=== PATIENT | female | born 1970 | race Caucasian/White ===

== ENCOUNTER → 2018-06-16 13:53 | Outpatient (CLI) | payer OTHER, SELFPAY ==
[2018-06-16 16:11] LABS: Free T3 2.5 pg/mL (2.18-3.98); T4 Free Direct 0.95 ng/dL (0.76-1.46); Thyroid Stim Hormone (TSH) 0.79 uIU/mL (0.358-3.74)
== END ==
PROVIDERS: Family Provider Family Medicine; PCP Family Medicine; Visit Provider Family Medicine
DX: E07.9 Disorder of thyroid, unspecified (principal)
CPT/HCPCS: 36415; 84439; 84443; 84481

== ENCOUNTER → 2018-08-02 09:14 | Outpatient (CLI) | payer OTHER, SELFPAY ==
[2018-08-02 10:35] LABS: Absolute Lymphocyte Count 1.55 X10^3/ul (0.83-4.51); Absolute Neutrophil Count 4.9 X10^3/uL (2.0-7.7); Basophil# 0.03 X10^3/uL; Basophil% 0.4 % (0-1); Eosinophil# 0.14 X10^3/uL; Hematocrit 39.4 % (37-47); Lymphocyte # 1.55 X10^3/ul (4.0); Lymphocyte % 21.9 % (19-41); Mean Corpuscular Hgb 27.8 pg (27.0-32.0); Mean Corpuscular Volume 84.4 fL (81-99); Mean Platelet Vol. 9.2 fl (6.2-12.0); Monocyte# 0.47 X10^3/uL; Monocyte% 6.6 % (0-10); Neutrophil # 4.87 X10^3/uL (2.7-7.7); Neutrophil % 68.8 % (47-70); Platelet Count 210 K/mm3 (150-450); RBC Distribution Width CV 13.6 % (11.6-14.6); RBC Distribution Width SD 41.2 fl (35.1-43.9); Red Blood Count 4.67 M/mm3 (4.2-5.4); White Blood Count 7.1 K/mm3 (4.4-11.0)
[2018-08-02 10:37] LABS: POSITIVE COUNT NO; POSITIVE DIFFERENTIAL NO; POSITIVE MORPHOLOGY NO
[2018-08-02 11:12] LABS: Estradiol 11.6 pg/mL
== END ==
PROVIDERS: Family Provider Family Medicine; PCP Family Medicine; Referring Provider Obstetrics & Gynecology; Visit Provider Obstetrics & Gynecology
DX: R10.2 Pelvic and perineal pain (principal)
CPT/HCPCS: 36415; 82670; 83001; 85025; 87086; 87088

== ENCOUNTER → 2018-08-06 07:56 | Outpatient (CLI) | payer OTHER, SELFPAY ==
--- NOTE | 2018-08-06 07:58 | US_ITS ---
STUDY: ULTRASOUND TRANSVAGINAL CLINICAL: Female, 48 years old. Pelvic pain. TECHNIQUE: Transabdominal and Transvaginal COMPARISON: None. FINDINGS: Normal uterine size measuring 7.7 x 4.7 x 3.8 cm in maximal craniocaudal dimension. There are multiple fibroids measuring from 0.8 to 1.7 cm Normal endometrial thickness measuring 7 mm. Endometrial echoes are hyperechoic. There are no endometrial masses, and there is no fluid in the endometrial cavity. Normal uterine cervix. Normal right ovary, measuring 2.3 x 2.7 x 1.6 cm. There are multiple follicles without a dominant cyst. Normal left ovary, measuring 2.7 x 1.8 x 1.3 cm. There are multiple follicles without a dominant cyst. There is mild free fluid in the pelvis. Polycystic ovary disease: No. Normal bladder contour. US/Transvaginal Non- IMPRESSION: Multiple fibroids as much as 1.7 cm. Electronically Signed: Erick Briones MD at 15:51 EDT , Service support ,
--- NOTE | 2018-08-06 07:58 | US_ITS ---
STUDY: ULTRASOUND TRANSVAGINAL CLINICAL: Female, 48 years old. Pelvic pain. TECHNIQUE: Transabdominal and Transvaginal COMPARISON: None. FINDINGS: Normal uterine size measuring 7.7 x 4.7 x 3.8 cm in maximal craniocaudal dimension. There are multiple fibroids measuring from 0.8 to 1.7 cm Normal endometrial thickness measuring 7 mm. Endometrial echoes are hyperechoic. There are no endometrial masses, and there is no fluid in the endometrial cavity. Normal uterine cervix. Normal right ovary, measuring 2.3 x 2.7 x 1.6 cm. There are multiple follicles without a dominant cyst. Normal left ovary, measuring 2.7 x 1.8 x 1.3 cm. There are multiple follicles without a dominant cyst. There is mild free fluid in the pelvis. Polycystic ovary disease: No. Normal bladder contour. US/Pelvic (Non ) IMPRESSION: Multiple fibroids as much as 1.7 cm. Electronically Signed: Erick Briones MD at 15:51 EDT , Service support ,
== END ==
PROVIDERS: Family Provider Family Medicine; PCP Family Medicine; Referring Provider Obstetrics & Gynecology; Visit Provider Obstetrics & Gynecology
DX: R10.2 Pelvic and perineal pain (principal)
CPT/HCPCS: 76830; 76856; 93976

== ENCOUNTER 2019-01-12 11:30 | Outpatient (RCR) | payer SELFPAY ==
--- NOTE | 2019-05-16 08:21 | HP.PT.NRP ---
HP - Discharge Summary (1) - Patient Information NURY PATIÑO was seen in my office for initial evaluation on . The following Plan of Care was established for this patient: This patient was last seen in our office . 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 At this point I will be discontinuing this patient from physical therapy. I would be happy to see this patient again in the future if found appropriate by the physician. Thank you! Dorothy Ventura, EFRAÍNT
== END 2019-01-12 19:00 | disposition home or self-care (01) ==
LOC: PT 11:30
PROVIDERS: Family Provider Family Medicine; PCP Family Medicine
DX: R69 Illness, unspecified (principal)

== ENCOUNTER → 2019-02-16 10:17 | Outpatient (CLI) | payer OTHER, SELFPAY ==
[2018-08-30 15:55] VITALS: BMI 21.6
[2019-02-16 12:45] LABS: Absolute Neutrophil Count 3.4 X10^3/uL (2.0-7.7); Basophil# 0.02 X10^3/uL; Basophil% 0.4 % (0-1); Eosinophil# 0.07 X10^3/uL; Eosinophils% 1.3 % (0-5); Hematocrit 38.7 % (37-47); Hemoglobin 13.1 g/dl (12.0-15.0); Lymphocyte % 29.4 % (19-41); Mean Corp Hgb Conc 33.9 g/gl (32-36); Mean Corpuscular Hgb 28.2 pg (27.0-32.0); Mean Corpuscular Volume 83.2 fL (81-99); Mean Platelet Vol. 9.2 fl (6.2-12.0); Monocyte# 0.33 X10^3/uL; Monocyte% 6.1 % (0-10); Neutrophil # 3.42 X10^3/uL (2.7-7.7); Neutrophil % 62.6 % (47-70); Platelet Count 236 K/mm3 (150-450); RBC Distribution Width CV 13.8 % (11.6-14.6); RBC Distribution Width SD 41.6 fl (35.1-43.9); Red Blood Count 4.65 M/mm3 (4.2-5.4); White Blood Count 5.5 K/mm3 (4.4-11.0)
[2019-02-16 12:46] LABS: POSITIVE COUNT NO; POSITIVE DIFFERENTIAL NO; POSITIVE MORPHOLOGY NO
[2019-02-16 13:03] LABS: Vitamin B12 575 pg/mL (211-911); Vitamin D,25 Hydroxy 21.9 ng/mL (29.95-100.01)
[2019-02-16 13:25] LABS: Erythrocyte Sedimentation Rate 4 mm/hr (0-30)
[2019-02-16 13:36] LABS: ALB/GLOB Ratio 1.3 RATIO (0.9-2.4); AST(SGOT) 19 U/L (15-37); Alanine Aminotransfer ALT/SGPT 17 U/L (13-56); Albumin, Serum 4.2 g/dL (3.2-5.0); Alkaline Phosphatase 44 U/L (45-117); Anion Gap 7 (5-15); BUN 7 mg/dL (7-18); BUN/Creat Ratio 10.3 RATIO (10-20); CRP < 2.90 mg/L (0.0-3.0); Calcium,Total 9.1 mg/dL (8.5-10.1); Chloride 106 mmol/L (98-107); Creatinine, Serum 0.68 mg/dL (0.55-1.02); EST Glomerular Filtration Rate 97 mL/min (>60); Est Glom Filt Rate - Afr Amer 118 mL/min (>60); Globulin 3.2 g/dL (2.2-4.2); Glucose 93 mg/dL (74-106); Potassium 4.1 mmol/L (3.5-5.1); Protein, Total 7.4 g/dL (6.4-8.2); Sodium Level 141 mmol/L (136-145)
== END ==
PROVIDERS: Family Provider Family Medicine; PCP Family Medicine; Referring Provider Family Medicine; Visit Provider Family Medicine
DX: M25.50 Pain in unspecified joint (principal)
CPT/HCPCS: 36415; 80053; 82306; 82607; 84443; 85025; 85652; 86140

== ENCOUNTER 2019-10-31 09:30 | Outpatient (RCR) | payer OTHER, SELFPAY ==
--- NOTE | 2019-08-24 11:58 | HP.PTEVAL_ITS ---
Patient's Visit Information NURY PATIÑO is a 49 year old F referred to Physical Therapy by ANN SOARES with a diagnosis of R shoulder capsular release. Date of Evaluation: 08/24/19 Physical Therapist: Cesar Guerrero, PT, ATC - Visit Plan Frequency: 2-3x /Week Duration: 6 Weeks Plan: R shoulder stretching, overhead pulleys, wand ex's, PROM/mobs, and HEP. 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 Pt reports she had surgery 08/23/19 for a capsular release. Pt reports she is feeling better since having the surgery performed. Pt reports she has been p erforming HEP consisting of wand ex's and pendulums. 3/10 pain at rest, 5/10 pain at worst. Pt reports no more tingling or numbness at this time in R UE. Sleep difficulty without pain meds. Pt is R hand dominant. Pt reports difficulty with all overhead lifting at this time. - Pain R shoulder Pain Intensity (Out of 10): 3 Pain Intensity Range: 5 - Objective Neuro: B UE sensation is WNL to light touch. B bicepital reflex= 2/3. Observation: Wounds are still covered with dressings. No obvious signs of infection. ROM: L shoulder flex= 155, abd= 160, ER= 70, IR WNL; R shoulder flex= 75, abd= 55, ER= moderately limited at this time. MMT: R shoulder 3/5 and painful. L shoulder 5/5 throughout - Goals Goal 1:: Decrease R shoulder pain x 50% to aid with sleep Goal Time Frame: 4-6 Weeks Goal 2:: Increase R shoulder ROM flex and abd x 20 degrees to aid with overhead lifing Goal Time Frame: 4-6 Weeks Goal 3:: I with HEP Goal Time Frame: 4-6 Weeks - Rehabilitation Potential Physical Therapy Diagnosis: R shoulder pain, weakness, and limited ROM secondary to R shoulder capsular release Rehabilitation Potential: Good - Anticipated Interventions Patient/Client Instruction: Educate patient on: Condition, Plan of Care For the Purpose of:: To improve self management Therapeutic Exercise to Include: Strength training, Flexibilty training, Passive ROM, Active ROM For the Purpose of:: To decrease pain, To increase ROM, To improve muscle performance and motor function Cryotherapy (ice pack, ice massage): Yes For the Purpose of:: To decrease pain Thank you for the opportunity to evaluate your patient. For Medicare and Medicare HMO plans, please review the plan of care and approve it. It will need to be FAXED BACK to us at [phone] for Medicare purposes. For Medicare only, by signing this I certify the plan of care. Please let me know if there are questions or concerns regarding this plan of care. Physician Signature: Date:
--- NOTE | 2019-10-31 09:54 | HP.PTDCSUM ---
HP - PT D/C Summary It has been my pleasure to treat NURY PATIÑO under orders from ANN SOARES, for the diagnosis of R shoulder capsular release for a total of 25 visit(s). Discharge Date: Please see the following information for a summary of their discharge status. - Subjective Subjective: I really feel good. - Pain R shoulder Pain Intensity (Out of 10): 2 Mid-back Pain Intensity (Out of 10): 0 - Overall Improvement % Improvement: 85 - Objective Objective/Function: R shoulder pain 2/10 at endrange. R shoulder ROM: flex= 160, abd= 165, ER= 60, IR minimally limited. R shoulder MMT: 5/5 throughout. Pt is I with HEP. Rx goals achieved - Goals Goal 1:: Decrease R shoulder pain x 50% to aid with sleep Goal 2:: Increase R shoulder ROM flex and abd x 20 degrees to aid with overhead lifing Goal 3:: I with HEP - Plan Plan: Discharge - D/C Information If there are questions or concerns regarding this patient's physical therapy, please feel free to call me at [phone]. Thank you for the referral of this patient. Sincerely, Cesar Guerrero, PT, ATC
== END 2019-10-31 19:00 | disposition home or self-care (01) ==
LOC: PT 09:30
PROVIDERS: Family Provider Family Medicine; PCP Family Medicine
DX: M75.01 Adhesive capsulitis of right shoulder (principal)
CPT/HCPCS: 97110; 97161; 97530

== ENCOUNTER → 2020-01-18 07:31 | Outpatient (CLI) | payer OTHER, SELFPAY ==
--- NOTE | 2020-01-18 07:36 | RAD_ITS ---
STUDY: X-RAY CHEST REASON FOR EXAM: Female, 49 years old. FLU LIKE SYMPTOMS TECHNIQUE: PA and lateral views of the chest. COMPARISON: None. FINDINGS: Hyperinflation. Mild increased markings in the posterior medial segment of the right lower lobe. Follow-up is recommended. There is no demonstrated pleural abnormality. Normal size heart. Normal mediastinum and roxane. Normal visualized pulmonary arteries. Normal visualized aortic arch and descending thoracic aorta. Normal visualized thoracic spine. Normal visualized ribs, clavicles, and shoulders. There is no demonstrated abnormality of the visualized soft tissue structures of the upper abdomen. RAD/Chest PA and Lateral IMPRESSION: Hyperinflation. Findings suggestive of early infiltrate in the posterior medial segment of the right lower lobe. Electronically Signed: Fazla Waldrop, at 14:12 EDT , Service support ,
== END ==
PROVIDERS: PCP Family Medicine; Referring Provider Family Medicine; Visit Provider Family Medicine
DX: R68.89 Other general symptoms and signs (principal)
CPT/HCPCS: 71046

== ENCOUNTER → 2021-02-05 15:07 | Outpatient (CLI) | payer OTHER, SELFPAY ==
[2018-08-30 15:55] VITALS: BMI 21.6
[2021-02-05 15:42] LABS: D-Dimer Quantitative (DVT/PE) <= 0.27 FEU/ug/m (0.27-0.49)
== END ==
PROVIDERS: PCP Internal Medicine; Referring Provider Nurse Practitioner Primary Care; Visit Provider Nurse Practitioner Primary Care
DX: R00.0 Tachycardia, unspecified (principal); R06.02 Shortness of breath
CPT/HCPCS: 85379

== ENCOUNTER → 2021-04-23 20:00 | Outpatient (CLI) | payer OTHER, SELFPAY | PROVIDERS: PCP Internal Medicine | DX: R06.83 Snoring (principal); G47.8 Other sleep disorders; G47.19 Other hypersomnia | CPT/HCPCS: 95810 ==

== ENCOUNTER → 2021-06-14 06:07 | Outpatient (CLI) | payer OTHER, SELFPAY ==
[2018-08-30 15:55] VITALS: BMI 21.6
[2021-06-14 08:25] LABS: Anion Gap 6 (5-15); BUN 11 mg/dL (7-18); BUN/Creat Ratio 13.5 RATIO (10-20); Calcium,Total 9.4 mg/dL (8.5-10.1); Chloride 109 mmol/L (98-107); Cholesterol 202 mg/dL (200); Creatinine, Serum 0.82 mg/dL (0.55-1.02); EST Glomerular Filtration Rate 78 mL/min (>60); Est Glom Filt Rate - Afr Amer 95 mL/min (>60); Glucose 87 mg/dL (74-106); High Density Lipoprotein 83 mg/dL; Sodium Level 141 mmol/L (136-145); Thyroid Stim Hormone (TSH) 1.01 uIU/mL (0.358-3.74); Triglycerides 64 mg/dL; Very Low Density Lipoprotein 13 mg/dL (5-40)
[2021-06-14 08:36] LABS: Vitamin D,25 Hydroxy 30.7 ng/mL
== END ==
PROVIDERS: PCP Family Medicine; Referring Provider Family Medicine; Visit Provider Family Medicine
DX: E07.9 Disorder of thyroid, unspecified (principal); E55.9 Vitamin D deficiency, unspecified; Z13.1 Encounter for screening for diabetes mellitus; Z13.220 Encounter for screening for lipoid disorders
CPT/HCPCS: 36415; 80048; 80061; 82306; 84443

== ENCOUNTER 2021-08-15 13:24 | Emergency (ER) | payer OTHER, SELFPAY ==
[2021-08-15 13:25] VITALS: BP 131/92; PULSE 68; RESP 16; TEMP 36.8; O2SAT 100; BMI 20.9
--- NOTE | 2021-08-15 13:55 | CT_ITS ---
STUDY: CT BRAIN WITHOUT CONTRAST REASON FOR EXAM: Female, 51 years old. Headache RADIATION DOSAGE (If Supplied By Facility): CTDIvol = ( 44.99 ) mGy, DLP = ( 745.49 ) mGycm TECHNIQUE: Transaxial CT imaging of the brain was performed without administration of intravenous contrast material. Individualized dose optimization techniques were used for this CT. COMPARISON: No relevant priors. FINDINGS: Normal soft tissue structures. Normal calvarium. Normal size ventricles and extra-axial spaces for the patient''s age. Normal white matter tracts of the cerebral hemispheres. Normal basal ganglia and thalami. Normal brainstem. Normal cerebellum. There is no intracranial hemorrhage. There are no findings of an acute ischemic infarction. There is a 1.6 cm x 1.5 cm mucosal polyp or retention cyst along the posterior aspect of the right maxillary sinus. CT/Brain/Head without Contrast IMPRESSION: 1.6 cm x 1.5 cm mucosal polyp or retention cyst along the posterior aspect of the right maxillary sinus. Electronically Signed: Fazal Waldrop MD at 14:44 EDT , Service support ,
--- NOTE | 2021-08-15 13:57 | EX.ED.VIS.HA ---
HPI History of Present Illness Chief Complaint: Headache Informant: patient Onset/Context/Timing Onset: Days Context: Gradual Timing: Continuous Current Severity: Moderate Maximum Severity: Moderate Associated Symptoms/Injury Associated Symptoms: Positive for Nausea and Photophobia; Negative for Fever, Vomiting, Sore Throat, Sinus Pressure, Numbness, Tingling, Preceding Aura, Visual Changes, Blurred Vision and Visual Loss Injury - PEDERSON: Negative for Direct Trauma, Fall and Assault Narrative Narrative: 51-year-old female history of migraine headaches. States she had onset of migraine headache on Thursday. Progressively worsened. She took her rescue medications including Maxalt which improved her symptoms then the headache returns. She said normally her headaches do not last this long nor this severe. She denies any fever or neck pain. She has had no head trauma. She is on no blood thinners. There is no family history of intracranial bleeds or aneurysms. She states she is never been imaged. Prior similar symptoms: Yes Recent Illness/Hospitalization: No PFSH PFSH Home Medications fluticasone 100 mcg-salmeterol 50 mcg/dose blistr powdr for inhalation 1 puff INHALATION Q12H 08/02/18 [History Last Taken Unknown] azelastine INTRANASAL 08/15/21 [History Last Taken Unknown] clonazepam 1 mg PO DAILY 08/15/21 [History Last Taken Unknown] dexamethasone 4 mg PO DAILY 08/15/21 [History Last Taken Unknown] escitalopram oxalate mg 08/15/21 [History Last Taken Unknown] fluticasone propion-salmeterol [Advair Diskus] INHALATION 08/15/21 [History Last Taken Unknown] metoprolol succinate 12.5 mg PO DAILY 08/15/21 [History Last Taken Unknown] rizatriptan 10 mg PO DAILY 08/15/21 [History Last Taken Unknown] topiramate 100 mg PO DAILY 08/15/21 [History Last Taken Unknown] ubrogepant [Ubrelvy] mg 08/15/21 [History Last Taken Unknown] Allergy/AdvReac Type Severity Reaction Status Date / Time codeine AdvReac Unknown not known Uncoded 08/15/21 14:02 Family History Mother Sudden cardiac Father Myocardial infarction Social History number of children: 2 current occupational status: employed 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 Photo and sonophobia. Review of Systems ROS Unobtainable: Denies due to encephalopathy Constitutional Constitutional ED: Denies chills or fever(s) Eyes Eyes: Denies change in vision ENT ENT ED: Denies ear pain or sore throat Cardiovascular Cardiovascular: Denies chest pain Respiratory/Chest Respiratory/Chest: Denies dyspnea Gastrointestinal Gastrointestinal: Reports nausea; Denies abdominal pain or vomiting Genitourinary Genitourinary ED: Denies dysuria Musculoskeletal Musculoskeletal: Denies myalgias Integumentary Denies rash Neurologic Neurologic: Reports headache(s) Psychiatric Psychiatric: Denies depression Endocrine Endocrinology: Denies polyuria Hematologic/Lymphatic Hematologic/Lymphatic: Denies easy bruising Allergic/Immunologic Allergic/Immunologic ED: Denies urticaria EXAM Physical Exam Narrative Exam Narrative: 51-year-old female no acute distress. Vital signs stable afebrile. Initial blood pressure 131/92. She does not look septic toxic she is in no distress. HEENT exam normal. No signs of trauma. Pupils round reactive light. Normal speech. No facial droop. Neck nontender neck. No lymphadenopathy. Full range of motion. No meningismus. Lungs clear to auscultation. Heart regular rhythm. Abdomen soft nontender. Moving all 4 extremities. Neurovascularly intact. 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 Normal dorsi plantar flexion. Neurologic exam normal. NIH is 0. Fingertip to nose and [id number] within normal limits. Const Vital Signs: 08/15/21 13:25 08/15/21 15:26 Temperature 98.3 F Temperature Source Temporal Pulse Rate 68 71 Respiratory Rate 16 Blood Pressure 131/92 H 111/70 Blood Pressure Mean 105 83 Pulse Ox 100 Oxygen Delivery Method Room Air Positive well nourished and well developed; Negative for obese, cachectic, contractures or unkempt General Appearance ED: well developed and NAD; Negative for unkempt, cachectic, contractures, cyanotic or diaphoretic Nutritional Appearance: Negative for cachectic or obese HEENT Reports normocephalic and moist mucous membranes atraumatic; Negative for trauma or tenderness Eyes PERRL and EOMs intact bilaterally Neck no lymphadenopathy, supple, no meningeal signs and no JVD General: Negative for tenderness Resp normal respiratory effort and clear to auscultation bilaterally Auscultation: Negative for rales, rhonchi or wheezes Cardio regular rate, regular rhythm, S1 normal heart sound, S2 normal heart sound and no murmurs GI non-tender and non-distended Auscultation: normoactive bowel sounds Palpation: soft; Negative for firm, tender, guarding or rigid Back/Spine no CVA tenderness Extremity normal to inspection and full ROM; Negative for normal capillary refill General Extremety ED: Negative for edema or tenderness General Extremity: Negative for edema Neuro oriented x3, CN's II-XII intact bilaterally and no sensory deficits noted Sensorium / Orientation: awake, alert, oriented to person, oriented to place and oriented to time; Negative for orientation impaired, lethargic or stuporous Coordination / Balance: [id number] test normal and [id number] test normal Motor Exam: strength 5/5 throughout Psych mental status grossly normal Appearance: Negative for unkempt Mood & Affect: Negative for depressed or tearful Skin Lesions: no lesions Rashes: no rashes MDM MDM MDM Narrative Medical decision making narrative: 31-year-old female history of migraines. Never been imaged. She said this is typical for migraine but much worse. She can get it to resolve. Her neurologic exam and regular exam is normal. I will obtain a CT of her brain and treated with IV fluids, Toradol, Benadryl and Compazine. She will be reassessed. Repeat exam patient doing well at 3:27 PM. Headache is completely resolved. Neurologic exam is normal. CAT scan was negative. She is comfortable being discharged home. Radiography Diagnostic Testing: Clinical Impression(s) from Imaging Studies Brain CT 08/15/21 13:55 IMPRESSION: 1.6 cm x 1.5 cm mucosal polyp or retention cyst along the posterior aspect of the right maxillary sinus. Electronically Signed: Fazal Waldrop MD at 14:44 EDT , Service support , I did review the CAT scan it was read by the radiologist. Discharge Plan Triage Chief Complaint: Headache ED Provider: Rahul Denney Dx/Rx/DC Orders Clinical Impression: Migraine Instructions: ED, Migraine (Classical) Prescriptions: No Action Advair Diskus 100-50 mcg/dose blister with device 1 puff INHALATION Q12H RF: 0 rizatriptan 10 mg tablet 10 mg PO DAILY RF: 0 clonazepam 1 mg tablet 1 mg PO DAILY RF: 0 dexamethasone 4 mg tablet 4 mg PO DAILY RF: 0 metoprolol succinate 25 mg tablet extended release 24 hr 12.5 mg PO DAILY RF: 0 fluticasone propion-salmeterol [Advair Diskus] 100-50 mcg/dose blister with device INHALATION RF: 0 topiramate 100 mg tablet 100 mg PO DAILY RF: 0 escitalopram oxalate 20 mg tablet RF: 0 azelastine 205.5 mcg (0.15 %) spray,non-aerosol INTRANASAL RF: 0 Ubrelvy 100 mg tablet RF: 0 Primary Care Provider: Shawn Mckeon Referrals: Shawn Mckeon MD [Primary Care Provider] - 3-5 Days if not improving Activity Restrictions/Additional Instructions: Follow-up with your neurologist and/or your primary care physician if symptoms do not continue to improve. Return if feeling worse or unable to keep medications down. Discussed with your neurologist the potential to also get a prescription for Imitrex. Disposition Disposition: Home, Self Care
[2021-08-15] MEDS: 0.9% Normal Saline 1,000 ML 999 ML IV (14:13)
[2021-08-15] MEDS: Ketorolac 30 MG/ML Syringe IV (14:15)
[2021-08-15] MEDS: DiphenhydrAMINE 50 MG/ML Syringe 25 MG IV (14:16)
[2021-08-15] MEDS: proCHLORPERazine 10 MG/2 ML Vial IV (14:17)
[2021-08-15 15:26] VITALS: BP 111/70; PULSE 71
[2021-08-15 15:44] VITALS: BP 113/68; PULSE 62
== END 2021-08-15 15:49 | disposition home or self-care (01) ==
PROVIDERS: Emergency Provider Emergency Medicine; PCP Family Medicine
DX: G43.909 Migraine, unspecified, not intractable, without status migrainosus (principal); Z79.899 Other long term (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; Z79.51 Long term (current) use of inhaled steroids
CPT/HCPCS: 70450; 96374; 96375; 99283; J7030; A4216

== ENCOUNTER 2021-11-05 16:45 | Outpatient (CLI) | payer OTHER, SELFPAY ==
[2021-11-05] MEDS: 0.9% Saline Lock 10 ML Syringe IV (16:55)
[2021-11-05 17:01] VITALS: BP 135/86; PULSE 86; RESP 16; TEMP 36.7; O2SAT 100; BMI 21.3
[2021-11-05 17:41] VITALS: BP 113/67; PULSE 74; RESP 16; TEMP 37.1; O2SAT 99
[2021-11-05 18:39] VITALS: BP 132/83; PULSE 68; RESP 16; TEMP 37.1; O2SAT 100
== END 2021-11-05 23:59 | disposition home or self-care (01) ==
LOC: MS3OUT 16:46 → MS3 16:47
PROVIDERS: PCP Family Medicine; Referring Provider Nurse Practitioner Adult Health; Visit Provider Nurse Practitioner Adult Health
DX: Z23 Encounter for immunization (principal); U07.1 COVID-19; J45.909 Unspecified asthma, uncomplicated
CPT/HCPCS: J7050; M0243; A4216; Q0240

== ENCOUNTER 2021-12-27 10:21 | Emergency (ER) | payer OTHER, SELFPAY ==
[2021-12-27 10:22] VITALS: BP 102/70; PULSE 65; RESP 16; TEMP 36.5; O2SAT 100; BMI 22.7
--- NOTE | 2021-12-27 10:37 | RAD_ITS ---
STUDY: X-RAY - RIGHT SHOULDER REASON FOR EXAM: Female, 51 years old. TRAUMA-FALL AND PAIN TECHNIQUE: 2 view(s) of the shoulder. COMPARISON: None. FINDINGS: There is an acute, comminuted, impacted surgical neck fracture of the humerus. There is anatomic alignment of the humeral head with the glenoid. The joint space cannot be evaluated on this limited study. There is arthritic narrowing of the acromioclavicular joint, but no demonstrated clavicle or scapular fracture. No upper rib fracture or pneumothorax RAD/Shoulder min 2 Views IMPRESSION: Acute, comminuted, impacted surgical neck fracture of the humerus with soft tissue swelling. Orthopedic surgery consultation recommended There is anatomic alignment of the humeral head relative to the glenoid. No dislocation or subluxation noted Arthritic narrowing of the acromioclavicular joint No other demonstrated fracture Electronically Signed: Cong Holland MD at 11:51 EST ,
--- NOTE | 2021-12-27 10:38 | RAD_ITS ---
STUDY: X-RAY - RIGHT HUMERUS REASON FOR EXAM: Female, 51 years old. Acute pain after fall TECHNIQUE: 3 view(s) of the humerus. COMPARISON: None. FINDINGS: There is an acute, comminuted, slightly impacted surgical neck fracture of the humerus with diffuse soft tissue swelling. No demonstrated fracture of the mid or distal humerus. There is anatomic alignment of the glenohumeral joint RAD/Humerus min 2 Views IMPRESSION: Acute, comminuted, multi fragmented, impacted surgical neck fracture of the humerus with soft tissue swelling Electronically Signed: Cong Holland MD at 11:52 EST ,
[2021-12-27 11:57] VITALS: BP 116/53; PULSE 73; RESP 16; O2SAT 100
[2021-12-27] MEDS: Morphine 4 MG/ML Syringe IV (12:40)
--- NOTE | 2021-12-27 13:09 | EX.ED.UPPERE ---
HPI History of Present Illness HPI Narrative: Patient presents with injury to her right arm that began after a fall today. Patient slipped on the ice and fell onto her right side. Patient states her pain is sharp. Patient states the pain is over the right arm. Patient states her pain is worse with movement. Patient denies any paresthesias or weakness. Patient denies any head injury or loss of consciousness. Patient denies any other injuries. Chief Complaint: Upper Extremity Injury Informant: patient Occured/Mechanism Mechanism/Context: Yes fall Onset/Context/Timing Onset: Today Context: Sudden Onset Timing: Continuous Quality of Pain: Sharp Location: Right upper arm Worsened by: Movement Relieved by: Nothing Associated Symptoms Associated Symptoms: Negative for Parasthesia, Weakness and Loss of Funtion PFSH [facility] Medical History Asthma COVID-19 Pneumonia Home Medications azelastine 2 spray INTRANASAL DAILY 08/15/21 [History Last Taken Unknown] clonazepam 1 mg PO DAILY 08/15/21 [History Last Taken Unknown] escitalopram oxalate 20 mg PO DAILY 08/15/21 [History Last Taken Unknown] metoprolol succinate 12.5 mg PO DAILY 08/15/21 [History Last Taken Unknown] rizatriptan 10 mg PO DAILY PRN 08/15/21 [History Last Taken Unknown] topiramate 100 mg PO BID 08/15/21 [History Last Taken Unknown] ubrogepant [Ubrelvy] 100 mg PO DAILY PRN 08/15/21 [History Last Taken Unknown] albuterol sulfate 1 - 2 puff INHALATION Q4H PRN 11/05/21 [History Last Taken Unknown] desloratadine 5 mg PO DAILY 11/05/21 [History Last Taken Unknown] fluticasone propion-salmeterol [Advair Diskus] 1 ea INHALATION DAILY 11/05/21 [History Last Taken Unknown] amitriptyline 10 mg PO QHS 12/27/21 [History Last Taken Unknown] hydrocodone-acetaminophen 1 tab PO Q6H PRN PRN 3 Days #10 tablet 12/27/21 [Rx Last Taken Unknown] Allergy/AdvReac Type Severity Reaction Status Date / Time codeine Allergy Rash Verified 12/27/21 10:29 Family History Mother Sudden cardiac Father Myocardial infarction Surgical History History of removal of cyst History of shoulder surgery Social History number of children: 2 current occupational status: employed current occupation: [employer] Smoking Status: Never smoker alcohol intake: never substance use type: does not use seatbelt use: always do you feel safe at home: Yes additional social history: recently ROS ROS ED Constitutional Constitutional ED: Denies chills or fever(s) Eyes Eyes: Denies blurry vision or change in vision ENT ENT ED: Denies rhinorrhea or sore throat Cardiovascular Cardiovascular: Denies chest pain or palpitations Respiratory/Chest Respiratory/Chest: Denies cough or dyspnea Gastrointestinal Gastrointestinal: Denies nausea or vomiting Genitourinary Genitourinary ED: Denies dysuria or hematuria Musculoskeletal Musculoskeletal: Denies back pain or neck pain Integumentary Denies abscess or rash Neurologic Neurologic: Denies headache(s) or weakness Allergic/Immunologic Allergic/Immunologic ED: Denies mouth swelling or urticaria EXAM Physical Exam Const Vital Signs: 12/27/21 10:22 12/27/21 11:57 Temperature 97.7 F L Temperature Source Oral Pulse Rate 65 73 Respiratory Rate 16 16 Blood Pressure 102/70 116/53 L Blood Pressure Mean 80 74 Pulse Ox 100 100 Oxygen Delivery Method Room Air Room Air Positive well nourished and well developed General Appearance ED: well developed and NAD HEENT normocephalic and atraumatic Neck full ROM and supple Extremity Extremity Narrative: There is tenderness over the right humerus. There is no edema or ecchymosis. There is no deformity noted. Range of motion was limited in all motions of the right shoulder and right elbow secondary to pain. Radial pulses are equal bilaterally. Capillary refill is less than 2 seconds in all digits. Strength is 5/5 in the radial, median, and ulnar areas. Sensation was intact to light touch in the radial, median, and ulnar areas. Neuro oriented x3, CN's II-XII intact bilaterally, moves all extremities, no focal motor deficits and no sensory deficits noted Sensorium / Orientation: alert Psych mental status grossly normal MDM MDM MDM Narrative Medical decision making narrative: X-rays of the right humerus were obtained. There are 3 views. On my interpretation, there is a comminuted fracture of the proximal humerus. There is minimal displacement. There is no dislocation or subluxation noted. This was also interpreted by the radiologist who agrees. X-rays of the right shoulder were obtained. There are 2 views. On my interpretation, there is a comminuted fracture of the right proximal humerus. There is minimal displacement. There is no dislocation. There is some mild soft tissue swelling. Radiologist also interpreted the x-rays and agrees. Patient was given a dose of morphine here. Patient was placed in a sling and swath. Patient was given a prescription for [place]. Patient states she has an orthopedic surgeon at [facility] that she will follow up with. Patient was instructed return if worse in any way. Patient understood and was agreeable with the plan. All questions were answered. Lab Data Attestation: I reviewed the patient's lab results. Radiography Diagnostic Testing: Clinical Impression(s) from Imaging Studies Shoulder X-Ray 12/27/21 10:37 IMPRESSION: Acute, comminuted, impacted surgical neck fracture of the humerus with soft tissue swelling. Orthopedic surgery consultation recommended There is anatomic alignment of the humeral head relative to the glenoid. No dislocation or subluxation noted Arthritic narrowing of the acromioclavicular joint No other demonstrated fracture Electronically Signed: Cong Holland MD at 11:51 EST Reading Location ID and State: [facility] / OR , Service support , Humerus X-Ray 12/27/21 10:38 IMPRESSION: Acute, comminuted, multi fragmented, impacted surgical neck fracture of the humerus with soft tissue swelling Electronically Signed: Cong Holland MD at 11:52 EST , Discharge Plan Triage Chief Complaint: Upper Extremity Injury ED Provider: Kaushik Livingston Dx/Rx/DC Orders Clinical Impression: Closed fracture of proximal end of right humerus Instructions: ED Fracture, Upper Extremity Prescriptions: New hydrocodone-acetaminophen [hydrocodone-acetaminophen] 1 TABLET tablet 1 tab PO Q6H PRN PRN (Reason: Pain) 3 Days Qty: 10 RF: 0 No Action rizatriptan 10 mg tablet 10 mg PO DAILY PRN (Reason: Migraine Headache) RF: 0 clonazepam 1 mg tablet 1 mg PO DAILY RF: 0 metoprolol succinate 25 mg tablet extended release 24 hr 12.5 mg PO DAILY RF: 0 topiramate 100 mg tablet 100 mg PO BID RF: 0 escitalopram oxalate 20 mg tablet 20 mg PO DAILY RF: 0 azelastine 205.5 mcg (0.15 %) spray,non-aerosol 2 spray INTRANASAL DAILY RF: 0 Ubrelvy 100 mg tablet 100 mg PO DAILY PRN (Reason: migraine) RF: 0 desloratadine 5 mg tablet 5 mg PO DAILY RF: 0 fluticasone propion-salmeterol [Advair Diskus] 100-50 mcg/dose blister with device 1 ea INHALATION DAILY RF: 0 albuterol sulfate 90 mcg/actuation HFA aerosol inhaler 1 - 2 puff INHALATION Q4H PRN (Reason: shortness of breath) RF: 0 amitriptyline 10 mg tablet 10 mg PO QHS RF: 0 Stand Alone Forms: Work Status Form Primary Care Provider: Shawn Castillo Referrals: Shawn Castillo MD [Primary Care Provider] - 3-5 Days Disposition Disposition: Home, Self Care Discharge Date/Time: 12/27/21 14:13
[2021-12-27 13:34] VITALS: BP 113/67; PULSE 73; RESP 16; O2SAT 98
== END 2021-12-27 14:13 | disposition home or self-care (01) ==
PROVIDERS: Emergency Provider Emergency Medicine; PCP Family Medicine; Visit Provider Emergency Medicine
DX: S42.201A Unspecified fracture of upper end of right humerus, initial encounter for closed fracture (principal); J45.909 Unspecified asthma, uncomplicated; Z86.16 Personal history of COVID-19; W00.9XXA Unspecified fall due to ice and snow, initial encounter; Z79.899 Other long term (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
CPT/HCPCS: 73030; 73060; 96374; 99285

== ENCOUNTER 2022-04-07 16:00 | Outpatient (RCR) | payer OTHER, SELFPAY ==
--- NOTE | 2022-01-29 09:05 | HP.PTEVAL_ITS ---
Patient's Visit Information NURY PATIÑO is a 51 year old F referred to Physical Therapy by ANN SOARES with a diagnosis of R humeral Fx. Date of Evaluation: 01/29/22 Physical Therapist: Cesar Guerrero, PT, ATC - Visit Plan Frequency: 2-3x /Week Duration: 4-6 Weeks Plan: Begin with PROM x 2 weeks, then progress to AROM. Begin strengthening when pt can tolerate to include rot cuff strengthening, scap stab ex's, and UBE - Subjective DOI: 12/27/21. Pt reports she slipped on ice on that morning and landed on her R shoulder. Pt reports she went to the hospital and was referred to s surgeon who took x-rays and revealed she had a 2 part fracture of her R humerus. Pt reports she is feeling a little better now as far as pain is concerned, but she notes she feels really stiff. Pt notes she has been in a sling since the date of injur y. Pt notes she had recent x-rays which revealed the fracture is healing, so she should be able to avoid surgery at this time. Pt is R hand dominant. Pt reports occasional tingling in her 2nd and 3rd digits, but not very often. Pt reports sleep difficulty at this time secondary to pain. 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 R shoulder pain is 2/10 at rest currently, and increases to 4/10 at worst. - Pain R shoulder Pain Intensity (Out of 10): 2 Pain Intensity Range: 4 - Objective Neuro: B UE sensation is WNL to light touch. B bicepital reflex= 2/3. Palpation: Pt still has notable swelling in the R UE from mid humerus upwards. No obvious deformity at this time. ROM: L shoulder AROM: flex= 140, abd= 140, ER= 25, IR WNL: L shoulder PROM: flex= 80, abd= 70. MMT: R shoulder not tested today. L shoulder is grossly 4-/5 and increased L shoulder pain. - Balance/Special Test Scores Quick DASH Score: 77.2725 - Goals Goal 1:: Decrease R shoulder pain x 50% to aid with sleep Goal Time Frame: 4-6 Weeks Goal 2:: Increase R shoulder flex and abd ROM x 30 degrees to aid with overhead activity Goal Time Frame: 4-6 Weeks Goal 3:: Increase R shoulder strength x 2 grades to aid with IADL's Goal Time Frame: 4-6 Weeks Goal 4:: I with HEP Goal Time Frame: 4-6 Weeks - Rehabilitation Potential Physical Therapy Diagnosis: Pt has R shoulder pain, weakness, and limited ROM secondary to R humeral fracture Rehabilitation Potential: Good - Anticipated Interventions Patient/Client Instruction: Educate patient on: Condition, Plan of Care For the Purpose of:: To improve self management Therapeutic Exercise to Include: Strength training, Endurance training, Flexibilty training, Active ROM, Scapular Strength/Stabilization For the Purpose of:: To decrease pain, To increase ROM, To improve muscle performance and motor function Cryotherapy (ice pack, ice massage): Yes For the Purpose of:: To decrease pain Thank you for the opportunity to evaluate your patient. For Medicare and Medicare HMO plans, please review the plan of care and approve it. It will need to be FAXED BACK to us at [phone] for Medicare purposes. For Medicare only, by signing this I certify the plan of care. Please let me know if there are questions or concerns regarding this plan of care. Physician Signature: Date:_
--- NOTE | 2022-02-19 08:01 | HP.PTREVAL_ITS ---
ANN SOARES, It has been my pleasure to treat NURY PATIÑO over the last 7 visits for R humeral Fx 12/27/21. Please see the progress note below for an update on the physical therapy plan of care! Subjective: Pt reports R shoulder feels pretty good, but R wrist is still very sore. Objective/Function: R shoulder pain is 2/10. R shoulder ROM: flex= 80, abd= 55. R shoulder strength is grossly 2-/5 and painful with movement. Pt is showing significant signs of improvement with AROM and pain reduction. Pt still lacks functional ROM and strength at this time. Plan Plan: Continue to focus on A/PROM and gradually incorporate strengthening as tolerated Balance/Gait/Functional tests - Balance/Special Test Scores Quick DASH Score: 75.0000 Goals Goal 1:: Decrease R shoulder pain x 50% to aid with sleep Goal Time Frame: 4-6 Weeks Goal Progress: Progressing Goal 2:: Increase R shoulder flex and abd ROM x 30 degrees to aid with overhead activity Goal Time Frame: 4-6 Weeks Goal Progress: Progressing Goal 3:: Increase R shoulder strength x 2 grades to aid with IADL's Goal Time Frame: 4-6 Weeks Goal Progress: Progressing Goal 4:: I with HEP Goal Time Frame: 4-6 Weeks Goal Progress: Progressing Anticipated Interventions Patient/Client Instruction: Educate patient on: Condition, Plan of Care For the Purpose of:: To improve self management Therapeutic Exercise to Include: Strength training, Endurance training, Flexibilty training, Active ROM, Scapular Strength/Stabilization For the Purpose of:: To decrease pain, To increase ROM, To improve muscle performance and motor function Cryotherapy (ice pack, ice massage): Yes For the Purpose of:: To decrease pain Please do not hesitate to contact me at [phone] by phone or Fax: if you have questions or concerns regarding this new plan of care! Sincerely, Cesar Guerrero, PT, ATC
--- NOTE | 2022-04-07 16:30 | HP.PTDCSUM ---
It has been my pleasure to treat NURY PATIÑO referred by ANN SOARES, with the diagnosis of R humeral Fx 12/27/21 for a total of 19 visit(s). Discharge Date: Please see the following information for a summary of their discharge status. Subjective: I feel like I am ready to be done R shoulder Pain Intensity (Out of 10): 1 % Improvement: 75 Objective/Function: R shoulder pain ranges from 0-3/10. R shoulder ROM: flex= 145, abd= 110 degrees. R shoulder MMT: 4-/5 throughout. Pt is I with HEP. Rx goals achieved Goal 1:: Decrease R shoulder pain x 50% to aid with sleep Goal Progress: Goal Met Goal 2:: Increase R shoulder flex and abd ROM x 30 degrees to aid with overhead activity Goal Progress: Goal Met Goal 3:: Increase R shoulder strength x 2 grades to aid with IADL's Goal Progress: Goal Met Goal 4:: I with HEP Goal Progress: Goal Met Plan: Discharge to HEP If there are questions or concerns regarding this patient's physical therapy, please feel free to call me at [phone]. Thank you for the referral of this patient. Sincerely, Cesar Guerrero, PT, ATC Balance/Gait/Functional tests - Balance/Special Test Scores Quick DASH Score: 20.4578
== END 2022-04-07 19:00 | disposition home or self-care (01) ==
LOC: PT 16:00
PROVIDERS: PCP Family Medicine
DX: S42.221A 2-part displaced fracture of surgical neck of right humerus, initial encounter for closed fracture (principal); M75.01 Adhesive capsulitis of right shoulder; G89.18 Other acute postprocedural pain; M65.311 Trigger thumb, right thumb
CPT/HCPCS: 97110; 97140; 97161; 97164

== ENCOUNTER 2023-11-25 02:54 | Emergency (ER) | payer OTHER, SELFPAY ==
[2023-11-25 02:56] VITALS: BP 127/69; PULSE 119; RESP 25; TEMP 37.4; O2SAT 96; BMI 23.4
[2023-11-25 02:59] VITALS: BP 127/69; PULSE 120; PULSE 121; RESP 23; RESP 25; TEMP 37.4; O2SAT 96
--- NOTE | 2023-11-25 03:06 | EDS_ITS ---
HPI History of Present Illness Chief Complaint: Chest Pain Informant: patient Onset/Context/Timing Onset: Today Activity at onset: sudden Timing: Continuous Quality: Positive for Heaviness and Pressure Location: Substernal, Right Parasternal and Left Parasternal Worsened By: Nothing Relieved By: Nothing Associated Symptoms: Positive for Cough and Lightheadedness; Negative for Nausea, Vomiting, Diaphoresis, Dyspnea, Fever, Acid Reflux or Palpitations Narrative Narrative: Patient presents with chest pain that began this morning. Patient states the pain woke her up out of sleep. Patient describes her pain as heaviness and pressure. Patient states that the pain is worse on the right side of her chest. Patient states is also over the substernal area and left parasternal area. Patient states nothing makes it worse and nothing makes it better. Patient admits to some lightheadedness with walking. Patient states she felt like she might pass out. Patient also has a history of bronchiectasis and is susceptible to pneumonia. Patient is concerned that this could be from pneumonia. Patient does admit to a cough with some clear sputum. Patient denies any fevers or chills. [facility] Medical History (Updated 11/25/23 @ 06:[address] Kaushik Livingston, ) Asthma Bronchiectasis COVID-19 Hypertension Pneumonia Right elbow pain Right hand pain Right humeral fracture Right wrist pain Home Medications azelastine 205.5 mcg (0.15 %) nasal spray 2 spray intranasal DAILY 08/15/21 [History Last Taken Unknown] clonazepam 1 mg tablet 1 mg PO DAILY 08/15/21 [History Last Taken Unknown] escitalopram oxalate 20 mg tablet 20 mg PO DAILY 08/15/21 [History Last Taken Unknown] metoprolol succinate 25 mg tablet,extended release 24 hr 12.5 mg PO DAILY 08/15/21 [History Last Taken Unknown] rizatriptan 10 mg tablet 10 mg PO DAILY PRN Migraine Headache 08/15/21 [History Last Taken Unknown] topiramate 100 mg tablet 100 mg PO BID 08/15/21 [History Last Taken Unknown] ubrogepant 100 mg tablet (Ubrelvy) 100 mg PO DAILY PRN migraine 08/15/21 [History Last Taken Unknown] albuterol sulfate 90 mcg/actuation aerosol inhaler 1 - 2 puff inhalation Q4H PRN shortness of breath 11/05/21 [History Last Taken Unknown] desloratadine 5 mg tablet 5 mg PO DAILY 11/05/21 [History Last Taken Unknown] fluticasone 100 mcg-salmeterol 50 mcg/dose blistr powdr for inhalation (Advair Diskus) 1 ea inhalation DAILY 11/05/21 [History Last Taken Unknown] amitriptyline 10 mg tablet 10 mg PO QHS 12/27/21 [History Last Taken Unknown] Allergy/AdvReac Type Severity Reaction Status Date / Time codeine Allergy Rash Verified 12/27/21 10:29 Family History Mother Sudden cardiac Father Myocardial infarction Surgical History H/O thyroidectomy History of removal of cyst History of shoulder surgery Social History number of children: 2 current occupational status: employed current occupation: [employer] Smoking Status: Never smoker alcohol intake: never substance use type: does not use seatbelt use: always do you feel safe at home: Yes additional social history: recently ROS ROS ED Constitutional Constitutional ED: Denies chills or fever(s) Eyes Eyes: Denies blurry vision or change in vision ENT ENT ED: Reports sore throat; Denies rhinorrhea Cardiovascular Cardiovascular: Reports as per HPI and chest pain; Denies palpitations Respiratory/Chest Respiratory/Chest: Reports cough; Denies dyspnea Gastrointestinal Gastrointestinal: Denies nausea or vomiting Genitourinary Genitourinary ED: Denies dysuria or hematuria Musculoskeletal Musculoskeletal: Reports neck pain; Denies back pain Integumentary Denies abscess or rash Neurologic Neurologic: Reports headache(s); Denies weakness Allergic/Immunologic Allergic/Immunologic ED: Denies mouth swelling or urticaria EXAM Physical Exam Const Vital Signs: 11/25/23 02:56 11/25/23 02:59 11/25/23 02:59 Temperature 99.4 F H 99.4 F H 99.4 F H Temperature Source Oral Oral Oral Pulse Rate 119 H 121 H 120 H Respiratory Rate 25 H 23 H 25 H Respiratory Effort Blood Pressure 127/69 H 127/69 H 127/69 H Blood Pressure Mean 88 88 88 Pulse Ox 96 96 96 Oxygen Delivery Method Room Air Room Air Room Air 11/25/23 03:05 11/25/23 04:04 11/25/23 05:01 Temperature 98.9 F 99.5 F H Temperature Source Temporal Temporal Pulse Rate 90 108 H Respiratory Rate 25 H 19 H Respiratory Effort Normal Non-Labored Blood Pressure 108/71 112/62 Blood Pressure Mean 83 78 Pulse Ox 96 95 Oxygen Delivery Method Room Air Room Air 11/25/23 05:01 Temperature 99.5 F H Temperature Source Temporal Pulse Rate 109 H Respiratory Rate 17 Respiratory Effort Blood Pressure 112/62 Blood Pressure Mean 78 Pulse Ox 95 Oxygen Delivery Method Room Air Positive well nourished and well developed General Appearance ED: well developed and NAD HEENT Reports moist mucous membranes Neck supple and no JVD Chest Wall inspection of chest normal and palpation of chest normal Resp normal respiratory effort and clear to auscultation bilaterally Cardio regular rate and regular rhythm GI soft to palpation, non-tender and non-distended Extremity normal to inspection General Extremety ED: Negative for edema or tenderness General Extremity: Negative for edema Neuro oriented x3, CN's II-XII intact bilaterally and no sensory deficits noted Sensorium / Orientation: awake and alert Motor Exam: strength 5/5 throughout Psych mental status grossly normal Heart Score History: Slightly/Non-Suspicious ECG: Normal Age: >45 - <65 years Risk Factors: 1 or 2 Risk Factors Troponin: </= Normal Limit Score: 2 MDM MDM MDM Narrative Medical decision making narrative: Differential diagnosis includes cardiac dysrhythmia, cardiac ischemia, pulmonary embolism, pneumonia, viral infection, musculoskeletal pain, and anxiety. EKG will be obtained to assess for cardiac dysrhythmia and cardiac ischemia. Chest x-ray will be obtained to assess for pneumonia and pneumothorax. CBC will be obtained to assess for leukocytosis and anemia. Basic metabolic profile will be obtained to assess for electrolyte abnormality and renal function. High- sensitivity troponin will be obtained to assess for cardiac ischemia. 2-hour repeat high-sensitivity troponin will be obtained to assess for ongoing cardiac ischemia. D-dimer will be obtained to assess for pulmonary embolism. COVID-19, influenza, and RSV PCR will be obtained to assess for viral infection. Lab Data Attestation: I reviewed the patient's lab results. Lab results narrative: CBC was reviewed. There is a mild anemia with a hemoglobin of 11.3 and hematocrit 34.7. Basic metabolic profile was reviewed and was essentially within normal limits. D-dimer was reviewed and was normal at 0.34. High- sensitivity troponin was reviewed and was normal at 6. 2-hour repeat high- sensitivity troponin was reviewed and was normal at 6. COVID-19 PCR was reviewed and was negative. Influenza PCR was reviewed and was negative for influenza A and influenza B. RSV PCR was reviewed and was negative. Labs: Laboratory Results - last 24 hr 11/25/23 11/25/23 03:26 05:40 WBC 10.4 RBC 4.07 L Hgb 11.3 L Hct 34.7 L MCV 85.3 MCH 27.8 MCHC 32.6 RDW Std Deviation 43.4 RDW Coeff of Caio 14.0 Plt Count 162 MPV 8.5 Immature Gran % (Auto) 0.400 Neut % (Auto) 79.5 H Lymph % (Auto) 11.5 L [place] % (Auto) 7.7 Eos % (Auto) 0.7 Baso % (Auto) 0.2 Absolute Neuts (auto) 8.3 H Absolute Lymphs (auto) 1.20 Nucleated RBC % 0 D-Dimer Quant (PE/DVT) 0.34 Sodium 141 Potassium 3.7 Chloride 115 H Carbon Dioxide 19.0 L Anion Gap 7 BUN 14 Creatinine 0.75 Estim Creat Clear Calc 76.26 Est GFR (MDRD) Af Amer 103 Est GFR (MDRD) Non-Af 85 BUN/Creatinine Ratio 18.7 Glucose 117 H Calcium 8.8 Troponin I High Sens 6 6 Radiography Chest X-Ray - ED: 2 View, Read by ED Physician and Read by Radiologist Diagnostic Testing: Clinical Impression(s) from Imaging Studies Chest X-Ray 11/25/23 03:30 IMPRESSION: Stable chest, no visualized focal infiltrate. Electronically Signed: Meche Fox MD at 3:42 EST , PA and lateral chest x-ray was obtained. There are 2 views. On my independent interpretation, lung iqbal are clear. There is normal cardiac silhouette. Bony thorax is normal. There is no acute process noted. Radiologist also interpreted the x-ray and agrees. EKG Initial EKG: Attestation: I personally reviewed and interpreted this EKG as follows: Interpretation: Sinus Rhythm (99) and No Acute Injury Pattern Comments: EKG was obtained. On my independent interpretation, it showed a normal sinus rhythm with a rate of 99. ME interval, QRS interval, and QTc intervals were all normal. [place] was normal. There are no acute ST or T wave changes. Prior EKG tracings: not available for review Prior: No Prior Treatment and Re-Evaluation :: Patient was advised of her findings. Patient has a HEART score of 2. Patient was advised that this is low risk for acute cardiac event. Patient was instructed to follow-up with her primary care physician in 5 to 7 days. Patient understood and was agreeable with the plan. All questions were answered. Discharge Plan Triage Chief Complaint: Chest Pain ED Provider: Kaushik Livingston Dx/Rx/DC Orders Clinical Impression: Bronchiectasis, Chest pain Instructions: ED Chest Pain, Uncertain Cause Prescriptions: No Action rizatriptan 10 mg tablet 10 mg PO DAILY PRN (Reason: Migraine Headache) clonazepam 1 mg tablet 1 mg PO DAILY metoprolol succinate 25 mg tablet extended release 24 hr 12.5 mg PO DAILY topiramate 100 mg tablet 100 mg PO BID escitalopram oxalate 20 mg tablet 20 mg PO DAILY azelastine 205.5 mcg (0.15 %) spray,non-aerosol 2 spray INTRANASAL DAILY Ubrelvy 100 mg tablet 100 mg PO DAILY PRN (Reason: migraine) desloratadine 5 mg tablet 5 mg PO DAILY fluticasone propion-salmeterol [Advair Diskus] 100-50 mcg/dose blister with device 1 ea INHALATION DAILY albuterol sulfate 90 mcg/actuation HFA aerosol inhaler 1 - 2 puff INHALATION Q4H PRN (Reason: shortness of breath) amitriptyline 10 mg tablet 10 mg PO QHS Patient Comments: TAKE 1 TABLET BY MOUTH EVERYDAY AT BEDTIME Primary Care Provider: Evelina Sherman Referrals: Shawn Castillo MD [Non-Staff] - 5-7 Days Disposition Disposition: Home, Self Care
--- NOTE | 2023-11-25 03:30 | RAD_ITS ---
STUDY: X-RAY CHEST REASON FOR EXAM: Female, 53 years old. Chest pain TECHNIQUE: PA and lateral views of the chest. COMPARISON: January 18, 2020 chest x-ray FINDINGS: The lungs are clear and expanded. There is no demonstrated pleural abnormality. Normal size heart. Normal mediastinum and roxane. Normal visualized pulmonary arteries. Normal visualized aortic arch and descending thoracic aorta. Normal visualized thoracic spine. Normal visualized ribs, clavicles, and shoulders. There is no demonstrated abnormality of the visualized soft tissue structures of the upper abdomen. RAD/Chest PA and Lateral IMPRESSION: Stable chest, no visualized focal infiltrate. Electronically Signed: Meche Fox MD at 3:42 EST ,
[2023-11-25 03:36] LABS: Absolute Neutrophil Count 8.3 X10^3/uL (2.0-7.7); Basophil# 0.02 X10^3/uL; Basophil% 0.2 % (0-1); Eosinophil# 0.07 X10^3/uL; Eosinophils% 0.7 % (0-5); Hematocrit 34.7 % (37-47); Hemoglobin 11.3 g/dL (12.0-15.0); Lymphocyte % 11.5 % (19-41); Mean Corp Hgb Conc 32.6 g/dL (32-36); Mean Corpuscular Hgb 27.8 pg (27.0-32.0); Mean Corpuscular Volume 85.3 fL (81-99); Mean Platelet Vol. 8.5 fl (6.2-12.0); Monocyte% 7.7 % (0-10); NRBC Flagged by Analyzer 0 % (0-5); Neutrophil # 8.27 X10^3/uL (2.7-7.7); Neutrophil % 79.5 % (47-70); Platelet Count 162 K/mm3 (150-450); RBC Distribution Width SD 43.4 fl (35.1-43.9); Red Blood Count 4.07 M/mm3 (4.2-5.4); White Blood Count 10.4 K/mm3 (4.4-11.0)
--- OUTSIDE RECORDS SUMMARY | 2023-11-25 03:37 | XMS RPT_ITS | CCD ---
Author Name Unknown Address [id number] [place] [address] Organization [facility] Care Team Providers Care Plasterer Helper Name Role Phone Yong Castillo MD Primary Care Provider Michi Sherman MD Primary Care Provider Michi Sherman MD Primary Care Provider Michi hSerman MD Primary Care Provider MEGAN MICHI D Primary Care Unavailable FAUSTO DIETRICH Referring Unavailable TALAMPAS, MICHI D Primary Care Unavailable WADSWORTH, CHUCK Attending Unavailable TALAMPAS, MICHI D Primary Care Unavailable TALAMPAS, MICHI D Primary Care Unavailable RAMAN REYES JR Attending Unavailable RAMAN REYES JR Referring Unavailable SANDY CHANDRA Attending Unavailable TALAMPAS, MICHI D Primary Care Unavailable BEKA QUEVEDO Referring Unavailable TALAMPAS, MICHI D Primary Care Unavailable RAMAN REYES JR Referring Unavailable TALAMPAS, MICHI D Primary Care Unavailable RAMAN REYES JR Attending Unavailable TALAMPAS, MICHI D Primary Care Unavailable TALAMPAS, MICHI D Primary Care Unavailable TALAMPAS, MICHI D Referring Unavailable WADSWORTH, CHUCK Referring Unavailable TALAMPAS, MICHI D Primary Care Unavailable TALAMPAS, MICHI D Attending Unavailable RAMAN REYES JR Referring Unavailable RAMAN REYES JR Attending Unavailable TALAMPAS, MICHI D Primary Care Unavailable RONDA ROLLINS Attending Unavailable TALAMPAS, MICHI D Primary Care Unavailable TALAMPAS, MICHI D Primary Care Unavailable FAUSTO DIETRICH Attending Unavailable FAUSTO DIETRICH Referring Unavailable Allergies Allergy Classification Reported Allergen(s) Allergy Type Date of Onset Reaction(s) Facility (20 sources) Acetaminophen / oxyCODONE; Translations: [OXYCODONE-ACETAM INOPHEN] Drug Allergy 9 [facility] (20 sources) Codeine; Translations: [CODEINE] Drug Allergy 5 [facility] Work Phone: (20 sources) guaiFENesin / Pseudoephedrine; Translations: [PSEUDOEPHEDRINE- GUAIFENESIN] Drug Allergy 5 [facility] Work Phone: (20 sources) House dust mite; Translations: [DUST MITES] Allergy to substance 3 Other: See Comments [facility] (20 sources) miSOPROStol; Translations: [MISOPROSTOL] Drug Allergy 3 Other: See Comments [facility] Work Phone: Medications Current Medications Medication Drug Class(es) Dates Sig (Normalized) Sig (Original) acetaminophen 325 mg / HYDROcodone bitartrate 7.5 mg oral tablet (3 sources) Opioid Agonist Start: 05-02-2022 End: 05-09-2022 take 1 tablet by mouth twice daily as needed for pain HYDROcodone-Aceta minophen (NORCO) 7.5-325 mg per tablet Indications: Closed fracture of body of sternum with routine healing, subsequent encounter Take 1 tablet by mouth twice daily as needed for pain for up to 7 days. 14 tablet 0 05/02/2022 05/09/2022 Active Completed/Discontinued Medications Medication Drug Class(es) Dates Sig (Normalized) Sig (Original) [id number] 200 actuat albuterol 0.09 mg/actuat metered dose inhaler (20 sources) beta2-Adrenergic Agonist Start: 08-07-2017 End: 08-21-2023 take 2 puff(s) by inhalation every four hours as needed for wheezing albuterol HFA (VENTOLIN HFA) 90 mcg/actuation inhaler Indications: Mild intermittent asthma with acute exacerbation Inhale 2 Puffs as instructed every 4 hours as needed for wheezing/shortness of breath. 1 Each 1 08/21/2023 Active Problems Active Problems Problem Classification Problem Date Documented Date Episodic/Chronic Anxiety disorders (20 sources) Mixed anxiety and depressive disorder; Translations: [Other specified anxiety disorders] Onset: 09-11-2020 Chronic Asthma (20 sources) Uncomplicated moderate persistent asthma; Translations: [Moderate persistent asthma, uncomplicated] Onset: 07-16-2005 Chronic Cardiac dysrhythmias (2 sources) Tachycardia; Translations: [Tachycardia, unspecified] Episodic Complications of surgical procedures or medical care (2 sources) History of subtotal thyroidectomy; Translations: [Postprocedural hypothyroidism] Onset: 02-04-2023 08-21-2023 Chronic Disorders of lipid metabolism (20 sources) Pure hypercholesterolemia; Translations: [Pure hypercholesterolemia, unspecified] Onset: 02-27-2022 Chronic Headache; including migraine (20 sources) Migraine without aura, not refractory ; Translations: [Migraine without aura, not intractable, without status migrainosus] Onset: 01-09-2021 Chronic Mood disorders (1 source) Mood disorders; Translations: [Anxiety and depression] Onset: 09-11-2020 Nutritional deficiencies (2 sources) Vitamin D deficiency; Translations: [Vitamin D deficiency, unspecified] Onset: 02-04-2023 08-21-2023 Chronic Osteoporosis (2 sources) Senile osteoporosis; Translations: [Age-related osteoporosis without current pathological fracture] Onset: 02-04-2023 08-21-2023 Chronic Other aftercare (2 sources) Long-term current use of benzodiazepine; Translations: [Other fpc (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] Episodic Other congenital anomalies (16 sources) Branchial cleft cyst; 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, fistula and cyst of branchial cleft] Onset: 09-11-2020 09-11-2020 Chronic Other hereditary and degenerative nervous system conditions (20 sources) Restless legs; Translations: [Restless legs syndrome] Onset: 02-01-2021 Chronic Other hereditary and degenerative nervous system conditions (1 source) Restless legs syndrome; Translations: [RLS (restless legs syndrome)] Onset: 02-04-2023 Chronic Other lower respiratory disease (2 sources) Cough; Translations: [Cough] Episodic Other screening for suspected conditions (not mental disorders or infectious disease) (7 sources) Patient encounter status; Translations: [Encounter for screening for osteoporosis] Onset: 10-15-2023 Episodic Other upper respiratory disease (20 sources) Allergic rhinitis; Translations: [Allergic rhinitis, unspecified] Onset: 07-16-2005 07-16-2005 Chronic Other upper respiratory infections (1 source) Acute upper respiratory infection; Translations: [Acute upper respiratory infection, unspecified] 08-29-2023 Episodic Residual codes; unclassified (20 sources) Obstructive sleep apnea syndrome; Translations: [Obstructive sleep apnea (adult) (pediatric)] Onset: 04-29-2021 Chronic Residual codes; unclassified (20 sources) Upper airway resistance syndrome; Translations: [Other sleep disorders] Onset: 02-01-2021 02-01-2021 Chronic Residual codes; unclassified (1 source) Postmenopausal state; Translations: [Asymptomatic menopausal state] Episodic Unclassified (1 source) APPOINTMENT CANCELLED Past or Other Problems Problem Classification Problem Date Documented Da te Episodic/Chronic Benign neoplasm of uterus (16 sources) Uterine leiomyoma; Translations: [Leiomyoma of uterus, unspecified] Onset: 09-14-2013 09-14-2013 Episodic Headache; including migraine (2 sources) Chronic daily headache; Translations: [Chronic daily headache] Onset: 08-06-2021 08-06-2021 Episodic Nutritional deficiencies (20 sources) Iron deficiency; Translations: [Iron deficiency] Onset: 02-07-2021 02-07-2021 Episodic Other aftercare (1 source) Other terminal makeup operator (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; Translations: [Long-term current use of benzodiazepine] Onset: 02-16-2023 Episodic Other fractures (15 sources) Closed fracture of sternum; Translations: [Fracture of body of sternum, initial encounter for closed fracture] Onset: 04-25-2022 04-26-2022 Episodic Other fractures (13 sources) Closed fracture of single left rib; Translations: [Fracture of one rib, left side, initial encounter for closed fracture] Onset: 04-26-2022 04-26-2022 Episodic Other lower respiratory disease (20 sources) Dyspnea; Translations: [Dyspnea, unspecified] Onset: 02-07-2021 02-07-2021 Episodic Results Test Name Value Interpretation Reference Range Facil ity Vital Signs Date Time Vital Sign Value Performing Clinician Phoenixi jessica 10-15-2023 13:45-0500 Body height 166.4 cm Fausto Dietrich MD Work Phone: [facility] 10-15-2023 13:45-0500 Body weight 63.96 kg Fausto Dietrich MD Work Phone: [facility] 10-15-2023 13:45-0500 Diastolic blood pressure 64 mm[Hg] Fausto Dietrich MD Work Phone: [facility] 10-15-2023 13:45-0500 Systolic blood pressure 110 mm[Hg] Fausto Dietrich MD Work Phone: [facility] 08-29-2023 13:21-0400 Body temperature 98.2 [degF] Sergey Zhang MD Work Phone: [facility] 08-29-2023 13:21-0400 Body weight 63.96 kg Sergey Zhang MD Work Phone: [facility] 08-29-2023 13:21-0400 Diastolic blood pressure 78 mm[Hg] Sergey Zhang MD Work Phone: [facility] 08-29-2023 13:21-0400 Heart rate 75 /min Sergey Zhang MD Work Phone: [facility] 08-29-2023 13:21-0400 Respiratory rate 21 /min Sergey Zhang MD Work Phone: [facility] 08-29-2023 13:21-0400 SaO2% (BldA) [Mass fraction] 99 % Sergey Zhang MD Work Phone: [facility] 08-29-2023 13:21-0400 Systolic blood pressure 108 mm[Hg] Sergey Zhang MD Work Phone: [facility] 08-21-2023 08:55-0400 Body weight 63.96 kg Chuck Wadsworth HOME SERVICE DEMONSTRATOR[employer] Work Phone: [facility] 08-21-2023 08:55-0400 Diastolic blood pressure 71 mm[Hg] Chuck Wadsworth HOME SERVICE DEMONSTRATOR[employer] Work Phone: [facility] 08-21-2023 08:55-0400 Heart rate 69 /min Chuck Wadsworth HOME SERVICE DEMONSTRATOR[employer] Work Phone: [facility] 08-21-2023 08:55-0400 Respiratory rate 16 /min Chuck Wadsworth HOME SERVICE DEMONSTRATOR[employer] Work Phone: [facility] 08-21-2023 08:55-0400 Systolic blood pressure 106 mm[Hg] Chuck Beans HOME SERVICE DEMONSTRATOR[employer] Work Phone: [facility] 07-13-2023 08:43-0400 Body weight 63.41 kg Raman Reyes Jr., MD Work Phone: [facility] 07-13-2023 08:43-0400 Diastolic blood pressure 64 mm[Hg] Raman Reyes Jr., MD Work Phone: [facility] 07-13-2023 08:43-0400 Heart rate 95 /min Raman Reyes Jr., MD Work Phone: [facility] 07-13-2023 08:43-0400 Respiratory rate 16 /min Raman Reyes Jr., MD Work Phone: [facility] 07-13-2023 08:43-0400 SaO2% (BldA) [Mass fraction] 99 % Raman Reyes Jr., MD Work Phone: [facility] 07-13-2023 08:43-0400 Systolic blood pressure 116 mm[Hg] Raman Reyes Jr., MD Work Phone: [facility] 02-16-2023 10:18-0400 Body temperature 98.4 [degF] Raman Reyes Jr., MD Work Phone: [facility] 02-16-2023 10:18-0400 Body weight 60.87 kg Raman Reyes Jr., MD Work Phone: [facility] 02-16-2023 10:18-0400 Diastolic blood pressure 78 mm[Hg] Raman Reyes Jr., MD Work Phone: [facility] 02-16-2023 10:18-0400 Heart rate 68 /min Raman Reyes Jr., MD Work Phone: [facility] 02-16-2023 10:18-0400 SaO2% (BldA) [Mass fraction] 100 % Raman Reyes Jr., MD Work Phone: [facility] 02-16-2023 10:18-0400 Systolic blood pressure 116 mm[Hg] Raman Reyes Jr., MD Work Phone: [facility] 12-15-2022 08:49-0500 Body temperature 98.71 [degF] Raman Reyes Jr., MD Work Phone: [facility] 12-15-2022 08:49-0500 Body weight 59.78 kg Raman Reyes Jr., MD Work Phone: [facility] 12-15-2022 08:49-0500 Diastolic blood pressure 76 mm[Hg] Raman Reyes Jr., MD Work Phone: [facility] 12-15-2022 08:49-0500 Heart rate 83 /min Raman Reyes Jr., MD Work Phone: [facility] 12-15-2022 08:49-0500 Respiratory rate 18 /min Raman Reyes Jr., MD Work Phone: [facility] 12-15-2022 08:49-0500 SaO2% (BldA) [Mass fraction] 98 % Raman Reyes Jr., MD Work Phone: [facility] 12-15-2022 08:49-0500 Systolic blood pressure 109 mm[Hg] Raman Reyes Jr., MD Work Phone: [facility] 10-13-2022 08:16-0500 Body height 167.6 cm Fausto Dietrich MD Work Phone: [facility] 10-13-2022 08:16-0500 Body weight 58.51 kg Fausto Dietrich MD Work Phone: [facility] 10-13-2022 08:16-0500 Diastolic blood pressure 60 mm[Hg] Fausto Dietrich MD Work Phone: [facility] 10-13-2022 08:16-0500 Systolic blood pressure 102 mm[Hg] Fausto Dietrich MD Work Phone: [facility] 09-17-2022 11:39-0500 Body weight 58.54 kg Raman Reyes Jr., MD Work Phone: [facility] 09-17-2022 11:39-0500 Diastolic blood pressure 78 mm[Hg] Raman Reyes Jr., MD Work Phone: [facility] 09-17-2022 11:39-0500 Heart rate 72 /min Raman Reyes Jr., MD Work Phone: [facility] 09-17-2022 11:39-0500 Respiratory rate 18 /min Raman Reyes Jr., MD Work Phone: [facility] 09-17-2022 11:39-0500 Systolic blood pressure 119 mm[Hg] Raman Reyes Jr., MD Work Phone: [facility] 05-30-2022 08:56-0400 Body temperature 99.39 [degF] Chuck Wadsworth HOME SERVICE DEMONSTRATOR[employer] Work Phone: [facility] 05-30-2022 08:56-0400 Body weight 57.97 kg Chuck Wadsworth HOME SERVICE DEMONSTRATOR[employer] Work Phone: [facility] 05-30-2022 08:56-0400 Diastolic blood pressure 72 mm[Hg] Chuck Wadsworth HOME SERVICE DEMONSTRATOR[employer] Work Phone: [facility] 05-30-2022 08:56-0400 Heart rate 97 /min Chuck Wadsworth HOME SERVICE DEMONSTRATOR[employer] Work Phone: [facility] 05-30-2022 08:56-0400 Respiratory rate 16 /min Chuck Wadsworth HOME SERVICE DEMONSTRATOR[employer] Work Phone: [facility] 05-30-2022 08:56-0400 SaO2% (BldA) [Mass fraction] 99 % Chuck Wadsworth HOME SERVICE DEMONSTRATOR[employer] Work Phone: [facility] 05-30-2022 08:56-0400 Systolic blood pressure 112 mm[Hg] Chuck Wasdworth HOME SERVICE DEMONSTRATOR[employer] Work Phone: [facility] 04-03-2022 09:00-0400 Body weight 57.61 kg Chuck Wadsworth HOME SERVICE DEMONSTRATOR[employer] Work Phone: [facility] 04-03-2022 09:00-0400 Diastolic blood pressure 74 mm[Hg] Chuck Beans HOME SERVICE DEMONSTRATOR[employer] Work Phone: [facility] 04-03-2022 09:00-0400 Heart rate 68 /min Chuck Beans HOME SERVICE DEMONSTRATOR[employer] Work Phone: [facility] 04-03-2022 09:00-0400 Respiratory rate 16 /min Chuckneha Beans HOME SERVICE DEMONSTRATOR[employer] Work Phone: [facility] 04-03-2022 09:00-0400 Systolic blood pressure 116 mm[Hg] Chuck Beans HOME SERVICE DEMONSTRATOR[employer] Work Phone: [facility] Encounters Encounter Date Encounter Type Care Provider Facility Start: 10-29-2023 End: 10-29-2023 ambulatory RONDA ROLLINS Facility:[facility] Start: 10-15-2023 End: 10-15-2023 ambulatory MICHI SHERMAN Facility:[facility] Start: 10-15-2023 Documentation procedure Mammog flor Coordinator [facility] Start: 10-15-2023 Letter encounter Mammography Coordinator [facility] Department Start: 10-15-2023 End: 10-15-2023 Patient encounter procedure Fausto Dietrich MD Work Phone: OB/Gynecology Procedures Date Procedure Procedure Detail Performing Clinician Start: 02-04-2023 Lipid 1996 panel - S man or Plasma Chuck Wadsworth HOME SERVICE DEMONSTRATOR[employer] Work Phone: Start: 10-13-2022 Mammography Beka horan PA-C Work Phone: Start: 06-23-2022 Dxa bone density adri dy 1/> sites axial skel Chuck Wadsworth HOME SERVICE DEMONSTRATOR[employer] Work Phone: Start: 05-08-2022 Radiologic exam ches t 2 views Chuck Wadsworth HOME SERVICE DEMONSTRATOR[employer] Work Phone: Start: 09-18-2021 Mammography Shawn Castillo MD Work Phone: Start: 10-04-2018 Colonoscopy Shawn Castillo MD Work Phone: Plan of Treatment Date Care Activity Detail Author Start: 10-04-2028 Colonoscopy COLONOSCOPY [facility] Start: 10-04-2028 COLORECTAL CANCER SCREENING COLORECTAL CANCER SCREENING [facility] Start: 10-04-2028 Screening for malign ant neoplasm of colon [facility] Start: 02-05-2028 Lipid 1996 panel - S man or Plasma Lipid Screening [facility] Start: 02-05-2028 Lipid panel Lipid Screening [facility] Start: 02-05-2028 LIPID SCREEN LIPID SCREEN [facility] Start: 10-13-2027 HPV TESTING HPV TESTING [facility] Start: 10-13-2027 PAP TESTING PAP TESTING [facility] Start: 10-13-2027 Screening for malign ant neoplasm of cervix [facility] Start: 02-26-2027 LIPID SCREEN LIPID SCREEN [facility] Start: 04-12-2026 LIPID SCREEN LIPID SCREEN [facility] Start: 02-04-2026 DIABETES SCREEN DIABETES SCREEN [facility] Start: 02-04-2026 Diabetes Screening Diabetes Screenin g [facility] Start: 10-17-2025 DIABETES SCREEN DIABETES SCREEN [facility] Start: 04-26-2025 DIABETES SCREEN DIABETES SCREEN [facility] Start: 02-26-2025 DIABETES SCREEN DIABETES SCREEN [facility] Start: 10-15-2024 Screening for malign ant neoplasm of breast Mammogram Screening [facility] Start: 08-21-2024 Covid-19 Vaccine (#1) Covid-19 Vacci ne (#1) [facility] Immunizations Immunization Date Immunization Notes Care Provider Fa talib 08-18-2017 influenza virus vaccine, unspecified formulation Chuck Wadsworth HOME SERVICE DEMONSTRATOR[employer] Work Phone: [facility] 07-13-2006 tetanus toxoid, reduced diphtheria toxoid, and acellular pertussis vaccine, adsorbed Yong Castillo MD Work Phone: [facility] Work Phone: Payers Date Payer Category Payer Private Health Insurance [facility] [employer] [id number] 2019-Present [phone] [address] [place] [address] O [id number] 2019 Private Health Insurance [facility] [employer] [id number] 2019-Present [phone] [address] [place] [address] O [id number] 2019 Unknown [id number] Social History Date Type Detail Facility Start: 06-13-2022 Tobacco smoking stat [facility] Never smoked tobacco [facility] Work Phone: Start: 02-26-2022 End: 10-15-2023 Alcohol intake Ex-drinker (finding) [facility] Start: 09-03-2020 End: 01-28-2023 History SDOH Alcohol Frequency 2 [facility] Start: 09-03-2020 End: 01-28-2023 History SDOH Alcohol Std Drinks 1 [facility] Start: 12-25-2019 End: 01-28-2023 History SDOH Social Connections Phone 5 [facility] Start: 12-25-2019 End: 01-28-2023 History SDOH Social Connections Living 4 [facility] Start: 12-25-2019 End: 01-28-2023 History SDOH Physical Activity DPW 7 [facility] Start: 07-10-2020 History SDOH Physica l Activity MPS 12 [facility] Start: 07-10-2020 Education 21 [facility] Start: 1970 Sex Assigned At Female C [facility] Start: 02-16-2022 End: 06-13-2022 Exposure to SARS-CoV-2 (event) Not sure [facility] Start: 06-13-2022 Tobacco use and exposure Smoke less tobacco non-user [facility] Work Phone: Start: 01-28-2023 History SDOH Alcohol Std Drinks 0 [facility] Start: 01-28-2023 History SDOH Social Connections [employer] 3 [facility] Start: 10-07-2020 End: 01-28-2023 History of Social function [facility] Start: 10-07-2020 End: 01-28-2023 Social connection and isolation panel [facility] Do you belong to any clubs or organizations such as samaritan groups, unions, fraternal or athletic groups, or school groups? Yes [facility] Are you now , , , , never or living with a partner? [facility] How often to you hav e a drink containing alcohol? Never [facility] How many standard dr inks containing alcohol do you have on a typical day? Patient does not drink [facility] Do you feel stress - tense, restless, nervous, or anxious, or unable to sleep at night because your mind is troubled all the time - these days [OSQ] Not at all [facility] (I/We) worried wheth er (my/our) food would run out before (I/we) got money to buy more. Never true [facility] In the past 12 month s, was there a time when you were not able to pay the mortgage or rent on time? No [facility] Start: 08-22-2020 Gender identity Identifies as female gender (finding) [facility] Clinical Notes 01-14-2021 to 10-29-2023 Fausto Dietrich MD - 10/15/2023 1:41 PM ESTLetter - Coordinator, [facility] - 10/15/2023 10:30 AM ESTTelephone Encounter - Raman Reyes Jr., MD - 10/12/2023 5:14 PM ESTPatient Instructions Note Date & Type Note Facility 10-29-2023 Note HNO ID: [id number] Author: Ronda Rollins APRN.DEBT COLLECTION SPECIALIST Service: ? Author Type: Nurse Practitioner Type: Progress Notes Filed: 10/29/2023 3:23 PM Note Text: [facility] - Follow up Virtual Visit This visit was conducted as a virtual visit, with patient's permission, via Zoom. Patient location - [place] was identified by name and and consented to the video evaluation and its limitations. Based on this evaluation it may be necessary for them to schedule a follow up evaluation with me or other neurologists for formal physical examination and if necessary,other studies. I have communicated my name and active licensure. The patient's identity and physical location were verified at the time of this visit. Either the patient or their legal solar sales representative has been informed of the risks and benefits of -- and alternatives to -- treatment through a remote evaluation and consents to proceed with the evaluation remotely. Accompanied by: Self Primary Problem List: ACTIVE PROBLEM LIST Allergic Rhinitis, Cause Unspecified Anxiety and Depression Migraine Without Aura and Without Status Migrainosus, Not Intractable Uars (Upper Airway Resistance Syndrome) Restless Legs Syndrome Iron Deficiency Dyspnea and Respiratory Abnormalities Selina (Obstructive Sleep Apnea) Moderate Persistent Asthma, Uncomplicated Pure Hypercholesterolemia Episodic Tension-Type Headache, Not Intractable Chief Complaint: headaches Impression and Plan from last visit 04/29/2023, Chandra: ASSESSMENT: 52 year old female with history significant for migraine without aura, anxiety, depression, RLS, insomnia, and prior chronic daily headache and chronic migraine, improved significantly on combined Topiramate and Amitriptyline to a well controlled pattern of episodic migraine and tension type headache. PLAN: (Please see typed patient instructions for detailed instructions) ---> Acute Treatment: -Maxalt vs. Ubrelvy. Both work well for her, but she finds the Ubrelvy more helpful. ---> Preventive Treatment: -Topamax 100 mg bid. -Metoprolol 25 mg, takes a half tab daily for palpitations. HR went from high to low (in 50s). -Amitriptyline 10 mg qhs. -Supplements. ---> Follow-up: 1 year Interval Headache History: [place] is a 53 year old year old female, with a history of migraine without aura, anxiety, depression, RLS, insomnia, and prior chronic daily headache and chronic migraine following up today virtually for headaches. Since the last visit, the patient states that their headaches are slightly worse. Last few weeks headaches have increased, which she attributes to increased stress at work at year end, working overtime, and adjusting to her new glasses. Her typical headache but won't go away. Taking Ubrelvy daily, sometimes twice a day, which helps. Normally takes only 5-6x a month. For past headache cycle muscle relaxant was helpful and she does not recall any ae. Headache 1 Number of migraine headache days/month: 1 Number of headache free days/month: 12 Days missed from work or school in the last month: 0 days Preventative: Topamax 100 mg bid, Amitriptyline 10 mg qhs, Metoprolol 12.5 mg (for palpitations) Abortive: Ubrelvy, Maxalt Medications effective? yes # of doses of abortive medications per month: 5-6x Analgesic Hydrocodone/Acetaminophen (Vicodin, [place]) Hydromorphone (Dilaudid) Ketorolac (Toradol) Meperidine (Demerol) Morphine (Mary, Ms Contin) Oxycodone/Acetaminophen (Percocet) Anti-Anxiety Buspirone (Buspar) Clonazepam (Klonopin) Lorazepam (Ativan) Anti-Convulsant Divalproex sodium (Depakote) IV Gabapentin (Neurontin) Topiramate (Topamax, Trokendi XL, Qudexy) Anti-Depressant and Antipsychotic Amitriptyline (Elavil) Escitalopram (Lexapro) Buspirone Antiemetics Ondansetron Promethazine Anti-Migraine Dihydroergotamine (DHE-45, Migranal) Rizatriptan (Maxalt) Blood Pressure Metoprolol (Lopressor,Toprol XL) GEPANTS Ubrogepant (Ubrelvy) Muscle Relaxer Chlorzoxazone (Parafon Forte) Cyclobenzaprine (Flexeril) Supplements CoQ10 Magnesium Other Medications Dexamethasone (Decadron) Methylprednisolone (Medrol) Prednisone Over the Counter Medications Acetaminophen (Tylenol) Acetaminophen/Aspirin (Goody?s) Acetaminophen/Aspirin/Caffeine (Excedrin, Goody?s) Aspirin Ibuprofen (Advil, Motrin) Naproxen sodium (Aleve) PAST MEDICAL HISTORY Diagnosis Date Allergic rhinitis due to other allergen Anxiety and depression Branchial cyst 09/11/2020 Bronchiectasis without acute exacerbation (HCC) Cervicalgia 01/14/2021 Closed fracture of body of sternum 04/25/2022 Closed fracture of one rib of left side 04/26/2022 Frozen shoulder Humerus fracture 12/2021 Dr. Romero Intractable migraine without status migrainosus Dr. Chandra Iron deficiency SELINA (obstructive sleep apnea) Other insomnia Pure hyperchol (more content not included)... [facility] 10-15-2023 Note HNO ID: [id number] Author: Fausto Dietrich MD Service: ? Author Type: Physician Type: Progress Notes Filed: 10/15/2023 1:58 PM Note Text: Nury is a 53 year old who presents for an annual gynecologic exam without complaints. Postmenopausal: yes HRT use: No. 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 Romero Intractable migraine without status migrainosus Dr. Chandra Iron deficiency SELINA (obstructive sleep apnea) Other insomnia Pure hypercholesterolemia RLS (restless legs syndrome) Dr. Reyes Tachycardia Unspecified asthma, with status asthmaticus Uterine fibroid 09/14/2013 PAST SURGICAL HISTORY Procedure Laterality Date ARTHROSCOPIC RELEASE SHOULDER JOINT Right 08/23/2019 frozen shoulder COLONOSCOPY FLX DX W/COLLJ SPEC WHEN PFRMD 10/04/2018 repeat 10 years EXCISION BRANCHIAL CLEFT CYST Right 09/20/2020 HYSTEROSCOPY WBX WWO D AND C ANDOR POLYPECTOMY 2012 S CATH ABLATION THERMACHOICE 2013 THYROIDECTOMY TOTAL/COMPLETE 1995 partial - ? left FAMILY HISTORY Problem Relation Age of Onset Coronary Artery Disease Father age 73 Hypertension Father Heart Attack Father Stroke Mother age 75 other (Other) Sister Sleep apnea other (Other) Son TAR Syndrome Migraines Daughter Coronary Artery Disease Maternal Grandmother Stroke Maternal Grandmother other (Other) Maternal Grandmother lung dx Diabetes Paternal Uncle SOCIAL HISTORY Social History Tobacco Use Smoking status: Never Smokeless tobacco: Never Vaping Use Vaping Use: Never used Substance Use Topics Alcohol use: Not Currently Drug use: No REVIEW OF SYSTEMS Abdomen: No abdominal pain, nausea, vomiting, diarrhea, or constipation. No bloating, early satiety, indigestion, or increased flatulence. Bladder: No dysuria, gross hematuria, urinary frequency, urinary urgency, or incontinence Breast: No breast lumps, nipple d/c, overlying skin changes, redness or skin retraction Allergies and current medication updated:Yes EXAM: BP 110/64 Ht 5' 5.5 (1.66m) Wt 141 lb (64.0kg) LMP 09/30/2013 BMI 23.10 kg/(m2). GENERAL: pleasant, female in no apparent distress HEENT: Normocephalic, atraumatic, mucus membranes moist, and no lesions NECK: Supple, full range of motion, no adenopathy, and thyroid normal DERMATOLOGY: Normal, without lesions, non-icteric, and non-hirsute BREAST: soft, non-tender, symmetric, no dominant mass, normal nipple-areolar complex, no lymphadenopathy, and no nipple discharge CHEST: Normal inspiratory effort ABDOMEN: soft, non-tender, and no masses PELVIC: external genitalia normal, normal Bartholin's glands, urethra, Lacy-Lakeview's glands, no vulvar lesions, no cervical lesions, good vaginal support, physiologic discharge present, normal appearing perineal body and perianal region BIMANUAL: uterus normal size, shape and consistency, no adnexal masses, and non-tender RECTOVAGINAL: deferred. NEURO: alert and oriented x3,exam grossly non-focal EXTREMITIES: normal ASSESSMENT/PLAN: 1) Health maintenance: Pap done with HPV. Mammogram ordered 2) Follow up one year or sooner as needed Fausto Dietrich MD [facility] 10-15-2023 History of Present illness Narrative Nury is a 53 year old who presents for an annual gynecologic exam without complaints. Postmenopausal: yes HRT use: No. 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 Romero Intractable migraine without status migrainosus Dr. Chandra Iron deficiency SELINA (obstructive sleep apnea) Other insomnia Pure hypercholesterolemia RLS (restless legs syndrome) Dr. Reyes Tachycardia Unspecified asthma, with status asthmaticus Uterine fibroid 09/14/2013 PAST SURGICAL HISTORY Procedure Laterality Date ARTHROSCOPIC RELEASE SHOULDER JOINT Right 08/23/2019 frozen shoulder COLONOSCOPY FLX DX W/COLLJ SPEC WHEN PFRMD 10/04/2018 repeat 10 years EXCISION BRANCHIAL CLEFT CYST Right 09/20/2020 HYSTEROSCOPY WBX WWO D AND C ANDOR POLYPECTOMY 2013 S CATH ABLATION THERMACHOICE 2013 THYROIDECTOMY TOTAL/COMPLETE 1995 partial - ? left FAMILY HISTORY Problem Relation Age of Onset Coronary Artery Disease Father age 73 Hypertension Father Heart Attack Father Stroke Mother age 75 other (Other) Sister Sleep apnea other (Other) Son TAR Syndrome Migraines Daughter Coronary Artery Disease Maternal Grandmother Stroke Maternal Grandmother other (Other) Maternal Grandmother lung dx Diabetes Paternal Uncle SOCIAL HISTORY Social History Tobacco Use Smoking status: Never Smokeless tobacco: Never Vaping Use Vaping Use: Never used Substance Use Topics Alcohol use: Not Currently Drug use: No REVIEW OF SYSTEMS Abdomen: No abdominal pain, nausea, vomiting, diarrhea, or constipation. No bloating, early satiety, indigestion, or increased flatulence. Bladder: No dysuria, gross hematuria, urinary frequency, urinary urgency, or incontinence Breast: No breast lumps, nipple d/c, overlying skin changes, redness or skin retraction Allergies and current medication updated:Yes EXAM: BP 110/64 Ht 5' 5.5 (1.66m) Wt 141 lb (64.0kg) LMP 09/30/2013 BMI 23.10 kg/(m^2). GENERAL: pleasant, female in no apparent distress HEENT: Normocephalic, atraumatic, mucus membranes moist, and no lesions NECK: Supple, full range of motion, no adenopathy, and thyroid normal DERMATOLOGY: Normal, without lesions, non-icteric, and non-hirsute BREAST: soft, non-tender, symmetric, no dominant mass, normal nipple-areolar complex, no lymphadenopathy, and no nipple discharge CHEST: Normal inspiratory effort ABDOMEN: soft, non-tender, and no masses PELVIC: external genitalia normal, normal Bartholin's glands, urethra, Lacy-[place]'s glands, no vulvar lesions, no cervical lesions, good vaginal support, physiologic discharge present, normal appearing perineal body and perianal region BIMANUAL: uterus normal size, shape and consistency, no adnexal masses, and non-tender RECTOVAGINAL: deferred. NEURO: alert and oriented x3,exam grossly non-focal EXTREMITIES: normal ASSESSMENT/PLAN: 1) Health maintenance: Pap done with HPV. Mammogram ordered 2) Follow up one year or sooner as needed Fausto Dietrich MD documented in this encounter [facility] 10-15-2023 Miscellaneous Notes October 16, 2023 PID: [id number] Nury Husain Daydaymickie [address] [address] Dear Ms. Woods, We are pleased to inform you that the results of your recent breast imaging exam on 10/15/2023 are normal. Early detection of cancer is very important. We also understand recommendations regarding breast cancer screening are controversial. Please discuss with your primary care provider which strategy is best for you and whether a mammogram is right for you. Your imaging studies and report will be kept on file at [facility] as part of your permanent medical record and are available for your continuing care. Thank you for allowing us to help in meeting your health care needs. Sincerely, Dr. Glass Interpreting Radiologist [facility] (Normal over 40) documented in this encounter [facility] 10-15-2023 Note HNO ID: [id number] Author: Cris Torres RT(R) Service: ? Author Type: [employer] Vice President Type: Progress Notes Filed: 10/15/2023 7:35 AM Note Text: Radiology Service Progress Note PATIENT NAME: Nury Woods DATE OF SERVICE: October 15, 2023 TIME: 7:34 AM PATIENT IDENTITY VERIFICATION COMPLETED USING TWO (2) IDENTIFIERS: Name and Date of confirmed by patient verbally. FALL SCREENING: Has the patient had 2 falls in the last year or 1 fall with injury or currently using an Ambulatory Assistive Device (Walker, Cane, Wheelchair, Crutches, etc.)? No PATIENT GENDER DATA: Female. status: : No status: NO. PATIENT RELEVANT IMPLANT DATA REVIEWED: Not Applicable RADIOLOGY DEPARTMENT: Mammography PERIPHERAL IV DATA: Not applicable SIGNED BY: RT Elieser(R) October 15, 2023 7:[address] [facility] 10-12-2023 Miscellaneous Notes PDMP website checked and validated. All prescriptions have been APPROPRIATELY filled. No suspicious activity was identified. Note: A urine tox screen and urine pain panel have been completed appropriately (after 12 weeks of initiating therapy and at least yearly thereafter). 10/12/2023 by Raman Reyes MD [facility] 07/13/23 with [facility] NOV 12/08/23 with [facility] Refill 07/22/23 with qty: 30 and 2 refills Steph Vallecillo LPN [facility] Assessment/Plan ASSESSMENT/PLAN: 1. RLS (restless legs syndrome) - ICD9: 333.94, ICD10: G25.81 (primary diagnosis) Well controlled on Klonopion 1mg nightly for years now. No changes to meds, with pt trying in the past with exacerbation of symptoms. Pt understands fpc side effects to consider with Klonopin. No new complaint. UDS last visit and will not need again until next year. 2. Long-term current use of benzodiazepine - ICD9: V58.69, ICD10: Z79.899 As above. Will need UDS next year. 3. SELINA (obstructive sleep apnea) - ICD9: 327.23, ICD10: G47.33 Stable. AHI controlled on PAP data download. Reminded patient to clean and replace PAP equipment regularly. Advised pt not to drive or operate heavy machinery if sleepy. 4. Anxiety - ICD9: 300.00, ICD10: F41.9 Stable at night with Klonopin controlling both these symptoms and RLS. Raman Reyes MD documented in this encounter [facility] 08-29-2023 Note HNO ID: [id number] Author: Sergey Zhang MD Service: ? Author Type: Physician Type: Progress Notes Filed: 08/29/2023 1:43 PM Note Text: Patient presents with: Ear Problem: Bilateral ears feel full/pressure, BRYAN, cough, runny nose, sore throat, fatigue x 5 days HPI: Feeling sick for 3-4 days. Positive symptoms: Cough, Sore throat, Earache, Nasal Congestion, Rhinorrhea, Malaise, Fatigue, Headache, Negative symptoms: change in Shortness of breath/Wheezing, Fever, Vomiting, Diarrhea, OTC: routine meds Has not had COVID test this week. PAST MEDICAL HISTORY Diagnosis Date Allergic rhinitis due to other allergen Anxiety and depression Branchial cyst 09/11/2020 Bronchiectasis without acute exacerbation (HCC) Cervicalgia 01/14/2021 Closed fracture of body of sternum 04/25/2022 Closed fracture of one rib of left side 04/26/2022 Frozen shoulder Humerus fracture 12/2021 Dr. Romero Intractable migraine without status migrainosus Dr. Chandra Iron deficiency SELINA (obstructive sleep apnea) Other insomnia Pure hypercholesterolemia RLS (restless legs syndrome) Dr. Ryees Tachycardia Unspecified asthma, with status asthmaticus Uterine fibroid 09/14/2013 MEDICATIONS: Current Outpatient Medications Medication Sig albuterol HFA (VENTOLIN HFA) 90 mcg/actuation inhaler Inhale 2 Puffs as instructed every 4 hours as needed for wheezing/shortness of breath. clonazePAM (KLONOPIN) 1 mg tablet Take 1 tablet by mouth daily at bedtime for 90 days. Do not start before July 22, 2023. Ibandronate 150 mg tablet Take 1 tablet by mouth once every month. In AM with cup of water on empty stomach. Nothing else by mouth and stay upright for 60 min. metoprolol succinate ER (TOPROL XL) 25 mg 24 hr tablet Take 0.5 tablets by mouth once daily. escitalopram oxalate (LEXAPRO) 20 mg tablet Take 1 tablet by mouth once daily. topiramate (TOPAMAX) 100 mg tablet Take 1 tablet by mouth twice daily. amitriptyline (ELAVIL) 10 mg tablet Take 1 tablet by mouth daily at bedtime. rizatriptan (MAXALT) 10 mg tablet Take (1) tab at onset of headache, may repeat once in 2hrs if needed. No more than 2 doses in 24 hours. ubrogepant (UBRELVY) 100 mg tablet Take 1 tablet by mouth at migraine onset. May repeat same dose once in 2 hours as needed. Limit 2 doses in 24 hours. coenzyme Q10 (COENZYME Q-10) 100 mg cap capsule Take 1 capsule by mouth once daily. CPAP Please provide a smaller size headgear - child size if available. Large air leak on download. G47.33 SELINA CPAP New set up: Settings 5 - 12 cm H2O, suitable mask per pt preference, chin strap, head gear, humidity, tubing, lifetime supplies. G47.33 SELINA desloratadine (CLARINEX) 5 mg tablet fluticasone-salmeterol (ADVAIR DISKUS) 100-50 mcg/Dose INHALATION DsDv 1 puffs every 12 hours azelastine (ASTELIN) 137 mcg NASAL SprA 2 puffs every 12 hours No current facility-administered medications for this visit. ALLERGIES: ALLERGIES Allergen Reactions Codeine Rash Cytotec [Misoprosto* Other: See Comments Fainting Dust Mites Other: See Comments Has had allergy test 06/2020- immune to dust now Entex Pse [Pseudoep* Rash Percocet [Oxycodone* Rash VITALS: BP 108/78 Pulse 75 Temp 36.8 ?C (98.2 ?F) Resp 21 Wt 64 kg (141 lb) LMP 09/30/2013 SpO2 99% BMI 23.07 kg/m? PHYSICAL EXAM: GEN: mildly ill appearing HEENT: PERRL, EOMI, conjunctiva clear Ears: canals with cerumen, visible TMs without erythema Sinuses: non-tender frontal sinus, non-tender maxillary sinuses Throat: moist mucous membranes, mild erythema, no exudate Neck: supple, no thyromegaly, no lymphadenopathy HEART: regular rate and rhythm, no murmurs LUNGS: clear to auscultation, no wheezes or crackles, no increased WOB ASSESSMENT/PLAN: 1. URI, acute - ICD9: 465.9, ICD10: J06.9 - suspect viral URI, differential includes COVID-19. - Discussed supportive care treatment with rest, cold medicine, and analgesia. - Red flags to seek further treatment include chest pain, shortness of breath, and lethargy; in the ER if severe. - COVID NAAT, UPPER RESPIRATORY, ROUTINE would like antiviral treatment if positive for COVID. Paxlovid has interactions with Advair (steroid) and Ubrelvy. Schedule with [facility] or return tomorrow to discuss molnupiravir. Sergey Zhang MD [facility] 08-29-2023 History of Present illness Narrative Patient presents with: Ear Problem: Bilateral ears feel full/pressure, BRYAN, cough, runny nose, sore throat, fatigue x 5 days HPI: Feeling sick for 3-4 days. Positive symptoms: Cough, Sore throat, Earache, Nasal Congestion, Rhinorrhea, Malaise, Fatigue, Headache, Negative symptoms: change in Shortness of breath/Wheezing, Fever, Vomiting, Diarrhea, OTC: routine meds Has not had COVID test this week. PAST MEDICAL HISTORY Diagnosis Date Allergic rhinitis due to other allergen Anxiety and depression Branchial cyst 09/11/2020 Bronchiectasis without acute exacerbation (HCC) Cervicalgia 01/14/2021 Closed fracture of body of sternum 04/25/2022 Closed fracture of one rib of left side 04/26/2022 Frozen shoulder Humerus fracture 12/2021 Dr. Romero Intractable migraine without status migrainosus Dr. Chandra Iron deficiency SELINA (obstructive sleep apnea) Other insomnia Pure hypercholesterolemia RLS (restless legs syndrome) Dr. Reyes Tachycardia Unspecified asthma, with status asthmaticus Uterine fibroid 09/14/2013 MEDICATIONS: Current Outpatient Medications Medication Sig albuterol HFA (VENTOLIN HFA) 90 mcg/actuation inhaler Inhale 2 Puffs as instructed every 4 hours as needed for wheezing/shortness of breath. clonazePAM (KLONOPIN) 1 mg tablet Take 1 tablet by mouth daily at bedtime for 90 days. Do not start before July 22, 2023. Ibandronate 150 mg tablet Take 1 tablet by mouth once every month. In AM with cup of water on empty stomach. Nothing else by mouth and stay upright for 60 min. metoprolol succinate ER (TOPROL XL) 25 mg 24 hr tablet Take 0.5 tablets by mouth once daily. escitalopram oxalate (LEXAPRO) 20 mg tablet Take 1 tablet by mouth once daily. topiramate (TOPAMAX) 100 mg tablet Take 1 tablet by mouth twice daily. amitriptyline (ELAVIL) 10 mg tablet Take 1 tablet by mouth daily at bedtime. rizatriptan (MAXALT) 10 mg tablet Take (1) tab at onset of headache, may repeat once in 2hrs if needed. No more than 2 doses in 24 hours. ubrogepant (UBRELVY) 100 mg tablet Take 1 tablet by mouth at migraine onset. May repeat same dose once in 2 hours as needed. Limit 2 doses in 24 hours. coenzyme Q10 (COENZYME Q-10) 100 mg cap capsule Take 1 capsule by mouth once daily. CPAP Please provide a smaller size headgear - child size if available. Large air leak on download. G47.33 SELINA CPAP New set up: Settings 5 - 12 cm H2O, suitable mask per pt preference, chin strap, head gear, humidity, tubing, lifetime supplies. G47.33 SELINA desloratadine (CLARINEX) 5 mg tablet fluticasone-salmeterol (ADVAIR DISKUS) 100-50 mcg/Dose INHALATION DsDv 1 puffs every 12 hours azelastine (ASTELIN) 137 mcg NASAL SprA 2 puffs every 12 hours No current facility-administered medications for this visit. ALLERGIES: ALLERGIES Allergen Reactions Codeine Rash Cytotec [Misoprosto* Other: See Comments Fainting Dust Mites Other: See Comments Has had allergy test 06/2020- immune to dust now Entex Pse [Pseudoep* Rash Percocet [Oxycodone* Rash VITALS: BP 108/78 Pulse 75 Temp 36.8 C (98.2 F) Resp 21 Wt 64 kg (141 lb) LMP 09/30/2013 SpO2 99% BMI 23.07 kg/m PHYSICAL EXAM: GEN: mildly ill appearing HEENT: PERRL, EOMI, conjunctiva clear Ears: canals with cerumen, visible TMs without erythema Sinuses: non-tender frontal sinus, non-tender maxillary sinuses Throat: moist mucous membranes, mild erythema, no exudate Neck: supple, no thyromegaly, no lymphadenopathy HEART: regular rate and rhythm, no murmurs LUNGS: clear to auscultation, no wheezes or crackles, no increased WOB ASSESSMENT/PLAN: 1. URI, acute - ICD9: 465.9, ICD10: J06.9 - suspect viral URI, differential includes COVID-19. - Discussed supportive care treatment with rest, cold medicine, and analgesia. - Red flags to seek further treatment include chest pain, shortness of breath, and lethargy; in the ER if severe. - COVID NAAT, UPPER RESPIRATORY, ROUTINE would like antiviral treatment if positive for COVID. Paxlovid has interactions with Advair (steroid) and Ubrelvy. Schedule with [facility] or return tomorrow to discuss molnupiravir. Sergey Zhang MD documented in this encounter [facility] 08-21-2023 Note HNO ID: [id number] Author: Chuck Wadsworth APRN.[employer] Service: ? Author Type: Nurse Specialist Type: Progress Notes Filed: 08/21/2023 9:25 AM Note Text: SUBJECTIVE: Mammogram Screening due on 10/13/2023 HPI Nury Woods is a 53 year old female. PMH significant for ACTIVE PROBLEM LIST Allergic Rhinitis, Cause Unspecified Anxiety and Depression Migraine Without Aura and Without Status Migrainosus, Not Intractable Uars (Upper Airway Resistance Syndrome) Restless Legs Syndrome Iron Deficiency Dyspnea and Respiratory Abnormalities Selina (Obstructive Sleep Apnea) Moderate Persistent Asthma, Uncomplicated Pure Hypercholesterolemia Episodic Tension-Type Headache, Not Intractable Presents for routine follow up visit today. HPI excerpted from previous visits: Recently seen for follow-up of hospitalization, Nury Woods is a 51 year old female with the chief complaint of manubrial fracture with anterior hematoma. closed fracture of 1 rib of left side, trauma, fall. Today notes that overall feeling improved. She notes decreased shortness of breath on exertion now able to walk 15 minutes without shortness of breath. Chest discomfort is decreased. No longer fatigue. Does note cough help with albuterol, currently using every 6 hours, consistently using Advair. Does note occasional productive cough, clear. Afebrile. Some chest tightness persists, previously helped with prednisone. PCP visit 02/03/2023, meloxicam prescribed for shoulder pain. Since last seen she had a visit with Dr. Reyes regarding SELINA and RLS 12/15/2022 and 02/16/2023, 07/13/2023. Empirically increased PAP range to 5 to 15 cm H2O. Continued on Klonopin at bedtime for RLS.. Seen by Dr. Dietrich EMT INTERMEDIATE October 13, 2022. Pap was within normal limits. 1 year follow-up recommended. Seen by neurology, headache specialists October 15, 2022 and 04/29/2023. Noted migraines are stable with current treatment. Current medications have been helpful and without side effects. Preventive treatment amitriptyline Topamax metoprolol through PCP. Abortive treatment Ubrelvy or Maxalt through headache. Recommended Ubrelvy at last visit as seeming more effective. Started on Boniva for osteopenia and fracture. Today notes she is in her usual state of health. She reports staying active. Weight is stable. Reports occasional use of meloxicam. Notes breathing seems well controlled, no need for albuterol of late. No recent exacerbation. She notes sleep is much improved with current treatments, feeling well rested now. Headaches are also in better control. Review of Systems Constitutional: Negative. Respiratory: Negative. Cardiovascular: Negative. Neurological: Negative. Objective BP 106/71 Pulse 69 Resp 16 Wt 64 kg (141 lb) LMP 09/30/2013 BMI 23.07 kg/m? Physical Exam Vitals and nursing note reviewed. Constitutional: Appearance: Normal appearance. HENT: Head: Normocephalic and atraumatic. Eyes: Conjunctiva/sclera: Conjunctivae normal. Neck: Thyroid: No thyromegaly. Vascular: Normal carotid pulses. No JVD. Cardiovascular: Rate and Rhythm: Normal rate and regular rhythm. Pulses: Carotid pulses are 2+ on the right side and 2+ on the left side. Radial pulses are 2+ on the right side and 2+ on the left side. Heart sounds: Normal heart sounds. Pulmonary: Effort: Pulmonary effort is normal. No accessory muscle usage or respiratory distress. Breath sounds: Normal breath sounds. Abdominal: General: Bowel sounds are normal. Palpations: Abdomen is soft. Skin: General: Skin is warm and dry. Neurological: General: No focal deficit present. Mental Status: She is alert and oriented to person, place, and time. ALLERGIES Allergen Reactions Codeine Rash Cytotec [Misoprosto* Other: See Comments Fainting Dust Mites Other: See Comments Has had allergy test 06/2020- immune to dust now Entex Pse [Pseudoep* Rash Percocet [Oxycodone* Rash Medications clonazePAM (KLONOPIN) 1 mg tablet Take 1 tablet by mouth daily at bedtime for 90 days. Do not start before July 22, 2023. Ibandronate 150 mg tablet Take 1 tablet by mouth once every month. In AM with cup of water on empty stomach. Nothing else by mouth and stay upright for 60 min. metoprolol succinate ER (TOPROL XL) 25 mg 24 hr tablet Take 0.5 tablets by mouth once daily. escitalopram oxalate (LEXAPRO) 20 mg tablet Take 1 tablet by mouth once daily. topiramate (TOPAMAX) 100 mg tablet Take 1 tablet by mouth twice daily. amitriptyline (ELAVIL) 10 mg tablet Take 1 tablet by mouth daily at bedtime. rizatriptan (MAXALT) 10 mg tablet Take (1) tab at onset of headache, may repeat once in 2hrs if needed. No more than 2 doses in 24 hours. ubrogepant (UBRELVY) 100 mg tablet Take 1 tablet by mouth at migraine onset. May repeat same dose once in 2 hours as needed. Limit 2 doses in 24 hours. coenzyme Q10 (COENZYME Q-10) 100 mg (more content not included)... [facility] 08-21-2023 History of Present illness Narrative SUBJECTIVE: Mammogram Screening due on 10/13/2023 HPI Nury Woods is a 53 year old female. PMH significant for ACTIVE PROBLEM LIST Allergic Rhinitis, Cause Unspecified Anxiety and Depression Migraine Without Aura and Without Status Migrainosus, Not Intractable Uars (Upper Airway Resistance Syndrome) Restless Legs Syndrome Iron Deficiency Dyspnea and Respiratory Abnormalities Selina (Obstructive Sleep Apnea) Moderate Persistent Asthma, Uncomplicated Pure Hypercholesterolemia Episodic Tension-Type Headache, Not Intractable Presents for routine follow up visit today. HPI excerpted from previous visits: Recently seen for follow-up of hospitalization, Nury Woods is a 51 year old female with the chief complaint of manubrial fracture with anterior hematoma. closed fracture of 1 rib of left side, trauma, fall. Today notes that overall feeling improved. She notes decreased shortness of breath on exertion now able to walk 15 minutes without shortness of breath. Chest discomfort is decreased. No longer fatigue. Does note cough help with albuterol, currently using every 6 hours, consistently using Advair. Does note occasional productive cough, clear. Afebrile. Some chest tightness persists, previously helped with prednisone. PCP visit 02/03/2023, meloxicam prescribed for shoulder pain. Since last seen she had a visit with Dr. Reyes regarding SELINA and RLS 12/15/2022 and 02/16/2023, 07/13/2023. Empirically increased PAP range to 5 to 15 cm H2O. Continued on Klonopin at bedtime for RLS.. Seen by Dr. Dietrich EMT INTERMEDIATE October 13, 2022. Pap was within normal limits. 1 year follow-up recommended. Seen by neurology, headache specialists October 15, 2022 and 04/29/2023. Noted migraines are stable with current treatment. Current medications have been helpful and without side effects. Preventive treatment amitriptyline Topamax metoprolol through PCP. Abortive treatment Ubrelvy or Maxalt through headache. Recommended Ubrelvy at last visit as seeming more effective. Started on Boniva for osteopenia and fracture. Today notes she is in her usual state of health. She reports staying active. Weight is stable. Reports occasional use of meloxicam. Notes breathing seems well controlled, no need for albuterol of late. No recent exacerbation. She notes sleep is much improved with current treatments, feeling well rested now. Headaches are also in better control. Review of Systems Constitutional: Negative. Respiratory: Negative. Cardiovascular: Negative. Neurological: Negative. Objective BP 106/71 Pulse 69 Resp 16 Wt 64 kg (141 lb) LMP 09/30/2013 BMI 23.07 kg/m Physical Exam Vitals and nursing note reviewed. Constitutional: Appearance: Normal appearance. HENT: Head: Normocephalic and atraumatic. Eyes: Conjunctiva/sclera: Conjunctivae normal. Neck: Thyroid: No thyromegaly. Vascular: Normal carotid pulses. No JVD. Cardiovascular: Rate and Rhythm: Normal rate and regular rhythm. Pulses: Carotid pulses are 2+ on the right side and 2+ on the left side. Radial pulses are 2+ on the right side and 2+ on the left side. Heart sounds: Normal heart sounds. Pulmonary: Effort: Pulmonary effort is normal. No accessory muscle usage or respiratory distress. Breath sounds: Normal breath sounds. Abdominal: General: Bowel sounds are normal. Palpations: Abdomen is soft. Skin: General: Skin is warm and dry. Neurological: General: No focal deficit present. Mental Status: She is alert and oriented to person, place, and time. ALLERGIES Allergen Reactions Codeine Rash Cytotec [Misoprosto* Other: See Comments Fainting Dust Mites Other: See Comments Has had allergy test 06/2020- immune to dust now Entex Pse [Pseudoep* Rash Percocet [Oxycodone* Rash Medications clonazePAM (KLONOPIN) 1 mg tablet Take 1 tablet by mouth daily at bedtime for 90 days. Do not start before July 22, 2023. Ibandronate 150 mg tablet Take 1 tablet by mouth once every month. In AM with cup of water on empty stomach. Nothing else by mouth and stay upright for 60 min. metoprolol succinate ER (TOPROL XL) 25 mg 24 hr tablet Take 0.5 tablets by mouth once daily. escitalopram oxalate (LEXAPRO) 20 mg tablet Take 1 tablet by mouth once daily. topiramate (TOPAMAX) 100 mg tablet Take 1 tablet by mouth twice daily. amitriptyline (ELAVIL) 10 mg tablet Take 1 tablet by mouth daily at bedtime. rizatriptan (MAXALT) 10 mg tablet Take (1) tab at onset of headache, may repeat once in 2hrs if needed. No more than 2 doses in 24 hours. ubrogepant (UBRELVY) 100 mg tablet Take 1 tablet by mouth at migraine onset. May repeat same dose once in 2 hours as needed. Limit 2 doses in 24 hours. coenzyme Q10 (COENZYME Q-10) 100 mg cap capsule Take 1 capsule by mouth once daily. CPAP Please provide a smaller size headgear - child size if available. Large air leak on download. G47.33 SELINA CPAP New set up: Settings 5 - 12 cm H2O, suitable mask per pt preference, chin strap, head gear, humidity, tubing, lifetime supplies. G47.33 SELINA desloratadine (CLARINEX) 5 mg tablet fluticasone-salmeterol (ADVAIR DISKUS) 100-50 mcg/Dose INHALATION DsDv 1 puffs every 12 hours azelastine (ASTELIN) 137 mcg NASAL SprA 2 puffs every 12 hours albuterol HFA (VENTOLIN HFA) 90 mcg/actuation inhaler Inhale 2 Puffs as instructed every 4 hours as needed for wheezing/shortness of breath. PAST MEDICAL HISTORY Diagnosis Date Allergic rhinitis due to other allergen Anxiety and depression Branchial cyst 09/11/2020 Bronchiectasis without acute exacerbation (HCC) Cervicalgia 01/14/2021 Closed fracture of body of sternum 04/25/2022 Closed fracture of one rib of left side 04/26/2022 Frozen shoulder Humerus fracture 12/2021 Dr. Romero Intractable migraine without status migrainosus Dr. Chandra Iron deficiency SELINA (obstructive sleep apnea) Other insomnia Pure hypercholesterolemia RLS (restless legs syndrome) Dr. Reyes Tachycardia Unspecified asthma, with status asthmaticus Uterine fibroid 09/14/2013 Social History Tobacco Use Smoking status: Never Smokeless tobacco: Never Vaping Use Vaping Use: Never used Substance Use Topics Alcohol use: Not Currently Drug use: No No results found for: HBA1C Component Latest Ref Rng & Units 10/17/2022 02/04/2023 02/16/2023 WBC 3.70 - 11.00 k/uL 5.18 RBC 3.90 - 5.20 m/uL 4.41 Hemoglobin 11.5 - 15.5 g/dL 12.5 Hematocrit 36.0 - 46.0 % 37.3 MCV 80.0 - 100.0 fL 84.6 MCH 26.0 - 34.0 pg 28.3 MCHC 30.5 - 36.0 g/dL 33.5 RDW-CV 11.5 - 15.0 % 13.1 Platelet Count 150 - 400 k/uL 197 MPV 9.0 - 12.7 fL 9.0 Neut% % 52.1 Abs Neut (ANC) 1.45 - 7.50 k/uL 2.70 Lymph% % 38.2 Abs Lymph 1.00 - 4.00 k/uL 1.98 Whitfield% % 6.4 Abs Whitfield <0.87 k/uL 0.33 Eosin% % 2.3 Abs Eosin <0.46 k/uL 0.12 Baso% % 0.6 Abs Baso <0.11 k/uL 0.03 Immature Gran % % 0.4 IMMATURE GRANS (ABS) <0.10 k/uL <0.03 NRBC /100 WBC 0.0 Absolute nRBC <0.01 k/uL <0.01 DTYPE Auto Protein, Total 6.3 - 8.0 g/dL 6.4 6.7 Albumin 3.9 - 4.9 g/dL 4.4 4.6 Calcium 8.5 - 10.2 mg/dL 9.4 9.2 Bilirubin, Total 0.2 - 1.3 mg/dL 1.0 0.9 Alkaline Phosphatase 34 - 123 U/L 34 34 AST 13 - 35 U/L 14 18 ALT 7 - 38 U/L 7 11 Glucose 74 - 99 mg/dL 110 (H) 96 BUN 7 - 21 mg/dL 16 22 (H) Creatinine 0.58 - 0.96 mg/dL 0.73 0.81 Sodium 136 - 144 mmol/L 141 142 Potassium 3.7 - 5.1 mmol/L 4.1 4.0 Chloride 97 - 105 mmol/L 109 (H) 108 (H) CO2 22 - 30 mmol/L 25 25 Anion Gap 9 - 18 mmol/L 7 (L) 9 eGFR >=60 mL/min/1.73m 98 86 Cholesterol, Total <200 mg/dL 208 (H) Triglyceride <150 mg/dL 43 HDL Cholesterol >39 mg/dL 84 Non HDL Cholesterol <130 mg/dL 124 Fasting Time hrs 10 VLDL Cholesterol <30 mg/dL 9 TC:HDL Ratio <5.10 2.48 LDL Cholesterol <100 mg/dL 115 (H) LDL:HDL Ratio <2.54 1.37 Phencyclidine Negative Negative Benzodiazepines Urine Negative Negative Cocaine Urine Negative Negative Amphetamines Negative Negative Cannabinoids, Urine Negative Negative Opiates Negative Negative Barbiturates Negative Negative Ethanol, Urine <11 mg/dL <11 Oxycodone, Urine Negative Negative Iron 41 - 186 ug/dL 111 TIBC 232 - 386 ug/dL 259 Transferrin Saturation 15.0 - 57.0 % 42.9 Ferritin 14.7 - 205.1 ng/mL 272.0 (H) TSH 0.270 - 4.200 mIU/L 0.868 Free T4 0.9 - 1.7 ng/dL 1.1 Free T3 2.3 - 4.1 pg/mL 2.8 Vitamin D 25 Hydroxy 31.0 - 80.0 ng/mL 39.2 PTH, Intact 15 - 65 pg/mL 34 Ferritin level trending downward toward normal range ASSESSMENT/PLAN: 1. Mild intermittent asthma with acute exacerbation - ICD9: 493.92, ICD10: J45.21 Currently controlled, continue current treatment unchanged. Avoidance of triggers endorsed. - ALBUTEROL SULFATE HFA 90 MCG/ACTUATION AEROSOL INHALER - COMP METABOLIC PANEL - CBC + DIFF 2. Encounter for immunization - ICD9: V03.89, ICD10: Z23 Declines all, states she does not do well with these, gets sick afterwards 3. S/P partial thyroidectomy - ICD9: 246.8, ICD10: E89.0 Most recent TSH within normal limits - COMP METABOLIC PANEL - TSH BLD 4. Depression with anxiety - ICD9: 300.4, ICD10: F41.8 - COMP METABOLIC PANEL - CBC + DIFF 5. Pure hypercholesterolemia - ICD9: 272.0, ICD10: E78.00 - LIPID PANEL BASIC 6. SELINA (obstructive sleep apnea) - ICD9: 327.23, ICD10: G47.33 Much improved by current treatments, followed by sleep medicine 7. Migraine without aura and without status migrainosus, not intractable - ICD9: 346.10, ICD10: G43.009 Much improved with current treatment, has been followed by neurology/headache 8. Restless legs syndrome - ICD9: 333.94, ICD10: G25.81 Much improved by current treatments, followed by sleep medicine 9. Vitamin D deficiency - ICD9: 268.9, ICD10: E55.9 10. Age-related osteoporosis without current pathological fracture - ICD9: 733.01, ICD10: M81.0 Continue with Boniva and supplemental vitamin D. Weightbearing exercise. Calcium through diet or supplements 1200 mg daily - VITAMIN D 25 HYDROXY 10. Routine medical exam-Z00.00 Primary diagnosis 6 mo follow up with labs MD Chuck Rose [email or web address] Medical Decision Making: Medical Decision Making Level: 1 - N/A documented in this encounter [facility] 07-13-2023 Note HNO ID: [id number] Author: Raman Reyes Jr., MD Service: ? Author Type: Physician Type: Progress Notes Filed: 07/13/2023 9:31 AM Note Text: ESTABLISHED PATIENT VISIT CHIEF COMPLAINT: Follow Up HISTORY OF PRESENT ILLNESS: Nury Woods is a 52 year old female, BMI 22.87 kg/m2 with a PMH significant for and per last office visit on 02/16/23: 1. RLS (restless legs syndrome) - ICD9: 333.94, ICD10: G25.81 (primary diagnosis) RLS well controlled still on Klonopin 1.0mg QHS. No side effects. Still with ability to use Requip prn as above, but not needing. Sleep onset within minutes and no awakenings during the night that disrupt sleep. Thus, changes in meds today. Reviewed those social and dietary factors that might provoke RLS. 2. Long-term current use of benzodiazepine - ICD9: V58.69, ICD10: Z79.899 - TOX SCREEN ROUT UR - BENZO CONFIRM, URINE 3. SELINA (obstructive sleep apnea) - ICD9: 327.23, ICD10: G47.33 Doing well. No complaints. Encouraged continued compliance. Reminded pt to clean and replace equipment regularly. 4. Anxiety - ICD9: 300.00, ICD10: F41.9 Well controlled at night with Klonopin. No racing thoughts. Reviewed terminal makeup operator SEs of Klonopin but pt feels without medication, will not be able to maintain sleep and in turn will have difficulties functioning during the day. Thus will continue as above. PAP data compliance report from 04/11/23-07/09/23 showed 82/90 days used for avg of 6 hours and 7 minutes. Set at 5-15 cmH2O. 95% pressure is 13 cmH2O with max of 14.2 cmH2O. AHI is 2.1. 95% leak is 7.6 LPM. Unrelated to sleep visit, reports headaches well controlled in her opinion - only about 4 per month. RLS is completely controlled with Klonopin at night. Patient is no longer need Requip. Anxiety stable. Goes to bed about 9PM. Falls asleep immediately. Rare awakening around 3AM but can get right back to sleep. Keeps PAP on all night. No PAP complaints. Cleaning equipment regularly. Patient would like to make no changes to medication regimen. REVIEW OF SYSTEMS GENERAL:No weight loss, malaise or fevers. HEENT:Negative for frequent or significant headaches, No changes in hearing or vision, no nose bleeds or other nasal problems NECK:Negative for lumps, goiter, pain and significant neck swelling RESPIRATORY: Negative for cough, wheezing or shortness of breath. CARDIOVASCULAR: Negative for chest pain, leg swelling or palpitations. MUSCULOSKELETAL: Negative for joint pain or swelling, back pain or muscle pain. NEUROLOGIC: See HPI. PSYCHIATRIC: See HPI. LAB/IMAGING: Those performed since patient's last visit have been reviewed. WBC (k/uL) Date Value 02/04/2023 5.18 RBC (m/uL) Date Value 02/04/2023 4.41 Hemoglobin (g/dL) Date Value 02/04/2023 12.5 Hematocrit (%) Date Value 02/04/2023 37.3 MCV (fL) Date Value 02/04/2023 84.6 MCH (pg) Date Value 02/04/2023 28.3 MCHC (g/dL) Date Value 02/04/2023 33.5 RDW-CV (%) Date Value 02/04/2023 13.1 Platelet Count (k/uL) Date Value 02/04/2023 197 MPV (fL) Date Value 02/04/2023 9.0 Glucose (mg/dL) Date Value 02/04/2023 96 BUN (mg/dL) Date Value 02/04/2023 22 (H) Creatinine (mg/dL) Date Value 02/04/2023 0.81 Sodium (mmol/L) Date Value 02/04/2023 142 Potassium (mmol/L) Date Value 02/04/2023 4.0 Chloride (mmol/L) Date Value 02/04/2023 108 (H) CO2 (mmol/L) Date Value 02/04/2023 25 Protein, Total (g/dL) Date Value 02/04/2023 6.7 Albumin (g/dL) Date Value 02/04/2023 4.6 Calcium, Total (mg/dL) Date Value 02/04/2023 9.2 Alkaline Phosphatase (U/L) Date Value 02/04/2023 34 Bilirubin, Total (mg/dL) Date Value 02/04/2023 0.9 AST (U/L) Date Value 02/04/2023 18 ALT (U/L) Date Value 02/04/2023 11 MEDICATIONS: clonazePAM (KLONOPIN) 1 mg tablet Take 1 capsule nightly Ibandronate 150 mg tablet Take 1 tablet by mouth once every month. In AM with cup of water on empty stomach. Nothing else by mouth and stay upright for 60 min. metoprolol succinate ER (TOPROL XL) 25 mg 24 hr tablet Take 0.5 tablets by mouth once daily. escitalopram oxalate (LEXAPRO) 20 mg tablet Take 1 tablet by mouth once daily. topiramate (TOPAMAX) 100 mg tablet Take 1 tablet by mouth twice daily. amitriptyline (ELAVIL) 10 mg tablet Take 1 tablet by mouth daily at bedtime. rizatriptan (MAXALT) 10 mg tablet Take (1) tab at onset of headache, may repeat once in 2hrs if needed. No more than 2 doses in 24 hours. ubrogepant (UBRELVY) 100 mg tablet Take 1 tablet by mouth at migraine onset. May repeat same dose once in 2 hours as needed. Limit 2 doses in 24 hours. albuterol HFA (VENTOLIN HFA) 90 mcg/actuation inhaler Inhale 2 Puffs as instructed every 4 hours as needed for wheezing/shortness of breath. coenzyme Q10 (COENZYME Q-10) 100 mg cap capsule Take 1 capsule by mouth once daily. CPAP New set up: Settings 5 - 12 cm H2O, suitable mask per pt pref (more content not included)... [facility] 07-13-2023 Instructions Raman Reyes Jr., MD - 07/13/2023 9:27 AM EDT documented in this encounter [facility] 07-13-2023 History of Present illness Narrative ESTABLISHED PATIENT VISIT CHIEF COMPLAINT: Follow Up HISTORY OF PRESENT ILLNESS: Nury Woods is a 52 year old female, BMI 22.87 kg/m2 with a PMH significant for and per last office visit on 02/16/23: 1. RLS (restless legs syndrome) - ICD9: 333.94, ICD10: G25.81 (primary diagnosis) RLS well controlled still on Klonopin 1.0mg QHS. No side effects. Still with ability to use Requip prn as above, but not needing. Sleep onset within minutes and no awakenings during the night that disrupt sleep. Thus, changes in meds today. Reviewed those social and dietary factors that might provoke RLS. 2. Long-term current use of benzodiazepine - ICD9: V58.69, ICD10: Z79.899 - TOX SCREEN ROUT UR - BENZO CONFIRM, URINE 3. SELINA (obstructive sleep apnea) - ICD9: 327.23, ICD10: G47.33 Doing well. No complaints. Encouraged continued compliance. Reminded pt to clean and replace equipment regularly. 4. Anxiety - ICD9: 300.00, ICD10: F41.9 Well controlled at night with Klonopin. No racing thoughts. Reviewed terminal makeup operator SEs of Klonopin but pt feels without medication, will not be able to maintain sleep and in turn will have difficulties functioning during the day. Thus will continue as above. PAP data compliance report from 04/11/23-07/09/23 showed 82/90 days used for avg of 6 hours and 7 minutes. Set at 5-15 cmH2O. 95% pressure is 13 cmH2O with max of 14.2 cmH2O. AHI is 2.1. 95% leak is 7.6 LPM. Unrelated to sleep visit, reports headaches well controlled in her opinion - only about 4 per month. RLS is completely controlled with Klonopin at night. Patient is no longer need Requip. Anxiety stable. Goes to bed about 9PM. Falls asleep immediately. Rare awakening around 3AM but can get right back to sleep. Keeps PAP on all night. No PAP complaints. Cleaning equipment regularly. Patient would like to make no changes to medication regimen. REVIEW OF SYSTEMS GENERAL:No weight loss, malaise or fevers. HEENT:Negative for frequent or significant headaches, No changes in hearing or vision, no nose bleeds or other nasal problems NECK:Negative for lumps, goiter, pain and significant neck swelling RESPIRATORY: Negative for cough, wheezing or shortness of breath. CARDIOVASCULAR: Negative for chest pain, leg swelling or palpitations. MUSCULOSKELETAL: Negative for joint pain or swelling, back pain or muscle pain. NEUROLOGIC: See HPI. PSYCHIATRIC: See HPI. LAB/IMAGING: Those performed since patient's last visit have been reviewed. WBC (k/uL) Date Value 02/04/2023 5.18 RBC (m/uL) Date Value 02/04/2023 4.41 Hemoglobin (g/dL) Date Value 02/04/2023 12.5 Hematocrit (%) Date Value 02/04/2023 37.3 MCV (fL) Date Value 02/04/2023 84.6 MCH (pg) Date Value 02/04/2023 28.3 MCHC (g/dL) Date Value 02/04/2023 33.5 RDW-CV (%) Date Value 02/04/2023 13.1 Platelet Count (k/uL) Date Value 02/04/2023 197 MPV (fL) Date Value 02/04/2023 9.0 Glucose (mg/dL) Date Value 02/04/2023 96 BUN (mg/dL) Date Value 02/04/2023 22 (H) Creatinine (mg/dL) Date Value 02/04/2023 0.81 Sodium (mmol/L) Date Value 02/04/2023 142 Potassium (mmol/L) Date Value 02/04/2023 4.0 Chloride (mmol/L) Date Value 02/04/2023 108 (H) CO2 (mmol/L) Date Value 02/04/2023 25 Protein, Total (g/dL) Date Value 02/04/2023 6.7 Albumin (g/dL) Date Value 02/04/2023 4.6 Calcium, Total (mg/dL) Date Value 02/04/2023 9.2 Alkaline Phosphatase (U/L) Date Value 02/04/2023 34 Bilirubin, Total (mg/dL) Date Value 02/04/2023 0.9 AST (U/L) Date Value 02/04/2023 18 ALT (U/L) Date Value 02/04/2023 11 MEDICATIONS: clonazePAM (KLONOPIN) 1 mg tablet Take 1 capsule nightly Ibandronate 150 mg tablet Take 1 tablet by mouth once every month. In AM with cup of water on empty stomach. Nothing else by mouth and stay upright for 60 min. metoprolol succinate ER (TOPROL XL) 25 mg 24 hr tablet Take 0.5 tablets by mouth once daily. escitalopram oxalate (LEXAPRO) 20 mg tablet Take 1 tablet by mouth once daily. topiramate (TOPAMAX) 100 mg tablet Take 1 tablet by mouth twice daily. amitriptyline (ELAVIL) 10 mg tablet Take 1 tablet by mouth daily at bedtime. rizatriptan (MAXALT) 10 mg tablet Take (1) tab at onset of headache, may repeat once in 2hrs if needed. No more than 2 doses in 24 hours. ubrogepant (UBRELVY) 100 mg tablet Take 1 tablet by mouth at migraine onset. May repeat same dose once in 2 hours as needed. Limit 2 doses in 24 hours. albuterol HFA (VENTOLIN HFA) 90 mcg/actuation inhaler Inhale 2 Puffs as instructed every 4 hours as needed for wheezing/shortness of breath. coenzyme Q10 (COENZYME Q-10) 100 mg cap capsule Take 1 capsule by mouth once daily. CPAP New set up: Settings 5 - 12 cm H2O, suitable mask per pt preference, chin strap, head gear, humidity, tubing, lifetime supplies. G47.33 SELINA azelastine (ASTELIN) 137 mcg NASAL SprA 2 puffs every 12 hours rOPINIRole (REQUIP) 0.25 mg tablet Take 1 tablet in the evening as needed for restless legs symptoms prior to bedtime. CPAP Please provide a smaller size headgear - child size if available. Large air leak on download. G47.33 SELINA desloratadine (CLARINEX) 5 mg tablet fluticasone-salmeterol (ADVAIR DISKUS) 100-50 mcg/Dose INHALATION DsDv 1 puffs every 12 hours HISTORIES PAST MEDICAL HISTORY Diagnosis Date Allergic rhinitis due to other allergen Anxiety and depression Branchial cyst 09/11/2020 Bronchiectasis without acute exacerbation (HCC) Cervicalgia 01/14/2021 Closed fracture of body of sternum 04/25/2022 Closed fracture of one rib of left side 04/26/2022 Frozen shoulder Humerus fracture 12/2021 Dr. Romero Intractable migraine without status migrainosus Dr. Chandra Iron deficiency SELINA (obstructive sleep apnea) Other insomnia Pure hypercholesterolemia RLS (restless legs syndrome) Dr. Reyes Tachycardia Unspecified asthma, with status asthmaticus Uterine fibroid 09/14/2013 FAMILY HISTORY Problem Relation Age of Onset Coronary Artery Disease Father age 73 Hypertension Father Heart Attack Father Stroke Mother age 75 other (Other) Sister Sleep apnea other (Other) Son TAR Syndrome Migraines Daughter Coronary Artery Disease Maternal Grandmother Stroke Maternal Grandmother other (Other) Maternal Grandmother lung dx Diabetes Paternal Uncle SOCIAL HISTORY Social History Tobacco Use Smoking status: Never Smokeless tobacco: Never Vaping Use Vaping Use: Never used Substance Use Topics Alcohol use: Not Currently Drug use: No PHYSICAL EXAMINATION BP 116/64 Pulse 95 Resp 16 Wt 63.4 kg (139 lb 12.8 oz) LMP 09/30/2013 SpO2 99% BMI 22.87 kg/m GENERAL EXAM: General appearance: NAD, pleasant. HEENT: NC/AT, nasal congestion absent, no oral lesions, membranes moist. Lungs: CTA bilaterally. CV: RRR nl S1, S2 Extr: No cyanosis, clubbing or edema. Skin: Cool to touch. NEUROLOGICAL EXAM: General: Awake, alert, oriented x3 (person,place,time), speech fluent, no dysarthria; comprehension, naming, repetition intact. CN: PERRL, fundi appear normal including no evidence of papilledema, EOMI and without nystagmus, VFF to confrontation, facial sensation and strength are normal and symmetric, hearing is intact to finger rub bilaterally, palate and tongue movements are intact and symmetric. SCM and trapezius strength normal. Motor: Normal tone, bulk and strength (5/5) bilaterally (throughout extremities x4). Coordination: FNF, MORTEZA, HTS intact. Sensation: LT intact throughout. No evidence of neglect. Gait: Stable. Assessment and Plan: ASSESSMENT/PLAN: 1. RLS (restless legs syndrome) - ICD9: 333.94, ICD10: G25.81 (primary diagnosis) Well controlled on Klonopion 1mg nightly for years now. No changes to meds, with pt trying in the past with exacerbation of symptoms. Pt understands terminal makeup operator side effects to consider with Klonopin. No new complaint. UDS last visit and will not need again until next year. 2. Long-term current use of benzodiazepine - ICD9: V58.69, ICD10: Z79.899 As above. Will need UDS next year. 3. SELINA (obstructive sleep apnea) - ICD9: 327.23, ICD10: G47.33 Stable. AHI controlled on PAP data download. Reminded patient to clean and replace PAP equipment regularly. Advised pt not to drive or operate heavy machinery if sleepy. 4. Anxiety - ICD9: 300.00, ICD10: F41.9 Stable at night with Klonopin controlling both these symptoms and RLS. Raman Reyes MD I spent a total of 22 minutes on the date of the service which included preparing to see the patient, [id number] patient care, completing clinical documentation, obtaining and/or reviewing separately obtained history, performing a medically appropriate examination, counseling and educating the patient/family/caregiver, ordering medications, tests, or procedures, independently interpreting results (not separately reported), and communicating results to the patient/family/caregiver (results = PAP data download). documented in this encounter [facility] 06-23-2023 Miscellaneous Notes PDMP website checked and validated. All prescriptions have been APPROPRIATELY filled. No suspicious activity was identified. 06/23/2023 by Raman Reyes MD [facility] 02/16/23 with [facility] NOV 07/13/23 with [facility] Refill 02/16/23 with qty: 30 and 2 refills Steph Vallecillo LPN [facility] Assessment/Plan ASSESSMENT/PLAN: 1. RLS (restless legs syndrome) - ICD9: 333.94, ICD10: G25.81 (primary diagnosis) RLS well controlled still on Klonopin 1.0mg QHS. No side effects. Still with ability to use Requip prn as above, but not needing. Sleep onset within minutes and no awakenings during the night that disrupt sleep. Thus, changes in meds today. Reviewed those social and dietary factors that might provoke RLS. 2. Long-term current use of benzodiazepine - ICD9: V58.69, ICD10: Z79.899 - TOX SCREEN ROUT UR - BENZO CONFIRM, URINE 3. SELINA (obstructive sleep apnea) - ICD9: 327.23, ICD10: G47.33 Doing well. No complaints. Encouraged continued compliance. Reminded pt to clean and replace equipment regularly. 4. Anxiety - ICD9: 300.00, ICD10: F41.9 Well controlled at night with Klonopin. No racing thoughts. Reviewed terminal makeup operator SEs of Klonopin but pt feels without medication, will not be able to maintain sleep and in turn will have difficulties functioning during the day. Thus will continue as above. Raman Reyes MD documented in this encounter [facility] 04-29-2023 Note HNO ID: [id number] Author: Sandy Chandra, DO Service: ? Author Type: Physician Type: Progress Notes Filed: 04/29/2023 4:13 PM Note Text: [facility] - VIRTUAL Follow-up Visit ASSESSMENT: 52 year old female with history significant for migraine without aura, anxiety, depression, RLS, insomnia, and prior chronic daily headache and chronic migraine, improved significantly on combined Topiramate and Amitriptyline to a well controlled pattern of episodic migraine and tension type headache. PLAN: (Please see typed patient instructions for detailed instructions) ---> Acute Treatment: -Maxalt vs. Ubrelvy. Both work well for her, but she finds the Ubrelvy more helpful. Nury Edi Woods has been previously approved for an Oral Calcitonin Gene-Related Peptide Receptor Antagonist (GEPANT) Ubrogepant for the treatment of acute migraine. The patient has demonstrated the following: Provider attests patient has had a positive clinical response: Yes Patient will not use with another Oral Calcitonin Gene-Related Peptide Receptor Antagonist (GEPANT): Yes Patient's quality of life and ability to perform ADLs has improved: Yes We suggest the patient continue treatment with GEPANT Ubrogepant. The following preventative medications have been tried for three or more months without benefit: Anti-Convulsant Divalproex sodium (Depakote) IV Gabapentin (Neurontin) Topiramate (Topamax, Trokendi XL, Qudexy) Anti-Depressant and Antipsychotic Amitriptyline (Elavil) Escitalopram (Lexapro) Buspirone Blood Pressure Metoprolol (Lopressor,Toprol XL) Supplements CoQ10 Magnesium The following abortive medications have been tried but require high frequency use which can lead to Medication Overuse Headache: Analgesic Hydrocodone/Acetaminophen (Vicodin, [place]) Hydromorphone (Dilaudid) Ketorolac (Toradol) Meperidine (Demerol) Morphine (Mary, Ms Contin) Oxycodone/Acetaminophen (Percocet) Anti-Anxiety Buspirone (Buspar) Clonazepam (Klonopin) Lorazepam (Ativan) Anti-Migraine Dihydroergotamine (DHE-45, Migranal) Rizatriptan (Maxalt) GEPANTS Ubrogepant (Ubrelvy) Over the Counter Medications Acetaminophen (Tylenol) Acetaminophen/Aspirin (Goody?s) Acetaminophen/Aspirin/Caffeine (Excedrin, Goody?s) Aspirin Ibuprofen (Advil, Motrin) Naproxen sodium (Aleve) ---> Preventive Treatment: -Topamax 100 mg bid. -Metoprolol 25 mg, takes a half tab daily for palpitations. HR went from high to low (in 50s). -Amitriptyline 10 mg qhs. -Supplements. ---> Follow-up: 1 year ------- - Last visit: 12/17/21 Interval Headache Hx: Doing well. About 5 overall headache days per month which includes 2 migraine days per month and the others are tension type. New Labs/Imaging: n/a HEADACHE SCORES: Headache Questions 04/13/2022 10/08/2022 04/25/2023 ID Migraine Screener: - - - ER visits in the last year: - - - ER visits since last office visit: 0 0 0 Hospital stays in the last year: - - - Hospital stays since last office visit 0 0 0 Limited ADLs in the last month: 0 1 0 Days missed from work or school in the last month: 0 0 0 Days headache pain free in the last month: 6 12 15 Days per month with ALL of the following symptoms - decreased productivity, light sensitivity and nausea: 0 2 1 Initial improvement of headache after botox injection at last visit: Not applicable, I did not have a botox injection at my last visit Not applicable, I did not have a botox injection at my last visit Not applicable, I did not have a botox injection at my last visit PRN medication usage in the last month: 15 7 6 Patient impression of improvement since last visit: Much improved Much improved Much improved HIT-6 04/13/2022 10/08/2022 04/25/2023 HIT-6 50 (Moderate impact) 48 (Little or no impact) 44 (Little or no impact) GAETANO - 2/7 SCORES 04/13/2022 10/08/2022 04/25/2023 GAETANO-2 Score 6 0 0 GAETANO-7 Score 14 - - Migraine Specific QOL - Higher scores indicate better HRQL 04/13/2022 10/08/2022 04/25/2023 Role Function-Restrictive Transformed Score (range: 0-100) 80 82.86 100 Role Function-Preventive Transformed Score (range: 0-100) 80 90 100 Emotional Function Transformed Score (range: 0-100) 86.67 100 100 PHQ-9 12/12/2022 02/11/2023 04/25/2023 Score 0 0 0 ------- - MEDS: Current Outpatient Medications Medication Sig topiramate (TOPAMAX) 100 mg tablet Take 1 tablet by mouth twice daily. amitriptyline (ELAVIL) 10 mg tablet Take 1 tablet by mouth daily at bedtime. rizatriptan (MAXALT) 10 mg tablet Take (1) tab at onset of headache, may repeat once in 2hrs if needed. No more than 2 doses in 24 hours. ubrogepant (UBRELVY) 100 mg tablet Take 1 tablet by (more content not included)... [facility] 04-13-2023 Note HNO ID: [id number] Author: Aileen Luna APRN.DEBT COLLECTION SPECIALIST Service: ? Author Type: Nurse Practitioner Type: Progress Notes Filed: 04/13/2023 7:44 AM Note Text: CC: Patient presents with: Nausea AND Vomiting: Dizziness, right ear clogged x 4 days Said the vomiting seem to be related to the ear symptoms. Patient says she has been taking a lot of walks outside recently. HPI: Nury Woods is a 52 year old female who presents to the office with complaint of ear symptoms for a few days. Symptoms are staying the same. Associated symptoms includes nasal congestion, vomiting , and dizziness. Denies fever, cough, and diarrhea. Treatments tried include patient does take daily Astelin and allergy medication with minor relief of symptoms. Sick contacts: unknown. History of asthma, frequent episodes of bronchitis, chronic bronchitis, bronchiectasis or COPD: No Smoker: No Seasonal/environmental allergies: No The ROS is otherwise negative. The patient's pmh, medications, allergies, and past visits are reviewed. PHYSICAL EXAM: BP 140/88 Pulse 115 Temp 36.9 ?C (98.5 ?F) Resp 21 Wt 60.9 kg (134 lb 3.2 oz) LMP 09/30/2013 SpO2 100% BMI 21.96 kg/m? General appearance: alert, cooperative, pleasant, in no acute distress Head: Normocephalic Eyes: EOM's intact, conjunctiva pink and moist, no icterus, sclera white, non-injected Ears: Right ear: External ear/canal- Normal, TM - clear with good landmarks. Left ear: External ear/canal- Normal, TM - clear with good landmarks PAST MEDICAL HISTORY Diagnosis Date Allergic rhinitis due to other allergen Anxiety and depression Branchial cyst 09/11/2020 Bronchiectasis without acute exacerbation (HCC) Cervicalgia 01/14/2021 Closed fracture of body of sternum 04/25/2022 Closed fracture of one rib of left side 04/26/2022 Frozen shoulder Humerus fracture 12/2021 Dr. Romero Intractable migraine without status migrainosus Dr. Chandra Iron deficiency SELINA (obstructive sleep apnea) Other insomnia Pure hypercholesterolemia RLS (restless legs syndrome) Dr. Reyes Tachycardia Unspecified asthma, with status asthmaticus Uterine fibroid 09/14/2013 PAST SURGICAL HISTORY Procedure Laterality Date ARTHROSCOPIC RELEASE SHOULDER JOINT Right 08/23/2019 frozen shoulder COLONOSCOPY FLX DX W/COLLJ SPEC WHEN PFRMD 10/04/2018 repeat 10 years EXCISION BRANCHIAL CLEFT CYST Right 09/20/2020 HYSTEROSCOPY WBX WWO D AND C ANDOR POLYPECTOMY 2012 S CATH ABLATION THERMACHOICE 2012 THYROIDECTOMY TOTAL/COMPLETE 1994 partial - ? left ALLERGIES Codeine, Cytotec [Misoprostol], Dust Mites, Entex Pse [Pseudoephedrine-Guaifenesin], and Percocet [Oxycodone-Acetaminophen] MEDICATIONS clonazePAM (KLONOPIN) 1 mg tablet Take 1 capsule nightly meloxicam (MOBIC) 15 mg tablet Take 1 tablet by mouth once daily as needed for pain. With food. rOPINIRole (REQUIP) 0.25 mg tablet Take 1 tablet in the evening as needed for restless legs symptoms prior to bedtime. topiramate (TOPAMAX) 100 mg tablet Take 1 tablet by mouth twice daily. amitriptyline (ELAVIL) 10 mg tablet Take 1 tablet by mouth daily at bedtime. ubrogepant (UBRELVY) 100 mg tablet Take 1 tablet by mouth at migraine onset. May repeat same dose once in 2 hours as needed. Limit 2 doses in 24 hours. rizatriptan (MAXALT) 10 mg tablet Take (1) tab at onset of headache, may repeat once in 2hrs if needed. No more than 2 doses in 24 hours. Limit use to 2 days per week. Ibandronate 150 mg tablet Take 1 tablet by mouth once every month. In AM with cup of water on empty stomach. Nothing else by mouth and stay upright for 60 min. albuterol HFA (VENTOLIN HFA) 90 mcg/actuation inhaler Inhale 2 Puffs as instructed every 4 hours as needed for wheezing/shortness of breath. metoprolol succinate ER (TOPROL XL) 25 mg 24 hr tablet Take 0.5 tablets by mouth once daily. escitalopram oxalate (LEXAPRO) 20 mg tablet Take 1 tablet by mouth once daily. coenzyme Q10 (COENZYME Q-10) 100 mg cap capsule Take 1 capsule by mouth once daily. CPAP Please provide a smaller size headgear - child size if available. Large air leak on download. G47.33 SELINA CPAP New set up: Settings 5 - 12 cm H2O, suitable mask per pt preference, chin strap, head gear, humidity, tubing, lifetime supplies. G47.33 SELINA desloratadine (CLARINEX) 5 mg tablet fluticasone-salmeterol (ADVAIR DISKUS) 100-50 mcg/Dose INHALATION DsDv 1 puffs every 12 hours azelastine (ASTELIN) 137 mcg NASAL SprA 2 puffs every 12 hours predniSONE (DELTASONE) 20 mg tablet Take 1 tablet by mouth once daily for 5 days. FAMILY HISTORY Problem Relation Age of Onset Coronary Artery Disease Father age 73 Hypertension Father Heart Attack Father Stroke Mother age 75 other (Other) Sister Sleep apnea other (Other) Son TAR Syndrome Migraines Daughter Coronary Artery Disease Maternal Grandmother Stroke Maternal Grandmother other (Ot (more content not included)... [facility] 02-16-2023 Note HNO ID: [id number] Author: Raman Reyes Jr., MD Service: ? Author Type: Physician Type: Progress Notes Filed: 02/16/2023 10:46 AM Note Text: ESTABLISHED PATIENT VISIT CHIEF COMPLAINT: Follow Up HISTORY OF PRESENT ILLNESS: Nury Woods is a 52 year old female, BMI 21.96 kg/m2 with a PMH significant for and per last office visit note of 12/15/22: 1. SELINA (obstructive sleep apnea) - ICD9: 327.23, ICD10: G47.33 (primary diagnosis) Doing well on PAP except for leak, but not a disturbance to patient, and while borderline high, AHI remains normalized. Pt finds mask comfortable and would prefer not to make changes at this time. Encouraged continued compliance. Reminded to clean and replace equipment regularly. Advised pt not to drive or operate heavy machinery if sleepy. 2. RLS (restless legs syndrome) - ICD9: 333.94, ICD10: G25.81 Some breakthrough symptoms prior to bedtime, but not nightly. Discussed options. No response to gabapentin in past. Thus will provide Requip 0.25mg 1 tab prn Q early evening. SE and ADRs d/w pt. Cotinue Klonopin 1.0mg QHS that controls symptoms at night. Follow up 3 months at which time UDS will be needed for the year. Again reviewed risks vs benefits of Klonopin with pt. Check Ferritin with next labs. 3. Anxiety - ICD9: 300.00, ICD10: F41.9 Also controlled with Klonopin at night - no longer with racing thoughts or worries that were also contributing to delayed sleep onset. PAP data download reviewed with pt. Used 80/90 days with avg of 5 hours and 36 minutes. 95% pressure 14.1 (set at 5-15 cmH2O). AHI is 3.1. 95% leak is 21.1 LPM. No issues with mask or pressure. No dry mouth. Bedtime about 9PM. Falls asleep in minutes. RLS not bothering pt - only takes Requip 0.25mg QHS prn maybe twice since last visit. Only needing Klonopin at bedtime regularly. Stays asleep through the night. Feels refreshed in AM. Not tired during the day. States only needs 6 hours of sleep to feel good. Ferritin level on 02/04/23 = 272. Sleep Questionnaire Data Depression Screening 10/08/2022 12/12/2022 02/11/2023 PHQ-2 Score 0 0 0 PHQ-9 Score 0 0 0 GAETANO-2 Total Score 0 - - PED PHQ-9 10/08/2022 12/12/2022 02/11/2023 Little interest or pleasure in doing things Not at all Not at all Not at all Feeling down, depressed, or hopeless Not at all Not at all Not at all Trouble falling or staying asleep, or sleeping too much Not at all Not at all Not at all Feeling tired or having little energy Not at all Not at all Not at all Poor appetite or overeating Not at all Not at all Not at all Feeling bad about yourself - or that you are a failure or have let yourself or your family down Not at all Not at all Not at all Trouble concentrating on things, such as reading the newspaper or watching television Not at all Not at all Not at all Moving or speaking so slowly that other people could have noticed. Or the opposite - being so fidgety or restless that you have been moving around a lot more than usual Not at all Not at all Not at all Thoughts that you would be better off , or of hurting yourself in some way Not at all Not at all Not at all If you checked off any problems, how difficult have these problems made it for you to do your work, take care of things at home, or get along with other people? Not difficult at all - Not difficult at all PHQ-9 Score 0 (None-Minimal Depression) 0 (None-Minimal Depression) 0 (None-Minimal Depression) [place] Sleepiness Scale 10/08/2022 12/12/2022 02/11/2023 Score - 2 (No daytime sleepiness) 3 (No daytime sleepiness) REVIEW OF SYSTEMS GENERAL:No weight loss, malaise or fevers. HEENT:Negative for frequent or significant headaches, No changes in hearing or vision, no nose bleeds or other nasal problems NECK:Negative for lumps, goiter, pain and significant neck swelling RESPIRATORY: Negative for cough, wheezing or shortness of breath. CARDIOVASCULAR: Negative for chest pain, leg swelling or palpitations. GASTROINTESTINAL: Negative for abdominal discomfort, blood in stools or black stools or change in bowel habits GENITOURINARY: No history of dysuria, frequency or incontinence MUSCULOSKELETAL: Negative for joint pain or swelling, back pain or muscle pain. NEUROLOGIC:Negative for focal numbness or weakness, headaches and dizziness or syncope, vision changes, speech/languag changes - EXCEPT that as per HPI above. LAB/IMAGING: Those performed since patient's last visit have been reviewed. WBC (k/uL) Date Value 02/04/2023 5.18 RBC (m/uL) Date Value 02/04/2023 4.41 Hemoglobin (g/dL) Date Value 02/04/2023 12.5 Hematocrit (%) Date Value 02/04/2023 37.3 MCV (fL) Date Value 02/04/2023 84.6 MCH (pg) Date Value 02/04/2023 28.3 MCHC (g/dL) Date Value 02/04/2023 33.5 RDW-CV (%) Date Value 02/04/2023 13.1 Platelet Count (k/uL) Date Value 02/04/2023 197 MPV (fL) Date Value 02/04/2023 9.0 Glucos (more content not included)... [facility] 02-16-2023 Instructions Raman Reyes Jr., MD - 02/16/2023 11:20 AM EDT Maintaining a healthy weight is gastelum to good sleep. documented in this encounter [facility] 02-16-2023 History of Present illness Narrative ESTABLISHED PATIENT VISIT CHIEF COMPLAINT: Follow Up HISTORY OF PRESENT ILLNESS: Nury Woods is a 52 year old female, BMI 21.96 kg/m2 with a PMH significant for and per last office visit note of 12/15/22: 1. SELINA (obstructive sleep apnea) - ICD9: 327.23, ICD10: G47.33 (primary diagnosis) Doing well on PAP except for leak, but not a disturbance to patient, and while borderline high, AHI remains normalized. Pt finds mask comfortable and would prefer not to make changes at this time. Encouraged continued compliance. Reminded to clean and replace equipment regularly. Advised pt not to drive or operate heavy machinery if sleepy. 2. RLS (restless legs syndrome) - ICD9: 333.94, ICD10: G25.81 Some breakthrough symptoms prior to bedtime, but not nightly. Discussed options. No response to gabapentin in past. Thus will provide Requip 0.25mg 1 tab prn Q early evening. SE and ADRs d/w pt. Cotinue Klonopin 1.0mg QHS that controls symptoms at night. Follow up 3 months at which time UDS will be needed for the year. Again reviewed risks vs benefits of Klonopin with pt. Check Ferritin with next labs. 3. Anxiety - ICD9: 300.00, ICD10: F41.9 Also controlled with Klonopin at night - no longer with racing thoughts or worries that were also contributing to delayed sleep onset. PAP data download reviewed with pt. Used 80/90 days with avg of 5 hours and 36 minutes. 95% pressure 14.1 (set at 5-15 cmH2O). AHI is 3.1. 95% leak is 21.1 LPM. No issues with mask or pressure. No dry mouth. Bedtime about 9PM. Falls asleep in minutes. RLS not bothering pt - only takes Requip 0.25mg QHS prn maybe twice since last visit. Only needing Klonopin at bedtime regularly. Stays asleep through the night. Feels refreshed in AM. Not tired during the day. States only needs 6 hours of sleep to feel good. Ferritin level on 02/04/23 = 272. Sleep Questionnaire Data Depression Screening 10/08/2022 12/12/2022 02/11/2023 PHQ-2 Score 0 0 0 PHQ-9 Score 0 0 0 GAETANO-2 Total Score 0 - - PED PHQ-9 10/08/2022 12/12/2022 02/11/2023 Little interest or pleasure in doing things Not at all Not at all Not at all Feeling down, depressed, or hopeless Not at all Not at all Not at all Trouble falling or staying asleep, or sleeping too much Not at all Not at all Not at all Feeling tired or having little energy Not at all Not at all Not at all Poor appetite or overeating Not at all Not at all Not at all Feeling bad about yourself - or that you are a failure or have let yourself or your family down Not at all Not at all Not at all Trouble concentrating on things, such as reading the newspaper or watching television Not at all Not at all Not at all Moving or speaking so slowly that other people could have noticed. Or the opposite - being so fidgety or restless that you have been moving around a lot more than usual Not at all Not at all Not at all Thoughts that you would be better off , or of hurting yourself in some way Not at all Not at all Not at all If you checked off any problems, how difficult have these problems made it for you to do your work, take care of things at home, or get along with other people? Not difficult at all - Not difficult at all PHQ-9 Score 0 (None-Minimal Depression) 0 (None-Minimal Depression) 0 (None-Minimal Depression) [place] Sleepiness Scale 10/08/2022 12/12/2022 02/11/2023 Score - 2 (No daytime sleepiness) 3 (No daytime sleepiness) REVIEW OF SYSTEMS GENERAL:No weight loss, malaise or fevers. HEENT:Negative for frequent or significant headaches, No changes in hearing or vision, no nose bleeds or other nasal problems NECK:Negative for lumps, goiter, pain and significant neck swelling RESPIRATORY: Negative for cough, wheezing or shortness of breath. CARDIOVASCULAR: Negative for chest pain, leg swelling or palpitations. GASTROINTESTINAL: Negative for abdominal discomfort, blood in stools or black stools or change in bowel habits GENITOURINARY: No history of dysuria, frequency or incontinence MUSCULOSKELETAL: Negative for joint pain or swelling, back pain or muscle pain. NEUROLOGIC:Negative for focal numbness or weakness, headaches and dizziness or syncope, vision changes, speech/languag changes - EXCEPT that as per HPI above. LAB/IMAGING: Those performed since patient's last visit have been reviewed. WBC (k/uL) Date Value 02/04/2023 5.18 RBC (m/uL) Date Value 02/04/2023 4.41 Hemoglobin (g/dL) Date Value 02/04/2023 12.5 Hematocrit (%) Date Value 02/04/2023 37.3 MCV (fL) Date Value 02/04/2023 84.6 MCH (pg) Date Value 02/04/2023 28.3 MCHC (g/dL) Date Value 02/04/2023 33.5 RDW-CV (%) Date Value 02/04/2023 13.1 Platelet Count (k/uL) Date Value 02/04/2023 197 MPV (fL) Date Value 02/04/2023 9.0 Glucose (mg/dL) Date Value 02/04/2023 96 BUN (mg/dL) Date Value 02/04/2023 22 (H) Creatinine (mg/dL) Date Value 02/04/2023 0.81 Sodium (mmol/L) Date Value 02/04/2023 142 Potassium (mmol/L) Date Value 02/04/2023 4.0 Chloride (mmol/L) Date Value 02/04/2023 108 (H) CO2 (mmol/L) Date Value 02/04/2023 25 Protein, Total (g/dL) Date Value 02/04/2023 6.7 Albumin (g/dL) Date Value 02/04/2023 4.6 Calcium, Total (mg/dL) Date Value 02/04/2023 9.2 Alkaline Phosphatase (U/L) Date Value 02/04/2023 34 Bilirubin, Total (mg/dL) Date Value 02/04/2023 0.9 AST (U/L) Date Value 02/04/2023 18 ALT (U/L) Date Value 02/04/2023 11 MEDICATIONS: meloxicam (MOBIC) 15 mg tablet Take 1 tablet by mouth once daily as needed for pain. With food. rOPINIRole (REQUIP) 0.25 mg tablet Take 1 tablet in the evening as needed for restless legs symptoms prior to bedtime. topiramate (TOPAMAX) 100 mg tablet Take 1 tablet by mouth twice daily. amitriptyline (ELAVIL) 10 mg tablet Take 1 tablet by mouth daily at bedtime. ubrogepant (UBRELVY) 100 mg tablet Take 1 tablet by mouth at migraine onset. May repeat same dose once in 2 hours as needed. Limit 2 doses in 24 hours. rizatriptan (MAXALT) 10 mg tablet Take (1) tab at onset of headache, may repeat once in 2hrs if needed. No more than 2 doses in 24 hours. Limit use to 2 days per week. albuterol HFA (VENTOLIN HFA) 90 mcg/actuation inhaler Inhale 2 Puffs as instructed every 4 hours as needed for wheezing/shortness of breath. metoprolol succinate ER (TOPROL XL) 25 mg 24 hr tablet Take 0.5 tablets by mouth once daily. escitalopram oxalate (LEXAPRO) 20 mg tablet Take 1 tablet by mouth once daily. coenzyme Q10 (COENZYME Q-10) 100 mg cap capsule Take 1 capsule by mouth once daily. CPAP Please provide a smaller size headgear - child size if available. Large air leak on download. G47.33 SELINA CPAP New set up: Settings 5 - 12 cm H2O, suitable mask per pt preference, chin strap, head gear, humidity, tubing, lifetime supplies. G47.33 SELINA desloratadine (CLARINEX) 5 mg tablet fluticasone-salmeterol (ADVAIR DISKUS) 100-50 mcg/Dose INHALATION DsDv 1 puffs every 12 hours azelastine (ASTELIN) 137 mcg NASAL SprA 2 puffs every 12 hours clonazePAM (KLONOPIN) 1 mg tablet Take 1 capsule nightly Do not start before December 23, 2022. Ibandronate 150 mg tablet Take 1 tablet by mouth once every month. In AM with cup of water on empty stomach. Nothing else by mouth and stay upright for 60 min. HISTORIES PAST MEDICAL HISTORY Diagnosis Date Allergic rhinitis due to other allergen Anxiety and depression Branchial cyst 09/11/2020 Bronchiectasis without acute exacerbation (HCC) Cervicalgia 01/14/2021 Closed fracture of body of sternum 04/25/2022 Closed fracture of one rib of left side 04/26/2022 Frozen shoulder Humerus fracture 12/2021 Dr. Romero Intractable migraine without status migrainosus Dr. Chandra Iron deficiency SELINA (obstructive sleep apnea) Other insomnia Pure hypercholesterolemia RLS (restless legs syndrome) Dr. Reyes Tachycardia Unspecified asthma, with status asthmaticus Uterine fibroid 09/14/2013 FAMILY HISTORY Problem Relation Age of Onset Coronary Artery Disease Father age 73 Hypertension Father Heart Attack Father Stroke Mother age 75 other (Other) Sister Sleep apnea other (Other) Son TAR Syndrome Migraines Daughter Coronary Artery Disease Maternal Grandmother Stroke Maternal Grandmother other (Other) Maternal Grandmother lung dx Diabetes Paternal Uncle SOCIAL HISTORY Social History Tobacco Use Smoking status: Never Smokeless tobacco: Never Vaping Use Vaping Use: Never used Substance Use Topics Alcohol use: Not Currently Drug use: No PHYSICAL EXAMINATION BP 116/78 Pulse 68 Temp 36.9 C (98.4 F) Wt 60.9 kg (134 lb 3.2 oz) LMP 09/30/2013 SpO2 100% BMI 21.96 kg/m GENERAL EXAM: General appearance: NAD, pleasant. HEENT: NC/AT, nasal congestion absent, no oral lesions, membranes moist. NECK: No masses, supple. Lungs: CTA bilaterally. No wheezes present. CV: RRR nl S1, S2. No carotid bruits. Extr: No cyanosis, clubbing or edema. Skin: Cool to touch. NEUROLOGICAL EXAM: General: Awake, alert, oriented x3 (person,place,time), speech fluent, no dysarthria; comprehension, naming, repetition intact. CN: PERRL, EOMI and without nystagmus, VFF to confrontation, facial sensation and strength are normal and symmetric, hearing is intact to finger rub bilaterally, palate and tongue movements are intact and symmetric. SCM and trapezius strength normal. Motor: Normal tone, bulk and strength (5/5) bilaterally (throughout extremities x4). Coordination: FNF, MORTEZA, HTS intact. No tremors. Sensation: Light touch intact throughout. No evidence of neglect. Gait: Stable with normal stride and arm swing. Normal tandem. Assessment and Plan: ASSESSMENT/PLAN: 1. RLS (restless legs syndrome) - ICD9: 333.94, ICD10: G25.81 (primary diagnosis) RLS well controlled still on Klonopin 1.0mg QHS. No side effects. Still with ability to use Requip prn as above, but not needing. Sleep onset within minutes and no awakenings during the night that disrupt sleep. Thus, changes in meds today. Reviewed those social and dietary factors that might provoke RLS. 2. Long-term current use of benzodiazepine - ICD9: V58.69, ICD10: Z79.899 - TOX SCREEN ROUT UR - BENZO CONFIRM, URINE 3. SELINA (obstructive sleep apnea) - ICD9: 327.23, ICD10: G47.33 Doing well. No complaints. Encouraged continued compliance. Reminded pt to clean and replace equipment regularly. 4. Anxiety - ICD9: 300.00, ICD10: F41.9 Well controlled at night with Klonopin. No racing thoughts. Reviewed terminal makeup operator SEs of Klonopin but pt feels without medication, will not be able to maintain sleep and in turn will have difficulties functioning during the day. Thus will continue as above. Raman Reyes MD I spent a total of 22 minutes on the date of the service which included preparing to see the patient, [id number] patient care, completing clinical documentation, obtaining and/or reviewing separately obtained history, performing a medically appropriate examination, counseling and educating the patient/family/caregiver, ordering medications, tests, or procedures, and communicating results to the patient/family/caregiver. PDMP website checked and validated. All prescriptions have been APPROPRIATELY filled. No suspicious activity was identified. 02/16/2023 by Raman Reyes MD documented in this encounter [facility] 02-03-2023 Note HNO ID: [id number] Author: Michi Sherman MD Service: ? Author Type: Physician Type: Progress Notes Filed: 08/30/2023 12:35 AM Note Text: This note was created using NoteWriter. Subjective Nury Woods is a 52 year old female. HISTORY Nury Woods is a 52 year old lady here to be formally established with me. Transfered care from Dr. Castillo last April through appointment with JUANY Auguste. Noted had frozen shoulder done through provider in [facility]. Made appointment in March--Dr. Bartlett (her daughter is PT at [facility]). Meloxicam had helped before. Reviewed last year had sternal left third rib fracture. Noted has half a thyroid. At 22 to 23 yo had lump on the thyroid and surgeon removed right side lobe with the lump. 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 Does use CPAP routinely. PAST MEDICAL HISTORY Diagnosis Date Allergic rhinitis due to other allergen Anxiety and depression Branchial cyst 09/11/2020 Bronchiectasis without acute exacerbation (HCC) Cervicalgia 01/14/2021 Closed fracture of body of sternum 04/25/2022 Closed fracture of one rib of left side 04/26/2022 Frozen shoulder Humerus fracture 12/2021 Dr. Romero Intractable migraine without status migrainosus Dr. Chandra Iron deficiency SELINA (obstructive sleep apnea) Other insomnia Pure hypercholesterolemia RLS (restless legs syndrome) Dr. Reyes Tachycardia Unspecified asthma, with status asthmaticus Uterine fibroid 09/14/2013 Current Outpatient Medications Medication Sig rOPINIRole (REQUIP) 0.25 mg tablet Take 1 tablet in the evening as needed for restless legs symptoms prior to bedtime. clonazePAM (KLONOPIN) 1 mg tablet Take 1 capsule nightly Do not start before December 23, 2022. topiramate (TOPAMAX) 100 mg tablet Take 1 tablet by mouth twice daily. amitriptyline (ELAVIL) 10 mg tablet Take 1 tablet by mouth daily at bedtime. ubrogepant (UBRELVY) 100 mg tablet Take 1 tablet by mouth at migraine onset. May repeat same dose once in 2 hours as needed. Limit 2 doses in 24 hours. rizatriptan (MAXALT) 10 mg tablet Take (1) tab at onset of headache, may repeat once in 2hrs if needed. No more than 2 doses in 24 hours. Limit use to 2 days per week. Ibandronate 150 mg tablet Take 1 tablet by mouth once every month. In AM with cup of water on empty stomach. Nothing else by mouth and stay upright for 60 min. albuterol HFA (VENTOLIN HFA) 90 mcg/actuation inhaler Inhale 2 Puffs as instructed every 4 hours as needed for wheezing/shortness of breath. metoprolol succinate ER (TOPROL XL) 25 mg 24 hr tablet Take 0.5 tablets by mouth once daily. escitalopram oxalate (LEXAPRO) 20 mg tablet Take 1 tablet by mouth once daily. coenzyme Q10 (COENZYME Q-10) 100 mg cap capsule Take 1 capsule by mouth once daily. CPAP Please provide a smaller size headgear - child size if available. Large air leak on download. G47.33 SELINA CPAP New set up: Settings 5 - 12 cm H2O, suitable mask per pt preference, chin strap, head gear, humidity, tubing, lifetime supplies. G47.33 SELINA desloratadine (CLARINEX) 5 mg tablet fluticasone-salmeterol (ADVAIR DISKUS) 100-50 mcg/Dose INHALATION DsDv 1 puffs every 12 hours azelastine (ASTELIN) 137 mcg NASAL SprA 2 puffs every 12 hours No current facility-administered medications for this visit. ALLERGIES Allergen Reactions Codeine Rash Cytotec [Misoprosto* Other: See Comments Fainting Dust Mites Other: See Comments Has had allergy test 06/2020- immune to dust now Entex Pse [Pseudoep* Rash Percocet [Oxycodone* Rash PAST SURGICAL HISTORY Procedure Laterality Date ARTHROSCOPIC RELEASE SHOULDER JOINT Right 08/23/2019 frozen shoulder COLONOSCOPY FLX DX W/COLLJ SPEC WHEN PFRMD 10/04/2018 repeat 10 years EXCISION BRANCHIAL CLEFT CYST Right 09/20/2020 HYSTEROSCOPY WBX WWO D AND C ANDOR POLYPECTOMY 2012 S CATH ABLATION THERMACHOICE 2012 THYROIDECTOMY TOTAL/COMPLETE 1995 partial - ? left FAMILY HISTORY Problem Relation Age of Onset Coronary Artery Disease Father age 73 Hypertension Father Heart Attack Father Stroke Mother age 75 other (Other) Sister Sleep apnea other (Other) Son TAR Syndrome Migraines Daughter Coronary Artery Disease Maternal Grandmother Stroke Maternal Grandmother other (Other) Maternal Grandmother lung dx Diabetes Paternal Uncle Social History Tobacco Use Smoking status: Never Smokeless tobacco: Never Vaping Use Vaping Use: Never used Substance Use Topics Alcohol use: Not Currently Drug use: No Review of Systems Objective BP 110/62 Pulse 88 Temp 36.9 ?C (98.5 ?F) Resp 18 Ht 166.5 cm (5' 5.55 ) Wt 60.1 kg (132 lb 9.6 oz) LMP 09/30/2013 SpO2 98% BMI 21.70 kg/m? Physical Exam Vitals reviewed. Constitutional: Appearance: She is well-developed. HENT: Head: Normocephalic and atraumatic. Right Ear: E (more content not included)... [facility] 12-15-2022 Note HNO ID: [id number] Author: Raman Reyes Jr., MD Service: ? Author Type: Physician Type: Progress Notes Filed: 12/15/2022 9:25 AM Note Text: ESTABLISHED PATIENT VISIT CHIEF COMPLAINT: Follow Up HISTORY OF PRESENT ILLNESS: Nury Woods is a 52 year old female, with a PMH significant for and per last office visit of 09/17/22: 1. Obstructive sleep apnea (adult) (pediatric) - ICD9: 327.23, ICD10: G47.33 (primary diagnosis) AHI increased as above for uncertain reasons. No weight gain. Compliance with PAP. No change in leak. Will empirically increase PAP range to 5-15 cmH2O to compensate for events. Patient currently asx clinically but will monitor for changes in sleep with increase in PAP setting. 2. RLS (restless legs syndrome) - ICD9: 333.94, ICD10: G25.81 Stable. Continue Klonopin 1mg QHS. Note, pt completed urine tox earlier this year. 3. Anxiety - ICD9: 300.00, ICD10: F41.9 Stable. Continue Klonopin as above. Discussed with pt fpc SE and ADRs possible with Klonopin. Pt not wanting to change meds as feels benefits of being able to sleep and function during the day outweigh risks. Last UDS was 04/25/22 and appropriate for meds at that time. PAP data download for past 90 days shows 80 days of use for avg of 5 hours and 59 minutes on nights used. Set at 5-15 cmH2O. 95% pressure is 13.7 cmH2O. 95% leak is 27.7 LPM. Residual AHI is 4.3. Patient reports that she is having some restlessness in the legs starting at about 6PM. Not nightly, but enough to both the patient. Always later in the day. After taking Klonopin at night, it does resolve. Patient states usually asleep within 15 minutes of taking medication. Symptoms likely present on about 10-20% of nights. Currently going to bed about 9PM and waking to start the day about 5AM. Sleeping good at night. Patient not bothered by mask leak. If she hears it, will adjust, and goes right back to sleep. Not nightly. No longer wakes making a snoring sound. Wake during the day. Sleep Questionnaire Data Depression Screening 07/31/2022 10/08/2022 12/12/2022 PHQ-2 Score 0 0 0 PHQ-9 Score 1 0 0 GAETANO-2 Total Score - 0 - PED PHQ-9 07/31/2022 10/08/2022 12/12/2022 Little interest or pleasure in doing things Not at all Not at all Not at all Feeling down, depressed, or hopeless Not at all Not at all Not at all Trouble falling or staying asleep, or sleeping too much Several days Not at all Not at all Feeling tired or having little energy Not at all Not at all Not at all Poor appetite or overeating Not at all Not at all Not at all Feeling bad about yourself - or that you are a failure or have let yourself or your family down Not at all Not at all Not at all Trouble concentrating on things, such as reading the newspaper or watching television Not at all Not at all Not at all Moving or speaking so slowly that other people could have noticed. Or the opposite - being so fidgety or restless that you have been moving around a lot more than usual Not at all Not at all Not at all Thoughts that you would be better off , or of hurting yourself in some way Not at all Not at all Not at all If you checked off any problems, how difficult have these problems made it for you to do your work, take care of things at home, or get along with other people? Not difficult at all Not difficult at all - PHQ-9 Score 1 (None-Minimal Depression) 0 (None-Minimal Depression) 0 (None-Minimal Depression) [place] Sleepiness Scale 07/31/2022 10/08/2022 12/12/2022 Score 2 (No daytime sleepiness) - 2 (No daytime sleepiness) REVIEW OF SYSTEMS GENERAL:No weight loss, malaise or fevers. HEENT:Negative for frequent or significant headaches, No changes in hearing or vision, no nose bleeds or other nasal problems NECK:Negative for lumps, goiter, pain and significant neck swelling RESPIRATORY: Negative for cough, wheezing or shortness of breath. CARDIOVASCULAR: Negative for chest pain, leg swelling or palpitations. GASTROINTESTINAL: Negative for abdominal discomfort, blood in stools or black stools or change in bowel habits GENITOURINARY: No history of dysuria, frequency or incontinence MUSCULOSKELETAL: Negative for joint pain or swelling, back pain or muscle pain. NEUROLOGIC:Negative for focal numbness or weakness, headaches and dizziness or syncope, vision changes, speech/languag changes - EXCEPT that as per HPI above. SKIN:Negative for lesions, rash, and itching. LAB/IMAGING: Those performed since patient's last visit have been reviewed. WBC (k/uL) Date Value 04/26/2022 6.58 RBC (m/uL) Date Value 04/26/2022 4.27 Hemoglobin (g/dL) Date Value 04/26/2022 12.0 Hematocrit (%) Date Value 04/26/2022 36.2 MCV (fL) Date Value 04/26/2022 84.8 MCH (pg) Date Value 04/26/2022 28.1 MCHC (g/dL) Date Value 04/26/2022 33.1 RDW-CV (%) Date Value 04/26/2022 13.4 Platelet Count (k/uL) Date Value 04/26/2022 187 MPV ( (more content not included)... [facility] 12-15-2022 History of Present illness Narrative ESTABLISHED PATIENT VISIT CHIEF COMPLAINT: Follow Up HISTORY OF PRESENT ILLNESS: Nury Woods is a 52 year old female, with a PMH significant for and per last office visit of 09/17/22: 1. Obstructive sleep apnea (adult) (pediatric) - ICD9: 327.23, ICD10: G47.33 (primary diagnosis) AHI increased as above for uncertain reasons. No weight gain. Compliance with PAP. No change in leak. Will empirically increase PAP range to 5-15 cmH2O to compensate for events. Patient currently asx clinically but will monitor for changes in sleep with increase in PAP setting. 2. RLS (restless legs syndrome) - ICD9: 333.94, ICD10: G25.81 Stable. Continue Klonopin 1mg QHS. Note, pt completed urine tox earlier this year. 3. Anxiety - ICD9: 300.00, ICD10: F41.9 Stable. Continue Klonopin as above. Discussed with pt fpc SE and ADRs possible with Klonopin. Pt not wanting to change meds as feels benefits of being able to sleep and function during the day outweigh risks. Last UDS was 04/25/22 and appropriate for meds at that time. PAP data download for past 90 days shows 80 days of use for avg of 5 hours and 59 minutes on nights used. Set at 5-15 cmH2O. 95% pressure is 13.7 cmH2O. 95% leak is 27.7 LPM. Residual AHI is 4.3. Patient reports that she is having some restlessness in the legs starting at about 6PM. Not nightly, but enough to both the patient. Always later in the day. After taking Klonopin at night, it does resolve. Patient states usually asleep within 15 minutes of taking medication. Symptoms likely present on about 10-20% of nights. Currently going to bed about 9PM and waking to start the day about 5AM. Sleeping good at night. Patient not bothered by mask leak. If she hears it, will adjust, and goes right back to sleep. Not nightly. No longer wakes making a snoring sound. Wake during the day. Sleep Questionnaire Data Depression Screening 07/31/2022 10/08/2022 12/12/2022 PHQ-2 Score 0 0 0 PHQ-9 Score 1 0 0 GAETANO-2 Total Score - 0 - PED PHQ-9 07/31/2022 10/08/2022 12/12/2022 Little interest or pleasure in doing things Not at all Not at all Not at all Feeling down, depressed, or hopeless Not at all Not at all Not at all Trouble falling or staying asleep, or sleeping too much Several days Not at all Not at all Feeling tired or having little energy Not at all Not at all Not at all Poor appetite or overeating Not at all Not at all Not at all Feeling bad about yourself - or that you are a failure or have let yourself or your family down Not at all Not at all Not at all Trouble concentrating on things, such as reading the newspaper or watching television Not at all Not at all Not at all Moving or speaking so slowly that other people could have noticed. Or the opposite - being so fidgety or restless that you have been moving around a lot more than usual Not at all Not at all Not at all Thoughts that you would be better off , or of hurting yourself in some way Not at all Not at all Not at all If you checked off any problems, how difficult have these problems made it for you to do your work, take care of things at home, or get along with other people? Not difficult at all Not difficult at all - PHQ-9 Score 1 (None-Minimal Depression) 0 (None-Minimal Depression) 0 (None-Minimal Depression) [place] Sleepiness Scale 07/31/2022 10/08/2022 12/12/2022 Score 2 (No daytime sleepiness) - 2 (No daytime sleepiness) REVIEW OF SYSTEMS GENERAL:No weight loss, malaise or fevers. HEENT:Negative for frequent or significant headaches, No changes in hearing or vision, no nose bleeds or other nasal problems NECK:Negative for lumps, goiter, pain and significant neck swelling RESPIRATORY: Negative for cough, wheezing or shortness of breath. CARDIOVASCULAR: Negative for chest pain, leg swelling or palpitations. GASTROINTESTINAL: Negative for abdominal discomfort, blood in stools or black stools or change in bowel habits GENITOURINARY: No history of dysuria, frequency or incontinence MUSCULOSKELETAL: Negative for joint pain or swelling, back pain or muscle pain. NEUROLOGIC:Negative for focal numbness or weakness, headaches and dizziness or syncope, vision changes, speech/languag changes - EXCEPT that as per HPI above. SKIN:Negative for lesions, rash, and itching. LAB/IMAGING: Those performed since patient's last visit have been reviewed. WBC (k/uL) Date Value 04/26/2022 6.58 RBC (m/uL) Date Value 04/26/2022 4.27 Hemoglobin (g/dL) Date Value 04/26/2022 12.0 Hematocrit (%) Date Value 04/26/2022 36.2 MCV (fL) Date Value 04/26/2022 84.8 MCH (pg) Date Value 04/26/2022 28.1 MCHC (g/dL) Date Value 04/26/2022 33.1 RDW-CV (%) Date Value 04/26/2022 13.4 Platelet Count (k/uL) Date Value 04/26/2022 187 MPV (fL) Date Value 04/26/2022 9.2 Glucose (mg/dL) Date Value 10/17/2022 110 (H) BUN (mg/dL) Date Value 10/17/2022 16 Creatinine (mg/dL) Date Value 10/17/2022 0.73 Sodium (mmol/L) Date Value 10/17/2022 141 Potassium (mmol/L) Date Value 10/17/2022 4.1 Chloride (mmol/L) Date Value 10/17/2022 109 (H) CO2 (mmol/L) Date Value 10/17/2022 25 Protein, Total (g/dL) Date Value 10/17/2022 6.4 Albumin (g/dL) Date Value 10/17/2022 4.4 Calcium, Total (mg/dL) Date Value 10/17/2022 9.4 Alkaline Phosphatase (U/L) Date Value 10/17/2022 34 Bilirubin, Total (mg/dL) Date Value 10/17/2022 1.0 AST (U/L) Date Value 10/17/2022 14 ALT (U/L) Date Value 10/17/2022 7 MEDICATIONS: topiramate (TOPAMAX) 100 mg tablet Take 1 tablet by mouth twice daily. amitriptyline (ELAVIL) 10 mg tablet Take 1 tablet by mouth daily at bedtime. ubrogepant (UBRELVY) 100 mg tablet Take 1 tablet by mouth at migraine onset. May repeat same dose once in 2 hours as needed. Limit 2 doses in 24 hours. rizatriptan (MAXALT) 10 mg tablet Take (1) tab at onset of headache, may repeat once in 2hrs if needed. No more than 2 doses in 24 hours. Limit use to 2 days per week. clonazePAM (KLONOPIN) 1 mg tablet Take 1 capsule nightly Ibandronate 150 mg tablet Take 1 tablet by mouth once every month. In AM with cup of water on empty stomach. Nothing else by mouth and stay upright for 60 min. albuterol HFA (VENTOLIN HFA) 90 mcg/actuation inhaler Inhale 2 Puffs as instructed every 4 hours as needed for wheezing/shortness of breath. metoprolol succinate ER (TOPROL XL) 25 mg 24 hr tablet Take 0.5 tablets by mouth once daily. escitalopram oxalate (LEXAPRO) 20 mg tablet Take 1 tablet by mouth once daily. coenzyme Q10 (COENZYME Q-10) 100 mg cap capsule Take 1 capsule by mouth once daily. CPAP Please provide a smaller size headgear - child size if available. Large air leak on download. G47.33 SELINA CPAP New set up: Settings 5 - 12 cm H2O, suitable mask per pt preference, chin strap, head gear, humidity, tubing, lifetime supplies. G47.33 SELINA desloratadine (CLARINEX) 5 mg tablet fluticasone-salmeterol (ADVAIR DISKUS) 100-50 mcg/Dose INHALATION DsDv 1 puffs every 12 hours azelastine (ASTELIN) 137 mcg NASAL SprA 2 puffs every 12 hours HISTORIES PAST MEDICAL HISTORY Diagnosis Date Allergic rhinitis due to other allergen Anxiety and depression Branchial cyst 09/11/2020 Bronchiectasis without acute exacerbation (HCC) Cervicalgia 01/14/2021 Closed fracture of body of sternum 04/25/2022 Closed fracture of one rib of left side 04/26/2022 Frozen shoulder Humerus fracture 12/2021 Dr. Romero Intractable migraine without status migrainosus Dr. Chandra Iron deficiency SELINA (obstructive sleep apnea) Other insomnia Pure hypercholesterolemia RLS (restless legs syndrome) Dr. Reyes Tachycardia Unspecified asthma, with status asthmaticus Uterine fibroid 09/14/2013 FAMILY HISTORY Problem Relation Age of Onset Coronary Artery Disease Father age 73 Hypertension Father Heart Attack Father Stroke Mother age 75 other (Other) Sister Sleep apnea other (Other) Son TAR Syndrome Migraines Daughter Coronary Artery Disease Maternal Grandmother Stroke Maternal Grandmother other (Other) Maternal Grandmother lung dx Diabetes Paternal Uncle SOCIAL HISTORY Social History Tobacco Use Smoking status: Never Smokeless tobacco: Never Vaping Use Vaping Use: Never used Substance Use Topics Alcohol use: Not Currently Drug use: No PHYSICAL EXAMINATION LMP 09/30/2013 GENERAL EXAM: General appearance: NAD, pleasant. HEENT: NC/AT, nasal congestion absent, no oral lesions, membranes moist. Lungs: CTA bilaterally. CV: RRR nl S1, S2, no murmurs. Extr: No cyanosis, clubbing or edema. Skin: Cool to touch. NEUROLOGICAL EXAM: General: Awake, alert, oriented x3 (person,place,time), speech fluent, no dysarthria; comprehension, naming, repetition intact. Fund of knowledge grossly normal. CN: PERRL, EOMI and without nystagmus, VFF to confrontation, facial sensation and strength are normal and symmetric, hearing is intact to finger rub bilaterally, palate and tongue movements are intact and symmetric. SCM and trapezius strength normal. Motor: Normal tone, bulk and strength (5/5) bilaterally (throughout extremities x4). Coordination: FNF, MORTEZA, HTS intact. No tremors. Sensation: Light touch and vibration intact throughout. No evidence of neglect. Gait: Stable with normal stride and arm swing. Romberg normal. Assessment and Plan: ASSESSMENT/PLAN: 1. SELINA (obstructive sleep apnea) - ICD9: 327.23, ICD10: G47.33 (primary diagnosis) Doing well on PAP except for leak, but not a disturbance to patient, and while borderline high, AHI remains normalized. Pt finds mask comfortable and would prefer not to make changes at this time. Encouraged continued compliance. Reminded to clean and replace equipment regularly. Advised pt not to drive or operate heavy machinery if sleepy. 2. RLS (restless legs syndrome) - ICD9: 333.94, ICD10: G25.81 Some breakthrough symptoms prior to bedtime, but not nightly. Discussed options. No response to gabapentin in past. Thus will provide Requip 0.25mg 1 tab prn Q early evening. SE and ADRs d/w pt. Cotinue Klonopin 1.0mg QHS that controls symptoms at night. Follow up 3 months at which time UDS will be needed for the year. Again reviewed risks vs benefits of Klonopin with pt. Check Ferritin with next labs. 3. Anxiety - ICD9: 300.00, ICD10: F41.9 Also controlled with Klonopin at night - no longer with racing thoughts or worries that were also contributing to delayed sleep onset. Raman Reyes MD I spent a total of 35 minutes on the date of the service which included preparing to see the patient, [id number] patient care, completing clinical documentation, obtaining and/or reviewing separately obtained history, performing a medically appropriate examination, counseling and educating the patient/family/caregiver, and ordering medications, tests, or procedures. PDMP website checked and validated. All prescriptions have been APPROPRIATELY filled. No suspicious activity was identified. 12/15/2022 by Raman Reyes MD documented in this encounter [facility] 10-15-2022 History of Present illness Narrative [facility] - Follow up Virtual Visit During this COVID-19 pandemic, patient's headache clinic evaluation was scheduled as a virtual visit using the following platform Zoom Nury Woods was identified by name and and consented to the video evaluation and its limitations. Based on this evaluation it may be necessary for them to schedule a follow up evaluation with me or other neurologists for formal physical examination and if necessary,other studies. Accompanied by: Self Chief Complaint: Migraine PMH: PAST MEDICAL HISTORY Diagnosis Date Allergic rhinitis due to other allergen Anxiety and depression Branchial cyst 09/11/2020 Bronchiectasis without acute exacerbation (HCC) Cervicalgia 01/14/2021 Closed fracture of body of sternum 04/25/2022 Closed fracture of one rib of left side 04/26/2022 Frozen shoulder Humerus fracture 12/2021 Dr. Romero Intractable migraine without status migrainosus Dr. Chandra Iron deficiency SELINA (obstructive sleep apnea) Other insomnia Pure hypercholesterolemia RLS (restless legs syndrome) Dr. Reyes Tachycardia Unspecified asthma, with status asthmaticus Uterine fibroid 09/14/2013 PSH: PAST SURGICAL HISTORY Procedure Laterality Date ARTHROSCOPIC RELEASE SHOULDER JOINT Right 08/23/2019 frozen shoulder COLONOSCOPY FLX DX W/COLLJ SPEC WHEN PFRMD 10/04/2018 repeat 10 years EXCISION BRANCHIAL CLEFT CYST Right 09/20/2020 HYSTEROSCOPY WBX WWO D AND C ANDOR POLYPECTOMY 2013 S CATH ABLATION THERMACHOICE 2013 THYROIDECTOMY TOTAL/COMPLETE 1995 partial - ? left CURRENT MEDS: Current Outpatient Medications Medication Sig topiramate (TOPAMAX) 100 mg tablet Take 1 tablet by mouth twice daily. amitriptyline (ELAVIL) 10 mg tablet Take 1 tablet by mouth daily at bedtime. ubrogepant (UBRELVY) 100 mg tablet Take 1 tablet by mouth at migraine onset. May repeat same dose once in 2 hours as needed. Limit 2 doses in 24 hours. rizatriptan (MAXALT) 10 mg tablet Take (1) tab at onset of headache, may repeat once in 2hrs if needed. No more than 2 doses in 24 hours. Limit use to 2 days per week. clonazePAM (KLONOPIN) 1 mg tablet Take 1 capsule nightly Ibandronate 150 mg tablet Take 1 tablet by mouth once every month. In AM with cup of water on empty stomach. Nothing else by mouth and stay upright for 60 min. albuterol HFA (VENTOLIN HFA) 90 mcg/actuation inhaler Inhale 2 Puffs as instructed every 4 hours as needed for wheezing/shortness of breath. metoprolol succinate ER (TOPROL XL) 25 mg 24 hr tablet Take 0.5 tablets by mouth once daily. escitalopram oxalate (LEXAPRO) 20 mg tablet Take 1 tablet by mouth once daily. coenzyme Q10 (COENZYME Q-10) 100 mg cap capsule Take 1 capsule by mouth once daily. CPAP Please provide a smaller size headgear - child size if available. Large air leak on download. G47.33 SELINA CPAP New set up: Settings 5 - 12 cm H2O, suitable mask per pt preference, chin strap, head gear, humidity, tubing, lifetime supplies. G47.33 SELINA desloratadine (CLARINEX) 5 mg tablet fluticasone-salmeterol (ADVAIR DISKUS) 100-50 mcg/Dose INHALATION DsDv 1 puffs every 12 hours azelastine (ASTELIN) 137 mcg NASAL SprA 2 puffs every 12 hours No current facility-administered medications for this visit. ALLERGIES: ALLERGIES Allergen Reactions Codeine Rash Cytotec [Misoprosto* Other: See Comments Fainting Dust Mites Other: See Comments Has had allergy test 06/2020- immune to dust now Entex Pse [Pseudoep* Rash Percocet [Oxycodone* Rash FMH: FAMILY HISTORY Problem Relation Age of Onset Coronary Artery Disease Father age 73 Hypertension Father Heart Attack Father Stroke Mother age 75 other (Other) Sister Sleep apnea other (Other) Son TAR Syndrome Migraines Daughter Coronary Artery Disease Maternal Grandmother Stroke Maternal Grandmother other (Other) Maternal Grandmother lung dx Diabetes Paternal Uncle SOCIAL: Social History Tobacco Use Smoking status: Never Smokeless tobacco: Never Vaping Use Vaping Use: Never used Substance Use Topics Alcohol use: Not Currently Drug use: No MADDI 04/14/[address] Chanrda. Headache history at last visit: ASSESSMENT: 51 year old female with history significant for migraine without aura, anxiety, RLS, insomnia, and prior chronic daily headache and chronic migraine, currently improved significantly to an episodic migraine and tension type headache pattern. PLAN: (Please see typed patient instructions for detailed instructions) ---> Acute Treatment: -Maxalt + Ubrelvy. Both taken together work very effectively for her, but each individually don't fully stop the migraine. Nury Woods has been previously approved for an Oral Calcitonin Gene-Related Peptide Receptor Antagonist (GEPANT) Ubrogepant for the treatment of acute migraine. The patient has demonstrated the following: Provider attests patient has had a positive clinical response: Yes Patient will not use with another Oral Calcitonin Gene-Related Peptide Receptor Antagonist (GEPANT): Yes Patient's quality of life and ability to perform ADLs has improved: Yes We suggest the patient continue treatment with GEPANT Ubrogepant. ---> Preventive Treatment: -Topamax 100 mg bid. -Metoprolol 25 mg, takes a half tab daily for palpitations. HR went from high to low (in 50s). -Amitriptyline 10 mg qhs for headache frequency and insomnia. -Supplements. ---> Follow-up: 6 months. Current headache HPI: Nury Woods returns for 6 month follow up. She reports that her migraines are stable and she is pleased with this. Prior to seeing Dr Chandra, migraines were a bear ! Her current medications have been very helpful and she denies side effects. Headache 1 Location: retro-orbital and left Quality/Description: throbbing Associated Symptoms: Photophobia: yes Phonophobia: yes Nausea: yes Number of migraine headache days/month: 4 Number of NON-migraine headache days/month: 0 Number of headache free days/month: 26 Duration of headaches with treatment: minutes (resolves before getting severe) Current preventive treatment: amitriptyline 10 mg, Topamax 100 mg bid, metoprolol 12.5 mg (through PCP) Current abortive treatment: Ubrelvy or Maxalt based on the type of migraine (how the migraine starts she can tell which to use) Triggers: sugar, lunch meat. Aura: blurred vision and fortification spectra Days missed from work or school in the last month: 0 days Headache status since the last visit: better In Dec she slipped on ice and fractured her arm. In April she tripped on a curb and fractured her sternum. Because of this she had the bone density scan and was dx with osteopenia and was started on Boniva. Aside from the falls, health is stable. Data (labs and test reviewed): Imaging: MRI Head/Brain - Last 2 Impressions No resulted procedures found. MRA Head and/or Neck - Last 2 Impressions No resulted procedures found. MRI Cervical Spine - Last 2 Impressions No resulted procedures found. MRI Lumbar Spine - Last 2 Impressions No resulted procedures found. MRI Thoracic Spine - Last 2 Impressions No resulted procedures found. MRI Spine - Last 2 Impressions No resulted procedures found. CT Head/Brain - Last 2 Impressions No resulted procedures found. CTA Head and/or Neck - Last 2 No resulted procedures found. Prior Therapies Duration of Use Dose Side effect Analgesic Hydrocodone/Acetaminophen (Vicodin, [place]) Hydromorphone (Dilaudid) Ketorolac (Toradol) Meperidine (Demerol) Morphine (Mary, Ms Contin) Oxycodone/Acetaminophen (Percocet) Anti-Anxiety Buspirone (Buspar) Clonazepam (Klonopin) Lorazepam (Ativan) Anti-Convulsant Divalproex sodium (Depakote) IV Gabapentin (Neurontin) Topiramate (Topamax, Trokendi XL, Qudexy) Anti-Depressant and Antipsychotic Amitriptyline (Elavil) Escitalopram (Lexapro) Buspirone Antiemetics Ondansetron Promethazine Anti-Migraine Dihydroergotamine (DHE-45, Migranal) Rizatriptan (Maxalt) Blood Pressure Metoprolol (Lopressor,Toprol XL) GEPANTS Ubrogepant (Ubrelvy) Muscle Relaxer Chlorzoxazone (Parafon Forte) Cyclobenzaprine (Flexeril) Supplements CoQ10 Magnesium Other Medications Dexamethasone (Decadron) Methylprednisolone (Medrol) Prednisone Over the Counter Medications Acetaminophen (Tylenol) Acetaminophen/Aspirin (Goody s) Acetaminophen/Aspirin/Caffeine (Excedrin, Goody s) Aspirin Ibuprofen (Advil, Motrin) Naproxen sodium (Aleve) REVIEW OF SYSTEMS: CV: No history of CV disease Respiratory: No known problems GI: No known problems : No known problems Neurological: See HPI I have reviewed the Satish Status Assessment responses and discussed these with the patient: yes. Beka Quevedo PA-C HEADACHE SCORES: Headache Questions 12/13/2021 04/13/2022 10/08/2022 ID Migraine Screener: - - - ER visits in the last year: - - - ER visits since last office visit: 1 0 0 Hospital stays in the last year: - - - Hospital stays since last office visit 0 0 0 Limited ADLs in the last month: 2 0 1 Days missed from work or school in the last month: 0 0 0 Days headache pain free in the last month: 5 6 12 Days per month with ALL of the following symptoms - decreased productivity, light sensitivity and nausea: 0 0 2 Initial improvement of headache after botox injection at last visit: Not applicable, I did not have a botox injection at my last visit Not applicable, I did not have a botox injection at my last visit Not applicable, I did not have a botox injection at my last visit PRN medication usage in the last month: 12 15 7 Patient impression of improvement since last visit: Much worse Much improved Much improved HIT-6 12/13/2021 04/13/2022 10/08/2022 HIT-6 59 (Substantial impact) 50 (Moderate impact) 48 (Little or no impact) GAETANO - 2/7 SCORES 12/13/2021 04/13/2022 10/08/2022 GAETANO-2 Score 1 6 0 GAETANO-7 Score - 14 - Migraine Specific QOL - Higher scores indicate better HRQL 12/13/2021 04/13/2022 10/08/2022 Role Function-Restrictive Transformed Score (range: 0-100) 68.57 80 82.86 Role Function-Preventive Transformed Score (range: 0-100) 85 80 90 Emotional Function Transformed Score (range: 0-100) 66.67 86.67 100 PHQ-9 04/13/2022 07/31/2022 10/08/2022 Score 0 1 0 PHYSICAL EXAM: [facility] 09/30/2013 GEN: Alert. NAD. Normal affect. Cooperative. Pain behaviors: none HEENT: No rhinorrhea, lacrimation or conjunctival injection. NEUROLOGICAL: MENTAL STATUS: A+O x 3. Attentive. Thought process and content unremarkable. Follows commands appropriately. Speech fluent. CN: VII: Face symmetric. VIII: Hearing intact. IMPRESSION: Nury Woods is a 52 year old year old female, with a history of chronic migraines that have greatly improved with her current medication prevention regimen and abortives. She is very happy with her current migraine plan of care in initiated by Dr Chandra. ICHD-3 Diagnosis: Episodic Migraine PLAN: 1) CMP for medication monitoring 2) Prevention: Continue Topamax and amitriptyline as prescribed by Dr chandra 3) Abortive: continue Ubrelvy or Maxalt as needed HEADACHE MANAGEMENT: (You are the primary guardian of your health and headache. Keep track of all medications: This includes the reason for use, side effects and benefits.) MEDICATION TREATMENT: Medications to Start Taking topiramate (TOPAMAX) 100 mg tablet Take 1 tablet by mouth twice daily. amitriptyline (ELAVIL) 10 mg tablet Take 1 tablet by mouth daily at bedtime. ubrogepant (UBRELVY) 100 mg tablet Take 1 tablet by mouth at migraine onset. May repeat same dose once in 2 hours as needed. Limit 2 doses in 24 hours. rizatriptan (MAXALT) 10 mg tablet Take (1) tab at onset of headache, may repeat once in 2hrs if needed. No more than 2 doses in 24 hours. Limit use to 2 days per week. RESEARCH: None at this time Follow-up: 6 months, PRN Level of service: Est level 3 (20-29 min). Time spent 22 min on the day of service, which included preparing to see the patient, [id number] patient care, completing clinical documentation, obtaining and/or reviewing separately obtained history, performing a medically appropriate examination, counseling and educating the patient/family/caregiver, and ordering medications, tests, or procedures. The patient understands and agrees with the plan of care outlined. I performed this clinical encounter by utilizing a real time telehealth video connection between my location and the patient's location. The patient's location was confirmed during the visit. I obtained verbal consent from the patient to perform this clinical encounter utilizing video and prepared the patient by answering any questions they had about the telehealth. I addressed patient's questions and concerns in detail in regards to the chief complaint today in addition to all other comorbidities. All options for treatment discussed. All of the patient's questions and concerns were addressed during this virtual visit and they expressed understanding to the above treatment plan and follow-up recommendations at conclusion of the virtual session. Beka Quevedo PA-C Headache Section [facility] October 15, 2022 documented in this encounter [facility] 10-13-2022 History of Present illness Narrative Nury is a 52 year old who presents for an annual gynecologic exam without director of institutional giving complaints. Had a broken sternum from a fall this year. Postmenopausal: yes HRT use: No. 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 Romero Intractable migraine without status migrainosus Dr. Chandra Iron deficiency SELINA (obstructive sleep apnea) Other insomnia Pure hypercholesterolemia RLS (restless legs syndrome) Dr. Reyes Tachycardia Unspecified asthma, with status asthmaticus PAST SURGICAL HISTORY Procedure Laterality Date ARTHROSCOPIC RELEASE SHOULDER JOINT Right 08/23/2019 frozen shoulder COLONOSCOPY FLX DX W/COLLJ SPEC WHEN PFRMD 10/04/2018 repeat 10 years EXCISION BRANCHIAL CLEFT CYST Right 09/20/2020 HYSTEROSCOPY WBX WWO D AND C ANDOR POLYPECTOMY 2012 S CATH ABLATION THERMACHOICE 2013 THYROIDECTOMY TOTAL/COMPLETE 1994 partial - ? left FAMILY HISTORY Problem Relation Age of Onset Coronary Artery Disease Father age 73 Hypertension Father Heart Attack Father Stroke Mother age 75 other (Other) Sister Sleep apnea other (Other) Son TAR Syndrome Migraines Daughter Coronary Artery Disease Maternal Grandmother Stroke Maternal Grandmother other (Other) Maternal Grandmother lung dx Diabetes Paternal Uncle SOCIAL HISTORY Social History Tobacco Use Smoking status: Never Smokeless tobacco: Never Vaping Use Vaping Use: Never used Substance Use Topics Alcohol use: Not Currently Drug use: No REVIEW OF SYSTEMS Abdomen: No abdominal pain, nausea, vomiting, diarrhea, or constipation. No bloating, early satiety, indigestion, or increased flatulence. Bladder: No dysuria, gross hematuria, urinary frequency, urinary urgency, or incontinence Breast: No breast lumps, nipple d/c, overlying skin changes, redness or skin retraction Allergies and current medication updated:Yes EXAM: BP 102/60 Ht 5' 6 (1.68m) Wt 129 lb (58.5kg) LMP 09/30/2013 BMI 20.83 kg/(m^2). GENERAL: pleasant, female in no apparent distress HEENT: Normocephalic, atraumatic, mucus membranes moist, and no lesions NECK: Supple, full range of motion, no adenopathy, and thyroid normal DERMATOLOGY: Normal, without lesions, non-icteric, and non-hirsute BREAST: soft, non-tender, symmetric, no dominant mass, normal nipple-areolar complex, no lymphadenopathy, and no nipple discharge CHEST: Normal inspiratory effort ABDOMEN: soft, non-tender, and no masses PELVIC: external genitalia normal, normal Bartholin's glands, urethra, [place]'s glands, no vulvar lesions, no cervical lesions, good vaginal support, physiologic discharge present, normal appearing perineal body and perianal region BIMANUAL: uterus normal size, shape and consistency, no adnexal masses, and non-tender RECTOVAGINAL: deferred. NEURO: alert and oriented x3,exam grossly non-focal EXTREMITIES: normal ASSESSMENT/PLAN: 1) Health maintenance: Pap done with HPV. Mammogram ordered 2) Follow up one year or sooner as needed Fausto Dietrich MD documented in this encounter [facility] 09-17-2022 History of Present illness Narrative ESTABLISHED PATIENT VISIT CHIEF COMPLAINT: Follow Up HISTORY OF PRESENT ILLNESS: Nury Woods is a 52 year old female, BMI 20.83 kg/m2 with a PMH significant for and per last office visit note of 01/10/22: 1. RLS (restless legs syndrome) - ICD9: 333.94, ICD10: G25.81 (primary diagnosis) 2. Anxiety - ICD9: 300.00, ICD10: F41.9 3. SELINA (obstructive sleep apnea) - ICD9: 327.23, ICD10: G47.33 Patient overall doing well with regards to sleep. RLS controlled. No racing thought at night. No SEs from use of Klonopin 1.0mg QHS. As for SELINA, doing well on PAP with no complaints. Sleep is restorative and uninterrupted. Pt would like to make no changes to therapies at this time. Reminded pt to clean and replace PAP equipment regularly. Advised pt not to drive or operate heavy machinery if sleepy. Will have patient follow up in 6 months. PAP data download shows pt using PAP days for avg use of 6 hours and 10 minutes. Set at 5-12 cmH2O. 95% pressure of 11.8 cmH2O. 95% leak of 34.6 LPM. AHI is 9.2. Per download, events appear to be of obstructive nature. Pt reports sleeping good. Klonopin still controlling RLS. Anxiety resolved and is so much better . Currently taking minutes to fall asleep (always less than 15 minutes). Bedtime will vary between 7PM to 10PM. Sleeping through the night except rare awakenings for bathroom. Wakes about 530 AM to start the day. Very rare breakthrough RLS but not impacting sleep -- maybe once every 3 months for a couple days. AHI increasing on PAP data download above. No weight increase since last visit. REVIEW OF SYSTEMS GENERAL:No weight loss, malaise or fevers. HEENT:Negative for frequent or significant headaches, No changes in hearing or vision, no nose bleeds or other nasal problems RESPIRATORY: Negative for cough, wheezing or shortness of breath. CARDIOVASCULAR: Negative for chest pain, leg swelling or palpitations. and goiter. LAB/IMAGING: Those performed since patient's last visit have been reviewed. WBC (k/uL) Date Value 04/26/2022 6.58 RBC (m/uL) Date Value 04/26/2022 4.27 Hemoglobin (g/dL) Date Value 04/26/2022 12.0 Hematocrit (%) Date Value 04/26/2022 36.2 MCV (fL) Date Value 04/26/2022 84.8 MCH (pg) Date Value 04/26/2022 28.1 MCHC (g/dL) Date Value 04/26/2022 33.1 RDW-CV (%) Date Value 04/26/2022 13.4 Platelet Count (k/uL) Date Value 04/26/2022 187 MPV (fL) Date Value 04/26/2022 9.2 Glucose (mg/dL) Date Value 04/26/2022 97 BUN (mg/dL) Date Value 04/26/2022 13 Creatinine (mg/dL) Date Value 04/26/2022 0.63 Sodium (mmol/L) Date Value 04/26/2022 142 Potassium (mmol/L) Date Value 04/26/2022 3.6 (L) Chloride (mmol/L) Date Value 04/26/2022 110 (H) CO2 (mmol/L) Date Value 04/26/2022 21 (L) Protein, Total (g/dL) Date Value 04/25/2022 7.2 Albumin (g/dL) Date Value 04/25/2022 4.8 Calcium, Total (mg/dL) Date Value 04/26/2022 9.1 Alkaline Phosphatase (U/L) Date Value 04/25/2022 55 Bilirubin, Total (mg/dL) Date Value 04/25/2022 0.8 AST (U/L) Date Value 04/25/2022 15 ALT (U/L) Date Value 04/25/2022 8 MEDICATIONS: clonazePAM (KLONOPIN) 1 mg tablet Take 1 capsule nightly Do not start before August 31, 2022. Ibandronate 150 mg tablet Take 1 tablet by mouth once every month. In AM with cup of water on empty stomach. Nothing else by mouth and stay upright for 60 min. predniSONE (DELTASONE) 10 mg tablet 4 tablets a day for 3 days, then 3 tablets a day for 3 days, then 2 tablets a day for 3 days, then 1 tablet a day for 3 days albuterol HFA (VENTOLIN HFA) 90 mcg/actuation inhaler Inhale 2 Puffs as instructed every 4 hours as needed for wheezing/shortness of breath. metoprolol succinate ER (TOPROL XL) 25 mg 24 hr tablet Take 0.5 tablets by mouth once daily. escitalopram oxalate (LEXAPRO) 20 mg tablet Take 1 tablet by mouth once daily. amitriptyline (ELAVIL) 10 mg tablet Take 1 tablet by mouth daily at bedtime. rizatriptan (MAXALT) 10 mg tablet 1 tab at earliest sign of migraine. May repeat once in 2 hours if needed. Give max allowed per insurance. ubrogepant (UBRELVY) 100 mg tablet Take 1 tablet by mouth at migraine onset. May repeat same dose once in 2 hours as needed. topiramate (TOPAMAX) 100 mg tablet Take 1 tablet by mouth twice daily. coenzyme Q10 (COENZYME Q-10) 100 mg cap capsule Take 1 capsule by mouth once daily. CPAP Please provide a smaller size headgear - child size if available. Large air leak on download. G47.33 SELINA CPAP New set up: Settings 5 - 12 cm H2O, suitable mask per pt preference, chin strap, head gear, humidity, tubing, lifetime supplies. G47.33 SELINA desloratadine (CLARINEX) 5 mg tablet fluticasone-salmeterol (ADVAIR DISKUS) 100-50 mcg/Dose INHALATION DsDv 1 puffs every 12 hours azelastine (ASTELIN) 137 mcg NASAL SprA 2 puffs every 12 hours HISTORIES PAST MEDICAL HISTORY Diagnosis Date Allergic rhinitis due to other allergen Anxiety and depression Bronchiectasis without acute exacerbation (HCC) Cervicalgia 01/14/2021 Frozen shoulder Humerus fracture 12/2021 Dr. Romero Intractable migraine without status migrainosus Dr. Chandra Iron deficiency SELINA (obstructive sleep apnea) Other insomnia Pure hypercholesterolemia RLS (restless legs syndrome) Dr. Reyes Tachycardia Unspecified asthma, with status asthmaticus FAMILY HISTORY Problem Relation Age of Onset Coronary Artery Disease Father age 73 Hypertension Father Heart Attack Father Stroke Mother age 75 other (Other) Sister Sleep apnea other (Other) Son TAR Syndrome Migraines Daughter Coronary Artery Disease Maternal Grandmother Stroke Maternal Grandmother other (Other) Maternal Grandmother lung dx Diabetes Paternal Uncle SOCIAL HISTORY Social History Tobacco Use Smoking status: Never Smokeless tobacco: Never Vaping Use Vaping Use: Never used Substance Use Topics Alcohol use: Not Currently Drug use: No PHYSICAL EXAMINATION BP 119/78 Pulse 72 Resp 18 Wt 58.5 kg (129 lb 1 oz) LMP 09/30/2013 BMI 20.83 kg/m GENERAL EXAM: General appearance: NAD, pleasant. HEENT: NC/AT, nasal congestion absent, no oral lesions, membranes moist. Lungs: CTA bilaterally. CV: RRR nl S1, S2. No carotid bruits. Extr: No cyanosis, clubbing or edema. Skin: Cool to touch. NEUROLOGICAL EXAM: General: Awake, alert, oriented x3 (person,place,time), speech fluent, no dysarthria; comprehension, naming, repetition intact. CN: PERRL, EOMI and without nystagmus, VFF to confrontation, facial sensation and strength are normal and symmetric, hearing is intact to finger rub bilaterally, palate and tongue movements are intact and symmetric. SCM and trapezius strength normal. Motor: Normal tone, bulk and strength (5/5) bilaterally (throughout extremities x4). Coordination: FNF, MORTEZA, HTS intact. No tremors. Sensation: Light touch intact throughout. No evidence of neglect. Gait: Stable with normal stride and arm swing. Assessment and Plan: ASSESSMENT/PLAN: 1. Obstructive sleep apnea (adult) (pediatric) - ICD9: 327.23, ICD10: G47.33 (primary diagnosis) AHI increased as above for uncertain reasons. No weight gain. Compliance with PAP. No change in leak. Will empirically increase PAP range to 5-15 cmH2O to compensate for events. Patient currently asx clinically but will monitor for changes in sleep with increase in PAP setting. 2. RLS (restless legs syndrome) - ICD9: 333.94, ICD10: G25.81 Stable. Continue Klonopin 1mg QHS. Note, pt completed urine tox earlier this year. 3. Anxiety - ICD9: 300.00, ICD10: F41.9 Stable. Continue Klonopin as above. 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 Pt not wanting to change meds as feels benefits of being able to sleep and function during the day outweigh risks. Raman Reyes MD I spent a total of 35 minutes on the date of the service which included preparing to see the patient, [id number] patient care, completing clinical documentation, obtaining and/or reviewing separately obtained history, performing a medically appropriate examination, counseling and educating the patient/family/caregiver, ordering medications, tests, or procedures, independently interpreting results (not separately reported), and communicating results to the patient/family/caregiver (results = pap data download). PDMP website checked and validated. All prescriptions have been APPROPRIATELY filled. No suspicious activity was identified. 09/17/2022 by Raman Reyes MD documented in this encounter [facility] 08-22-2022 Miscellaneous Notes MyChart message sent Maddi 01/10/[address] Reyes Fov 09/17/[address] Reyes Assessment and Plan: ASSESSMENT/PLAN: 1. RLS (restless legs syndrome) - ICD9: 333.94, ICD10: G25.81 (primary diagnosis) 2. Anxiety - ICD9: 300.00, ICD10: F41.9 3. SELINA (obstructive sleep apnea) - ICD9: 327.23, ICD10: G47.33 Patient overall doing well with regards to sleep. RLS controlled. No racing thought at night. No SEs from use of Klonopin 1.0mg QHS. As for SELINA, doing well on PAP with no complaints. Sleep is restorative and uninterrupted. Pt would like to make no changes to therapies at this time. Reminded pt to clean and replace PAP equipment regularly. Advised pt not to drive or operate heavy machinery if sleepy. Will have patient follow up in 6 months. Raman Reyes MD documented in this encounter [facility] 08-08-2022 Miscellaneous Notes My Chart message sent asking patient to scheduled follow up. Needs follow up. Was advised 6 mos follow up last visit. Raman Reyes MD Last office visit: 01/10/22 Next appointment scheduled: 12/15/22 Last labs: 04/2022 Assessment and Plan: ASSESSMENT/PLAN: 1. RLS (restless legs syndrome) - ICD9: 333.94, ICD10: G25.81 (primary diagnosis) 2. Anxiety - ICD9: 300.00, ICD10: F41.9 3. SELINA (obstructive sleep apnea) - ICD9: 327.23, ICD10: G47.33 Patient overall doing well with regards to sleep. RLS controlled. No racing thought at night. No SEs from use of Klonopin 1.0mg QHS. As for SELINA, doing well on PAP with no complaints. Sleep is restorative and uninterrupted. Pt would like to make no changes to therapies at this time. Reminded pt to clean and replace PAP equipment regularly. Advised pt not to drive or operate heavy machinery if sleepy. Will have patient follow up in 6 months. Raman Reyes MD Patient has been identified by name and date of : Yes Patient phones for refill(s): Requested Prescriptions Pending Prescriptions Disp Refills clonazePAM (KLONOPIN) 1 mg tablet 30 tablet 0 Sig: Take 1 capsule nightly Patient calls to ask for refill of clonazepam to get her through until F2F visit. Current prescription goes to 08/31/2022. Pended prescription to fill on 09/01/2022 for review. Transferred to schedule in person visit. Date of last office visit with pcp: 01/10/2022 Future appt: transferred to schedule Last 2 Encounter Wt Readings: Date: Wt: 06/13/2022 58.1 kg (128 lb) 05/30/2022 58 kg (127 lb 12.8 oz) Previous labs/tests for medication: Blood Pressure: BUN (mg/dL) Date Value 04/26/2022 13 02/05/2021 13 Sodium (mmol/L) Date Value 04/26/2022 142 02/05/2021 140 Last 1 Encounter BP Readings: Date: BP: 06/13/2022 116/68 Liver Function: ALT (U/L) Date Value 04/25/2022 8 07/11/2020 11 AST (U/L) Date Value 04/25/2022 15 07/11/2020 19 Please advise. Thank you. Toshia Prince RN documented in this encounter [facility] 08-01-2022 History of Present illness Narrative Pt needs in person visit for clonazepam refill. Pt MRN sent to scheduling to assist PDMP website checked and validated. All prescriptions have been APPROPRIATELY filled. No suspicious activity was identified. 08/01/2022 by SIA Fung APRN.BERNIE documented in this encounter [facility] 07-17-2022 Miscellaneous Notes Images from the original note were not included. documented in this encounter [facility] 06-24-2022 Miscellaneous Notes Pt called and is notified of providers results and instructions. Pt voices understanding. Pt reports she will take the ibandronate. Sent providers message to Pt through [employer] per her request. Tanja Basilio RN Please let her know that BMD showed osteopenia. Recommend 1200 mg of calcium through diet or supplement daily, vitamin D3 800 IU daily and routine weight bearing exercise such as walking to help keep bone strong. Consider treatment to strengthen bone such as ibandronate. documented in this encounter [facility] 06-23-2022 History of Present illness Narrative Radiology Service Progress Note PATIENT NAME: Nury Woods DATE OF SERVICE: June 23, 2022 TIME: 9:00 AM PATIENT IDENTITY VERIFICATION COMPLETED USING TWO (2) IDENTIFIERS: Name and Date of confirmed by patient verbally. FALL SCREENING: Has the patient had 2 falls in the last year or 1 fall with injury or currently using an Ambulatory Assistive Device (Walker, Cane, Wheelchair, Crutches, etc.)? Yes, Patient High Risk for Falls What interventions were put in place to prevent falls during this visit? Increased Observations by Caregivers PATIENT GENDER DATA: Female. status: : No status: NO. PATIENT RELEVANT IMPLANT DATA REVIEWED: Not Applicable RADIOLOGY DEPARTMENT: Bone Density PERIPHERAL IV DATA: Not applicable SIGNED BY: RT Sherlyn(R) June 23, 2022 9:00 AM documented in this encounter [facility] 06-02-2022 Miscellaneous Notes Left detailed message with below Please let her know that chest x-ray is stable. May continue on with treatment as recommended at her visit today. She should let us know if not feeling improved with these measures. COMPARISON: Comparison is made to prior 2 view chest dated 08 May 2022, 05 February 2021 and 26 December 2019 RESULT: Lines, tubes, and devices: None. Lungs and pleura: Mild chronic blunting of the left posterior sulcus is unchanged dating back to 2019. There is no focal consolidation or acute pleural process. There is vascular redistribution to suggest pulmonary edema. Cardiomediastinal silhouette: Normal cardiomediastinal silhouette. Bones/soft tissues: The bony structures are intact with mild degenerative change. No bony destructive process noted. IMPRESSION IMPRESSION: Stable chest. No superimposed acute radiographic abnormality. documented in this encounter [facility] 05-30-2022 History of Present illness Narrative SUBJECTIVE: COVID-19 VACCINE(1) Never done PAP TESTING due on 08/18/2022 HPV TESTING due on 08/18/2022 HPI Nury Daley Chuck is a 51 year old female. PMH significant for ACTIVE PROBLEM LIST Allergic Rhinitis, Cause Unspecified Mild Intermittent Asthma, Uncomplicated Uterine Fibroid Branchial Cyst Anxiety and Depression Migraine Without Aura and Without Status Migrainosus, Not Intractable Uars (Upper Airway Resistance Syndrome) Restless Legs Syndrome Iron Deficiency Dyspnea and Respiratory Abnormalities Selina (Obstructive Sleep Apnea) Moderate Persistent Asthma, Uncomplicated Status Migrainosus Pure Hypercholesterolemia Episodic Tension-Type Headache, Not Intractable Closed Fracture of Body of Sternum Closed Fracture of One Rib of Left Side Recently seen for follow-up of hospitalization, Nury Woods is a 51 year old female with the chief complaint of manubrial fracture with anterior hematoma. closed fracture of 1 rib of left side, trauma, fall. HPI excerpted from previous visit: Today notes she tripped and fell on chest on ground in her yard, notes did not have enough time to put her hands out. She notes pain has been fairly well managed using Tylenol during the day and [place] at nighttime. No she did have hiccups last night and that was very painful. Notes she has been using incentive spirometer during the day. She notes topical lidocaine irritated her skin so stopped using it. Without report of shortness of breath or crepitus. At her last visit she had meloxicam added to pain medications. Every hour deep breathing exercises advised. Follow-up chest x-ray was completed and showed no acute abnormality. Today reports that she was feeling improved until 4 to 5 days ago. Noted anterior chest discomfort had decreased significantly. Over the last 4 to 5 days has noted cough, productive for about a day, notes this seems to have color. She has noted increased fatigue and some chest tightness. Has been helped somewhat with albuterol and Advair. She notes no increased pain with deep breathing. No current fever. She notes shortness of breath on exertion with walking about 10 minutes, improved from previous. Review of Systems Constitutional: Positive for fatigue. Respiratory: Positive for cough, chest tightness and shortness of breath. Negative for wheezing. Cardiovascular: Negative. Objective LMP 09/30/2013 Physical Exam Vitals and nursing note reviewed. Constitutional: Appearance: Normal appearance. HENT: Head: Normocephalic and atraumatic. Eyes: Conjunctiva/sclera: Conjunctivae normal. Cardiovascular: Rate and Rhythm: Normal rate and regular rhythm. Heart sounds: Normal heart sounds. Pulmonary: Effort: Pulmonary effort is normal. No accessory muscle usage or respiratory distress. Breath sounds: Normal breath sounds. Skin: General: Skin is warm and dry. Neurological: Mental Status: She is alert. ALLERGIES Allergen Reactions Codeine Rash Cytotec [Misoprosto* Other: See Comments Fainting Dust Mites Other: See Comments Has had allergy test 06/2020- immune to dust now Entex Pse [Pseudoep* Rash Percocet [Oxycodone* Rash Medications meloxicam (MOBIC) 15 mg tablet Take 1 tablet by mouth once daily. as needed for pain. Take with food. metoprolol succinate ER (TOPROL XL) 25 mg 24 hr tablet Take 0.5 tablets by mouth once daily. escitalopram oxalate (LEXAPRO) 20 mg tablet Take 1 tablet by mouth once daily. lidocaine (SALONPAS) 4 % patch Apply 1 Patch as directed once daily as needed (pain) for up to 5 doses. clonazePAM (KLONOPIN) 1 mg tablet Take 1 tablet by mouth at bedtime as needed for up to 90 days. amitriptyline (ELAVIL) 10 mg tablet Take 1 tablet by mouth daily at bedtime. rizatriptan (MAXALT) 10 mg tablet 1 tab at earliest sign of migraine. May repeat once in 2 hours if needed. Give max allowed per insurance. ubrogepant (UBRELVY) 100 mg tablet Take 1 tablet by mouth at migraine onset. May repeat same dose once in 2 hours as needed. topiramate (TOPAMAX) 100 mg tablet Take 1 tablet by mouth twice daily. coenzyme Q10 (COENZYME Q-10) 100 mg cap capsule Take 1 capsule by mouth once daily. CPAP Please provide a smaller size headgear - child size if available. Large air leak on download. G47.33 SELINA CPAP New set up: Settings 5 - 12 cm H2O, suitable mask per pt preference, chin strap, head gear, humidity, tubing, lifetime supplies. G47.33 SELINA desloratadine (CLARINEX) 5 mg tablet albuterol HFA (VENTOLIN HFA) 90 mcg/actuation inhaler Inhale 2 Puffs as instructed every 4 hours as needed for Wheezing/Shortness of Breath. fluticasone-salmeterol (ADVAIR DISKUS) 100-50 mcg/Dose INHALATION DsDv 1 puffs every 12 hours azelastine (ASTELIN) 137 mcg NASAL SprA 2 puffs every 12 hours PAST MEDICAL HISTORY Diagnosis Date Allergic rhinitis due to other allergen Anxiety and depression Bronchiectasis without acute exacerbation (HCC) Cervicalgia 01/14/2021 Frozen shoulder Humerus fracture 12/2021 Dr. Romero Intractable migraine without status migrainosus Dr. Chandra Iron deficiency SELINA (obstructive sleep apnea) Other insomnia Pure hypercholesterolemia RLS (restless legs syndrome) Dr. Reyes Tachycardia Unspecified asthma, with status asthmaticus Social History Tobacco Use Smoking status: Never Smoker Smokeless tobacco: Never Used Vaping Use Vaping Use: Never used Substance Use Topics Alcohol use: Not Currently Drug use: No ASSESSMENT/PLAN: 1. Closed fracture of body of sternum, initial encounter - ICD9: 807.2, ICD10: S22.22XA (primary diagnosis) 2. Mild intermittent asthma with acute exacerbation - ICD9: 493.92, ICD10: J45.21 - ALBUTEROL SULFATE HFA 90 MCG/ACTUATION AEROSOL INHALER - XR CHEST 2V FRONTAL/LAT 3. Acute Cough - ICD9: 786.2, ICD10: R05.9 - ALBUTEROL SULFATE HFA 90 MCG/ACTUATION AEROSOL INHALER - XR CHEST 2V FRONTAL/LAT - PREDNISONE 20 MG TABLET 4. Closed fracture of one rib of left side, initial encounter - ICD9: 807.01, ICD10: S22.32XA She notes pain fracture is improved from previous. Some shortness of breath on exertion persists but improved from time of injury. She notes cough for the last 4 to 5 days, productive today. Noting fatigue. Recommend albuterol inhaler every 6 hours, continue with Advair, start taking prednisone daily in the morning, doxycycline until gone. Chest x-ray today to exclude pneumonia following the fracture. 1-2 week urinalysis Chuck Wadsworth APRN.SHIPWRIGHT Chuck Wadsworth APRN.CNS Medical Decision Making: Problems: Moderate: Acute illness with systemic symptoms Data: Unique test(s) ordered: 1 Risk: Moderate: Drug management Medical Decision Making Level: 4 - Moderate documented in this encounter [facility] 05-08-2022 History of Present illness Narrative Radiology Service Progress Note PATIENT NAME: Nury Woods DATE OF SERVICE: May 08, 2022 TIME: 4:44 PM PATIENT IDENTITY VERIFICATION COMPLETED USING TWO (2) IDENTIFIERS: Name and Date of confirmed by patient verbally. FALL SCREENING: Has the patient had 2 falls in the last year or 1 fall with injury or currently using an Ambulatory Assistive Device (Walker, Cane, Wheelchair, Crutches, etc.)? Yes, Patient High Risk for Falls What interventions were put in place to prevent falls during this visit? Increased Observations by Caregivers PATIENT GENDER DATA: Female. status: : No status: NO. PATIENT RELEVANT IMPLANT DATA REVIEWED: Not Applicable RADIOLOGY DEPARTMENT: General X-ray: Exam(s) Completed: Chest X-Ray PERIPHERAL IV DATA: Not applicable SIGNED BY: RT Sherlyn(R) May 08, 2022 4:44 PM documented in this encounter [facility] 05-07-2022 Miscellaneous Notes Left below results on vm per Patient's request. Liss Heart LPN ----- Message from Chuck Wadsworth APRN.SHIPWRIGHT sent at 05/07/2022 10:41 AM EDT ----- Vit D within normal limits documented in this encounter [facility] 05-02-2022 Miscellaneous Notes Images from the original note were not included. Prior authorization approved Payer: [facility] [phone] Your PA request has been approved. Additional information will be provided in the approval communication. (Message 1145) Approval Details Authorized from May 02, 2022 to June 01, 2022 Electronic PA completed for hydrocodone-acetaminophen documented in this encounter [facility] documented as of this encounter (statuses as of 05/02/2022) [facility] History of Past illness Narrative* Problem Noted Date Resolved Date Fall 04/26/2022 04/26/2022 Trauma 04/25/2022 04/26/2022 Chronic tension-type headache, intractable 08/0604/14/2022 Chronic daily headache 08/06/2021 2 Cervicalgia 01/14/2021 02/06/2021 Medication overuse headache 10/19/202012/31 Rebound headache 10/19/2020 01/09/2021 Intractable chronic migraine without aura and with status migrainosus 10/19/2020 01/09/2021 Chronic migraine without aur a, with intractable migraine, so stated, with status migrainosus 10/19/2020 01/09/2021 Chronic daily headache 10/19/2020 Heavy menstrual bleeding 09/14/2013 013 Abnormal uterine bleeding 09/14/20132014 Bronchiectasis without acute exacerbation 200710/20/2011 Dermatophytosis of nail 12/04/2005 10/20/20 11 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, without mention of thyrotoxic crisis or storm 07/16/2005 10/20/20 11 documented as of this encounter (statuses as of 05/07/2022) [facility] History of Past illness Narrative* Problem Noted Date Resolved Date Fall 04/26/2022 04/26/2022 Trauma 04/25/2022 04/26/2022 Chronic tension-type headache, intractable 08/0604/14/2022 Chronic daily headache 08/06/2021 2 Cervicalgia 01/14/2021 02/06/2021 Medication overuse headache 10/19/2020 03 Rebound headache 10/19/2020 01/09/2021 Intractable chronic migraine without aura and with status migrainosus 10/19/2020 01/09/2021 Chronic migraine without aur a, with intractable migraine, so stated, with status migrainosus 10/19/2020 01/09/2021 Chronic daily headache 10/19/2020 1 Heavy menstrual bleeding 09/14/2013 013 Abnormal uterine bleeding 09/14/20132014 Bronchiectasis without acute exacerbation 200710/20/2011 Dermatophytosis of nail 12/04/2005 10/20/20 11 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, without mention of thyrotoxic crisis or storm 07/16/2005 10/20/20 11 documented as of this encounter (statuses as of 05/09/2022) [facility] of Past illness Narrative* Problem Noted Date Resolved Date Fall 04/26/2022 04/26/2022 Trauma 04/25/2022 04/26/2022 Chronic tension-type headache, intractable 08/0604/14/2022 Chronic daily headache 08/06/2021 2 Cervicalgia 01/14/2021 02/06/2021 Medication overuse headache 10/19/202012/31 Rebound headache 10/19/2020 01/09/2021 Intractable chronic migraine without aura and with status migrainosus 10/19/2020 01/09/2021 Chronic migraine without aur a, with intractable migraine, so stated, with status migrainosus 10/19/2020 01/09/2021 Chronic daily headache 10/19/2020 Heavy menstrual bleeding 09/14/2013 013 Abnormal uterine bleeding 09/14/20132014 Bronchiectasis without acute exacerbation 200710/20/2011 Dermatophytosis of nail 12/04/2005 10/20/20 11 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, without mention of thyrotoxic crisis or storm 07/16/2005 10/20/20 11 documented as of this encounter (statuses as of 05/30/2022) [facility] of Past [facility] Narrative* Problem Noted Date Resolved Date Fall 04/26/2022 04/26/2022 Trauma 04/25/2022 04/26/2022 Chronic tension-type headache, intractable 08/0604/14/2022 Chronic daily headache 08/06/2021 2 Cervicalgia 01/14/2021 02/06/2021 Medication overuse headache 10/19/2020 03 Rebound headache 10/19/2020 01/09/2021 Intractable chronic migraine without aura and with status migrainosus 10/19/2020 01/09/2021 Chronic migraine without aur a, with intractable migraine, so stated, with status migrainosus 10/19/2020 01/09/2021 Chronic daily headache 10/19/2020 Heavy menstrual bleeding 09/14/2013 013 Abnormal uterine bleeding 09/14/20132014 Bronchiectasis without acute exacerbation 200710/20/2011 Dermatophytosis of nail 12/04/2005 10/20/20 11 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, without mention of thyrotoxic crisis or storm 07/16/2005 10/20/20 11 documented as of this encounter (statuses as of 06/02/2022) [facility] of Past [facility] Narrative* Problem Noted Date Resolved Date Fall 04/26/2022 04/26/2022 Trauma 04/25/2022 04/26/2022 Chronic tension-type headache, intractable 08/0604/14/2022 Chronic daily headache 08/06/2021 2 Cervicalgia 01/14/2021 02/06/2021 Medication overuse headache 10/19/202012/31 Rebound headache 10/19/2020 01/09/2021 Intractable chronic migraine without aura and with status migrainosus 10/19/2020 01/09/2021 Chronic migraine without aur a, with intractable migraine, so stated, with status migrainosus 10/19/2020 01/09/2021 Chronic daily headache 10/19/2020 Heavy menstrual bleeding 09/14/2013 013 Abnormal uterine bleeding 09/14/20132014 Bronchiectasis without acute exacerbation 200710/20/2011 Dermatophytosis of nail 12/04/2005 10/20/20 11 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, without mention of thyrotoxic crisis or storm 07/16/2005 10/20/20 11 documented as of this encounter (statuses as of 06/24/2022) [facility] Narrative* Problem Noted Date Resolved Date Fall 04/26/2022 04/26/2022 Trauma 04/25/2022 04/26/2022 Chronic tension-type headache, intractable 08/0604/14/2022 Chronic daily headache 08/06/2021 2 Cervicalgia 01/14/2021 02/06/2021 Medication overuse headache 10/19/202012/31 Rebound headache 10/19/2020 01/09/2021 Intractable chronic migraine without aura and with status migrainosus 10/19/2020 01/09/2021 Chronic migraine without aur a, with intractable migraine, so stated, with status migrainosus 10/19/2020 01/09/2021 Chronic daily headache 10/19/2020 Heavy menstrual bleeding 09/14/2013 013 Abnormal uterine bleeding 09/14/20132014 Bronchiectasis without acute exacerbation 200710/20/2011 Dermatophytosis of nail 12/04/2005 10/20/20 11 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, without mention of thyrotoxic crisis or storm 07/16/2005 10/20/20 11 documented as of this encounter (statuses as of 07/17/2022) [facility] Narrative* Problem Noted Date Resolved Date Fall 04/26/2022 04/26/2022 Trauma 04/25/2022 04/26/2022 Chronic tension-type headache, intractable 08/0604/14/2022 Chronic daily headache 08/06/2021 2 Cervicalgia 01/14/2021 02/06/2021 Medication overuse headache 10/19/202012/31 Rebound headache 10/19/2020 01/09/2021 Intractable chronic migraine without aura and with status migrainosus 10/19/2020 01/09/2021 Chronic migraine without aur a, with intractable migraine, so stated, with status migrainosus 10/19/2020 01/09/2021 Chronic daily headache 10/19/2020 Heavy menstrual bleeding 09/14/2013 013 Abnormal uterine bleeding 09/14/20132014 Bronchiectasis without acute exacerbation 200710/20/2011 Dermatophytosis of nail 12/04/2005 10/20/20 11 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, without mention of thyrotoxic crisis or storm 07/16/2005 10/20/20 11 documented as of this encounter (statuses as of 08/01/2022) [facility] of [facility] Narrative* Problem Noted Date Resolved Date Fall 04/26/2022 04/26/2022 Trauma 04/25/2022 04/26/2022 Chronic tension-type headache, intractable 08/0604/14/2022 Chronic daily headache 08/06/2021 2 Cervicalgia 01/14/2021 02/06/2021 Medication overuse headache 10/19/202012/31 Rebound headache 10/19/2020 01/09/2021 Intractable chronic migraine without aura and with status migrainosus 10/19/2020 01/09/2021 Chronic migraine without aur a, with intractable migraine, so stated, with status migrainosus 10/19/2020 01/09/2021 Chronic daily headache 10/19/2020 Heavy menstrual bleeding 09/14/2013 013 Abnormal uterine bleeding 09/14/20132014 Bronchiectasis without acute exacerbation 200710/20/2011 Dermatophytosis of nail 12/04/2005 10/20/20 11 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, without mention of thyrotoxic crisis or storm 07/16/2005 10/20/20 11 documented as of this encounter (statuses as of 08/08/2022) [facility] Narrative* Problem Noted Date Resolved Date Fall 04/26/2022 04/26/2022 Trauma 04/25/2022 04/26/2022 Chronic tension-type headache, intractable 08/0604/14/2022 Chronic daily headache 08/06/2021 2 Cervicalgia 01/14/2021 02/06/2021 Medication overuse headache 10/19/202012/31 Rebound headache 10/19/2020 01/09/2021 Intractable chronic migraine without aura and with status migrainosus 10/19/2020 01/09/2021 Chronic migraine without aur a, with intractable migraine, so stated, with status migrainosus 10/19/2020 01/09/2021 Chronic daily headache 10/19/2020 Heavy menstrual bleeding 09/14/2013 013 Abnormal uterine bleeding 09/14/20132014 Bronchiectasis without acute exacerbation 200710/20/2011 Dermatophytosis of nail 12/04/2005 10/20/20 11 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, without mention of thyrotoxic crisis or storm 07/16/2005 10/20/20 11 documented as of this encounter (statuses as of 08/22/2022) [facility] Narrative* Problem Noted Date Resolved Date Fall 04/26/2022 04/26/2022 Trauma 04/25/2022 04/26/2022 Chronic tension-type headache, intractable 08/0604/14/2022 Chronic daily headache 08/06/2021 2 Cervicalgia 01/14/2021 02/06/2021 Medication overuse headache 10/19/202012/31 Rebound headache 10/19/2020 01/09/2021 Intractable chronic migraine without aura and with status migrainosus 10/19/2020 01/09/2021 Chronic migraine without aur a, with intractable migraine, so stated, with status migrainosus 10/19/2020 01/09/2021 Chronic daily headache 10/19/2020 Heavy menstrual bleeding 09/14/2013 013 Abnormal uterine bleeding 09/14/20132014 Bronchiectasis without acute exacerbation 200710/20/2011 Dermatophytosis of nail 12/04/2005 10/20/20 11 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, without mention of thyrotoxic crisis or storm 07/16/2005 10/20/20 11 documented as of this encounter (statuses as of 09/17/2022) [facility] History of Past illness Narrative* Problem Noted Date Resolved Date Fall 04/26/2022 04/26/2022 Closed fracture of one rib of left side 04/26/20 22 10/13/2022 Trauma 04/25/2022 04/26/2022 Closed fracture of body of sternum 04/25/2022 10/13/2022 Chronic tension-type headache, intractable 08/0604/14/2022 Chronic daily headache 08/06/2021 Cervicalgia 01/14/2021 02/06/2021 Medication overuse headache 10/19/202012/31 Rebound headache 10/19/2020 01/09/2021 Intractable chronic migraine without aura and with status migrainosus 10/19/2020 01/09/2021 Chronic migraine without aur a, with intractable migraine, so stated, with status migrainosus 10/19/2020 01/09/2021 Chronic daily headache 10/19/2020 Branchial cyst 09/11/2020 10/13/2022 Uterine fibroid 09/14/2013 10/13/2022 Heavy menstrual bleeding 09/14/2013 013 Abnormal uterine bleeding 09/14/20132014 Bronchiectasis without acute exacerbation 200710/20/2011 Dermatophytosis of nail 12/04/2005 10/20/20 11 Mild intermittent asthma, uncomplicated 07/16/20 05 10/13/2022 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, without mention of thyrotoxic crisis or storm 07/16/2005 10/20/20 11 documented as of this encounter (statuses as of 10/13/2022) [facility] History of Past illness Narrative* Problem Noted Date Resolved Date Fall 04/26/2022 04/26/2022 Closed fracture of one rib of left side 04/26/20 22 10/13/2022 Trauma 04/25/2022 04/26/2022 Closed fracture of body of sternum 04/25/2022 10/13/2022 Chronic tension-type headache, intractable 08/0604/14/2022 Chronic daily headache 08/06/2021 Cervicalgia 01/14/2021 02/06/2021 Medication overuse headache 10/19/202012/31 Rebound headache 10/19/2020 01/09/2021 Intractable chronic migraine without aura and with status migrainosus 10/19/2020 01/09/2021 Chronic migraine without aur a, with intractable migraine, so stated, with status migrainosus 10/19/2020 01/09/2021 Chronic daily headache 10/19/2020 Branchial cyst 09/11/2020 10/13/2022 Uterine fibroid 09/14/2013 10/13/2022 Heavy menstrual bleeding 09/14/2013 013 Abnormal uterine bleeding 09/14/20132014 Bronchiectasis without acute exacerbation 200710/20/2011 Dermatophytosis of nail 12/04/2005 10/20/20 11 Mild intermittent asthma, uncomplicated 07/16/20 05 10/13/2022 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, without mention of thyrotoxic crisis or storm 07/16/2005 10/20/20 11 documented as of this encounter (statuses as of 10/15/2022) [facility] History of Past illness Narrative* Problem Noted Date Resolved Date Fall 04/26/2022 04/26/2022 Closed fracture of one rib of left side 04/26/20 22 10/13/2022 Trauma 04/25/2022 04/26/2022 Closed fracture of body of sternum 04/25/2022 10/13/2022 Chronic tension-type headache, intractable 08/0604/14/2022 Chronic daily headache 08/06/2021 Cervicalgia 01/14/2021 02/06/2021 Medication overuse headache 10/19/2020 03 Rebound headache 10/19/2020 01/09/2021 Intractable chronic migraine without aura and with status migrainosus 10/19/2020 01/09/2021 Chronic migraine without aur a, with intractable migraine, so stated, with status migrainosus 10/19/2020 01/09/2021 Chronic daily headache 10/19/2020 Branchial cyst 09/11/2020 10/13/2022 Uterine fibroid 09/14/2013 10/13/2022 Heavy menstrual bleeding 09/14/2013 013 Abnormal uterine bleeding 09/14/20132014 Bronchiectasis without acute exacerbation 200710/20/2011 Dermatophytosis of nail 12/04/2005 10/20/20 11 Mild intermittent asthma, uncomplicated 07/16/20 05 10/13/2022 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, without mention of thyrotoxic crisis or storm 07/16/2005 10/20/20 11 documented as of this encounter (statuses as of 12/15/2022) [facility] History of Past illness Narrative* Problem Noted Date Resolved Date Fall 04/26/2022 04/26/2022 Closed fracture of one rib of left side 04/26/20 22 10/13/2022 Trauma 04/25/2022 04/26/2022 Closed fracture of body of sternum 04/25/2022 10/13/2022 Chronic tension-type headache, intractable 08/0604/14/2022 Chronic daily headache 08/06/2021 2 Cervicalgia 01/14/2021 02/06/2021 Medication overuse headache 10/19/2020 03/ Rebound headache 10/19/2020 01/09/2021 Intractable chronic migraine without aura and with status migrainosus 10/19/2020 01/09/2021 Chronic migraine without aur a, with intractable migraine, so stated, with status migrainosus 10/19/2020 01/09/2021 Chronic daily headache 10/19/2020 1 Branchial cyst 09/11/2020 10/13/2022 Uterine fibroid 09/14/2013 10/13/2022 Heavy menstrual bleeding 09/14/2013 013 Abnormal uterine bleeding 09/14/20132014 Bronchiectasis without acute exacerbation 200710/20/2011 Dermatophytosis of nail 12/04/2005 10/20/20 11 Mild intermittent asthma, uncomplicated 07/16/20 05 10/13/2022 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, without mention of thyrotoxic crisis or storm 07/16/2005 10/20/20 11 documented as of this encounter (statuses as of 02/16/2023) [facility] History of Past illness Narrative* Problem Noted Date Diagnosed Date Resolved Date Fall 04/26/2022 04/26/2022 Closed fracture of one rib of left side 04/26/2022 10/13/2022 Trauma 04/25/2022 04/26/2022 Closed fracture of body of sternum 04/25/2022 10/13/2022 Status migrainosus 08/27/2021 Chronic tension-type headache, intractable 08/06/2021 04/14/2022 Chronic daily headache 08/06/202104/14 Cervicalgia 01/14/2021 02/06/2021 Medication overuse headache 10/19/2020 01/09/2021 Rebound headache 10/19/2020 01/09/2021 Intractable chronic migraine without aura and with status migrainosus 10/19/2020 01/09/2021 Chronic migraine without aur a, with intractable migraine, so stated, with status migrainosus 10/19/2020 01/09/2021 Chronic daily headache 10/19/202001/09 Branchial cyst 09/11/2020 10/13/2022 Uterine fibroid 09/14/2013 10/13/2022 Heavy menstrual bleeding 09/14/201307/2013 Abnormal uterine bleeding 09/14/2013 Bronchiectasis without acute exacerbation 01/21/2008 10/20/2011 Dermatophytosis of nail 12/04/200510/02 Mild intermittent asthma, uncomplicated 07/16/2005 10/13/2022 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, without mention of thyrotoxic crisis or storm 07/16/2005 10/20/2011 documented as of this encounter (statuses as of 06/23/2023) [facility] History of Past illness Narrative* Problem Noted Date Diagnosed Date Resolved Date Fall 04/26/2022 04/26/2022 Closed fracture of one rib of left side 04/26/2022 10/13/2022 Trauma 04/25/2022 04/26/2022 Closed fracture of body of sternum 04/25/2022 10/13/2022 Status migrainosus 08/27/2021 Chronic tension-type headache, intractable 08/06/2021 04/14/2022 Chronic daily headache 08/06/202104/14 Cervicalgia 01/14/2021 02/06/2021 Medication overuse headache 10/19/2020 01/09/2021 Rebound headache 10/19/2020 01/09/2021 Intractable chronic migraine without aura and with status migrainosus 10/19/2020 01/09/2021 Chronic migraine without aur a, with intractable migraine, so stated, with status migrainosus 10/19/2020 01/09/2021 Chronic daily headache 10/19/202001/09 Branchial cyst 09/11/2020 10/13/2022 Uterine fibroid 09/14/2013 10/13/2022 Heavy menstrual bleeding 09/14/201307/2013 Abnormal uterine bleeding 09/14/2013 Bronchiectasis without acute exacerbation 01/21/2008 10/20/2011 Dermatophytosis of nail 12/04/200510/02 Mild intermittent asthma, uncomplicated 07/16/2005 10/13/2022 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, without mention of thyrotoxic crisis or storm 07/16/2005 10/20/2011 documented as of this encounter (statuses as of 07/13/2023) [facility] History of Past illness Narrative* Problem Noted Date Diagnosed Date Resolved Date Fall 04/26/2022 04/26/2022 Closed fracture of one rib of left side 04/26/2022 10/13/2022 Trauma 04/25/2022 04/26/2022 Closed fracture of body of sternum 04/25/2022 10/13/2022 Status migrainosus 08/27/2021 Chronic tension-type headache, intractable 08/06/2021 04/14/2022 Chronic daily headache 08/06/202104/14 Cervicalgia 01/14/2021 02/06/2021 Medication overuse headache 10/19/2020 01/09/2021 Rebound headache 10/19/2020 01/09/2021 Intractable chronic migraine without aura and with status migrainosus 10/19/2020 01/09/2021 Chronic migraine without aur a, with intractable migraine, so stated, with status migrainosus 10/19/2020 01/09/2021 Chronic daily headache 10/19/202001/09 Branchial cyst 09/11/2020 10/13/2022 Uterine fibroid 09/14/2013 10/13/2022 Heavy menstrual bleeding 09/14/201307/2013 Abnormal uterine bleeding 09/14/2013 Bronchiectasis without acute exacerbation 01/21/2008 10/20/2011 Dermatophytosis of nail 12/04/200510/02 Mild intermittent asthma, uncomplicated 07/16/2005 10/13/2022 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, without mention of thyrotoxic crisis or storm 07/16/2005 10/20/2011 documented as of this encounter (statuses as of 08/21/2023) [facility] History of Past illness Narrative* Problem Noted Date Diagnosed Date Resolved Date Fall 04/26/2022 04/26/2022 Closed fracture of one rib of left side 04/26/2022 10/13/2022 Trauma 04/25/2022 04/26/2022 Closed fracture of body of sternum 04/25/2022 10/13/2022 Status migrainosus 08/27/2021 Chronic tension-type headache, intractable 08/06/2021 04/14/2022 Chronic daily headache 08/06/202104/14 Cervicalgia 01/14/2021 02/06/2021 Medication overuse headache 10/19/2020 01/09/2021 Rebound headache 10/19/2020 01/09/2021 Intractable chronic migraine without aura and with status migrainosus 10/19/2020 01/09/2021 Chronic migraine without aur a, with intractable migraine, so stated, with status migrainosus 10/19/2020 01/09/2021 Chronic daily headache 10/19/202001/09 Branchial cyst 09/11/2020 10/13/2022 Uterine fibroid 09/14/2013 10/13/2022 Heavy menstrual bleeding 09/14/201307/2013 Abnormal uterine bleeding 09/14/2013 Bronchiectasis without acute exacerbation 01/21/2008 10/20/2011 Dermatophytosis of nail 12/04/200510/02 Mild intermittent asthma, uncomplicated 07/16/2005 10/13/2022 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, without mention of thyrotoxic crisis or storm 07/16/2005 10/20/2011 documented as of this encounter (statuses as of 08/29/2023) [facility] History of Past illness Narrative* Problem Noted Date Diagnosed Date Resolved Date Fall 04/26/2022 04/26/2022 Closed fracture of one rib of left side 04/26/2022 10/13/2022 Trauma 04/25/2022 04/26/2022 Closed fracture of body of sternum 04/25/2022 10/13/2022 Status migrainosus 08/27/2021 Chronic tension-type headache, intractable 08/06/2021 04/14/2022 Chronic daily headache 08/06/202104/14 Cervicalgia 01/14/2021 02/06/2021 Medication overuse headache 10/19/2020 01/09/2021 Rebound headache 10/19/2020 01/09/2021 Intractable chronic migraine without aura and with status migrainosus 10/19/2020 01/09/2021 Chronic migraine without aur a, with intractable migraine, so stated, with status migrainosus 10/19/2020 01/09/2021 Chronic daily headache 10/19/202001/09 Branchial cyst 09/11/2020 10/13/2022 Uterine fibroid 09/14/2013 10/13/2022 Heavy menstrual bleeding 09/14/201307/2013 Abnormal uterine bleeding 09/14/2013 Bronchiectasis without acute exacerbation 01/21/2008 10/20/2011 Dermatophytosis of nail 12/04/200510/02 Mild intermittent asthma, uncomplicated 07/16/2005 10/13/2022 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, without mention of thyrotoxic crisis or storm 07/16/2005 10/20/2011 documented as of this encounter (statuses as of 10/13/2023) [facility] History of Past illness Narrative* Problem Noted Date Diagnosed Date Resolved Date Fall 04/26/2022 04/26/2022 Closed fracture of one rib of left side 04/26/2022 10/13/2022 Trauma 04/25/2022 04/26/2022 Closed fracture of body of sternum 04/25/2022 10/13/2022 Status migrainosus 08/27/2021 Chronic tension-type headache, intractable 08/06/2021 04/14/2022 Chronic daily headache 08/06/202104/14 Cervicalgia 01/14/2021 02/06/2021 Medication overuse headache 10/19/2020 01/09/2021 Rebound headache 10/19/2020 01/09/2021 Intractable chronic migraine without aura and with status migrainosus 10/19/2020 01/09/2021 Chronic migraine without aur a, with intractable migraine, so stated, with status migrainosus 10/19/2020 01/09/2021 Chronic daily headache 10/19/202001/09 Branchial cyst 09/11/2020 10/13/2022 Uterine fibroid 09/14/2013 10/13/2022 Heavy menstrual bleeding 09/14/201307/2013 Abnormal uterine bleeding 09/14/2013 Bronchiectasis without acute exacerbation 01/21/2008 10/20/2011 Dermatophytosis of nail 12/04/200510/02 Mild intermittent asthma, uncomplicated 07/16/2005 10/13/2022 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, without mention of thyrotoxic crisis or storm 07/16/2005 10/20/2011 documented as of this encounter (statuses as of 10/16/2023) [facility] History of Past illness Narrative* Problem Noted Date Diagnosed Date Resolved Date Fall 04/26/2022 04/26/2022 Closed fracture of one rib of left side 04/26/2022 10/13/2022 Trauma 04/25/2022 04/26/2022 Closed fracture of body of sternum 04/25/2022 10/13/2022 Status migrainosus 08/27/2021 Chronic tension-type headache, intractable 08/06/2021 04/14/2022 Chronic daily headache 08/06/202104/14 Cervicalgia 01/14/2021 02/06/2021 Medication overuse headache 10/19/2020 01/09/2021 Rebound headache 10/19/2020 01/09/2021 Intractable chronic migraine without aura and with status migrainosus 10/19/2020 01/09/2021 Chronic migraine without aur a, with intractable migraine, so stated, with status migrainosus 10/19/2020 01/09/2021 Chronic daily headache 10/19/202001/09 Branchial cyst 09/11/2020 10/13/2022 Uterine fibroid 09/14/2013 10/13/2022 Heavy menstrual bleeding 09/14/201307/2013 Abnormal uterine bleeding 09/14/2013 Bronchiectasis without acute exacerbation 01/21/2008 10/20/2011 Dermatophytosis of nail 12/04/200510/02 Mild intermittent asthma, uncomplicated 07/16/2005 10/13/2022 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 All prescriptions have been APPROPRIATELY filled. No suspiciousactivity was identified. 04/18/2022 by Raman Reyes MD * Telephone Encounter - Monica Saleem - 04/17/2022 3:17 PM EDT Patient phones requesting refills as follows: Pending Prescriptions Disp Refills CLONAZEPAM 1 MG TABLET 30 tablet 2 Sig: Take 1 tablet by mouth at bedtime as needed for up to 90 days. ADRIANO Class: C-IV PASCALE: No Please review and advise. Monica Saleem [facility] History of Present illness Narrative* Sandy Chandra, DO - 04/14/2022 4:34 PM EDT [facility] - [facility] Follow-up Visit ASSESSMENT: 51 year old female with history significant for migraine without aura, anxiety, RLS, insomnia, and prior chronic daily headache and chronic migraine, currently improved significantly to an episodic migraine and tension type headache pattern. PLAN: (Please see typed patient instructions for detailed instructions) ---> Acute Treatment: -Maxalt + Ubrelvy. Both taken together work very effectively for her, but each individually don't fully stop the migraine. Nury Edi Naylorrebekahdiaz has been previously approved for an Oral Calcitonin Gene- Related Peptide ReceptorAntagonist (GEPANT) Ubrogepant for the treatment of acute migraine. The patient has demonstrated the following: Provider attests patient has had a positive clinical response: Yes Patient will not use with another Oral Calcitonin Gene-Related Peptide Receptor Antagonist (GEPANT): Yes Patient's quality of life and ability to perform ADLs has improved: Yes We suggest the patient continue treatment with GEPANT Ubrogepant. The following preventative medications have been tried for three or more months without benefit: Anti-Convulsant Divalproex sodium (Depakote) IV Gabapentin (Neurontin) Topiramate (Topamax, Trokendi XL, Qudexy) Anti-Depressant and Antipsychotic Amitriptyline (Elavil) Escitalopram (Lexapro) Buspirone Blood Pressure Metoprolol (Lopressor,Toprol XL) Supplements CoQ10 Magnesium The following abortive medications have been tried but require high frequency use which can lead toMedication Overuse Headache: Analgesic Hydrocodone/Acetaminophen (Vicodin, [place]) Hydromorphone (Dilaudid) Ketorolac (Toradol) Meperidine (Demerol) Morphine (Mary, Ms Contin) Oxycodone/Acetaminophen (Percocet) Anti-Anxiety Buspirone (Buspar) Clonazepam (Klonopin) Lorazepam (Ativan) Anti-Migraine Dihydroergotamine (DHE-45, Migranal) Rizatriptan (Maxalt) GEPANTS Ubrogepant (Ubrelvy) Over the Counter Medications Acetaminophen (Tylenol) Acetaminophen/Aspirin (Goody s) Acetaminophen/Aspirin/Caffeine (Excedrin, Goody s) Aspirin Ibuprofen (Advil, Motrin) Naproxen sodium (Aleve) ---> Preventive Treatment: -Topamax 100 mg bid. -Metoprolol 25 mg, takes a half tab daily for palpitations. HR went from high to low (in 50s). -Amitriptyline 10 mg qhs for headache frequency and insomnia. -Supplements. ---> Follow-up: 6 months. Last visit: 12/17/21 Interval Headache Hx: Was doing very well, about 5 lower lower level tension type type headache per month with infrequentmigraines. Fell and broke her R arm in December (no injury) about 7 headache days per month, still mostly tension type headache and occasional migraine. HEADACHE SCORES: Headache Questions 02/25/2021 12/13/2021 04/13/2022 ID Migraine Screener: - - - ER visits in the last year: - - - ER visits since last office visit: 0 1 0 Hospital stays in the last year: - - - Hospital stays since last office visit 0 0 0 Limited ADLs in the last month: 2 2 0 Days missed from work or school in the last month: 0 0 0 Days headache pain free in the last month: 15 5 6 Days per month with ALL of the following symptoms - decreased productivity, light sensitivity and nausea: 5 0 0 Initial improvement of headache after botox injection at last visit: Not applicable, I did not havea botox injection at my last visit Not applicable, I did not have a botox injection at my last visit Not applicable, I did not have a botox injection at my last visit PRN medication usage in the last month: 6 12 15 Patient impression of improvement since last visit: Much improved Much worse Much improved HIT-6 02/25/2021 12/13/2021 04/13/2022 HIT-6 50 (Moderate impact) 59 (Substantial impact) 50 (Moderate impact) GAETANO - 2/7 SCORES 05/15/2021 12/13/2021 04/13/2022 GAETANO-2 Score 4 1 6 GAETANO-7 Score 13 - 14 Migraine Specific QOL - Higher scores indicate better HRQL 02/25/2021 12/13/2021 04/13/2022 Role Function-Restrictive Transformed Score (range: 0-100) 80 68.57 80 Role Function-Preventive Transformed Score (range: 0-100) 95 85 80 Emotional Function Transformed Score (range: 0-100) 100 66.67 86.67 PHQ-9 08/13/2021 12/13/2021 04/13/2022 Score 3 1 0 MEDS: Current Outpatient Medications Medication Sig escitalopram oxalate (LEXAPRO) 20 mg tablet Take 1 tablet by mouth once daily. metoprolol succinate ER (TOPROL XL) 25 mg 24 hr tablet Take 0.5 tablets by mouth once daily. clonazePAM (KLONOPIN) 1 mg tablet Take 1 tablet by mouth at bedtime as needed for up to 90 days. amitriptyline (ELAVIL) 10 mg tablet Take 1 tablet by mouth daily at bedtime. rizatriptan (MAXALT) 10 mg tablet 1 tab at earliest sign of migraine. May repeat once in 2 hours ifneeded. Give max allowed per insurance. ubrogepant (UBRELVY) 100 mg tablet Take 1 tablet by mouth at migraine onset. May repeat same dose once in 2 hours as needed. topiramate (TOPAMAX) 100 mg tablet Take 1 tablet by mouth twice daily. coenzyme Q10 (COENZYME Q-10) 100 mg cap capsule Take 1 capsule by mouth once daily. CPAP Please provide a smaller size headgear - child size if available. Large air leak on download. G47.33 SELINA CPAP New set up: Settings 5 - 12 cm H2O, suitable mask per pt preference, chin strap, head gear, humidity, tubing, lifetime supplies. G47.33 SELINA desloratadine (CLARINEX) 5 mg tablet albuterol HFA (VENTOLIN HFA) 90 mcg/actuation inhaler Inhale 2 Puffs as instructed every 4 hours asneeded for Wheezing/Shortness of Breath. fluticasone-salmeterol (ADVAIR DISKUS) 100-50 mcg/Dose INHALATION DsDv 1 puffs every 12 hours azelastine (ASTELIN) 137 mcg NASAL SprA 2 puffs every 12 hours Current Facility-Administered Medications Medication Dose Route Frequency perflutren lipid microspheres 1.3 mL in NaCl (PF) 0.9% 10 mL injection (DEFINITY) INTRAVENOUS DIRECTED PRN sodium chloride 0.9 % (flush) 10 mL (BD POSIFLUSH) 10 mL INTRAVENOUS DIRECTED PRN Prior Therapies Duration of Use Dose Reason for Discontinuation Analgesic Hydrocodone/Acetaminophen (Vicodin, [place]) Hydromorphone (Dilaudid) Ketorolac (Toradol) Meperidine (Demerol) Morphine (Mary, Ms Contin) Oxycodone/Acetaminophen (Percocet) Anti-Anxiety Buspirone (Buspar) Clonazepam (Klonopin) Lorazepam (Ativan) Anti-Convulsant Divalproex sodium (Depakote) IV Gabapentin (Neurontin) Topiramate (Topamax, Trokendi XL, Qudexy) Anti-Depressant and Antipsychotic Amitriptyline (Elavil) Escitalopram (Lexapro) Buspirone Antiemetics Ondansetron Promethazine Anti-Migraine Dihydroergotamine (DHE-45, Migranal) Rizatriptan (Maxalt) Blood Pressure Metoprolol (Lopressor,Toprol XL) GEPANTS Ubrogepant (Ubrelvy) Muscle Relaxer Chlorzoxazone (Parafon Forte) Cyclobenzaprine (Flexeril) Supplements CoQ10 Magnesium Other Medications Dexamethasone (Decadron) Methylprednisolone (Medrol) Prednisone Over the Counter Medications Acetaminophen (Tylenol) Acetaminophen/Aspirin (Goody s) Acetaminophen/Aspirin/Caffeine (Excedrin, Goody s) Aspirin Ibuprofen (Advil, Motrin) Naproxen sodium (Aleve) Sandy Chandra DO [facility] [place] [facility] [address] [place] [address] Level of service: Est level 2 (10-19 min). Time spent 16 min on the day of service, which included preparing to see the patient, [id number] patient care, completing clinical documentation, obtaining and/or reviewing separately obtained history, counseling and educating the patient/family/caregiver and ordering medications, tests, or procedures. Medical Decision Making cc: Michi Sherman [address] [place] [address] documented [facility] History of Present illness Narrative* Chuck Wadsworth APRN.[employer] - 04/03/2022 9:00 AM EDT SUBJECTIVE: PAP TESTING due on 08/18/2022 HPV TESTING due on 08/18/2022 UZIEL Woods is a 51 year old female. PMH significnat for ACTIVE PROBLEM LIST Allergic Rhinitis, Cause Unspecified Mild Intermittent Asthma, Uncomplicated Uterine Fibroid Branchial Cyst Anxiety and Depression Migraine Without Aura and Without Status Migrainosus, Not Intractable Uars (Upper Airway Resistance Syndrome) Restless Legs Syndrome Iron Deficiency Dyspnea and Respiratory Abnormalities Selina (Obstructive Sleep Apnea) Chronic Tension-Type Headache, Intractable Chronic Daily Headache Moderate Persistent Asthma, Uncomplicated Status Migrainosus Pure Hypercholesterolemia PCP: Yelena Leos today to transfer care to Dr Sherman. Seen by Yong Castillo MD 02/26/2022. Seen by Dr Chandra, for migraine headache. Dr Reyes, SELINA. Dr Dietrich EMT INTERMEDIATE. Notes doing well. Notes advised needed to be seen to transfer care. Hyperlipidemia. She notes she is active and eating a healthy diet. Her most recent lipid panels are: Cholesterol, Total (mg/dL) Date Value 02/26/2022 226 04/12/2021 191 Total Cholesterol, Nonfasting (mg/dL) Date Value 06/28/2019 191 HDL Cholesterol (mg/dL) Date Value 02/26/2022 86 04/12/2021 73 HDL Cholesterol, Nonfasting (mg/dL) Date Value 06/28/2019 90 LDL Cholesterol (mg/dL) Date Value 02/26/2022 122 04/12/2021 106 LDL Chol, [place] (mg/dL) Date Value 07/24/2007 82 LDL Cholesterol, Nonfasting (mg/dL) Date Value 06/28/2019 91 Triglyceride (mg/dL) Date Value 02/26/2022 91 04/12/2021 61 Triglycerides, Nonfasting (mg/dL) Date Value 06/28/2019 50 The 10-year ASCVD risk score (Millvillejose LOJA Jr., et al., 2013) is: 1% Values used to calculate the score: Age: 51 years Sex: Female Is Non- : No Diabetic: No Tobacco smoker: No Systolic Blood Pressure: 116 mmHg Is BP treated: No HDL Cholesterol: 86 mg/dL Total Cholesterol: 226 mg/dL Review of Systems Constitutional: Negative. Objective BP 116/74 Pulse 68 Resp 16 Wt 57.6 kg (127 lb) LMP 09/30/2013 BMI (P) 20.50 kg/m Physical Exam Vitals and nursing note reviewed. Constitutional: Appearance: Normal appearance. HENT: Head: Normocephalic and atraumatic. Eyes: Conjunctiva/sclera: Conjunctivae normal. Cardiovascular: Rate and Rhythm: Normal rate. Pulmonary: Effort: Pulmonary effort is normal. Skin: General: Skin is warm and dry. Neurological: General: No focal deficit present. Mental Status: She is alert and oriented to person, place, and time. ALLERGIES Allergen Reactions Codeine Rash Cytotec [Misoprosto* Other: See Comments Fainting Dust Mites Other: See Comments Has had allergy test 06/2020- immune to dust now Entex Pse [Pseudoep* Rash Percocet [Oxycodone* Rash MEDICATIONS escitalopram oxalate (LEXAPRO) 20 mg tablet, Take 1 tablet by mouth once daily. metoprolol succinate ER (TOPROL XL) 25 mg 24 hr tablet, Take 0.5 tablets by mouth once daily. clonazePAM (KLONOPIN) 1 mg tablet, Take 1 tablet by mouth at bedtime as needed for up to 90 days. amitriptyline (ELAVIL) 10 mg tablet, Take 1 tablet by mouth daily at bedtime. rizatriptan (MAXALT) 10 mg tablet, 1 tab at earliest sign of migraine. May repeat once in 2 hours if needed. Give max allowed per insurance. ubrogepant (UBRELVY) 100 mg tablet, Take 1 tablet by mouth at migraine onset. May repeat same dose once in 2 hours as needed. topiramate (TOPAMAX) 100 mg tablet, Take 1 tablet by mouth twice daily. coenzyme Q10 (COENZYME Q-10) 100 mg cap capsule, Take 1 capsule by mouth once daily. CPAP, Please provide a smaller size headgear - child size if available. Large air leak on download.G47.33 SELINA CPAP, New set up: Settings 5 - 12 cm H2O, suitable mask per pt preference, chin strap, head gear, humidity, tubing, lifetime supplies. G47.33 SELINA desloratadine (CLARINEX) 5 mg tablet, albuterol HFA (VENTOLIN HFA) 90 mcg/actuation inhaler, Inhale 2 Puffs as instructed every 4 hours as needed for Wheezing/Shortness of Breath. fluticasone-salmeterol (ADVAIR DISKUS) 100-50 mcg/Dose INHALATION DsDv, 1 puffs every 12 hours azelastine (ASTELIN) 137 mcg NASAL SprA, 2 puffs every 12 hours PAST MEDICAL HISTORY Diagnosis Date Allergic rhinitis due to other allergen Anxiety and depression Bronchiectasis without acute exacerbation (HCC) Cervicalgia 01/14/2021 Frozen shoulder Humerus fracture 12/2021 Dr. Romero Intractable migraine without status migrainosus Dr. Chandra Iron deficiency SELINA (obstructive sleep apnea) Other insomnia Pure hypercholesterolemia RLS (restless legs syndrome) Dr. Reyes Tachycardia Unspecified asthma, with status asthmaticus Social History Tobacco Use Smoking status: Never Smoker Smokeless tobacco: Never Used Vaping Use Vaping Use: Never used Substance Use Topics Alcohol use: Not Currently Drug use: No ASSESSMENT/PLAN: 1. Pure hypercholesterolemia - ICD9: 272.0, ICD10: E78.00 (primary diagnosis) Recommend a plant based diet such as Mediterranean diet with plenty of vegetables, fruits,whole grains, fish, chicken, turkey or plant proteins and routine exercise such as walking Provided with written information regarding Mediterranean diet and reviewed at visit. Recheck in 1 year - LIPID PANEL BASIC - COMP METABOLIC PANEL - CBC + DIFF 2. Anxiety and depression - ICD9: 300.00, 311, ICD10: F41.9, F32.A - COMP METABOLIC PANEL - CBC + DIFF Would like to establish with Dr. Sherman; 10-12 mo follow up to do so. Chuck Wadsworth APRN.[employer] Medical Decision Making: Problems: Low: Stable chronic illness Data: Unique test result(s) reviewed: 1 Unique test(s) ordered: 2 Medical Decision Making Level: 3 - Low [facility] History of Present illness Narrative* Yong Castillo MD - 02/26/2022 8:13 AM EDT Chief Complaint Patient presents with: Physical HPI Nury Woods is a 51 year old female who presents here today for Above Complaints. Patient states that she slipped and fell on ice 2 months ago and fractured her left humerus. Has been following up with Dr. Romero in [place] and was placed in a sling. Healing well per OV yesterday. Has next follow up appointment in March. RLS: controlled on Clonazepam qhs per Dr. Reyes. SELINA: doing well on PAP without complaints. Using on a nightly basis. Migraines: Added Amitryptyline to her regimen at last OV with Dr. Chandra in December which has reduced the frequency and severity of her migraines. Using Ubrelvy about once every 10 days. Would like to continue this regimen. Anxiety/depression: Controlled on Lexapro without side effects. Denies SI/HI, panic symptoms. Asthma well controlled on Advair BID. Denies cough, SOB, wheezing. Using her albuterol up to 4 times per month, usually if she forgets to take her Advair. Due for routine pap smear this year. Refusing Tdap, Pneumovax today. Has not gotten COVID vaccine thus far and is not interested today. Risks and benefits discussed. Past medical history, appointments, medications, allergies reviewed. Previous Medical History PAST MEDICAL HISTORY Diagnosis Date Allergic rhinitis due to other allergen Anxiety and depression Bronchiectasis without acute exacerbation (HCC) Cervicalgia 01/14/2021 Frozen shoulder Humerus fracture 12/2021 Dr. Romero Intractable migraine without status migrainosus Dr. Chandra Iron deficiency SELINA (obstructive sleep apnea) Other insomnia RLS (restless legs syndrome) Dr. Reyes Tachycardia Unspecified asthma, with status asthmaticus Previous Surgical History PAST SURGICAL HISTORY Procedure Laterality Date ARTHROSCOPIC RELEASE SHOULDER JOINT Right 08/23/2019 frozen shoulder COLONOSCOPY FLX DX W/COLLJ SPEC WHEN PFRMD 10/04/2018 repeat 10 years EXCISION BRANCHIAL CLEFT CYST Right 09/20/2020 HYSTEROSCOPY WBX WWO D AND C ANDOR POLYPECTOMY 2012 S CATH ABLATION THERMACHOICE 2012 THYROIDECTOMY TOTAL/COMPLETE 1994 partial - ? left Family History FAMILY HISTORY Problem Relation Age of Onset Coronary Artery Disease Father age 73 Hypertension Father Heart Attack Father Stroke Mother age 75 other (Other) Sister Sleep apnea other (Other) Son TAR Syndrome Migraines Daughter Coronary Artery Disease Maternal Grandmother Stroke Maternal Grandmother other (Other) Maternal Grandmother lung dx Diabetes Paternal Uncle Patient Allergies ALLERGIES Allergen Reactions Codeine Rash Cytotec [Misoprosto* Other: See Comments Fainting Dust Mites Other: See Comments Has had allergy test 06/2020- immune to dust now Entex Pse [Pseudoep* Rash Percocet [Oxycodone* Rash Current Medications Current Outpatient Medications on File Prior to Visit Medication Sig clonazePAM (KLONOPIN) 1 mg tablet Take 1 tablet by mouth at bedtime as needed for up to 90 days. amitriptyline (ELAVIL) 10 mg tablet Take 1 tablet by mouth daily at bedtime. rizatriptan (MAXALT) 10 mg tablet 1 tab at earliest sign of migraine. May repeat once in 2 hours ifneeded. Give max allowed per insurance. ubrogepant (UBRELVY) 100 mg tablet Take 1 tablet by mouth at migraine onset. May repeat same dose once in 2 hours as needed. meloxicam (MOBIC) 15 mg tablet Take 1 tablet by mouth once daily as needed for pain (neck pain). With food. topiramate (TOPAMAX) 100 mg tablet Take 1 tablet by mouth twice daily. chlorzoxazone (PARAFON FORTE DSC) 500 mg tablet 2 tabs TID until headache free x 24 hours or used all pills. metoprolol succinate ER (TOPROL XL) 25 mg 24 hr tablet Take 0.5 tablets by mouth once daily. escitalopram oxalate (LEXAPRO) 20 mg tablet Take 1 tablet by mouth once daily. coenzyme Q10 (COENZYME Q-10) 100 mg cap capsule Take 1 capsule by mouth once daily. CPAP Please provide a smaller size headgear - child size if available. Large air leak on download. G47.33 SELINA CPAP New set up: Settings 5 - 12 cm H2O, suitable mask per pt preference, chin strap, head gear, humidity, tubing, lifetime supplies. G47.33 SELINA desloratadine (CLARINEX) 5 mg tablet albuterol HFA (VENTOLIN HFA) 90 mcg/actuation inhaler Inhale 2 Puffs as instructed every 4 hours asneeded for Wheezing/Shortness of Breath. fluticasone-salmeterol (ADVAIR DISKUS) 100-50 mcg/Dose INHALATION DsDv 1 puffs every 12 hours azelastine (ASTELIN) 137 mcg NASAL SprA 2 puffs every 12 hours Current Facility-Administered Medications on File Prior to Visit Medication perflutren lipid microspheres 1.3 mL in NaCl (PF) 0.9% 10 mL injection (DEFINITY) sodium chloride 0.9 % (flush) 10 mL (BD POSIFLUSH) Social History Social History Tobacco Use Smoking status: Never Smoker Smokeless tobacco: Never Used Vaping Use Vaping Use: Never used Substance Use Topics Alcohol use: Not Currently Drug use: No Review of Symptoms REVIEW OF SYSTEMS GENERAL: No weight loss, malaise or fevers HEENT: Negative for frequent or significant headaches, No changes in hearing or vision, no nose bleeds or other nasal problems NECK: Negative for lumps, goiter, pain and significant neck swelling RESPIRATORY: Negative for cough, hemoptysis, wheezing, COPD, dyspnea or shortness of breath CARDIOVASCULAR: Negative for chest pain, leg swelling, hypertension, CHF or palpitations GI: No nausea, vomiting, or diarrhea : No history of dysuria, frequency or incontinence [employer]: Negative for abnormal vaginal bleeding, abnormal vaginal discharge MUSCULOSKELETAL: Negative for joint pain or swelling, back pain or muscle pain SKIN: Negative for lesions, rash, and itching EXAM: BP (P) 112/76 (BP Site: Left Arm, BP Position: Sitting, BP Cuff Size: Regular Adult) Pulse (P) 78 Resp (P) 16 Ht (P) 167.6 cm (5' 6 ) Wt (P) 57.2 kg (126 lb) LMP 09/30/2013 BMI (P) 20.34 kg/m General Appearance: Well appearing, alert, in no acute distress, well-hydrated, well nourished. Skin: Skin color, texture, turgor normal, no suspicious rashes or lesions. Head: Normocephalic, no masses, lesions, tenderness or abnormalities. Eyes: Anicteric sclera. Pupils are equally round and reactive to light. Extraocular movements are intact. . Ears: External ears normal, canals clear. Nose/Sinuses: Nares normal, septum midline, mucosa normal, no drainage or sinus tenderness. Neck: Supple, no adenopathy; thyroid symmetric, normal size, no bruits. Lungs: Lungs clear to auscultation. No wheezing, rhonchi, rales.. Heart: RRR without murmur, gallop, or rubs. No ectopy. Abdomen: Normal abdominal exam, Abdomen soft, non-tender. Bowel sounds normal. No masses, organomegaly. Extremities: No deformities, edema, skin discoloration, clubbing or cyanosis. Good capillary refill. Health Maintenance List ONE PNEUMOVAX PRIOR TO AGE 65 Never done DTAP,TDAP,TD(2 - Td or Tdap) due on 07/13/2016 SHINGRIX VACCINE(1 of 2) Never done PAP TESTING due on 08/18/2022 HPV TESTING due on 08/18/2022 COVID-19 VACCINE(1) due on 04/12/2022 INFLUENZA(Season Ended) due on 07/03/2022 MAMMOGRAM due on 09/18/2022 ANNUAL PCP TEAM CHRONIC DISEASE VISIT due on 11/06/2022 DIABETES SCREEN due on 07/11/2023 LIPID SCREEN due on 04/12/2026 COLORECTAL CANCER SCREENING due on 10/04/2028 SPIROMETRY Completed MENINGOCOCCAL CONJUGATE Aged Out HEPATITIS C SCREENING Discontinued HIV SCREENING Discontinued ASSESSMENT/PLAN: 1. Annual physical exam - ICD9: V70.0, ICD10: Z00.00 (primary diagnosis) - Counseled on healthy diet and regular exercise - Patient was counseled [id number] by myself (the billing provider) for the following immunizations and vaccine components, including side effects: COVID- 19, Pneumococcal , Shingrix and TdaP. Patient refusing vaccination. - Needs to call [employer] for routine pap smear. - Follow up for annual exam in one year - CBC + DIFF - COMP METABOLIC PANEL - LIPID PANEL BASIC 2. Depression with anxiety - ICD9: 300.4, ICD10: F41.8 Controlled on SSRI. Continue current dosage. - ESCITALOPRAM 20 MG TABLET 3. Tachycardia - ICD9: 785.0, ICD10: R00.0 Controlled on beta lisbeth. Will refill as requested. F/u in 1 year. - METOPROLOL SUCCINATE ER 25 MG TABLET,EXTENDED RELEASE 24 HR 4. Palpitations - ICD9: 785.1, ICD10: R00.2 Controlled on beta lisbeth. Will refill as requested. F/u in 1 year. - METOPROLOL SUCCINATE ER 25 MG TABLET,EXTENDED RELEASE 24 HR 5. SELINA (obstructive sleep apnea) - ICD9: 327.23, ICD10: G47.33 Using CPAP on a nightly basis. Waking up well rested. F/u with neurology. 6. Restless legs syndrome - ICD9: 333.94, ICD10: G25.81 Controlled on Clonazepam nightly as prescribed by sleep medicine. 7. Moderate persistent asthma, uncomplicated - ICD9: 493.90, ICD10: J45.40 Moderate persistent Asthma stable - Continue current meds - Avoidance of triggers recommended 8. Migraine without aura and without status migrainosus, not intractable - ICD9: 346.10, ICD10: G43.009 Improved with Amitriptyline. Continue Topamax and Ubrelvy. F/u with neurology. Yong Castillo MD [facility] History of Past illness Narrative* Problem Noted Date Resolved Date Chronic tension-type headache, intractable 08/0604/14/2022 Chronic daily headache 08/06/2021 2 Cervicalgia 01/14/2021 02/06/2021 Medication overuse headache 10/19/202012/31 Rebound headache 10/19/2020 01/09/2021 Intractable chronic migraine without aura and with status migrainosus 10/19/2020 01/09/2021 Chronic migraine without aur a, with intractable migraine, so stated, with status migrainosus 10/19/2020 01/09/2021 Chronic daily headache 10/19/2020 Heavy menstrual bleeding 09/14/2013 013 Abnormal uterine bleeding 09/14/20132014 Bronchiectasis without acute exacerbation 200710/20/2011 Dermatophytosis of nail 12/04/2005 10/20/20 11 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, without mention of thyrotoxic crisis or storm 07/16/2005 10/20/20 11 documented as of this encounter (statuses as of 04/14/2022) [facility] History of Past illness Narrative* Problem Noted Date Resolved Date Chronic tension-type headache, intractable 08/0604/14/2022 Chronic daily headache 08/06/2021 2 Cervicalgia 01/14/2021 02/06/2021 Medication overuse headache 10/19/202012/31 Rebound headache 10/19/2020 01/09/2021 Intractable chronic migraine without aura and with status migrainosus 10/19/2020 01/09/2021 Chronic migraine without aur a, with intractable migraine, so stated, with status migrainosus 10/19/2020 01/09/2021 Chronic daily headache 10/19/2020 Heavy menstrual bleeding 09/14/2013 013 Abnormal uterine bleeding 09/14/20132014 Bronchiectasis without acute exacerbation 200710/20/2011 Dermatophytosis of nail 12/04/2005 10/20/20 11 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, without mention of thyrotoxic crisis or storm 07/16/2005 10/20/20 11 documented as of this encounter (statuses as of 04/18/2022) [facility] NoteHNO ID: [id number] Author: Sandra Garnica PSYD Service: ? Author Type: Psychologist Type: Progress Notes Filed: 05/21/2021 5:30 PM Note Text: [facility] BEHAVIORAL SLEEP MEDICINE CBT-Initiate Virtual Group May 21, 2021 Time: 3-4:05pm [id number]: Virtual Group Psychotherapy The CBT-Initiate virtual group is a one-time group that serves as the start of Cognitive Behavioral Therapy for Insomnia (CBT-I) . The following topics were introduced and discussed amongst the group: -Psychoeducation on basic healthy sleep, how sleep changes with age, the 2 Process Model, and the 3-P Model of Insomnia -What is Insomnia AND What is CBT-I -Sleep Hygiene -Stimulus Control -Psychoeducation on sleep medications Objective: Affect is: Appropriate and Mood congruent. Pt paid good attention during the group, and made a few contributions to the discussion. Pt's understanding of the material presented appeared good. ASSESSMENT: Insomnia Severity Index Total Score: 24 (05/15/2021 1:18 PM) PHQ-9 Score: 5 (05/15/2021 1:18 PM) (0-4) minimal depression, (5-9) mild depression, (10-14) moderate depression, (15-19) moderately severe depression, (20-27) severe depression Pt did not complete sleep logs. DIAGNOSIS: Anxiety NOS Chronic Insomnia SELINA RLS GOALS/OBJECTIVES/INTERVENTIONS: 1. Pt was provided the following handouts from today's class - Sleep Psychoeducation - Sleep Hygiene AND Stimulus Control - Sleep Diaries 2.. All participants were encouraged to implement Sleep Hygiene AND Stimulus Control techniques, as well as track their sleep via Sleep Diaries 3. Pt is scheduled for follow-up with [facility] provider who completed initial evaluation for remaining sessions of CBT-I Sandra Garnica Psy.D. [facility]07-16-2021 NoteHNO ID: [id number] Author: Edda Clark, PhD Service: ? Author Type: Psychologist Type: Progress Notes Filed: 05/17/2021 1:28 PM Note Text: Behavioral Sleep Medicine Consult Edda Clark, Ph.D., [facility] -- Psychologist ([place] License [id number]) Due to the federal emergency declaration and the need for ongoing mental health services, the following visit was completed virtually and informed consent obtained orally to reduce the risk of COVID-19 exposure. Oral consent to services related to virtual visits was obtained after information was sent via [employer] or read to patient if MyChart not available Contact Method: Zoom Patient Confirmed Address: [address] [place] [id number] Patient Confirmed Telephone #: [phone] Time: 1230 Patient was seen for an initial evaluation. All information is from patient report and review of medical record except when noted. This evaluation is NOT intended for forensic, disability or child custody purposes. Informed consent was discussed and signed by the patient. PRESENT: Self AND daughter Nury Woods is a 50 year old year old female who presents for a BS evaluation for insomnia, referred by [facility] Sleep Disorders Provider - Rosario Paniagua APRN DEBT COLLECTION SPECIALIST HPI: Ms. Woods reported symptoms of sleep maintenance insomnia. Wakes every couple of hours AND falls back asleep, but then awake very early and cannot fall back asleep ? In 2016, Dx with leukemia; 14 months of almost constant inpatient treatment, including bone marrow transplant. She spent most of this time sleeping in hospital room, listening out for him. ? Following his in Fall 2017, going through bereavement, adjustment to him not being at home ? She attributes these events to triggering her insomnia ? Prior to this, noted her legs moved a lot in the middle of night (although she never noticed it). ? Recently Dx with mild SELINA; started PAP last week. Seems to be helping some though still waking throughout the night. She is noticing less awake on her fitbit since using PAP. Although she is claustrophobic she feels okay with mask. Takes clonazepam for RLS (previously gabapentin) AND melatonin for migraines. Takes topamax for migraines AND Lexapro for depression/anxiety. Migraines used to interrupt sleep but are much better now (no longer having morning headaches) Goals for treatment: Less interruption in the middle of the night Ms. Woods has not been previously evaluated and treated by [facility] at [facility]. PMH: ACTIVE PROBLEM LIST Allergic Rhinitis, Cause Unspecified Unspecified Asthma(493.90) Uterine Fibroid Branchial Cyst Anxiety and Depression Migraine Without Aura and Without Status Migrainosus, Not Intractable Uars (Upper Airway Resistance Syndrome) Restless Legs Syndrome Iron Deficiency Dyspnea and Respiratory Abnormalities Selina (Obstructive Sleep Apnea) CURRENT MEDICATIONS: Current Outpatient Medications Medication Sig - CPAP New set up: Settings 5 - 12 cm H2O, suitable mask per pt preference, chin strap, head gear, humidity, tubing, lifetime supplies. G47.33 SELINA - metoprolol succinate ER (TOPROL XL) 25 mg 24 hr tablet Take 0.5 tablets by mouth once daily. - clonazePAM (KLONOPIN) 1 mg tablet Take 1 tablet by mouth twice daily as needed for up to 90 days. - topiramate (TOPAMAX) 100 mg tablet Take 1 tablet by mouth every evening. - rizatriptan (MAXALT) 10 mg tablet 1 tab at earliest sign of migraine. May repeat once in 2 hours if needed. Give max allowed per insurance. - ubrogepant (UBRELVY) 100 mg tablet Take 1/2 to 1 tablet by mouth at migraine onset. May repeat same dose once in 2 hours as needed. - desloratadine (CLARINEX) 5 mg tablet - escitalopram oxalate (LEXAPRO) 20 mg tablet Take 1 tablet by mouth once daily. - albuterol HFA (VENTOLIN HFA) 90 mcg/actuation inhaler Inhale 2 Puffs as instructed every 4 hours as needed for Wheezing/Shortness of Breath. - fluticasone-salmeterol (ADVAIR DISKUS) 100-50 mcg/Dose INHALATION DsDv 1 puffs every 12 hours - azelastine (ASTELIN) 137 mcg NASAL SprA 2 puffs every 12 hours Current Facility-Administered Medications Medication Dose Route Frequency - perflutren lipid microspheres 1.3 mL in NaCl (PF) 0.9% 10 mL injection (DEFINITY) INTRAVENOUS DIRECTED PRN - sodium chloride 0.9 % (flush) 10 mL (BD POSIFLUSH) 10 mL INTRAVENOUS DIRECTED PRN What is the most distressing/disturbing about your sleep patterns? is characterized by difficulty staying asleep Estimated average total sleep time per night? 6-7 hrs HISTORY OF SLEEP DIFFICULTIES When did the problem start? 2018 Identifiable precipitating factors: when Course of sleep problems since onset (i.e., progressive worsening over time, worse with high stress): worsening over time Parasomnias: denied Narcolepsy: No Sleep Apnea: Recently Dx with mild SELINA; star (more content not included)... [id number] History of Past illness Narrative* Problem Noted Date Resolved Date Cervicalgia 01/14/2021 02/06/2021 Medication overuse headache 10/19/202012/31 Rebound headache 10/19/2020 01/09/2021 Intractable chronic migraine without aura and with status migrainosus 10/19/2020 01/09/2021 Chronic migraine without aur a, with intractable migraine, so stated, with status migrainosus 10/19/2020 01/09/2021 Chronic daily headache 10/19/2020 Heavy menstrual bleeding 09/14/2013 013 Abnormal uterine bleeding 09/14/20132014 Bronchiectasis without acute exacerbation 200710/20/2011 Dermatophytosis of nail 12/04/2005 10/20/20 11 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, without mention of thyrotoxic crisis or storm 07/16/2005 10/20/20 11 documented as of this encounter (statuses as of 02/26/2022) [facility] of Past illness Narrative* Problem Noted Date Resolved Date Cervicalgia 01/14/2021 02/06/2021 Medication overuse headache 10/19/202012/31 Rebound headache 10/19/2020 01/09/2021 Intractable chronic migraine without aura and with status migrainosus 10/19/2020 01/09/2021 Chronic migraine without aur a, with intractable migraine, so stated, with status migrainosus 10/19/2020 01/09/2021 Chronic daily headache 10/19/2020 Heavy menstrual bleeding 09/14/2013 013 Abnormal uterine bleeding 09/14/20132014 Bronchiectasis without acute exacerbation 200710/20/2011 Dermatophytosis of nail 12/04/2005 10/20/20 11 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, without mention of thyrotoxic crisis or storm 07/16/2005 10/20/20 11 documented as of this encounter (statuses as of 04/03/2022) [facility] HospitalEvalunemours foundation note* Diagnosis Annual physical exam- Primary Routine general medical examination at a health care facility Depression with anxiety Dysthymic disorder Tachycardia Tachycardia, unspecified Palpitations SELINA (obstructive sleep apnea) Obstructive sleep apnea (adult) (pediatric) Restless legs syndrome Restless legs syndrome (RLS) Moderate persistent asthma, uncomplicated Unspecified asthma Migraine without aura and without status migrainosus, not intractable Migraine without aura, without mention of intractable migraine without mention of status migrainosus [facility] Diagnosis Pure hypercholesterolemia- Primary Anxiety and depression Dysthymic disorder [facility] Diagnosis Migraine without aura and without status migrainosus, not intractable- Primary Migraine without aura, without mention of intractable migraine without mention of status migrainosus Episodic tension-type headache, not intractable Episodic tension type headache [facility] Diagnosis RLS (restless legs syndrome) Restless legs syndrome (RLS) Anxiety Anxiety state, unspecified [facility] Diagnosis Closed fracture of body of sternum with routine healing, subsequent encounter [facility] Diagnosis Closed fracture of body of sternum, initial encounter- Primary Mild intermittent asthma with acute exacerbation Unspecified asthma, with exacerbation Cough Closed fracture of one rib of left side, initial encounter Acute cough [facility] Diagnosis Encounter for screening for osteoporosis Special screening for osteoporosis Asymptomatic postmenopausal status Closed fracture of body of sternum with routine healing, subsequent encounter [facility] Diagnosis APPOINTMENT CANCELLED- Primary RLS (restless legs syndrome) Restless legs syndrome (RLS) Anxiety Anxiety state, unspecified [facility] Diagnosis RLS (restless legs syndrome) Restless legs syndrome (RLS) Anxiety Anxiety state, unspecified [facility] Diagnosis RLS (restless legs syndrome) Restless legs syndrome (RLS) Anxiety Anxiety state, unspecified [facility] Diagnosis Obstructive sleep apnea (adult) (pediatric)- Primary RLS (restless legs syndrome) Restless legs syndrome (RLS) Anxiety Anxiety state, unspecified [facility] Diagnosis Encounter for gynecological examination (general) (routine) without abnormal findings- Primary Encounter for screening for human papillomavirus (HPV) Special screening examination for human papillomavirus (HPV) Pap smear for cervical cancer screening Screening for malignant neoplasm of the cervix Encounter for screening mammogram for breast cancer Migraine without aura and without status migrainosus, not intractable Migraine without aura, without mention of intractable migraine without mention of status migrainosus Episodic tension-type headache, not intractable Episodic tension type headache [facility] Diagnosis Migraine without aura and without status migrainosus, not intractable- Primary Migraine without aura, without mention of intractable migraine without mention of status migrainosus [facility] Diagnosis SELINA (obstructive sleep apnea)- Primary Obstructive sleep apnea (adult) (pediatric) RLS (restless legs syndrome) Restless legs syndrome (RLS) Anxiety Anxiety state, unspecified [facility] Diagnosis RLS (restless legs syndrome)- Primary Restless legs syndrome (RLS) Long-term current use of benzodiazepine SELINA (obstructive sleep apnea) Obstructive sleep apnea (adult) (pediatric) Anxiety Anxiety state, unspecified [facility] Diagnosis RLS (restless legs syndrome) Restless legs syndrome (RLS) Anxiety Anxiety state, unspecified [facility] Diagnosis RLS (restless legs syndrome)- Primary Restless legs syndrome (RLS) Long-term current use of benzodiazepine SELINA (obstructive sleep apnea) Obstructive sleep apnea (adult) (pediatric) Anxiety Anxiety state, unspecified [facility] Diagnosis Routine medical exam- Primary Routine general medical examination at a health care facility Encounter for immunization Need for other specified prophylactic vaccination against single bacterial disease Mild intermittent asthma with acute exacerbation Unspecified asthma, with exacerbation S/P partial thyroidectomy Other postprocedural status Depression with anxiety Dysthymic disorder Pure hypercholesterolemia SELINA (obstructive sleep apnea) Obstructive sleep apnea (adult) (pediatric) Migraine without aura and without status migrainosus, not intractable Migraine without aura, without mention of intractable migraine without mention of status migrainosus Restless legs syndrome Restless legs syndrome (RLS) Vitamin D deficiency Unspecified vitamin D deficiency Age-related osteoporosis without current pathological fracture Senile osteoporosis documented in this encounter [facility] note* Diagnosis URI, acute- Primary Acute upper respiratory infections of unspecified site documented in this encounter [facility] note* Diagnosis RLS (restless legs syndrome) Restless legs syndrome (RLS) Anxiety Anxiety state, unspecified documented in this encounter [facility] note* Diagnosis Encounter for gynecological examination (general) (routine) without abnormal findings- Primary Encounter for screening mammogram for breast cancer documented in this encounter [facility] for referral (narrative)* Diagnostic Procedure Only (Routine) - Authorized Specialty Diagnoses / Procedures Referred By Junior t Referred To Contact [facility] Diagnoses Encounter for gynecological examination (general) (routine) without abnormal findings Encounter for screening mammogram for breast cancer Procedures NILSON SCREENING SCREENING MAMMOGRAPHY BI 2-VIEW BREAST INC Fausto Hallman MD [address] [place] [address] [place] [address] Referral ID Status Reason Start Date Expiration Date Visits Requested Visits Authorized [id number] Authorized Auto-Generat ed Referral 2 11/12/2023 1 1 [facility] for referral (narrative)* Diagnostic Procedure Only (Routine) - Authorized Specialty Diagnoses / Procedures Referred By Contac t Referred To Contact [facility] Diagnoses Encounter for gynecological examination (general) (routine) without abnormal findings Encounter for screening mammogram for breast cancer Procedures NILSON SCREENING SCREENING MAMMOGRAPHY BI 2-VIEW BREAST INC Fausto Hallman MD [address] 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 Advance Directive(s) 09/19/2020 9:04 AM Advance Directive(s) 09/10/2020 5:54 PM Advance Directive(s) 10/04/2018 11:46 AM Advance Directive(s) 09/09/2018 9:27 AM Documents on File Type Date Recorded 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 Author Type: Nurse Home Demonstration Agent Type: Anesthesia Procedure Notes Filed: 09/20/2020 8:59 AM Note Text: ANESTHESIOLOGY PROCEDURE NOTE Airway General Information Procedure Start Time/Medication Administration: 09/20/2020 8:44 AM Patient location during procedure: OR Timeout Performed Pre-procedure: timeout performed Consent Obtained: Yes Staffing CERTIFIED NURSE AIDE: Becky Tracy) Stefany Indications and Patient Condition Preoxygenated: yes Patient position: sniffing Indications for airway management: anesthesia and airway protection anesthesia circuit Final Airway Details Final airway type: endotracheal airway Final Endotracheal Airway: ETT Cuffed: yes Successful intubation technique: direct laryngoscopy Endotracheal tube insertion site: oral Blade: Edgar Blade size: #3 ETT size (mm): 7.0 Cormack-Lehane Classification: grade I - full view of glottis Number of attempts at approach: 1 Comments Easy, atraumatic x 1 SIGNATURE: Becky Powers (more content not included)... Note HNO ID: [id number] Author: Juan Luis Oro Service: Otolaryngology Author Type: Physician Type: Brief Op Note Filed: 09/20/2020 9:49 AM Note Text: BRIEF OPERATIVE / PROCEDURE NOTE LOG ID: [id number] SURGERY/PROCEDURE DATE: 09/20/2020 INCISION/PROCEDURE START TIME: 8:54 AM INCISION CLOSE/PROCEDURE END TIME: 9:40 AM SURGEON(S)/PROCEDURALIST(S) AND UPKEEP WORKER(S): Surgeon(s) and Role: * Dewayne Oro - Primary Registered Nurse Solid Waste Engineer: Eryn (Rn) SONIDO Almanzar SURGERY/PROCEDURE(S): excision right branchial cleft cyst ANESTHESIA: General FINDINGS: ESTIMATED BLOOD LOSS: SPECIMENS: COMPLICATIONS: PRE-OP/PRE-PROCEDURE DIAGNOSIS: right branchial cleft cyst POST-OP/POST-PROCEDURE DIAGNOSIS: Same as Preop SIGNATURE: Dewayne Oro MD PATIENT NAME: Nury Woods DATE: September 20, 2020 TIME: 9:48 AM PAGER/CONTACT #: Reason for Referral Specialty Diagnoses / Procedures Referred By Contac t Referred To Contact Diagnoses Migraine without aura and without status migrainosus, not intractable Episodic tension-type headache, not intractable Procedures PROVIDER ORDERED FOLLOW UP OFFICE/OUTPATIENT NEW HIGH MDM 60-74 MINUTES Sandy Chandra DO [address] [id number] Sandy Chandra DO [address] [place] [address] Referral ID Status Reason Start Date Expiration Date Visits Requested Visits Authorized [id number] Pending Review PCP Requested Referral 2 04/14/2023 1 1 Specialty Diagnoses / Procedures Referred By Contac t Referred To Contact Diagnoses Migraine without aura and without status migrainosus, not intractable Procedures PROVIDER ORDERED FOLLOW UP OFFICE/OUTPATIENT NEW HIGH MDM 60-74 MINUTES Beka Quevedo PA-C [facility] [address] [place] [address] Referral ID Status Reason Start Date Expiration Date Visits Requested Visits Authorized [id number] Pending Review PCP Requested Referral 04/15/2023 10/15/2023 1 1 Additional Source Comments INFORMATION SOURCE (unrecogn ized section and content) DATE CREATED AUTHOR AUTHOR'S ORGANIZ ATION 03/30/2021 [facility] DATE CREATED AUTHOR AUTHOR'S ORGANIZ ATION 05/22/2021 [facility] DATE CREATED AUTHOR AUTHOR'S ORGANIZ ATION 10/31/2023 [facility] DATE CREATED AUTHOR AUTHOR'S ORGANIZ ATION 11/21/2023 [facility] Source Comments (unrecognize d section and content) In the event this informatio n is protected by the Federal Confidentiality of Alcohol and Drug Abuse Patient Records regulations: The Federal rules restrict any use of the information to criminally investigate or prosecute any alcohol or drug abuse patient.[facility] the event this information is protected by the Federal Confidentiality of Alcohol and Drug Abuse Patient Records regulations: The Federal rules restrict any use of the information to criminally investigate or prosecute any alcohol or drug abuse patient.[facility] the event this information is protected by the Federal Confidentiality of Alcohol and Drug Abuse Patient Records regulations: The Federal rules restrict any use of the information to criminally investigate or prosecute any alcohol or drug abuse patient.[facility] the event this information is protected by the Federal Confidentiality of Alcohol and Drug Abuse Patient Records regulations: The Federal rules restrict any use of the information to criminally investigate or prosecute any alcohol or drug abuse patient.[facility] the event this information is protected by the Federal Confidentiality of Alcohol and Drug Abuse Patient Records regulations: The Federal rules restrict any use of the information to criminally investigate or prosecute any alcohol or drug abuse patient.[facility] the event this information is protected by the Federal Confidentiality of Alcohol and Drug Abuse Patient Records regulations: The Federal rules restrict any use of the information to criminally investigate or prosecute any alcohol or drug abuse patient.[facility] the event this information is protected by the Federal Confidentiality of Alcohol and Drug Abuse Patient Records regulations: The Federal rules restrict any use of the information to criminally investigate or prosecute any alcohol or drug abuse patient.[facility] the event this information is protected by the Federal Confidentiality of Alcohol and Drug Abuse Patient Records regulations: The Federal rules restrict any use of the information to criminally investigate or prosecute any alcohol or drug abuse patient.[facility] the event this information is protected by the Federal Confidentiality of Alcohol and Drug Abuse Patient Records regulations: The Federal rules restrict any use of the information to criminally investigate or prosecute any alcohol or drug abuse patient.[facility] the event this information is protected by the Federal Confidentiality of Alcohol and Drug Abuse Patient Records regulations: The Federal rules restrict any use of the information to criminally investigate or prosecute any alcohol or drug abuse patient.[facility] the event this information is protected by the Federal Confidentiality of Alcohol and Drug Abuse Patient Records regulations: The Federal rules restrict any use of the information to criminally investigate or prosecute any alcohol or drug abuse patient.[facility] the event this information is protected by the Federal Confidentiality of Alcohol and Drug Abuse Patient Records regulations: The Federal rules restrict any use of the information to criminally investigate or prosecute any alcohol or drug abuse patient.[facility] the event this information is protected by the Federal Confidentiality of Alcohol and Drug Abuse Patient Records regulations: The Federal rules restrict any use of the information to criminally investigate or prosecute any alcohol or drug abuse patient.[facility] the event this information is protected by the Federal Confidentiality of Alcohol and Drug Abuse Patient Records regulations: The Federal rules restrict any use of the information to criminally investigate or prosecute any alcohol or drug abuse patient.[facility] the event this information is protected by the Federal Confidentiality of Alcohol and Drug Abuse Patient Records regulations: The Federal rules restrict any use of the information to criminally investigate or prosecute any alcohol or drug abuse patient.[facility] the event this information is protected by the Federal Confidentiality of Alcohol and Drug Abuse Patient Records regulations: The Federal rules restrict any use of the information to criminally investigate or prosecute any alcohol or drug abuse patient.[facility] the event this information is protected by the Federal Confidentiality of Alcohol and Drug Abuse Patient Records regulations: The Federal rules restrict any use of the information to criminally investigate or prosecute any alcohol or drug abuse patient.[facility] the event this information is protected by the Federal Confidentiality of Alcohol and Drug Abuse Patient Records regulations: The Federal rules restrict any use of the information to criminally investigate or prosecute any alcohol or drug abuse patient.[facility] the event this information is protected by the Federal Confidentiality of Alcohol and Drug Abuse Patient Records regulations: The Federal rules restrict any use of the information to criminally investigate or prosecute any alcohol or drug abuse patient.[facility] the event this information is protected by the Federal Confidentiality of Alcohol and Drug Abuse Patient Records regulations: The Federal rules restrict any use of the information to criminally investigate or prosecute any alcohol or drug abuse patient.[facility] the event this information is protected by the Federal Confidentiality of Alcohol and Drug Abuse Patient Records regulations: The Federal rules restrict any use of the information to criminally investigate or prosecute any alcohol or drug abuse patient.[facility] the event this information is protected by the Federal Confidentiality of Alcohol and Drug Abuse Patient Records regulations: The Federal rules restrict any use of the information to criminally investigate or prosecute any alcohol or drug abuse patient.[facility] the event this information is protected by the Federal Confidentiality of Alcohol and Drug Abuse Patient Records regulations: The Federal rules restrict any use of the information to criminally investigate or prosecute any alcohol or drug abuse patient.[facility] the event this information is protected by the Federal Confidentiality of Alcohol and Drug Abuse Patient Records regulations: The Federal rules restrict any use of the information to criminally investigate or prosecute any alcohol or drug abuse patient.[facility] the event this information is protected by the Federal Confidentiality of Alcohol and Drug Abuse Patient Records regulations: The Federal rules restrict any use of the information to criminally investigate or prosecute any alcohol or drug abuse patient.[facility] the event this information is protected by the Federal Confidentiality of Alcohol and Drug Abuse Patient Records regulations: The Federal rules restrict any use of the information to criminally investigate or prosecute any alcohol or drug abuse patient.[facility] the event this information is protected by the Federal Confidentiality of Alcohol and Drug Abuse Patient Records regulations: The Federal rules restrict any use of the information to criminally investigate or prosecute any alcohol or drug abuse patient.[facility] Reason for Visit (unrecogniz ed section and content) Specialty Diagnoses / Procedures Referred By Junior marques Referred To Contact Diagnoses Migraine without aura and without status migrainosus, not intractable Episodic tension-type headache, not intractable Procedures PROVIDER ORDERED FOLLOW UP OFFICE/OUTPATIENT NEW HIGH MDM 60-74 MINUTES Sandy Chandra, [address] [place] [address] Sandy Chandra, [address] [place] [address] Referral ID Status Reason Start Date Expiration Date Visits Requested Visits Authorized [id number] Pending Review PCP Requested Referral 2 04/14/2023 1 1 Reason Comments Physical Reason Comments Establish Care Reason Onset Date Comments Refill Request 04/14/2022 Reason Comments Insurance Authorization Reason Comments Results, Lab Reason Comments F/U 1 month Reason Comments Xray Results Reason Comments Results Reason Comments Reason Comments Appointment Cancelled Reason Onset Date Comments Refill Request 08/07/2022 Reason Onset Date Comments Refill Request 08/22/2022 Reason Comments Follow Up Reason Comments Yearly Exam Reason Onset Date Comments Refill Request 06/22/2023 Reason Comments Follow Up Pt reported improved rest, no concerns with CPAP, x5 Bryan monthly. Reason Comments F/U 6 Month Reason Comments Ear Problem Bilateral ears feel full/pressure, BRYAN, cough, runny nose, sore throat, fatigue x 5 days Reason Onset Date Comments Refill Request 10/12/2023 Reason Comments Yearly Exam With Mammogram Care Teams (unrecognized sec tion and content) Plasterer Helper Relationship Specialty Start Date End Date Michi Sherman MD [facility] [place] [address] PCP - General Internal Medicine 04/03/22 Plasterer Helper Relationship Specialty Start Date End Date Michi Sherman MD [address] [place] [address], [place] [address] PCP - General Internal Medicine 04/03/22 Plasterer Helper Relationship Specialty Start Date End Date Michi Sherman MD [address] [place] [address], [place] [address] PCP - General Internal Medicine 04/03/22 Plasterer Helper Relationship Specialty Start Date End Date Michi Sherman MD [address] [place] [address], [place] [address] PCP - General Internal Medicine 04/03/22 Plasterer Helper Relationship Specialty Start Date End Date Michi Sherman MD [address] [place] [address], [place] [address] PCP - General Internal Medicine 04/03/22 Plasterer Helper Relationship Specialty Start Date End Date Michi Sherman MD [address] [place] [address], [place] [address] PCP - General Internal Medicine 04/03/22 Plasterer Helper Relationship Specialty Start Date End Date Michi Sherman MD [address] [place] [address], [place] [address] PCP - General Internal Medicine 04/03/22 Plasterer Helper Relationship Specialty Start Date End Date Michi Sherman MD [address] [place] [address], [place] [address] PCP - General Internal Medicine 04/03/22 Plasterer Helper Relationship Specialty Start Date End Date Michi Sherman MD [address] [place] [address], [place] [address] PCP - General Internal Medicine 04/03/22 Plasterer Helper Relationship Specialty Start Date End Date Michi Sherman MD [address] [place] [address] PCP - General Internal Medicine 04/03/22 Plasterer Helper Relationship Specialty Start Date End Date Michi Sherman MD [address] [place] [address] PCP - General Internal Medicine 04/03/22 Plasterer Helper Relationship Specialty Start Date End Date Michi Sherman MD [address] [place] [address] PCP - General Internal Medicine 04/03/22 Plasterer Helper Relationship Specialty Start Date End Date Michi Sherman MD [address] [place] [address] PCP - General Internal Medicine 04/03/22 Plasterer Helper Relationship Specialty Start Date End Date Michi Sherman MD [address] [place] [address] PCP - General Internal Medicine 04/03/22 Plasterer Helper Relationship Specialty Start Date End Date Michi Sherman MD [address] [place] [address] PCP - General Internal Medicine 04/03/22 Plasterer Helper Relationship Specialty Start Date End Date Michi Sherman MD [address] [place] [address] PCP - General Internal Medicine 04/03/22 Plasterer Helper Relationship Specialty Start Date End Date Michi Sherman MD [address] [place] [address] PCP - General Internal Medicine 04/03/22 Plasterer Helper Relationship Specialty Start Date End Date Michi Sherman MD [address] [place] [address] PCP - General Internal Medicine 04/03/22 Plasterer Helper Relationship Specialty Start Date End Date Michi Sherman MD [address] [place] [address] PCP - General Internal Medicine 04/03/22 Plasterer Helper Relationship Specialty Start Date End Date Michi Sherman MD [address] [facility], [place] [address] PCP - General Internal Medicine 04/03/22 Plasterer Helper Relationship Specialty Start Date End Date Michi Sherman MD [address] [place] [address] PCP - General Internal Medicine 04/03/22 FOR RECORDS PERTAINING TO PATIENTS WHO ARE OR HAVE BEEN ENROLLED IN A CHEMICAL DEPENDENCY/SUBSTANCEABUSE PROGRAM, SOME INFORMATION MAY BE OMITTED. This clinical summary was aggregated from multiple sources. Caution should be exercised in using it in the provision of clinical care. This summary normalizes information from multiple sources, and as a consequence, information in this document may materially change the coding, format and clinical context of patient data. In addition, data may be omitted in some cases. CLINICAL DECISIONS SHOULD BE BASED ON THE PRIMARY CLINICAL RECORDS. [employer] [facility]. provides no warranty or guarantee of the accuracy or completeness of information in this document.
[2023-11-25] MEDS: Aspirin 81 MG TAB.CHEW 324 MG PO (03:39)
[2023-11-25 03:57] LABS: Anion Gap 7 (5-15); BUN 14 mg/dL (7-18); BUN/Creat Ratio 18.7 RATIO (10-20); Calcium,Total 8.8 mg/dL (8.5-10.1); Chloride 115 mmol/L (98-107); Creatinine, Serum 0.75 mg/dL (0.55-1.02); EST Glomerular Filtration Rate 85 mL/min (>60); Est Glom Filt Rate - Afr Amer 103 mL/min (>60); Estimated Creatinine Clearance 76.26 ml/min; Glucose 117 mg/dL (74-106); Potassium 3.7 mmol/L (3.5-5.1); Sodium Level 141 mmol/L (136-145); Troponin-I HS (w/2H Reflex) 6 pg/mL (3.0-54.0)
[2023-11-25 04:04] VITALS: BP 108/71; PULSE 90; RESP 25; TEMP 37.2; O2SAT 96
[2023-11-25 04:12] LABS: D-Dimer Quantitative (DVT/PE) 0.34 FEU/ug/m (0.27-0.49)
[2023-11-25 05:01] VITALS: BP 112/62; PULSE 108; PULSE 109; RESP 17; RESP 19; TEMP 37.5; O2SAT 95
[2023-11-25 05:33] LABS: Reflex Troponin-HS? (from REC) Y
[2023-11-25 06:03] LABS: Troponin-I HS 6 pg/mL (3.0-54.0)
[2023-11-25 06:15] VITALS: BP 112/62; PULSE 108; RESP 19; TEMP 37.5; O2SAT 95
== END 2023-11-25 06:20 | disposition home or self-care (01) ==
PROVIDERS: Emergency Provider Emergency Medicine; PCP Internal Medicine; Visit Provider Emergency Medicine
DX: J47.9 Bronchiectasis, uncomplicated (principal); R07.9 Chest pain, unspecified; I10 Essential (primary) hypertension; J45.909 Unspecified asthma, uncomplicated; Z79.899 Other long term (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; Z86.16 Personal history of COVID-19
CPT/HCPCS: 71046; 80048; 84484; 85025; 85379; 87631; 93005; 99283; J7030

== ENCOUNTER 2024-01-03 18:19 | Emergency (ER) | payer OTHER, SELFPAY ==
[2024-01-03 18:20] VITALS: BP 131/93; PULSE 95; RESP 16; TEMP 36.4; O2SAT 99; BMI 22.6
--- NOTE | 2024-01-03 18:25 | EKG12_ITS ---
Test Reason : CP Blood Pressure : / mmHG Vent. Rate : 091 BPM Atrial Rate : 091 BPM P-R Int : 138 ms QRS Dur : 078 ms QT Int : 366 ms P-R-T Axes : 062 044 050 degrees QTc Int : 450 ms Normal sinus rhythm NORMAL ECG Confirmed by Satnma Pittman ([id number]), editor house organ MARION GAXIOLA ([id number]) on 01/04/2024 10:35:44 AM Referred By: MIRTA Confirmed By:Satnam Pittman
[2024-01-03 18:32] VITALS: O2SAT 100
[2024-01-03 18:38] LABS: Absolute Neutrophil Count 6.9 X10^3/uL (2.0-7.7); Basophil# 0.04 X10^3/uL; Basophil% 0.4 % (0-1); Eosinophil# 0.21 X10^3/uL; Eosinophils% 2.1 % (0-5); Hematocrit 36.6 % (37-47); Hemoglobin 11.6 g/dL (12.0-15.0); Lymphocyte % 20.8 % (19-41); Mean Corp Hgb Conc 31.7 g/dL (32-36); Mean Corpuscular Hgb 27.3 pg (27.0-32.0); Mean Corpuscular Volume 86.1 fL (81-99); Mean Platelet Vol. 8.4 fl (6.2-12.0); Monocyte# 0.78 X10^3/uL; Monocyte% 7.7 % (0-10); NRBC Flagged by Analyzer 0 % (0-5); Neutrophil # 6.87 X10^3/uL (2.7-7.7); Neutrophil % 68.1 % (47-70); Platelet Count 215 K/mm3 (150-450); RBC Distribution Width CV 14.8 % (11.6-14.6); RBC Distribution Width SD 46.5 fl (35.1-43.9); Red Blood Count 4.25 M/mm3 (4.2-5.4); White Blood Count 10.1 K/mm3 (4.4-11.0)
--- NOTE | 2024-01-03 18:38 | RAD_ITS ---
EXAM: XR CHEST, 1 VIEW CLINICAL INDICATION: chest pain TECHNIQUE: Frontal view of the chest. COMPARISON: 11.25.23 FINDINGS: LUNGS AND PLEURAL SPACES: Unremarkable. No consolidation or edema. No pneumothorax. No effusion. HEART: Unremarkable. Cardiac silhouette not enlarged. MEDIASTINUM: Central airways and mediastinal contour are unremarkable. BONES/JOINTS: Unremarkable. No acute fracture. SOFT TISSUES: Unremarkable. RAD/Chest 1 View (Portable) IMPRESSION: No radiographic evidence of acute cardiopulmonary disease. Electronically Signed: Cesar Juarez MD at 19:19 EST ,
[2024-01-03 18:48] LABS: D-Dimer Quantitative (DVT/PE) 0.37 FEU/ug/m (0.27-0.49)
--- OUTSIDE RECORDS SUMMARY | 2024-01-03 18:48 | XMS RPT_ITS | CCD ---
Author Name Unknown Address [id number] [place] [address] Organization [facility] Care Team Providers Care Junior Business Analyst Name Role Phone Yong Castillo MD Primary Care Provider Michi Guzman MD Primary Care Provider Michi Guzman MD Primary Care Provider Michi Guzman MD Primary Care Provider SELF Referring Unavailable TALAMPAS, MICHI D Primary Care Unavailable RAMAN REYES JR Attending Unavailable TALAMPAS, MICHI D Primary Care Unavailable WADSWORHT, CHUCK Referring Unavailable ANNABELLE, AHMED Referring Unavailable TALAMPAS, MICHI D Primary Care Unavailable TALAMPAS, MICHI D Primary Care Unavailable TALAMPAS, MICHI D Primary Care Unavailable BEKA SMALL Referring Unavailable SANDY RAMIREZ Attending Unavailable TALAMPAS, MICHI D Primary Care Unavailable TALAMPAS, MICHI D Primary Care Unavailable ANNABELLE, AHMED Referring Unavailable ANNABELLE, AHMED Referring Unavailable TALAMPAS, MICHI D Primary Care Unavailable ANNABELLE, AHMED Referring Unavailable TALAMPAS, MICHI D Primary Care Unavailable ANNABELLE, AHMED Referring Unavailable TALAMPAS, MICHI D Primary Care Unavailable TALAMPAS, MICHI D Primary Care Unavailable WADSWORTH, CHUCK Referring Unavailable WADSWORTH, CHUCK Attending Unavailable TALAMPAS, MICHI D Primary Care Unavailable WADSWORTH, CHUCK Referring Unavailable CHIDI CHENGCA L Referring Unavailable TALAMPAS, MICHI D Primary Care Unavailable FAUSTO CHENG Referring Unavailable FAUSTO CHENG L Attending Unavailable TALAMPAS, MICHI D Primary Care Unavailable RONDA ROUSE Attending Unavailable TALAMPAS, MICHI D Primary Care Unavailable TALAMPAS, MICHI D Primary Care Unavailable WADSWORTH, CHUCK Attending Unavailable TALAMPAS, MICHI D Primary Care Unavailable WADSWORTH, CHUCK Referring Unavailable WADSWORTH, CHUCK Attending Unavailable TALAMPAS, MICHI D Primary Care Unavailable WADSWORTH, CHUCK Referring Unavailable TALAMPAS, MICHI D Attending Unavailable TALAMPAS, MICHI D Primary Care Unavailable WADSWORTH, CHUCK Referring Unavailable TALAMPAS, MICHI D Referring Unavailable TALAMPAS, MICHI D Primary Care Unavailable TALAMPAS, MICHI D Referring Unavailable ANN ROY DO Attending Unavailable TALAMPAS, MICHI D Primary Care Unavailable RAMAN REYES JR Attending Unavailable TALAMPAS, MICHI D Primary Care Unavailable RAMAN REYES JR Referring Unavailable TALAMPAS, MICHI D Primary Care Unavailable ANN ROY DO Referring Unavailable TALAMPAS, MICHI D Primary Care Unavailable TALAMPAS, MICHI D Primary Care Unavailable ANNABELLESTEPHMED Referring Unavailable ANNABELLESTEPHMED Attending Unavailable TALAMPAS, MICHI D Primary Care Unavailable TALAMPAS, MICHI D Primary Care Unavailable RAMAN REYES JR Referring Unavailable RAMAN REYES JR Attending Unavailable TALAMPAS, MICHI D Primary Care Unavailable WADSWORTH, CHUCK Attending Unavailable TALAMPAS, MICHI D Primary Care Unavailable ANN ROY Attending Unavailabl e ANN ROY Admitting Unavailabl e Allergies Allergy Classification Reported Allergen(s) Allergy Type Date of Onset Reaction(s) Facility (20 sources) Acetaminophen / oxyCODONE; Translations: [OXYCODONE-ACETAM INOPHEN] Drug Allergy 9 [facility] (20 sources) Codeine; Translations: [CODEINE] Drug Allergy 5 [facility] Work Phone: (20 sources) guaiFENesin / Pseudoephedrine; Translations: [PSEUDOEPHEDRINE- GUAIFENESIN] Drug Allergy 5 [facility] Work Phone: (20 sources) House dust mite; Translations: [DUST MITES] Allergy to substance 3 Other: See Comments [facility] (20 sources) miSOPROStol; Translations: [MISOPROSTOL] Drug Allergy 3 Other: See Comments [facility] Work Phone: Medications Current Medications Medication [...] Drug Class(es) Dates Sig (Normalized) Sig (Original) [id number] 200 actuat albuterol 0.09 mg/actuat metered dose [...] (2 sources) Tachycardia; Translations: [Tachycardia, unspecified] Episodic Chronic obstructive pulmonary disease and bronchiectasis (3 sources) Bronchiectasis; Translations: [Bronchiectasis, uncomplicated] Onset: 12-04-2023 12-04-2023 Chronic Complications of surgical procedures or medical care [...] disorders; Translations: [Anxiety and depression] Onset: 09-11-2020 Nonspecific chest pain (14 sources) Chest discomfort; Translations: [Other chest pain] Onset: 12-04-2023 12-04-2023 Episodic Nutritional deficiencies (2 sources) Vitamin D deficiency; Translations: [Vitamin D deficiency, unspecified] Onset: 02-04-2023 08-21-2023 Chronic Osteoporosis (2 sources) Senile osteoporosis; Translations: [Age-related osteoporosis without current pathological fracture] Onset: 02-04-2023 08-21-2023 Chronic Other aftercare (3 sources) Long-term current use of benzodiazepine; Translations: [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] Episodic Other congenital anomalies [...] Onset: 02-04-2023 Chronic Other lower respiratory disease (3 sources) Cough; Translations: [Cough] Episodic Other lower respiratory disease (1 source) Bilateral lung opacities on chest X-ray; Translations: [Other nonspecific abnormal finding of lung field] 12-11-2023 Episodic Other lower respiratory disease (2 sources) Other nonspecific abnormal finding of lung field; Translations: [Pulmonary infiltrates] Onset: 12-11-2023 Episodic Other lower respiratory disease (1 source) Chronic cough; Translations: [Chronic cough] 12-25-2023 Episodic Other lower respiratory disease (2 sources) Radiologic infiltrate of lung ; Translations: [Other nonspecific abnormal finding of lung field] 12-25-2023 Episodic Other screening for suspected conditions (not mental disorders or infectious disease) (7 sources) Patient encounter status; Translations: [Encounter for screening for osteoporosis] Onset: 10-15-2023 Episodic Other upper respiratory disease (20 sources) Allergic rhinitis; Translations: [Allergic rhinitis, unspecified] Onset: 07-16-2005 07-16-2005 Chronic Other upper respiratory disease (2 sources) Congestion of nasal sinus; Translations: [Nasal congestion] 12-04-2023 Episodic Other upper respiratory infections (5 sources) Acute upper respiratory infection; Translations: [Acute upper respiratory infection, unspecified] Onset: 12-04-2023 08-29-2023 Episodic Residual codes; unclassified (20 sources) [...] 02-07-2021 Episodic Other aftercare (1 source) 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; Translations: [Long-term current use [...] Date Time Vital Sign Value Performing Clinician José Miguel lopez 12-29-2023 09:21-0500 Body height 167 cm Pulm Wstr Work Phone: [facility] 12-29-2023 09:21-0500 Body weight 63.96 kg Pulm Wstr Work Phone: [facility] 12-29-2023 09:21-0500 Heart rate 92 /min Pulm Wstr Work Phone: [facility] 12-29-2023 09:21-0500 Respiratory rate 18 /min Pulm Wstr Work Phone: [facility] 12-29-2023 09:21-0500 SaO2% (BldA) [Mass fraction] 98 % Pulm Wstr Work Phone: [facility] 12-23-2023 13:29-0500 Body height 165.1 cm Ann Lindon DO Work Phone: [facility] 12-23-2023 13:29-0500 Body weight 65.2 kg Ann Lindon DO Work Phone: [facility] 12-23-2023 13:29-0500 Diastolic blood pressure 60 mm[Hg] Ann Lindon DO Work Phone: [facility] 12-23-2023 13:29-0500 Heart rate 75 /min Ann Lindon DO Work Phone: [facility] 12-23-2023 13:29-0500 SaO2% (BldA) [Mass fraction] 98 % Ann Lindon DO Work Phone: [facility] 12-23-2023 13:29-0500 Systolic blood pressure 102 mm[Hg] Ann Lindon DO Work Phone: [facility] 12-15-2023 09:58-0500 Body height 165.1 cm Zeb Ramos MD Work Phone: [facility] 12-15-2023 09:58-0500 Body temperature 98.29 [degF] Zeb Ramos MD Work Phone: [facility] 12-15-2023 09:58-0500 Body weight 63.96 kg Zeb Ramos MD Work Phone: [facility] 12-15-2023 09:58-0500 Diastolic blood pressure 72 mm[Hg] Zeb Ramos MD Work Phone: [facility] 12-15-2023 09:58-0500 Heart rate 95 /min Zeb Ramos MD Work Phone: [facility] 12-15-2023 09:58-0500 Respiratory rate 20 /min Zeb Ramos MD Work Phone: [facility] 12-15-2023 09:58-0500 SaO2% (BldA) [Mass fraction] 99 % Zeb Ramos MD Work Phone: [facility] 12-15-2023 09:58-0500 Systolic blood pressure 109 mm[Hg] Zeb Ramos MD Work Phone: [facility] 12-11-2023 06:58-0500 Body temperature 98.71 [degF] Chuck Wadsworth DIAGNOSTICS SALES DEVELOPER.SCANNING CLERK Work Phone: [facility] 12-11-2023 06:58-0500 Body weight 63.5 kg Chuck Wadsworth DIAGNOSTICS SALES DEVELOPER.SCANNING CLERK Work Phone: [facility] 12-11-2023 06:58-0500 Diastolic blood pressure 83 mm[Hg] Chuck Wadsworth DIAGNOSTICS SALES DEVELOPER.SCANNING CLERK Work Phone: [facility] 12-11-2023 06:58-0500 Heart rate 83 /min Chuck Wadsworth DIAGNOSTICS SALES DEVELOPER.SCANNING CLERK Work Phone: [facility] 12-11-2023 06:58-0500 Respiratory rate 16 /min Chuck Wadsworth DIAGNOSTICS SALES DEVELOPER.SCANNING CLERK Work Phone: [facility] 12-11-2023 06:58-0500 SaO2% (BldA) [Mass fraction] 98 % Chuck Wadsworth DIAGNOSTICS SALES DEVELOPER.SCANNING CLERK Work Phone: [facility] 12-11-2023 06:58-0500 Systolic blood pressure 121 mm[Hg] Chuck Wadsworth DIAGNOSTICS SALES DEVELOPER.SCANNING CLERK Work Phone: [facility] 12-04-2023 06:58-0500 Body weight 64.86 kg Chuck Wadsworth DIAGNOSTICS SALES DEVELOPER.SCANNING CLERK Work Phone: [facility] 12-04-2023 06:58-0500 Diastolic blood pressure 85 mm[Hg] Chuck Wadsworth DIAGNOSTICS SALES DEVELOPER.SCANNING CLERK Work Phone: [facility] 12-04-2023 06:58-0500 Heart rate 110 /min Chuck Wadsworth DIAGNOSTICS SALES DEVELOPER.SCANNING CLERK Work Phone: [facility] 12-04-2023 06:58-0500 Respiratory rate 16 /min Chuck Wadsworth DIAGNOSTICS SALES DEVELOPER.SCANNING CLERK Work Phone: [facility] 12-04-2023 06:58-0500 SaO2% (BldA) [Mass fraction] 98 % Chuck Wadsworth DIAGNOSTICS SALES DEVELOPER.SCANNING CLERK Work Phone: [facility] 12-04-2023 06:58-0500 Systolic blood pressure 130 mm[Hg] Chuck Wadsworth DIAGNOSTICS SALES DEVELOPER.SCANNING CLERK Work Phone: [facility] 10-15-2023 13:45-0500 Body height 166.4 cm Fausto Cheng MD Work Phone: [facility] 10-15-2023 13:45-0500 Body weight 63.96 kg Fausto Cheng MD Work Phone: [facility] 10-15-2023 13:45-0500 Diastolic blood pressure 64 mm[Hg] Fausto Cheng MD Work Phone: [facility] 10-15-2023 13:45-0500 Systolic blood pressure 110 mm[Hg] Fausto Cheng MD Work Phone: [facility] 08-29-2023 13:21-0400 Body temperature 98.2 [degF] Sergey Zhang MD Work Phone: [facility] 08-29-2023 13:21-0400 Body weight 63.96 kg Sergey Zhang MD Work Phone: [facility] 08-29-2023 13:21-0400 Diastolic blood pressure 78 mm[Hg] Sergey Zhang MD Work Phone: [facility] 08-29-2023 13:21-0400 Heart rate 75 /min Sergey Zhang MD Work Phone: [facility] 08-29-2023 13:21-0400 Respiratory rate 21 /min Sergey Zhang MD Work Phone: [facility] 08-29-2023 13:21-0400 SaO2% (BldA) [Mass fraction] 99 % Sergey Zhang MD Work Phone: [facility] 08-29-2023 13:21-0400 Systolic blood pressure 108 mm[Hg] Sergey Zhang MD Work Phone: [facility] 08-21-2023 08:55-0400 Body weight 63.96 kg Chuck Wadsworth DIAGNOSTICS SALES DEVELOPER.SCANNING CLERK Work Phone: [facility] 08-21-2023 08:55-0400 Diastolic blood pressure 71 mm[Hg] Chuck Wadsworth DIAGNOSTICS SALES DEVELOPER.SCANNING CLERK Work Phone: [facility] 08-21-2023 08:55-0400 Heart rate 69 /min Chuck Wadsworth DIAGNOSTICS SALES DEVELOPER.SCANNING CLERK Work Phone: [facility] 08-21-2023 08:55-0400 Respiratory rate 16 /min Chuck Wadsworth DIAGNOSTICS SALES DEVELOPER.SCANNING CLERK Work Phone: [facility] 08-21-2023 08:55-0400 Systolic blood pressure 106 mm[Hg] Chuck Wadsworth DIAGNOSTICS SALES DEVELOPER.SCANNING CLERK Work Phone: [facility] 07-13-2023 08:43-0400 Body weight 63.41 kg Raman Reyes Jr., MD Work Phone: [facility] 07-13-2023 08:43-0400 Diastolic blood pressure 64 mm[Hg] Raman Reyes Jr., MD Work Phone: [facility] 07-13-2023 08:43-0400 Heart rate 95 /min Raman Reyes Jr., MD Work Phone: [facility] 07-13-2023 08:43-0400 Respiratory rate 16 /min Raman Reyes Jr., MD Work Phone: [facility] 07-13-2023 08:43-0400 SaO2% (BldA) [Mass fraction] 99 % Raman Reyes Jr., MD Work Phone: [facility] 07-13-2023 08:43-0400 Systolic blood pressure 116 mm[Hg] Raman Reyes Jr., MD Work Phone: [facility] 02-16-2023 10:18-0400 Body temperature 98.4 [degF] Raman Reyes Jr., MD Work Phone: [facility] 02-16-2023 10:18-0400 Body weight 60.87 kg Raman Reyes Jr., MD Work Phone: [facility] 02-16-2023 10:18-0400 Diastolic blood pressure 78 mm[Hg] Raman Reyes Jr., MD Work Phone: [facility] 02-16-2023 10:18-0400 Heart rate 68 /min Raman Reyes Jr., MD Work Phone: [facility] 02-16-2023 10:18-0400 SaO2% (BldA) [Mass fraction] 100 % Raman Reyes Jr., MD Work Phone: [facility] 02-16-2023 10:18-0400 Systolic blood pressure 116 mm[Hg] Raman Reyes Jr., MD Work Phone: [facility] 12-15-2022 08:49-0500 Body temperature 98.71 [degF] Raman Reyes Jr., MD Work Phone: [facility] 12-15-2022 08:49-0500 Body weight 59.78 kg Raman Reyes Jr., MD Work Phone: [facility] 12-15-2022 08:49-0500 Diastolic blood pressure 76 mm[Hg] Raman Reyes Jr., MD Work Phone: [facility] 12-15-2022 08:49-0500 Heart rate 83 /min Raman Reyes Jr., MD Work Phone: [facility] 12-15-2022 08:49-0500 Respiratory rate 18 /min Raman Reyes Jr., MD Work Phone: [facility] 12-15-2022 08:49-0500 SaO2% (BldA) [Mass fraction] 98 % Raman Reyes Jr., MD Work Phone: [facility] 12-15-2022 08:49-0500 Systolic blood pressure 109 mm[Hg] Raman Reyes Jr., MD Work Phone: [facility] 10-13-2022 08:16-0500 Body height 167.6 cm Fausto Cheng MD Work Phone: [facility] 10-13-2022 08:16-0500 Body weight 58.51 kg Fausto Cheng MD Work Phone: [facility] 10-13-2022 08:16-0500 Diastolic blood pressure 60 mm[Hg] Fausto Cheng MD Work Phone: [facility] 10-13-2022 08:16-0500 Systolic blood pressure 102 mm[Hg] Fausto Cheng MD Work Phone: [facility] 09-17-2022 11:39-0500 Body weight 58.54 kg Raman Reyes Jr., MD Work Phone: [facility] 09-17-2022 11:39-0500 Diastolic blood pressure 78 mm[Hg] Raman Reyes Jr., MD Work Phone: [facility] 09-17-2022 11:39-0500 Heart rate 72 /min Raman Reyes Jr., MD Work Phone: [facility] 09-17-2022 11:39-0500 Respiratory rate 18 /min Raman Reyes Jr., MD Work Phone: [facility] 09-17-2022 11:39-0500 Systolic blood pressure 119 mm[Hg] Raman Reyes Jr., MD Work Phone: [facility] 05-30-2022 08:56-0400 Body temperature 99.39 [degF] Chuck Wadsworth DIAGNOSTICS SALES DEVELOPER.SCANNING CLERK Work Phone: [facility] 05-30-2022 08:56-0400 Body weight 57.97 kg Chuck Wadsworth DIAGNOSTICS SALES DEVELOPER.SCANNING CLERK Work Phone: [facility] 05-30-2022 08:56-0400 Diastolic blood pressure 72 mm[Hg] Chuck Wadsworth DIAGNOSTICS SALES DEVELOPER.SCANNING CLERK Work Phone: [facility] 05-30-2022 08:56-0400 Heart rate 97 /min Chuck Wadsworth DIAGNOSTICS SALES DEVELOPER.SCANNING CLERK Work Phone: [facility] 05-30-2022 08:56-0400 Respiratory rate 16 /min Chuck Wadsworth DIAGNOSTICS SALES DEVELOPER.SCANNING CLERK Work Phone: [facility] 05-30-2022 08:56-0400 SaO2% (BldA) [Mass fraction] 99 % Chuck Wadsworth DIAGNOSTICS SALES DEVELOPER.SCANNING CLERK Work Phone: [facility] 05-30-2022 08:56-0400 Systolic blood pressure 112 mm[Hg] Chuck Wadsworth DIAGNOSTICS SALES DEVELOPER.SCANNING CLERK Work Phone: [facility] 04-03-2022 09:00-0400 Body weight 57.61 kg Chuck Wadsworth DIAGNOSTICS SALES DEVELOPER.SCANNING CLERK Work Phone: [facility] 04-03-2022 09:00-0400 Diastolic blood pressure 74 mm[Hg] Chuck Wadsworth DIAGNOSTICS SALES DEVELOPER.SCANNING CLERK Work Phone: [facility] 04-03-2022 09:00-0400 Heart rate 68 /min Chuck Wadsworth DIAGNOSTICS SALES DEVELOPER.SCANNING CLERK Work Phone: [facility] 04-03-2022 09:00-0400 Respiratory rate 16 /min Chuck Wadsworth DIAGNOSTICS SALES DEVELOPER.SCANNING CLERK Work Phone: [facility] 04-03-2022 09:00-0400 Systolic blood pressure 116 mm[Hg] Chuck Wadsworth APRN.SCANNING CLERK Work Phone: [facility] Encounters Encounter Date Encounter Type Care Provider Facility Start: 12-29-2023 End: 12-29-2023 ambulatory ZEB RAMOS Facility:[facility] Start: 12-29-2023 End: 12-30-2023 ambulatory MICHI GUZMAN Facility:[facility] Procedures Date Procedure Procedure Detail Performing Clinician Start: 12-29-2023 Nitric oxide gas determination Zeb Ramos MD Work Phone: Start: 12-29-2023 Ct thorax w/o contra st material Zeb Ramos MD Work Phone: Start: 12-29-2023 Brncdilat rspse spmt ry pre&post-brncdilat admn Zeb Ramos MD Work Phone: Start: 12-23-2023 Ecg routine ecg w/le ast 12 lds i&r only [facility] Provider Start: 02-04-2023 Lipid 1996 panel - S man or Plasma Chuck Wadsworth APRN.SCANNING CLERK Work Phone: Start: 10-13-2022 Mammography Beka horan PA-C Work Phone: Start: 06-23-2022 Dxa bone density adri dy 1/> sites axial skel Chuck Wadsworth APRN.SCANNING CLERK Work Phone: Start: 05-08-2022 Radiologic exam ches t 2 views Chuck Wadsworth APRN.SCANNING CLERK Work Phone: Start: 09-18-2021 Mammography Shawn Castillo MD Work Phone: Start: 10-04-2018 Colonoscopy Shawn Castillo MD Work Phone: Plan of Treatment Date Care Activity Detail Author Start: 10-04-2028 Colonoscopy COLONOSCOPY [facility] Start: 10-04-2028 COLORECTAL CANCER SCREENING COLORECTAL CANCER SCREENING [facility] Start: 10-04-2028 Screening for malign ant neoplasm of colon [facility] Start: 02-05-2028 Lipid 1996 panel - S man or Plasma Lipid Screening [facility] Start: 02-05-2028 Lipid panel Lipid Screening [facility] Start: 02-05-2028 LIPID SCREEN LIPID SCREEN [facility] Start: 10-13-2027 HPV TESTING HPV TESTING [facility] Start: 10-13-2027 PAP TESTING PAP TESTING [facility] Start: 10-13-2027 Screening for malign ant neoplasm of cervix [facility] Start: 02-26-2027 LIPID SCREEN LIPID SCREEN [facility] Start: 12-23-2026 Diabetes Screening Diabetes Screenin g [facility] Start: 04-12-2026 LIPID SCREEN LIPID SCREEN [facility] Start: 02-04-2026 [facility]AB[facility] Start: 02-04-2026 Diabetes Screening Diabetes Screenin g [facility] Start: 10-17-2025 DIABETES [facility]CREEN [facility] Start: 04-26-2025 DIABETES SCREEN [facility] Start: 02-26-2025 DIABETES SCREEN [facility] Start: 10-15-2024 Screening for malign ant neoplasm of breast Mammogram Screening [facility] Start: 08-21-2024 Covid-19 Vaccine (#1) Covid-19 Vacci ne (#1) [facility] Immunizations Immunization Date Immunization Notes Care Provider Srinivasa mayers 08-18-2017 influenza virus vaccine, unspecified formulation Chuck Wadsworth APRN.SCANNING CLERK Work Phone: [facility] 07-13-2006 tetanus toxoid, reduced diphtheria toxoid, and acellular pertussis vaccine, adsorbed Yong Castillo MD Work Phone: [facility] Work Phone: Payers Date Payer Category Payer Private Health Insurance [facility] [employer] [id number] 2019-Present [phone] [address] [place] [address] O [id number] 2019 Private Health Insurance [employer] [employer] [id number] 2019-Present [phone] [address] [place] [address] O [id number] 2019 Unknown [id number] Social History Date Type Detail Facility Start: 06-13-2022 Tobacco smoking stat us GAIS Never smoked tobacco [facility] Work Phone: Start: 02-26-2022 End: 12-29-2023 Alcohol intake Ex-drinker (finding) [facility] Start: 09-03-2020 End: 01-28-2023 History SDOH Alcohol Frequency 2 [facility] Start: 09-03-2020 End: 01-28-2023 History SDOH Alcohol Std Drinks 1 [facility] Start: 12-25-2019 End: 01-28-2023 History SDOH Social Connections Phone 5 [facility] Start: 12-25-2019 End: 01-28-2023 History SDOH Social Connections Living 4 [facility] Start: 12-25-2019 End: 01-28-2023 History SDOH Physical Activity DPW 7 [facility] Start: 07-10-2020 History SDOH Physica l Activity MPS 12 [facility] Start: 07-10-2020 Education 21 [facility] Start: 1970 Sex Assigned At Female [facility] Start: 02-16-2022 End: 06-13-2022 Exposure to SARS-CoV-2 (event) Not sure [facility] Start: 06-13-2022 Tobacco use and exposure Smoke less tobacco non-user [facility] Work Phone: Start: 01-28-2023 History SDOH Alcohol Std Drinks 0 [facility] Start: 01-28-2023 History SDOH Social Connections [employer] 3 [facility] Start: 10-07-2020 End: 01-28-2023 History of Social function [facility] Start: 10-07-2020 End: 01-28-2023 Social connection and isolation panel [facility] Do you belong to any clubs or organizations such as sikh groups, unions, fraternal or athletic groups, or school groups? Yes [facility] Are you now , , , , never or living with a partner? [facility] How often to you hav e a drink containing alcohol? Never [facility] How many standard dr inks containing alcohol do you have on a typical day? Patient does not drink [facility] Do you feel stress - tense, restless, nervous, or anxious, or unable to sleep at night because your mind is troubled all the time - these days [OSQ] Not at all [facility] (I/We) worried wheth er (my/our) food would run out before (I/we) got money to buy more. Never true [facility] In the past 12 month s, was there a time when you were not able to pay the mortgage or rent on time? No [facility] Start: 08-22-2020 Gender identity Identifies as female gender (finding) [facility] Clinical Notes 01-14-2021 to 12-29-2023 Erika Hu RPFT - 12/29/2023 9:23 AM Erika Myrick RPFT - 12/29/2023 9:21 AM Maria Esther Pradhan, RT(R) - 12/29/2023 8:00 AM Ann Lopez DO - 12/23/2023 1:08 PM EST Note Date & Type Note Facility 12-29-2023 Note HNO ID: [id number] Author: ERIKA HU RPFT Service: ? Author Type: Respiratory Therapist Type: Procedures Filed: 12/29/2023 09:23 Note Text: RESPIRATORY THERAPY ORAL EXHALED NITRIC OXIDE SERVICE DATE: 12/29/2023 SERVICE TIME: 9:23 AM Oral Exhaled Nitric Oxide measurement: 19.0 (ppb) Normal: Adult 5-20 ppb, pediatric (<12 years) 5-15 ppb High Normal / Increased: Adult 20-35 ppb, pediatric (<12 years) 15-25 ppb Moderately raised exhaled Nitric Oxide may indicate underlying inflammation, but note that: Cold and influenza can raise exhaled Nitric Oxide and some patients have higher baseline exhaled Nitric Oxide levels than others. High: Adult >35 ppb, pediatric (<12 years) >25 ppb Indicative of ongoing eosinophilic inflammation. Symptomatic patient likely to respond to steroids. Possible causes (if already on steroids): Poor compliance, recent allergen exposure, steroid dose inadequate, and steroid resistance. Note that not all patients with high exhaled nitric oxide levels display symptoms. Oral Exhaled Nitric Oxide measurement (Previous Encounters) Test Date Oral Exhaled Nitric Oxide (ppb) 12/29/2023 19.0 NAME: JADA Foley PATIENT NAME: Nury Woods DATE: December 29, 2023 TIME: 9:23 AM [facility] 12-29-2023 Note HNO ID: [id number] Author: ERIKA HU RPFT Service: ? Author Type: Respiratory Therapist Type: Progress Notes Filed: 12/29/2023 09:23 Note Text: PULM FUNCTION SMARTBLOCK: Provider: Zeb Ramos MD Assisting Tech: Erika Hu RPFT Spirometry w/BD: 1 DLCO: 1 LV - Box: 1 Exhaled Nitric Oxide: 1 [facility] 12-29-2023 Note HNO ID: [id number] Author: MARIA ESTHER FLOREZ RT(Tatiana) Service: ? Author Type: Motor Builder Assembler Type: Progress Notes Filed: 12/29/2023 14:27 Note Text: Radiology Service Progress Note PATIENT NAME: Nury Woods DATE OF SERVICE: December 29, 2023 TIME: 2:26 PM PATIENT IDENTITY VERIFICATION COMPLETED USING TWO (2) IDENTIFIERS: Name and Date of confirmed by patient verbally. FALL SCREENING: Has the patient had 2 falls in the last year or 1 fall with injury or currently using an Ambulatory Assistive Device (Walker, Cane, Wheelchair, Crutches, etc.)? No PATIENT GENDER DATA: Female. status: : No status: NO. PATIENT RELEVANT IMPLANT DATA REVIEWED: Yes PATIENT PRESENTS WITH AN IMPLANTABLE OR ATTACHED LICENSED MENTAL HEALTH PROFESSIONAL: No RADIOLOGY DEPARTMENT: CT; Exam(s) Completed: Chest PERIPHERAL IV DATA: Not applicable SIGNED BY: RT Bianka(Tatiana) December 29, 2023 2:26 PM [facility] 12-29-2023 Procedure note Associated Ord er(s): NITRIC OXIDE, EXHALED RESPIRATORY THERAPY ORAL EXHALED NITRIC OXIDE SERVICE DATE: 12/29/2023 SERVICE TIME: 9:23 AM Oral Exhaled Nitric Oxide measurement: 19.0 (ppb) Normal: Adult 5-20 ppb, pediatric (<12 years) 5-15 ppb High Normal / Increased: Adult 20-35 ppb, pediatric (<12 years) 15-25 ppb Moderately raised exhaled Nitric Oxide may indicate underlying inflammation, but note that: Cold and influenza can raise exhaled Nitric Oxide and some patients have higher baseline exhaled Nitric Oxide levels than others. High: Adult >35 ppb, pediatric (<12 years) >25 ppb Indicative of ongoing eosinophilic inflammation. Symptomatic patient likely to respond to steroids. Possible causes (if already on steroids): Poor compliance, recent allergen exposure, steroid dose inadequate, and steroid resistance. Note that not all patients with high exhaled nitric oxide levels display symptoms. Oral Exhaled Nitric Oxide measurement (Previous Encounters) Test Date Oral Exhaled Nitric Oxide (ppb) 12/29/2023 19.0 NAME: JADA Foley PATIENT NAME: Nury Woods DATE: December 29, 2023 TIME: 9:23 AM documented in this encounter [facility] 12-29-2023 History of Present illness Narrative PULM FUNCTION SMARTBLOCK: Provider: Zeb Ramos MD Assisting Tech: Erika Hu RPFT Spirometry w/BD: 1 DLCO: 1 LV - Box: 1 Exhaled Nitric Oxide: 1 documented in this encounter [facility] 12-29-2023 History of Present illness Narrative Radiology Service Progress Note PATIENT NAME: Nury Woods DATE OF SERVICE: December 29, 2023 TIME: 2:26 PM PATIENT IDENTITY VERIFICATION COMPLETED USING TWO (2) IDENTIFIERS: Name and Date of confirmed by patient verbally. FALL SCREENING: Has the patient had 2 falls in the last year or 1 fall with injury or currently using an Ambulatory Assistive Device (Walker, Cane, Wheelchair, Crutches, etc.)? No PATIENT GENDER DATA: Female. status: : No status: NO. PATIENT RELEVANT IMPLANT DATA REVIEWED: Yes PATIENT PRESENTS WITH AN IMPLANTABLE OR ATTACHED LICENSED MENTAL HEALTH PROFESSIONAL: No RADIOLOGY DEPARTMENT: CT; Exam(s) Completed: Chest PERIPHERAL IV DATA: Not applicable SIGNED BY: RT Bianka(R) December 29, 2023 2:26 PM documented in this encounter [facility] 12-26-2023 Note HNO ID: [id number] Author: ANN ROY DO Service: Cardiovascular Disease Author Type: Physician Type: Progress Notes Filed: 12/26/2023 15:47 Note Text: CARDIAC CATHETERIZATION RISK ASSESSMENT SERVICE DATE: December 26, 2023 SERVICE TIME: 3:47 PM Level 1 Cardiac Catheterization Lab Exclusion Check List Is the patient less than 22 years old? No Is there pulmonary edema due to ischemia? No Is there valvular or LV function limitations with severe (Class 4) symptoms? No Is there complex congenital heart disease? No Is there an acute coronary syndrome? No Is this a therapeutic procedure in adult congenital heart disease patient? No SIGNATURE: Ann Roy DO PATIENT NAME: Nury Woods DATE: December 26, 2023 TIME: 3:47 PM PAGER/CONTACT #: [facility] 12-24-2023 Miscellaneous Notes Spoke with patient. Instructed to be NPO after midnight other than sips of water with medications. Will need a driver/sales workers. Use entrance A elevator to 1st floor surgery desk. Will receive a call from scheduling to confirm time. documented in this encounter [facility] 12-23-2023 Note HNO ID: [id number] Author: ANN ROY DO Service: ? Author Type: Physician Type: Progress Notes Filed: 12/23/2023 14:01 Note Text: Heart and Vascular [place] [facility] Department of Cardiovascular Medicine SECTION OF [facility] CARDIOLOG[facility] OUTPATIENT VISIT DATE December 23, 2023 OUTPATIENT VISIT TYPE NEW PATIENT Name: Nury Woods : 1970 Date: December 23, 2023 PRIMARY CARE PHYSICIAN: Michi Guzman [address] [place] [address] REFERRING PHYSICIAN: Michi Guzman [address] [facility] [address] CHIEF COMPLAINT: Patient presents with: CARD New Patient Consult: [facility] - 11/25/23 CP - woke her up. heaviness and pressure. Chest pain (pins and needles feeling and pain mid-sternal and on right side) for several weeks - saw Pulm (told it was muscle-skeletal ) Told to see Cardio for chest pain IMPRESSION / PLAN: 1. Recurrent chest pain possible unstable angina with a strong family history of cardiovascular disease. Patient has a very strong family history of coronary disease with multiple family members dying suddenly of coronary artery disease and myocardial infarction. She has been having significant recurrent exertional chest pain and discussed the options of noninvasive versus invasive testing. After detailed discussion with the patient and daughter it was felt that definitive cardiac catheterization be performed. The risk and benefits were discussed and the patient wishes to proceed. 2. History of sleep apnea. Patient is compliant with CPAP 3. History of sternal fracture. Patient definitely has some sternal tenderness but this is not similar to her exertional chest discomfort. Follow Up Instructions Return for Follow Up Pending Diagnostic Test. ORDERS FOR TODAY'S VISIT: Office Visit on 12/23/23 CARDIAC FIRE CONTROLMAN ORDER BASIC METABOLIC PNL CBC ECG COMPLETE SURGICAL REQUEST - ELECTIVE (06/2020) HISTORY OF PRESENT ILLNESS: Nury Woods is an 53 year old female with a past history of sternal fracture after a fall and sleep apnea along with bronchiectasis and anxiety and depression who has been having some significant exertional chest discomfort when walking on a treadmill and has been seen by both pulmonary and pain specialist and was recommended to see cardiology. She has not had any cardiac workup in many years but her exertional symptoms have been concerning enough to warrant ongoing complaints. She has a very strong family history of multiple family members having coronary artery disease and dying of myocardial infarction. She denies palpitations, syncope or near syncope or lower extremity edema. PAST MEDICAL HISTORY Diagnosis Date Allergic rhinitis due to other allergen Anxiety and depression Branchial cyst 09/11/2020 Bronchiectasis without acute exacerbation (HCC) Cervicalgia 01/14/2021 Closed fracture of body of sternum 04/25/2022 Closed fracture of one rib of left side 04/26/2022 Frozen shoulder Humerus fracture 12/2021 Dr. Romero Intractable migraine without status migrainosus Dr. Ramirez Iron deficiency SELINA (obstructive sleep apnea) Other [...] THYROIDECTOMY TOTAL/COMPLETE 1995 partial - ? left SOCIAL HISTORY Social History Tobacco Use Smoking status: Never Smokeless tobacco: Never Vaping Use Vaping Use: Never used Substance Use Topics Alcohol use: Not Currently Drug use: No FAMILY HISTORY Problem Relation Age of Onset Stroke Mother age 75 Coronary Artery Disease Father age 73 Hypertension Father Heart Attack Father other (Other) Sister Sleep apnea Coronary Artery Disease Maternal Grandmother Stroke Maternal Grandmother other (Other) Maternal Grandmother lung dx Heart Attack Paternal Grandfather COD Migraines Daughter other (Other) Son TAR Syndrome Diabetes Paternal Uncle ALLERGIES: ALLERGIES Allergen Reactions Codeine Rash Cytotec [Misoprosto* Other: See Comments Fainting Dust Mites Other: See Comments Has had allergy test 06/2020- immune to dust now Entex Pse [Pseudoep* Rash Percocet [Oxycodone* Rash MEDICATIONS: fluticasone (FLONASE) 50 mcg/actuation nasal spray Use 2 Sprays in each nostril two times a day. cetirizine (ZYRTEC) 10 mg tablet Take 1 tablet by mouth once daily. benzonatate (TESSALON PERLE) 100 mg capsule Take 2 capsules by kalie (more content not included)... [facility] 12-23-2023 History of Present illness Narrative Heart and Vascular [place] [facility] Department of Cardiovascular Medicine [facility] OUTPATIENT VISIT DATE December 23, 2023 OUTPATIENT VISIT TYPE NEW PATIENT Name: Nury Woods : 1970 Date: December 23, 2023 PRIMARY CARE PHYSICIAN: Michi Guzman [address] [place] [address] REFERRING PHYSICIAN: Michi Guzman [address] [facility] [address] CHIEF COMPLAINT: Patient presents with: CARD New Patient Consult: [facility] - 11/25/23 CP - woke her up. heaviness and pressure. Chest pain (pins and needles feeling and pain mid-sternal and on right side) for several weeks - saw Pulm (told it was muscle-skeletal ) Told to see Cardio for chest pain IMPRESSION / PLAN: 1. Recurrent chest pain possible unstable angina with a strong family history of cardiovascular disease. Patient has a very strong family history of coronary disease with multiple family members dying suddenly of coronary artery disease and myocardial infarction. She has been having significant recurrent exertional chest pain and discussed the options of noninvasive versus invasive testing. After detailed discussion with the patient and daughter it was felt that definitive cardiac catheterization be performed. The risk and benefits were discussed and the patient wishes to proceed. 2. History of sleep apnea. Patient is compliant with CPAP 3. History of sternal fracture. Patient definitely has some sternal tenderness but this is not similar to her exertional chest discomfort. Follow Up Instructions Return for Follow Up Pending Diagnostic Test. ORDERS FOR TODAY'S VISIT: Office Visit on 12/23/23 CARDIAC FIRE CONTROLMAN ORDER BASIC METABOLIC PNL CBC ECG COMPLETE SURGICAL REQUEST - ELECTIVE (06/2020) HISTORY OF PRESENT ILLNESS: Nury Woods is an 53 year old female with a past history of sternal fracture after a fall and sleep apnea along with bronchiectasis and anxiety and depression who has been having some significant exertional chest discomfort when walking on a treadmill and has been seen by both pulmonary and pain specialist and was recommended to see cardiology. She has not had any cardiac workup in many years but her exertional symptoms have been concerning enough to warrant ongoing complaints. She has a very strong family history of multiple family members having coronary artery disease and dying of myocardial infarction. She denies palpitations, syncope or near syncope or lower extremity edema. PAST MEDICAL HISTORY Diagnosis Date Allergic rhinitis due to other allergen Anxiety and depression Branchial cyst 09/11/2020 Bronchiectasis without acute exacerbation (HCC) Cervicalgia 01/14/2021 Closed fracture of body of sternum 04/25/2022 Closed fracture of one rib of left side 04/26/2022 Frozen shoulder Humerus fracture 12/2021 Dr. Romero Intractable migraine without status migrainosus Dr. Ramirez Iron deficiency SELINA (obstructive sleep apnea) Other [...] THYROIDECTOMY TOTAL/COMPLETE 1995 partial - ? left SOCIAL HISTORY Social History Tobacco Use Smoking status: Never Smokeless tobacco: Never Vaping Use Vaping Use: Never used Substance Use Topics Alcohol use: Not Currently Drug use: No FAMILY HISTORY Problem Relation Age of Onset Stroke Mother age 75 Coronary Artery Disease Father age 73 Hypertension Father Heart Attack Father other (Other) Sister Sleep apnea Coronary Artery Disease Maternal Grandmother Stroke Maternal Grandmother other (Other) Maternal Grandmother lung dx Heart Attack Paternal Grandfather COD Migraines Daughter other (Other) Son TAR Syndrome Diabetes Paternal Uncle ALLERGIES: ALLERGIES Allergen Reactions Codeine Rash Cytotec [Misoprosto* Other: See Comments Fainting Dust Mites Other: See Comments Has had allergy test 06/2020- immune to dust now Entex Pse [Pseudoep* Rash Percocet [Oxycodone* Rash MEDICATIONS: fluticasone (FLONASE) 50 mcg/actuation nasal spray Use 2 Sprays in each nostril two times a day. cetirizine (ZYRTEC) 10 mg tablet Take 1 tablet by mouth once daily. benzonatate (TESSALON PERLE) 100 mg capsule Take 2 capsules by mouth three times a day as needed. clonazePAM (KLONOPIN) 1 mg tablet Take 1 tablet by mouth daily at bedtime for 90 days. albuterol HFA (VENTOLIN HFA) 90 mcg/actuation inhaler Inhale 2 Puffs as instructed every 4 hours as needed for wheezing/shortness of breath. Ibandronate 150 mg tablet Take 1 tablet [...] 2 puffs every 12 hours predniSONE (DELTASONE) 10 mg tablet 4 tablets a day for 3 days, then 3 tablets a day for 3 days, then 2 tablets a day for 3 days, then 1 tablet a day for 3 days REVIEW OF SYSTEMS: GENERAL: Negative for: Weight loss or gain, Fever or Chills NECK: Negative for: Swelling, Pain, Stiffness RESPIRATORY: Negative for: Cough, Blood in Sputum GASTROINTESTINAL: Negative for: Trouble swallowing, Heartburn, Change in bowel habits, Blood in stool, Dark black stools MUSCULOSKELETAL: Negative for: Severe Muscle or joint pain, Stiffness , Joint swelling NEUROLOGIC/PSYCHIATRIC: Negative for: Paralysis, Numbness, Tingling, Tremor SKIN: Negative for: Rashes, Itching HEMATOLOGICAL/LYMPHATIC: Negative for: Easy bruising , Easy bleeding ENDOCRINE: Negative for: Heat or cold intolerance, Excessive sweating, Frequent urination All other review of systems, per history of present illness. PHYSICAL EXAMINATION: BP 102/60 Pulse 75 Ht 165.1 cm (5' 5 ) Wt 65.2 kg (143 lb 11.8 oz) LMP 09/30/2013 SpO2 98% BMI 23.92 kg/m Last 2 Encounter Wt Readings: Date: Wt: 12/15/2023 64 kg (141 lb) 12/11/2023 63.5 kg (140 lb) General: Well appearing, in no acute distress. Skin: No clubbing, no cyanosis. Eyes: Extra ocular movements intact Oropharynx: No gross abnormalities Neck: No jugular venous distention, no carotid bruits, carotids have a normal upstroke, no palpable thyromegaly. Lungs: Clear to auscultation bilaterally, no wheezing or rhonchi. Heart: Regular rhythm, PMI not displaced, S1, S2, no S3, no S4, no murmur. Chest: Pain with upper to mid sternal palpation but not similar to her exertional pain Abdomen: Soft, nontender, bowel sounds normal, no palpable organomegaly, no bruits. Extremities: No peripheral edema . +2 distal pulses bilaterally. Neuro: Oriented to person, place and time, alert, cooperative. CARDIOVASCULAR MEDICINE TESTING: Electrocardiogram: Normal sinus rhythm otherwise unremarkable Ann Roy DO, [facility] Staff Saw Man Ann and Emmanuelle Arteaga Dept. of Cardiovascular Medicine Heart, Vascular and Thoracic [place], [facility] This document was generated using the assistance of voice recognition software. If there are any errors of spelling, grammar, syntax or meaning, please feel free to contact me directly at anytime. documented in this encounter [facility] 12-15-2023 Instructions Zeb Ramos MD - 12/15/2023 10:33 AM EST Do the Pulmonary Function Test as scheduled Do the blood work in 2 weeks Do the Chest CT scan as scheduled Asthma Plan: Use Adavir twice a day, everyday, even if you do not have symptoms. It is a long acting inhaler and does not quickly treat symptoms. It is meant to decrease the frequency you experience symptoms. Rinse your mouth with warm water after each use to prevent thrush. Advair Diskus - 1 inhalation twice a day. Rinse, gargle and spit with water after use to prevent oral thrush. ---Instructional video: https://www.advLeanWagon.Red Swoosh/how-to-use- advair.html Use Albuterol (inhaler and/or nebulizer) as needed for symptoms only. This is a short acting inhaler and is mainly helpful at treating symptoms as they occur. Using it 15 minutes before exercise does help prevent some exercise induced symptoms in some people. Albuterol (Proair, Proventil, or Ventolin) MDI - 1-2 puffs every 6 hours as needed for wheezing or shortness of breath. You can also use 1-2 puffs ten minutes before exercise or exertion. Use with your spacer. ---Instructional video: https://www.lung.org/nalq-htxqjm-y nd-diseases/bmbq-gkyhzzh-vmiazz/as ma/tyaicsg-wnskxmgng-kpb-videos/ videos/wjs-me-tkg-e-gvbchjj-nufv-i nhaler.html If you begin to have significant increase in your daily use of albuterol, let me know. The amount of albuterol you feel the need to use each day is a marker of disease control. Using it 3 times a week or less indicates good control. Allergic Rhinitis Simply Saline nasal rinses daily. Follow nasal rinses with Flonase Sensimist 2 sprays in each nostril twice daily kathy 2 weeks then once daily Continue Astelin nasal spry; 2 actuations in each nostril twice daily Zyrtec 10 mg daily. documented in this encounter [facility] 12-15-2023 History and physical note Images from the original note were not included. [facility] Consultation requested by Chuck Wadsworth APRN.CNS for evaluation of cough. My final recommendations will be communicated to the requesting health care provider by way of the shared medical record for internal providers or letter via the [employer] for external providers. CHIEF COMPLIANT cough HISTORY OF PRESENT ILLNESS Nury Woods is a 53 year old female with past medical history significant for Asthma, SELINA and Allergic Rhinitis who presents today for evaluation of cough. Patient reports cough and right side chest pain. She was treated with 2 courses of antibiotics and systemic steroids. She has a history of multiple previous respiratory infections in the past. She has a history of asthma, currently on ICS/LABA (Advair) but she uses it only once daily and albuterol as needed. She has history of allergic rhinitis. She does report nasal congestion and postnasal drip, currently on Astelin nasal spray. She denies heartburn or acid reflux. Chest CT 04/26/22; sternal fracture and left 3rd rib fracture. Mild biapical scarring, likely postinflammatory. Streaky atelectatic change in the bases. REVIEW OF SYSTEMS Constitutional: Negative for appetite change, chills, diaphoresis, fatigue and fever. HENT: Negative for dental problem, ear discharge, ear pain, facial swelling, nosebleeds. Positive for nasal congestion and post nasal drip Eyes: Negative for pain, discharge, itching and visual disturbance. Respiratory: See HPI Cardiovascular: Negative for palpitations and leg swelling. Positive for right-sided chest pain Gastrointestinal: Negative for abdominal distention, abdominal pain, anal bleeding, blood in stool, nausea and vomiting. Endocrine: Negative for cold intolerance, heat intolerance and polydipsia. Skin: Negative for color change, rash and wound. Neurological: Negative for dizziness, seizures, speech difficulty and headaches. Hematological: Does not bruise/bleed easily. Psychiatric/Behavioral: Negative for confusion and hallucinations. PAST MEDICAL/SURGICAL/SOCIAL HISTORY PAST MEDICAL HISTORY Diagnosis Date Allergic rhinitis due to other allergen Anxiety and depression Branchial cyst 09/11/2020 Bronchiectasis without acute exacerbation (HCC) Cervicalgia 01/14/2021 Closed fracture of body of sternum 04/25/2022 Closed fracture of one rib of left side 04/26/2022 Frozen shoulder Humerus fracture 12/2021 Dr. Romero Intractable migraine without status migrainosus Dr. Ramirez Iron deficiency SELINA (obstructive sleep apnea) Other [...] FAMILY HISTORY Problem Relation Age of Onset Stroke Mother age 75 Coronary Artery Disease Father age 73 Hypertension Father Heart Attack Father other (Other) Sister Sleep apnea Coronary Artery Disease Maternal Grandmother Stroke Maternal Grandmother other (Other) Maternal Grandmother lung dx Heart Attack Paternal Grandfather COD Migraines Daughter other (Other) Son TAR Syndrome Diabetes Paternal Uncle Social History Tobacco Use Smoking status: Never Smokeless tobacco: Never Vaping Use Vaping Use: Never used Substance Use Topics Alcohol use: Not Currently Drug use: No MEDICATIONS AND ALLERGIES benzonatate (TESSALON PERLE) 100 mg capsule Take 2 capsules by mouth three times a day as needed. clonazePAM (KLONOPIN) 1 mg tablet Take 1 tablet by mouth daily at bedtime for 90 days. predniSONE (DELTASONE) 10 mg tablet 4 tablets a day for 3 days, then 3 tablets a day for 3 days, then 2 tablets a day for 3 days, then 1 tablet a day for 3 days albuterol HFA (VENTOLIN HFA) 90 mcg/actuation inhaler Inhale 2 Puffs as instructed every 4 hours as needed for wheezing/shortness of breath. Ibandronate 150 mg tablet Take 1 tablet [...] NASAL SprA 2 puffs every 12 hours fluticasone (FLONASE) 50 mcg/actuation nasal spray Use 2 Sprays in each nostril two times a day. cetirizine (ZYRTEC) 10 mg tablet Take 1 tablet by mouth once daily. ALLERGIES Allergen Reactions Codeine Rash Cytotec [Misoprosto* Other: See Comments Fainting Dust Mites Other: See Comments Has had allergy test 06/2020- immune to dust now Entex Pse [Pseudoep* Rash Percocet [Oxycodone* Rash PHYSICAL EXAM BP 109/72 Pulse 95 Temp 98.3 Resp 20 Ht 5' 5 (1.65m) Wt 141 lb (64.0kg) SpO2 99% LMP 09/30/2013 BMI 23.46 kg/(m^2). GEN: Normal appearance. No acute distress. SKIN: Skin is warm. Normal turger. No lesion or rash. HEAD: Normocephalic, atraumatic. EYES: Anicteric sclera. EOMI. NECK: Supple CV: RRR, no murmur, gallop, or rubs. BP as documented RESP: No wheezing. No crackles. Right side chest wall tenderness. ABD: Soft, non-tender, non-distended. Bowel sounds normal. EXTR: No clubbing, cyanosis, or edema. NEURO: Alert and oriented X 3. Speech intact. PSYCH: Mood normal. Behavior normal. Thought content normal. DIAGNOSTIC REVIEW I personally reviewed and interpreted the labs, PFTs and radiographs LABs WBC (k/uL) Date Value 12/23/2023 10.32 RBC (m/uL) Date Value 12/23/2023 4.28 Hemoglobin (g/dL) Date Value 12/23/2023 11.8 Hematocrit (%) Date Value 12/23/2023 36.2 MCV (fL) Date Value 12/23/2023 84.6 MCH (pg) Date Value 12/23/2023 27.6 MCHC (g/dL) Date Value 12/23/2023 32.6 RDW-CV (%) Date Value 12/23/2023 13.9 Platelet Count (k/uL) Date Value 12/23/2023 204 MPV (fL) Date Value 12/23/2023 8.4 (L) Neutrophils % (%) Date Value 02/04/2023 52.1 Lymphocytes % (%) Date Value 02/04/2023 38.2 Monocytes % (%) Date Value 02/04/2023 6.4 Eosinophils % (%) Date Value 02/04/2023 2.3 Basophils % (%) Date Value 02/04/2023 0.6 Abs Neut (k/uL) Date Value 02/04/2023 2.70 Abs [place] (k/uL) Date Value 02/04/2023 0.33 Abs Eosin (k/uL) Date Value 02/04/2023 0.12 Abs Baso (k/uL) Date Value 02/04/2023 0.03 Glucose (mg/dL) Date Value 12/23/2023 95 BUN (mg/dL) Date Value 12/23/2023 21 Creatinine (mg/dL) Date Value 12/23/2023 0.96 Sodium (mmol/L) Date Value 12/23/2023 140 Potassium (mmol/L) Date Value 12/23/2023 3.8 Chloride (mmol/L) Date Value 12/23/2023 109 (H) CO2 (mmol/L) Date Value 12/23/2023 23 Protein, Total (g/dL) Date Value 02/04/2023 6.7 Albumin (g/dL) Date Value 02/04/2023 4.6 Calcium, Total (mg/dL) Date Value 12/23/2023 9.0 Alkaline Phosphatase (U/L) Date Value 02/04/2023 34 Bilirubin, Total (mg/dL) Date Value 02/04/2023 0.9 AST (U/L) Date Value 02/04/2023 18 ALT (U/L) Date Value 02/04/2023 11 PFT: SPIROMETRY 02/27/21 Spirometry is normal. There was not a significant bronchodilator response. Pre-Bronch Post-Bronch Pred LLN ULN Actual %Pred Actual %Chng SPIROMETRY FVC (L) 3.63 2.82 4.48 3.77 103 3.83 1 FEV1 (L) 2.89 2.24 3.52 3.36 116 3.43 2 FEV1/FVC (%) 80 69 90 89 111 90 FEF 25% (L/sec) 5.37 3.23 7.52 7.02 130 6.87 -2 FEF 50% (L/sec) 3.86 2.05 5.68 5.73 148 3.75 -34 FEF 75% (L/sec) 0.91 0.39 1.94 1.96 215 2.48 26 FEF 25-75% (L/sec) 2.75 1.52 4.33 4.65 169 3.97 -14 FEF Max (L/sec) 6.96 7.1 0 101 7.33 3 FIVC (L) 3.57 3.50 -1 FIF 50% (L/sec) 3.55 2.11 4.98 5.08 143 5.20 2 FIF Max (L/sec) 5.09 5.49 7 FET (sec) 6.71 6.88 2 Back Extrap Vol (L) 0.13 0.12 -8 Time To FEFmax (sec) 0.112 0.083 -25 RADIOLOGY: CXR: XR CHEST 2V FRONTAL/LAT Result Date: 12/11/2023 IMPRESSION: Overall findings unchanged. Consider follow-up with nipple labeling. Jig Fitter: [facility] Transcribe Date/Time: Dec 11 2023 8:49A Dictated by : ALBERT POSEY MD This examination was interpreted and the report reviewed and electronically signed by: ALBERT POSEY MD on Dec 11 2023 8:51AM EST XR CHEST 2V FRONTAL/LAT Result Date: 12/04/2023 IMPRESSION: Hazy opacities in the bilateral lower lungs, likely representing infection or aspiration. Please clinically correlate. Jig Fitter: [facility] Transcribe Date/Time: Dec 04 2023 10:04A Dictated by : ALBERT POSEY MD This examination was interpreted and the report reviewed and electronically signed by: ALBERT POSEY MD on Dec 04 2023 10:06AM EST CT Chest: Last CT/CTA Chest/Lungs CT CHEST W IVCON Exam End: 04/26/2022 2:00 PM (Final result) Narrative: * * *Final Report* * * DATE OF EXAM: Apr 26 2022 2:00PM [facility] [id number] - CT CHEST W IVCON / PROCEDURE REASON: Chest trauma, blunt * * * * Physician Interpretation * * * * EXAMINATION: CHEST CT WITH CONTRAST CLINICAL HISTORY: Chest trauma, sternal fracture. Technique: Spiral CT acquisition of the chest from the thoracic inlet to the upper abdomen following IV contrast. MQ: [id number] Contrast: 50 mL Omnipaque [address] Radiation dose: Integrated Dose-length product (DLP) for this visit = 154 mGy*cm CT Dose Reduction Employed: Automated exposure control(AEC) and iterative recon Comparison: Yesterday radiographs RESULT: Limitations: None. Lines, tubes, and devices: None. Lung parenchyma and airways: Mild biapical scarring, likely postinflammatory. Streaky atelectatic change in the bases. No suspicious pulmonary nodule. Central airways are patent. Pleural space: No pleural effusion. No pleural thickening. Lower neck, lymph nodes, and mediastinum: The imaged thyroid gland is normal. No lymphadenopathy in the supraclavicular, axillary, mediastinal, or hilar regions. Heart, pericardium, and thoracic vessels: The thoracic aorta and main pulmonary artery are normal in caliber. The cardiac chambers are normal in size. No coronary artery atherosclerotic calcifications are noted, although the study is not optimized for coronary assessment. No pericardial effusion or thickening. Bones and soft tissues: Partially imaged from remote appearing right humeral fracture deformity. Nondisplaced left anterior third rib fracture. Nondisplaced mid sternal body fracture. Upper abdomen: Low-density hepatic lesions, likely benign. Fleecer (topogram) images: No additional findings. Impression: IMPRESSION: Nondisplaced sternal body fracture. Nondisplaced left anterior third rib fracture. Jig Fitter: [facility] Transcribe Date/Time: Apr 26 2022 2:11P Dictated by : CONCHIS EVANS MD This examination was interpreted and the report reviewed and electronically signed by: CONCHIS EVANS MD on Apr 26 2022 2:19PM EST OTHER TESTS: ECHO Recent Results (from the past [id number] hour(s)) ECHO Collection Time: 02/14/21 2:31 PM Impression CONCLUSIONS: - Exam indication: Shortness of Breath - The left ventricle is normal in size. Left ventricular systolic function is normal. EF = 63 5% (2D biplane) Normal left ventricular diastolic function. - The right ventricle is normal in size. Right ventricular systolic function is normal. - There is mild mitral insufficiency present. - The patient has not had a prior CC echocardiographic exam for comparison. * * * Final * * * PSG 04/14/2020 IMPRESSION/RECOMMENDATIONS: 1. Upper airway resistance syndrome (UARS). Although the overall apnea-hypopnea index (AHI) was normal this AHI may be underestimated due to the absence of recorded REM sleep, poor sleep efficiency (33.4%) and the presence of mild flow and effort decrements associated with arousal and/or oxygen desaturation not meeting established [facility] respiratory event criteria. Of note, the respiratory disturbance index was normal during off-supine sleep. 2. Frequent periodic limb movements resulting in arousals from sleep were observed and may be contributing to the patient s sleep complaints. The patient endorses symptoms suggestive of restless legs syndrome (RLS) on the pre-study questionnaire. As RLS remains a clinical diagnosis, further clinical correlation is advised. RECOMMENDATIONS: Positional therapy may be the most appropriate therapy. Treatment of Upper Airway Resistance Syndrome (UARS) can also include treatment of allergies, dental appliance or surgical correction of any airway abnormalities. VACCINATION: Immunization History Administered Date(s) Administered tetanus diphtheria pertussis (Tdap) vaccine, age 7+ yr (ADACEL, BOOSTRIX) 07/13/2006 ASSESSMENT AND PLAN Ms. Woods is a 53 year old female who presents to the [facility] [place] for: 1. Chronic cough - ICD9: 786.2, ICD10: R05.3 (primary diagnosis) 2. Moderate persistent asthma, uncomplicated - ICD9: 493.90, ICD10: J45.40 3. Allergic rhinitis, unspecified seasonality, unspecified trigger - ICD9: 477.9, ICD10: J30.9 4. Pulmonary infiltrates - ICD9: 793.19, ICD10: R91.8 5. SELINA (obstructive sleep apnea) - ICD9: 327.23, ICD10: G47.33 # Chronic cough -Multiple possible causes including uncontrolled asthma, Upper Airway Cough Syndrome/Postnasal drip Plan: Optimize management for possible underlying causes # Asthma -Currently on ICS/LABA (Advair) but she uses it only once daily and albuterol as needed Plan: Continue ICS/LAMA (Advair); use twice daily Continue albuterol as needed Obtain PFTs Obtain CBC with differential, IgE, Resp 5 # Allergic rhinitis -Poorly controlled; still reports nasal congestion and postnasal -Currently on Astelin nasal spray Plan: Saline nasal rinses daily. Follow nasal rinses with Flonase Sensimist 2 sprays in each nostril daily Continue Astelin nasal spry; 2 actuations in each nostril twice daily Start Zyrtec 10 mg daily. # SELINA -Currently using CPAP every night Plan: Continue CPAP # Pulmonary infiltrates -CXR 12/04/23: Hazy opacities in the bilateral lower lungs -Chest CT 04/26/22; Mild biapical scarring, likely postinflammatory. Streaky atelectatic change in the bases Plan: Obtain chest CT scan Patient's questions and concerns were addressed prior to discharge today. Patient verbalized understanding and is agreeable with the plan. Objective testing was reviewed with this visit. Followup discussed. Return in about 2 months (around 02/13/2024). Zeb Ramos MD Staff physician Pulmonary and Critical Care Medicine [facility] Pager / phone [phone] Medical Decision Making: Level: 4 - Moderate documented in this encounter [facility] 12-11-2023 Note HNO ID: [id number] Author: CRESENCIO PADILLA RT(Tatiana) Service: Radiology Author Type: Technologist Type: Progress Notes Filed: 12/11/2023 08:46 Note Text: Radiology Service Progress Note PATIENT NAME: Nury Woods DATE OF SERVICE: December 11, 2023 TIME: 8:40 AM PATIENT IDENTITY VERIFICATION COMPLETED USING TWO (2) IDENTIFIERS: Name and Date of confirmed by patient verbally. FALL SCREENING: Has the patient had 2 falls in the last year or 1 fall with injury or currently using an Ambulatory Assistive Device (Walker, Cane, Wheelchair, Crutches, etc.)? No PATIENT GENDER DATA: Female. status: : No status: NO. PATIENT RELEVANT IMPLANT DATA REVIEWED: Not Applicable PATIENT PRESENTS WITH AN IMPLANTABLE OR ATTACHED LICENSED MENTAL HEALTH PROFESSIONAL: No RADIOLOGY DEPARTMENT: General X-ray: Exam(s) Completed: Chest X-Ray PERIPHERAL IV DATA: Not applicable SIGNED BY: RT Fish(Tatiana) December 11, 2023 8:40 AM [facility] 12-11-2023 Note HNO ID: [id number] Author: CHUCK WADSWORTH APRN.SCANNING CLERK Service: ? Author Type: Nurse Specialist Type: Progress Notes Filed: 12/11/2023 07:27 Note Text: SUBJECTIVE: There are no preventive care reminders to display for this patient. HPI Nury Woods is a 53 year old female. PMH significant for ACTIVE PROBLEM LIST Allergic Rhinitis, Cause Unspecified Anxiety and Depression Migraine Without Aura and Without Status Migrainosus, Not Intractable Uars (Upper Airway Resistance Syndrome) Restless Legs Syndrome Iron Deficiency Dyspnea and Respiratory Abnormalities Selina (Obstructive Sleep Apnea) Moderate Persistent Asthma, Uncomplicated Pure Hypercholesterolemia Episodic Tension-Type Headache, Not Intractable Presents today for recheck. HPI excerpted from previous visits: Presents for emergency department follow-up visit. She was seen for right-sided chest wall discomfort. EKG and chest x-ray without concerning findings. Labs in acceptable range. Negative troponin. Negative D-dimer. Today notes symptoms continue and feeling worse. Present for about one week. She was not provided with treatment from the ER. She notes family members were recently ill with upper respiratory infections. She currently nose nasal congestion drainage sore throat cough continued right-sided chest wall discomfort that is worse with deep breath. Afebrile. Occasionally productive cough. No wheezing. Some increased shortness of breath. No reported GERD or heartburn or abdominal pain. Prior history of bronchiectasis. 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 Would like to reestablish. At her last visit she noted the cough seem worse and was difficult to control. She noted increased coughing at night. Prednisone and albuterol have helped. She noted that sinuses seem to improve. At her last visit she was treated with levofloxacin. Chest x-ray showed opacities. Today notes that cough seems a bit better. Continues on with albuterol Advair per communications advisor. She notes chest wall discomfort is decreased. She notes sinuses are improved. Was unable to produce sputum for culture. She notes perceived fever at night otherwise afebrile. No hemoptysis. No wheezing. Her daughter is a physical therapist and has been helping with percussion. She has been completing pulmonary hygiene. Review of Systems Respiratory: Positive for cough and shortness of breath. Negative for wheezing. Cardiovascular: Negative. Musculoskeletal: Positive for arthralgias. Neurological: Negative. Objective BP 121/83 Pulse 83 Temp 37.1 ?C (98.7 ?F) Resp 16 Wt 63.5 kg (140 lb) LMP 09/30/2013 SpO2 98% BMI 22.94 kg/m? Physical Exam Vitals and nursing note reviewed. Constitutional: Appearance: Normal appearance. HENT: Head: Normocephalic and atraumatic. Right Ear: Tympanic membrane and ear canal normal. Left Ear: Tympanic membrane and ear canal normal. Nose: No mucosal edema or rhinorrhea. Mouth/Throat: Lips: [place]. Mouth: Mucous membranes are moist. Pharynx: Oropharynx is clear. Tonsils: No tonsillar exudate. Eyes: Conjunctiva/sclera: Conjunctivae normal. Neck: Thyroid: No [...] respiratory distress. Breath sounds: Normal breath sounds. No wheezing, rhonchi or rales. Comments: +cough Abdominal: General: Bowel sounds are normal. Palpations: [...] mouth daily at bedtime for 90 days. predniSONE (DELTASONE) 10 mg tablet 4 tablets a day for 3 days, then 3 tablets a day for 3 days, then 2 tablets a day for 3 days, then 1 tablet a day for 3 days albuterol HFA (VENTOLIN HFA) 90 mcg/actuation inhaler Inhale 2 Puffs as instructed every 4 hours as needed for wheezing/shortness of breath. Ibandronate 150 mg tablet Take 1 tablet [...] Take 1 tablet by mouth twice daily. a (more content not included)... [facility] 12-11-2023 History of Present illness Narrative SUBJECTIVE: There are no preventive care reminders to display for this patient. HPI Nury Woods is a 53 year old female. PMH significant for ACTIVE PROBLEM LIST Allergic Rhinitis, Cause Unspecified Anxiety and Depression Migraine Without Aura and Without Status Migrainosus, Not Intractable Uars (Upper Airway Resistance Syndrome) Restless Legs Syndrome Iron Deficiency Dyspnea and Respiratory Abnormalities Selina (Obstructive Sleep Apnea) Moderate Persistent Asthma, Uncomplicated Pure Hypercholesterolemia Episodic Tension-Type Headache, Not Intractable Presents today for recheck. HPI excerpted from previous visits: Presents for emergency department follow-up visit. She was seen for right-sided chest wall discomfort. EKG and chest x-ray without concerning findings. Labs in acceptable range. Negative troponin. Negative D-dimer. Today notes symptoms continue and feeling worse. Present for about one week. She was not provided with treatment from the ER. She notes family members were recently ill with upper respiratory infections. She currently nose nasal congestion drainage sore throat cough continued right-sided chest wall discomfort that is worse with deep breath. Afebrile. Occasionally productive cough. No wheezing. Some increased shortness of breath. No reported GERD or heartburn or abdominal pain. Prior history of bronchiectasis. 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 Would like to reestablish. At her last visit she noted the cough seem worse and was difficult to control. She noted increased coughing at night. Prednisone and albuterol have helped. She noted that sinuses seem to improve. At her last visit she was treated with levofloxacin. Chest x-ray showed opacities. Today notes that cough seems a bit better. Continues on with albuterol Advair per communications advisor. She notes chest wall discomfort is decreased. She notes sinuses are improved. Was unable to produce sputum for culture. She notes perceived fever at night otherwise afebrile. No hemoptysis. No wheezing. Her daughter is a physical therapist and has been helping with percussion. She has been completing pulmonary hygiene. Review of Systems Respiratory: Positive for cough and shortness of breath. Negative for wheezing. Cardiovascular: Negative. Musculoskeletal: Positive for arthralgias. Neurological: Negative. Objective BP 121/83 Pulse 83 Temp 37.1 C (98.7 F) Resp 16 Wt 63.5 kg (140 lb) LMP 09/30/2013 SpO2 98% BMI 22.94 kg/m Physical Exam Vitals and nursing note reviewed. Constitutional: Appearance: Normal appearance. HENT: Head: Normocephalic and atraumatic. Right Ear: Tympanic membrane and ear canal normal. Left Ear: Tympanic membrane and ear canal normal. Nose: No mucosal edema or rhinorrhea. Mouth/Throat: Lips: [place]. Mouth: Mucous membranes are moist. Pharynx: Oropharynx is clear. Tonsils: No tonsillar exudate. Eyes: Conjunctiva/sclera: Conjunctivae normal. Neck: Thyroid: No [...] respiratory distress. Breath sounds: Normal breath sounds. No wheezing, rhonchi or rales. Comments: +cough Abdominal: General: Bowel sounds are normal. Palpations: [...] mouth daily at bedtime for 90 days. predniSONE (DELTASONE) 10 mg tablet 4 tablets a day for 3 days, then 3 tablets a day for 3 days, then 2 tablets a day for 3 days, then 1 tablet a day for 3 days albuterol HFA (VENTOLIN HFA) 90 mcg/actuation inhaler Inhale 2 Puffs as instructed every 4 hours as needed for wheezing/shortness of breath. Ibandronate 150 mg tablet Take 1 tablet [...] G47.33 SELINA desloratadine (CLARINEX) 5 mg tablet azelastine (ASTELIN) 137 mcg NASAL SprA 2 puffs every 12 hours levoFLOXacin (LEVAQUIN) 750 mg tablet Take 1 tablet by mouth once daily for 7 days. Take with food benzonatate (TESSALON PERLE) 100 mg capsule Take 2 capsules by mouth three times a day as needed. PAST MEDICAL HISTORY Diagnosis Date Allergic rhinitis due to other allergen Anxiety and depression Branchial cyst 09/11/2020 Bronchiectasis without acute exacerbation (HCC) Cervicalgia 01/14/2021 Closed fracture of body of sternum 04/25/2022 Closed fracture of one rib of left side 04/26/2022 Frozen shoulder Humerus fracture 12/2021 Dr. Romero Intractable migraine without status migrainosus Dr. Ramirez Iron deficiency SELINA (obstructive sleep apnea) Other [...] Abs Lymph 1.00 - 4.00 k/uL 1.98 [place]% % 6.4 Abs [place] <0.87 k/uL 0.33 E[place]% % 2.3 Abs [...] PTH, Intact 15 - 65 pg/mL 34 ASSESSMENT/PLAN: 1. Opacities of both lungs present on chest x-ray - ICD9: 793.19, ICD10: R91.8 (primary diagnosis) - XR CHEST 2V FRONTAL/LAT 2. Upper respiratory tract infection, unspecified type - ICD9: 465.9, ICD10: J06.9 - LEVOFLOXACIN 750 MG TABLET - LEVOFLOXACIN 750 MG TABLET 3. Sinus congestion - ICD9: 478.19, ICD10: R09.81 Improved with current treatment 4. Bronchiectasis without complication (HCC) - ICD9: 494.0, ICD10: J47.9 Improved with current treatment not not back back to baseline. Notes continued cough, not productive. - LEVOFLOXACIN 750 MG TABLET 5. Chest wall discomfort - ICD9: 786.52, ICD10: R07.89 Improved with current treatment - LEVOFLOXACIN 750 MG TABLET - LEVOFLOXACIN 750 MG TABLET 6. Cough - ICD9: 786.2, ICD10: R05.9 - BENZONATATE 100 MG CAPSULE 7. URI with cough and congestion - ICD9: 465.9, ICD10: J06.9 - BENZONATATE 100 MG CAPSULE Recommend a sooner appointment with pulmonology if able to get it. Recommend an appointment in the near future with communications advisor as well who has been prescribing Advair for her, may need dose adjustment or other treatment as indicated. 1 to 2-week follow-up with me if unable to get in with her specialist. Chest x-ray today. Add benzonatate. Continue with pulmonary hygiene at home. Chuck Wadsworth APRN.CNS Medical Decision Making: Problems: Low: Acute, uncomplicated illness or injury Data: Unique test(s) ordered: 1 Risk: Moderate: Drug management Medical Decision Making Level: 3 - Low documented in this encounter [facility] 12-08-2023 Note HNO ID: [id number] Author: RAMAN REYES JR, MD Service: ? Author Type: Physician Type: Progress Notes Filed: 12/08/2023 10:57 Note Text: ESTABLISHED PATIENT VISIT (Virtual Visit with Video) For this virtual visit, the patient has been identified by name and (MRN and photo identification as well if available). Those taking part in visit: Patient and physician via [employer]. Consent for this visit received from patient. I have communicated my name and active licensure. The patient's identity and physical location ([place]) were verified at the time of this visit. The patient has been informed of the risks and benefits of -- and alternatives to -- treatment through a remote evaluation and consents to proceed with the evaluation remotely. HISTORY OF PRESENT ILLNESS: Nury Woods is a 53 year old female, with a PMH significant for and per last office visit note of 07/13/23: 1. RLS (restless legs syndrome) - ICD9: 333.94, ICD10: G25.81 (primary diagnosis) Well controlled on Klonopion 1mg nightly for years now. No changes to meds, with pt trying in the past with exacerbation of symptoms. Pt understands assisted side effects to consider with Klonopin. No [...] Klonopin controlling both these symptoms and RLS. Pt states had a respiratory infection impacting sleep. Compliance report from 11/20/23 showing nightly use with avg use of 5 hours and 5 minutes. 95% pressure of 14 cmH2O. 95% leak 12.8 LPM. AHI 2.3. This past 2 weeks sleep is all over the place due to URI and steroids that kept her up. Some difficulties using PAP. Coughs and coughs and coughs when she lies down. Prior to the URI pt felt like she was doing well. No issues falling asleep and RLS was well controlled. States of late going to bed earlier because just feels crappy . With exception of coughing, no issues falling asleep. Pt notes a bit more tired without PAP therapy but hard to tell as so tired from being ill with URI. Without PAP can sometimes wake self snorting. Anxiety cele fels is stable at night except some minor exacerbation for a day or so when was on steroid juan. REVIEW OF SYSTEMS GENERAL:No weight loss, malaise [...] above. SKIN:Negative for lesions, rash, and itching. PSYCHIATRIC: See HPI. LAB/IMAGING: Those performed since [...] 18 ALT (U/L) Date Value 02/04/2023 11 URINALYSIS Specific [place], Ur Date Value Ref Range Status 04/25/2022 1.027 1.005 - 1.030 Final Glucose, Urine Date Value Ref Range Status 04/25/2022 Negative Negative Final Bilirubin, Urine Date Value Ref Range Status (more content not included)... [facility] 12-08-2023 Miscellaneous Notes Raman Reyes Jr., MD P [facility] Amy Nurse 3 month follow up with [facility] or RT JUDGE'S CLERK in office. Thank you. documented in this encounter [facility] 12-08-2023 History of Present illness Narrative ESTABLISHED PATIENT VISIT (Virtual Visit with Video) For this virtual visit, the patient has been identified by name and (MRN and photo identification as well if available). Those taking part in visit: Patient and physician via [employer]. Consent for this visit received from patient. I have communicated my name and active licensure. The patient's identity and physical location ([place]) were verified at the time of this visit. The patient has been informed of the risks and benefits of -- and alternatives to -- treatment through a remote evaluation and consents to proceed with the evaluation remotely. HISTORY OF PRESENT ILLNESS: Nury Woods is a 53 year old female, with a PMH significant for and per last office visit note of 07/13/23: 1. RLS (restless legs syndrome) - ICD9: 333.94, ICD10: G25.81 (primary diagnosis) Well controlled on Klonopion 1mg nightly for years now. No changes to meds, with pt trying in the past with exacerbation of symptoms. Pt understands termite treater helper side effects to consider with Klonopin. No [...] Klonopin controlling both these symptoms and RLS. Pt states had a respiratory infection impacting sleep. Compliance report from 11/20/23 showing nightly use with avg use of 5 hours and 5 minutes. 95% pressure of 14 cmH2O. 95% leak 12.8 LPM. AHI 2.3. This past 2 weeks sleep is all over the place due to URI and steroids that kept her up. Some difficulties using PAP. Coughs and coughs and coughs when she lies down. Prior to the URI pt felt like she was doing well. No issues falling asleep and RLS was well controlled. States of late going to bed earlier because just feels crappy . With exception of coughing, no issues falling asleep. Pt notes a bit more tired without PAP therapy but hard to tell as so tired from being ill with URI. Without PAP can sometimes wake self snorting. Anxiety she fels is stable at night except some minor exacerbation for a day or so when was on steroid juan. REVIEW OF SYSTEMS GENERAL:No weight loss, malaise [...] above. SKIN:Negative for lesions, rash, and itching. PSYCHIATRIC: See HPI. LAB/IMAGING: Those performed since [...] 18 ALT (U/L) Date Value 02/04/2023 11 URINALYSIS Specific [place], Ur Date Value Ref Range Status 04/25/2022 1.027 1.005 - 1.030 Final Glucose, Urine Date Value Ref Range Status 04/25/2022 Negative Negative Final Bilirubin, Urine Date Value Ref Range Status 04/25/2022 Negative Negative Final Ketones, Urine Date Value Ref Range Status 04/25/2022 1+ (A) Negative Final Hemoglobin/Blood,Ur Date Value Ref Range Status 04/25/2022 Negative Negative Final Protein, Urine Date Value Ref Range Status 04/25/2022 Negative Negative Final WBC, Urine Date Value Ref Range Status 04/25/2022 0-5 /HPF 0-5 /HPF Final MEDICATIONS: levoFLOXacin (LEVAQUIN) 750 mg tablet Take 1 tablet by mouth once daily for 7 days. Take with food predniSONE (DELTASONE) 10 mg tablet 4 tablets a day for 3 days, then 3 tablets a day for 3 days, then 2 tablets a day for 3 days, then 1 tablet a day for 3 days clonazePAM (KLONOPIN) 1 mg tablet Take 1 tablet by mouth daily at bedtime for 30 days. albuterol HFA (VENTOLIN HFA) 90 mcg/actuation inhaler Inhale 2 Puffs as instructed every 4 hours as needed for wheezing/shortness of breath. Ibandronate 150 mg tablet Take 1 tablet [...] Romero Intractable migraine without status migrainosus Dr. Ramirez Iron deficiency SELINA (obstructive sleep apnea) Other [...] absent, no oral lesions, membranes moist. Lungs: No audible cough, wheeze, sob. NEUROLOGICAL EXAM: General: Awake, alert, oriented x3 (person,place,time), speech fluent, no dysarthria; comprehension, naming, repetition intact. CN: EOMI, face symmetric, hearing is intact, palate and tongue movements are intact and symmetric. SCM and trapezius strength normal. Motor: BHANDARI equal and symmetric. Assessment and Plan: ASSESSMENT/PLAN: 1. RLS (restless legs syndrome) - ICD9: 333.94, ICD10: G25.81 (primary diagnosis) Well controlled on Klonopin 1.0mg QHS. Tolerating without side effects. Again reviewed termite treater helper risks associated with benzo use. Patient feels benefits on sleep and daytime functioning outweigh such risks. Will need UDS and benzo confirmation at time of next visit. 2. Anxiety - ICD9: 300.00, ICD10: F41.9 Well controlled with Klonopin as above. Pt denies any racing thoughts at night. 3. Long-term current use of benzodiazepine - ICD9: V58.69, ICD10: Z79.899 UDS and confirmation at time of next visit. 4. SELINA (obstructive sleep apnea) - ICD9: 327.23, ICD10: G47.33 Doing well on PAP up to the point of having a URI the past weeks. Would expect compliance to improve once over the URI. Pt will contact us in 2 weeks of sleep pattern and PAP use not back to baseline. Otherwise, will follow up in office in 3 months. Raman Reyes MD I spent a total of 25 minutes on the date of the service which included preparing to see the patient, [id number] patient care, completing clinical documentation, obtaining and/or [...] initiating therapy and at least yearly thereafter). 12/08/2023 by Raman Reyes MD documented in this encounter [facility] 12-04-2023 Note HNO ID: [id number] Author: ALBINA BERGMAN RT(Tatiana) Service: Radiology Author Type: Technologist Type: Progress Notes Filed: 12/04/2023 10:04 Note Text: Radiology Service Progress Note PATIENT NAME: Nury Woods DATE OF SERVICE: December 04, 2023 TIME: 9:58 AM PATIENT IDENTITY VERIFICATION COMPLETED USING TWO (2) IDENTIFIERS: Name and Date of confirmed by patient verbally. FALL SCREENING: Has the patient had 2 falls in the last year or 1 fall with injury or currently using an Ambulatory Assistive Device (Walker, Cane, Wheelchair, Crutches, etc.)? No PATIENT GENDER DATA: Female. status: : No status: NO. PATIENT RELEVANT IMPLANT DATA REVIEWED: Yes PATIENT PRESENTS WITH AN IMPLANTABLE OR ATTACHED LICENSED MENTAL HEALTH PROFESSIONAL: No RADIOLOGY DEPARTMENT: General X-ray: Exam(s) Completed: Chest X-Ray PERIPHERAL IV DATA: Not applicable SIGNED BY: RT Varun(R) December 04, 2023 9:58 AM [facility] 12-04-2023 Note HNO ID: [id number] Author: CHUCK WADSWORTH APRN.SCANNING CLERK Service: ? Author Type: Nurse Specialist Type: Progress Notes Filed: 12/04/2023 07:28 Note Text: SUBJECTIVE: There are no preventive care reminders to display for this patient. HPI Nury Woods is a 53 year old female. PMH significant for ACTIVE PROBLEM LIST Allergic Rhinitis, Cause Unspecified Anxiety and Depression Migraine Without Aura and Without Status Migrainosus, Not Intractable Uars (Upper Airway Resistance Syndrome) Restless Legs Syndrome Iron Deficiency Dyspnea and Respiratory Abnormalities Selnia (Obstructive Sleep Apnea) Moderate Persistent Asthma, Uncomplicated Pure Hypercholesterolemia Episodic Tension-Type Headache, Not Intractable Presents today for recheck. HPI excerpted from previous visit: Presents for emergency department follow-up visit. She was seen for right-sided chest wall discomfort. EKG and chest x-ray without concerning findings. Labs in acceptable range. Negative troponin. Negative D-dimer. Today notes symptoms continue and feeling worse. Present for about one week. She was not provided with treatment from the ER. She notes family members were recently ill with upper respiratory infections. She currently nose nasal congestion drainage sore throat cough continued right-sided chest wall discomfort that is worse with deep breath. Afebrile. Occasionally productive cough. No wheezing. Some increased shortness of breath. No reported GERD or heartburn or abdominal pain. Prior history of bronchiectasis. 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 Would like to reestablish. Today notes that cough seems worse. Difficult to control. More coughing noted at night. Prednisone and albuterol have helped. Sinuses are improved. Without report of fever or chills. Perhaps mild shortness of breath on exertion. No noted wheezing. No hemoptysis. Continues with right-sided chest wall discomfort. Review of Systems Respiratory: Positive for cough and shortness of breath. Negative for wheezing. Cardiovascular: Negative. Musculoskeletal: Positive for arthralgias. Neurological: Negative. Objective [facility] 09/30/2013 Physical Exam Vitals and nursing note reviewed. Constitutional: Appearance: Normal appearance. HENT: Head: Normocephalic and atraumatic. Right Ear: Tympanic membrane and ear canal normal. Left Ear: Tympanic membrane and ear canal normal. Nose: No mucosal edema or rhinorrhea. Mouth/Throat: Lips: [place]. Mouth: Mucous membranes are moist. Pharynx: Oropharynx is clear. Tonsils: No tonsillar exudate. Eyes: Conjunctiva/sclera: Conjunctivae normal. Neck: Thyroid: No [...] Pse [Pseudoep* Rash Percocet [Oxycodone* Rash Medications doxycycline (VIBRA-TABS) 100 mg tablet Take 1 tablet by mouth two times a day for 10 days. Take with food clonazePAM (KLONOPIN) 1 mg tablet Take 1 tablet by mouth daily at bedtime for 30 days. albuterol HFA (VENTOLIN HFA) 90 mcg/actuation inhaler Inhale 2 Puffs as instructed every 4 hours as needed for wheezing/shortness of breath. Ibandronate 150 mg tablet Take 1 tablet [...] New set up: Settings 5 - 12 (more content not included)... [facility] 12-04-2023 History of Present illness Narrative SUBJECTIVE: There are no preventive care reminders to display for this patient. HPI Nury Woods is a 53 year old female. PMH significant for ACTIVE PROBLEM LIST Allergic Rhinitis, Cause Unspecified Anxiety and Depression Migraine Without Aura and Without Status Migrainosus, Not Intractable Uars (Upper Airway Resistance Syndrome) Restless Legs Syndrome Iron Deficiency Dyspnea and Respiratory Abnormalities Selina (Obstructive Sleep Apnea) Moderate Persistent Asthma, Uncomplicated Pure Hypercholesterolemia Episodic Tension-Type Headache, Not Intractable Presents today for recheck. HPI excerpted from previous visit: Presents for emergency department follow-up visit. She was seen for right-sided chest wall discomfort. EKG and chest x-ray without concerning findings. Labs in acceptable range. Negative troponin. Negative D-dimer. Today notes symptoms continue and feeling worse. Present for about one week. She was not provided with treatment from the ER. She notes family members were recently ill with upper respiratory infections. She currently nose nasal congestion drainage sore throat cough continued right-sided chest wall discomfort that is worse with deep breath. Afebrile. Occasionally productive cough. No wheezing. Some increased shortness of breath. No reported GERD or heartburn or abdominal pain. Prior history of bronchiectasis. 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 Would like to reestablish. Today notes that cough seems worse. Difficult to control. More coughing noted at night. Prednisone and albuterol have helped. Sinuses are improved. Without report of fever or chills. Perhaps mild shortness of breath on exertion. No noted wheezing. No hemoptysis. Continues with right-sided chest wall discomfort. Review of Systems Respiratory: Positive for cough and shortness of breath. Negative for wheezing. Cardiovascular: Negative. Musculoskeletal: Positive for arthralgias. Neurological: Negative. Objective [facility] 09/30/2013 Physical Exam Vitals and nursing note reviewed. Constitutional: Appearance: Normal appearance. HENT: Head: Normocephalic and atraumatic. Right Ear: Tympanic membrane and ear canal normal. Left Ear: Tympanic membrane and ear canal normal. Nose: No mucosal edema or rhinorrhea. Mouth/Throat: Lips: [place]. Mouth: Mucous membranes are moist. Pharynx: Oropharynx is clear. Tonsils: No tonsillar exudate. Eyes: Conjunctiva/sclera: Conjunctivae normal. Neck: Thyroid: No [...] Pse [Pseudoep* Rash Percocet [Oxycodone* Rash Medications doxycycline (VIBRA-TABS) 100 mg tablet Take 1 tablet by mouth two times a day for 10 days. Take with food clonazePAM (KLONOPIN) 1 mg tablet Take 1 tablet by mouth daily at bedtime for 30 days. albuterol HFA (VENTOLIN HFA) 90 mcg/actuation inhaler Inhale 2 Puffs as instructed every 4 hours as needed for wheezing/shortness of breath. Ibandronate 150 mg tablet Take 1 tablet [...] Romero Intractable migraine without status migrainosus Dr. Ramirez Iron deficiency SELINA (obstructive sleep apnea) Other [...] Abs Lymph 1.00 - 4.00 k/uL 1.98 [place]% % 6.4 Abs [place] <0.87 k/uL 0.33 Eosin% % 2.3 Abs [...] PTH, Intact 15 - 65 pg/mL 34 ASSESSMENT/PLAN: 1. Upper respiratory tract infection, unspecified type - ICD9: 465.9, ICD10: J06.9 (primary diagnosis) She notes initially improved with antibiotic and prednisone. Now cough seems worse. Will treat as bronchiectasis exacerbation. - Symptomatic treatment with prn analgesia - Supportive care with fluids and rest - RESP CULTURE + STAIN - LEVOFLOXACIN 750 MG TABLET - XR CHEST 2V FRONTAL/LAT 2. Sinus congestion - ICD9: 478.19, ICD10: R09.81 3. Bronchiectasis without complication (HCC) - ICD9: 494.0, ICD10: J47.9 - RESP CULTURE + STAIN - LEVOFLOXACIN 750 MG TABLET - XR CHEST 2V FRONTAL/LAT 4. Acute non-recurrent frontal sinusitis - ICD9: 461.1, ICD10: J01.10 Appears resolved 5. Chest wall discomfort - ICD9: 786.52, ICD10: R07.89 Notes this is persisting, possibly due to respiratory infection. Prior chest x-ray without acute findings. Will repeat today. - RESP CULTURE + STAIN - LEVOFLOXACIN 750 MG TABLET - XR CHEST 2V FRONTAL/LAT Recheck in 1 week. Would like to reestablish with cadd operator, appointment has been made. Chuck Wadsworth APRN.CNS Medical Decision Making: Problems: Low: Acute, uncomplicated illness or injury Data: Unique test(s) ordered: 2 Risk: Moderate: Drug management Medical Decision Making Level: 3 - Low documented in this encounter [facility] 11-27-2023 Note HNO ID: [id number] Author: CHUCK WADSWORTH APRN.SCANNING CLERK Service: ? Author Type: Nurse Specialist Type: Progress Notes Filed: 11/27/2023 11:34 Note Text: SUBJECTIVE: There are no preventive care reminders to display for this patient. HPI Nury Woods is a 53 year old female. PMH significant for ACTIVE PROBLEM LIST Allergic Rhinitis, Cause Unspecified Anxiety and Depression Migraine Without Aura and Without Status Migrainosus, Not Intractable Uars (Upper Airway Resistance Syndrome) Restless Legs Syndrome Iron Deficiency Dyspnea and Respiratory Abnormalities Selina (Obstructive Sleep Apnea) Moderate Persistent Asthma, Uncomplicated Pure Hypercholesterolemia Episodic Tension-Type Headache, Not Intractable Presents for emergency department follow-up visit. She was seen for right-sided chest wall discomfort. EKG and chest x-ray without concerning findings. Labs in acceptable range. Negative troponin. Negative D-dimer. Today notes symptoms continue and feeling worse. Present for about one week. She was not provided with treatment from the ER. She notes family members were recently ill with upper respiratory infections. She currently nose nasal congestion drainage sore throat cough continued right-sided chest wall discomfort that is worse with deep breath. Afebrile. Occasionally productive cough. No wheezing. Some increased shortness of breath. No reported GERD or heartburn or abdominal pain. Prior history of bronchiectasis. 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 Would like to reestablish. Review of Systems Constitutional: Positive for fatigue. HENT: Positive for sinus pressure, sinus pain and sore throat. Respiratory: Positive for cough. Negative for shortness of breath and wheezing. Cardiovascular: Negative. Musculoskeletal: Positive for arthralgias. Neurological: Negative. Objective BP 108/72 Pulse 109 Temp 37.3 ?C (99.2 ?F) Resp 16 Wt 64.4 kg (142 lb) LMP 09/30/2013 SpO2 99% BMI 23.27 kg/m? Physical Exam Vitals and nursing note reviewed. Constitutional: Appearance: Normal appearance. HENT: Head: Normocephalic and atraumatic. Right Ear: Tympanic membrane and ear canal normal. Left Ear: Tympanic membrane and ear canal normal. Nose: Mucosal edema and rhinorrhea (purulent) present. Mouth/Throat: Lips: [place]. Mouth: Mucous membranes are moist. Pharynx: Oropharynx is clear. Tonsils: No tonsillar exudate. Eyes: Conjunctiva/sclera: Conjunctivae normal. Neck: Thyroid: No [...] tablet by mouth daily at bedtime for 30 days. albuterol HFA (VENTOLIN HFA) 90 mcg/actuation inhaler Inhale 2 Puffs as instructed every 4 hours as needed for wheezing/shortness of breath. Ibandronate 150 mg tablet Take 1 tablet [...] DsDv 1 puffs every 12 hours azelastine (more content not included)... [facility] 10-29-2023 Note HNO ID: [id number] Author: Ronda Rouse APRN.JUDGE'S CLERK Service: ? Author Type: Nurse Practitioner Type: [...] visit. Either the patient or their legal field representative/health education has been informed of the risks and [...] Impression and Plan from last visit 04/29/2023, : ASSESSMENT: 52 year old female with history [...] medications per month: 5-6x Analgesic Hydrocodone/Acetaminophen (Vicodin, [place]) Hydromorphone (Dilaudid) Ketorolac (Toradol) Meperidine (Demerol) Morphine [...] Romero Intractable migraine without status migrainosus Dr. Ramirez Iron deficiency SELINA (obstructive sleep apnea) Other insomnia Pure hyperchol (more content not included)... [facility] 10-15-2023 Note HNO ID: [id number] Author: Fausto Cheng MD Service: ? Author Type: Physician Type: [...] L2 SAB0 IAB0 Ectopic0 Multiple0 Live Births0 Clin Nurse Spec History LMP: 09/30/2013, Ablation Age at Menarche: Age at First : Age at Menopause: Clin Nurse Spec History Comments: Sexual Activity: Not Currently; No [...] Romero Intractable migraine without status migrainosus Dr. Ramirez Iron deficiency SELINA (obstructive sleep apnea) Other [...] ANDOR POLYPECTOMY 2013 S CATH ABLATION THERMACHOICE 2012 THYROIDECTOMY TOTAL/COMPLETE [...] external genitalia normal, normal Bartholin's glands, urethra, [place]'s glands, no vulvar lesions, no cervical lesions, good vaginal support, physiologic discharge present, normal appearing perineal body and perianal region BIMANUAL: uterus normal size, shape and consistency, no adnexal masses, and non-tender RECTOVAGINAL: deferred. NEURO: alert and oriented x3,exam grossly non-focal EXTREMITIES: normal ASSESSMENT/PLAN: 1) Health maintenance: Pap done with HPV. Mammogram ordered 2) Follow up one year or sooner as needed Fausto Cheng MD [facility] 10-15-2023 History of Present illness Narrative Nury is a 53 year old who presents for an annual gynecologic exam without complaints. Postmenopausal: yes HRT use: No. Last Pap: 10/15/2022 normal HPV: 10/15/2022 negative History of abnormal pap: No Last mammogram: 2022 normal History of abnormal mammogram: No OB History T2 L2 SAB0 IAB0 Ectopic0 Multiple0 Live Births0 Clin Nurse Spec History LMP: 09/30/2013, Ablation Age at Menarche: Age at First : Age at Menopause: Clin Nurse Spec History Comments: Sexual Activity: Not Currently; No [...] Romero Intractable migraine without status migrainosus Dr. Ramirez Iron deficiency SELINA (obstructive sleep apnea) Other [...] external genitalia normal, normal Bartholin's glands, urethra, [place]'s glands, no vulvar lesions, no cervical lesions, good vaginal support, physiologic discharge present, normal appearing perineal body and perianal region BIMANUAL: uterus normal size, shape and consistency, no adnexal masses, and non-tender RECTOVAGINAL: deferred. NEURO: alert and oriented x3,exam grossly non-focal EXTREMITIES: normal ASSESSMENT/PLAN: 1) Health maintenance: Pap done with HPV. Mammogram ordered 2) Follow up one year or sooner as needed Fausto Cheng MD documented in this encounter [facility] 10-15-2023 Miscellaneous Notes October 16, 2023 PID: [id number] Nury Woods [address] [address] Dear Ms. Woods, We are pleased to [...] report will be kept on file at [facility] as part of your permanent medical record and are available for your continuing care. Thank you for allowing us to help in meeting your health care needs. Sincerely, Dr. Glass Interpreting Radiologist [facility] (Normal over 40) documented in this encounter [facility] 10-15-2023 Note HNO ID: [id number] Author: Cris Torres RT(R) Service: ? Author Type: Motor Builder Assembler Type: Progress Notes Filed: 10/15/2023 7:35 AM [...] RT Elieser(R) October 15, 2023 7:34 AM [facility] 10-12-2023 Miscellaneous Notes PDMP website checked and validated. All prescriptions have been APPROPRIATELY filled. No suspicious activity was identified. Note: A urine tox screen and urine pain panel have been completed appropriately (after 12 weeks of initiating therapy and at least yearly thereafter). 10/12/2023 by Raman Reyes MD MADDI 07/13/23 with [facility] NOV 12/08/23 with [facility] Refill 07/22/23 with qty: 30 and 2 refills Steph Vallecillo LPN [facility] Assessment/Plan ASSESSMENT/PLAN: 1. RLS (restless legs syndrome) - ICD9: 333.94, ICD10: G25.81 (primary diagnosis) Well controlled on Klonopion 1mg nightly for years now. No changes to meds, with pt trying in the past with exacerbation of symptoms. Pt understands assisted side effects to consider with Klonopin. No [...] Raman Reyes MD documented in this encounter [facility] 08-29-2023 Note HNO ID: [id number] Author: Sergey Zhang MD Service: ? Author [...] Romero Intractable migraine without status migrainosus Dr. Ramirez Iron deficiency SELINA (obstructive sleep apnea) Other [...] like antiviral treatment if positive for COVID. Anam has interactions with Advair (steroid) and Ubrelvy. Schedule with [facility] or return tomorrow to discuss molnupiravir. Sergey Zhang MD [facility] 08-29-2023 History of Present illness Narrative Patient [...] Romero Intractable migraine without status migrainosus Dr. Ramirez Iron deficiency SELINA (obstructive sleep apnea) Other [...] Sergey Zhang MD documented in this encounter [facility] 08-21-2023 Note HNO ID: [id number] Author: Wadsworth, Chuck, DIAGNOSTICS SALES DEVELOPER.SCANNING CLERK Service: ? Author Type: Nurse Specialist Type: [...] at bedtime for RLS.. Seen by Dr. Cheng MARINE RIGGER October 13, 2022. Pap was within normal [...] Q-10) 100 mg (more content not included)... [facility] 08-21-2023 History of Present illness Narrative SUBJECTIVE: [...] at bedtime for RLS.. Seen by Dr. Cheng MARINE RIGGER October 13, 2022. Pap was within normal [...] Romero Intractable migraine without status migrainosus Dr. Ramirez Iron deficiency SELINA (obstructive sleep apnea) Other [...] Abs Lymph 1.00 - 4.00 k/uL 1.98 [place]% % 6.4 Abs [place] <0.87 k/uL 0.33 Eosin% % 2.3 Abs [...] follow up with labs MD Chuck Rose APRN.SCANNING CLERK Medical Decision Making: Medical Decision Making Level: 1 - N/A documented in this encounter [facility] 07-13-2023 Note HNO ID: [id number] Author: Raman Reyes Jr., MD Service: ? [...] night with Klonopin. No racing thoughts. Reviewed termite treater helper SEs of Klonopin but pt feels without [...] per pt pref (more content not included)... [facility] 07-13-2023 Instructions Raman Reyes Jr., MD - 07/13/2023 9:27 AM EDT documented in this encounter [facility] 07-13-2023 History of Present illness Narrative [...] night with Klonopin. No racing thoughts. Reviewed termite treater helper SEs of Klonopin but pt feels without medication, will not be able to maintain sleep and in turn will have difficulties functioning during the day. Thus will continue as above. PAP data compliance report from 04/11/23-9/7/23 showed 82/90 days used for avg of [...] Romero Intractable migraine without status migrainosus Dr. Ramirez Iron deficiency SELINA (obstructive sleep apnea) Other [...] past with exacerbation of symptoms. Pt understands assisted side effects to consider with Klonopin. No [...] which included preparing to see the patient, [id number] patient care, completing clinical documentation, obtaining and/or reviewing separately obtained history, performing a medically appropriate examination, counseling and educating the patient/family/caregiver, ordering medications, tests, or procedures, independently interpreting results (not separately reported), and communicating results to the patient/family/caregiver (results = PAP data download). documented in this encounter [facility] 06-23-2023 Miscellaneous Notes PDMP website checked and validated. All prescriptions have been APPROPRIATELY filled. No suspicious activity was identified. 06/23/2023 by Raman Reyes MD MADDI 02/16/23 with [facility] NOV 07/13/23 with [facility] Refill 02/16/23 with qty: 30 and 2 refills Steph Vallecillo LPN [facility] Assessment/Plan ASSESSMENT/PLAN: 1. RLS (restless legs syndrome) [...] night with Klonopin. No racing thoughts. Reviewed termite treater helper SEs of Klonopin but pt feels without medication, will not be able to maintain sleep and in turn will have difficulties functioning during the day. Thus will continue as above. Raman Reyes MD documented in this encounter [facility] 04-29-2023 Note HNO ID: [id number] Author: Sandy Ramirez, DO Service: ? Author Type: Physician Type: [...] she finds the Ubrelvy more helpful. Nury Woods has been previously approved for [...] to Medication Overuse Headache: Analgesic Hydrocodone/Acetaminophen (Vicodin, [place]) Hydromorphone (Dilaudid) Ketorolac (Toradol) Meperidine (Demerol) Morphine [...] 1 tablet by (more content not included)... [facility] 04-13-2023 Note HNO ID: [id number] Author: Aileen Luna APRN.JUDGE'S CLERK Service: ? Author Type: Nurse Practitioner Type: [...] Romero Intractable migraine without status migrainosus Dr. Ramirez Iron deficiency SELINA (obstructive sleep apnea) Other [...] THYROIDECTOMY TOTAL/COMPLETE 1995 partial - ? left ALLERGIES Codeine, Cytotec [...] Grandmother other (Ot (more content not included)... [facility] 02-16-2023 Note HNO ID: [id number] Author: Raman Reyes Jr., MD Service: ? [...] Depression) 0 (None-Minimal Depression) 0 (None-Minimal Depression) [place] Sleepiness Scale 10/08/2022 12/12/2022 02/11/2023 Score - [...] 02/04/2023 9.0 Glucos (more content not included)... [facility] 02-16-2023 Instructions Raman Reyes Jr., MD - 02/16/2023 11:20 AM EDT Maintaining a healthy weight is gastelum to good sleep. documented in this encounter [facility] 02-16-2023 History of Present illness Narrative [...] Depression) 0 (None-Minimal Depression) 0 (None-Minimal Depression) [place] Sleepiness Scale 10/08/2022 12/12/2022 02/11/2023 Score - [...] Romero Intractable migraine without status migrainosus Dr. Ramirez Iron deficiency SELINA (obstructive sleep apnea) Other [...] night with Klonopin. No racing thoughts. Reviewed assisted SEs of Klonopin but pt feels without medication, will not be able to maintain sleep and in turn will have difficulties functioning during the day. Thus will continue as above. Raman Reyes MD I spent a total of 22 minutes on the date of the service which included preparing to see the patient, [id number] patient care, completing clinical documentation, obtaining and/or reviewing separately obtained history, performing a medically appropriate examination, counseling and educating the patient/family/caregiver, ordering medications, tests, or procedures, and communicating results to the patient/family/caregiver. PDMP website checked and validated. All prescriptions have been APPROPRIATELY filled. No suspicious activity was identified. 02/16/2023 by Raman Reyes MD documented in this encounter [facility] 02-03-2023 Note HNO ID: [id number] Author: Michi Guzman MD Service: ? Author Type: Physician Type: Progress Notes Filed: 08/30/2023 12:35 AM Note Text: This note was created using [employer]. Subjective Nury Woods is a 52 year old female. HISTORY Nury Woods is a 52 year old lady here to be formally established with me. Transfered care from Dr. Castillo last April through appointment with JUANY Auguste. Noted had frozen shoulder done through provider in [facility]. Made appointment in March--Dr. Bartlett (her daughter is PT at [facility]). Meloxicam had helped before. Reviewed last year had sternal left third rib fracture. Noted has half a thyroid. At 22 to 23 yo had lump on the thyroid and surgeon removed right side lobe with the lump. 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 Does use CPAP routinely. PAST MEDICAL HISTORY Diagnosis Date Allergic rhinitis due to other allergen Anxiety and depression Branchial cyst 09/11/2020 Bronchiectasis without acute exacerbation (HCC) Cervicalgia 01/14/2021 Closed fracture of body of sternum 04/25/2022 Closed fracture of one rib of left side 04/26/2022 Frozen shoulder Humerus fracture 12/2021 Dr. Romero Intractable migraine without status migrainosus Dr. Ramirez Iron deficiency SELINA (obstructive sleep apnea) Other [...] ANDOR POLYPECTOMY 2013 S CATH ABLATION THERMACHOICE 2012 THYROIDECTOMY TOTAL/COMPLETE [...] Right Ear: E (more content not included)... [facility] 12-15-2022 History of Present illness Narrative ESTABLISHED [...] Continue Klonopin as above. Discussed with pt assisted SE and ADRs possible with Klonopin. Pt [...] Depression) 0 (None-Minimal Depression) 0 (None-Minimal Depression) [place] Sleepiness Scale 07/31/2022 10/08/2022 12/12/2022 Score 2 [...] Romero Intractable migraine without status migrainosus Dr. Ramirez Iron deficiency SELINA (obstructive sleep apnea) Other [...] which included preparing to see the patient, [id number] patient care, completing clinical documentation, obtaining and/or reviewing separately obtained history, performing a medically appropriate examination, counseling and educating the patient/family/caregiver, and ordering medications, tests, or procedures. PDMP website checked and validated. All prescriptions have been APPROPRIATELY filled. No suspicious activity was identified. 12/15/2022 by Raman Reyes MD documented in this encounter [facility] 10-15-2022 History of Present illness Narrative [...] Romero Intractable migraine without status migrainosus Dr. Ramirez Iron deficiency SELINA (obstructive sleep apnea) Other [...] Drug use: No MADDI 04/14/[address] Ramirez. Headache history at last visit: ASSESSMENT: 51 [...] pleased with this. Prior to seeing Dr Ramirez, migraines were a bear ! Her current [...] Use Dose Side effect Analgesic Hydrocodone/Acetaminophen (Vicodin, [place]) Hydromorphone (Dilaudid) Ketorolac (Toradol) Meperidine (Demerol) Morphine [...] discussed these with the patient: yes. Beka Small PA-C HEADACHE SCORES: Headache Questions 12/13/2021 04/13/2022 [...] 10/08/2022 Score 0 1 0 PHYSICAL EXAM: [facility] 09/30/2013 GEN: Alert. NAD. Normal affect. Cooperative. [...] plan of care in initiated by Dr Ramirez. ICHD-3 Diagnosis: Episodic Migraine PLAN: 1) CMP for medication monitoring 2) Prevention: Continue Topamax and amitriptyline as prescribed by Dr ramirez 3) Abortive: continue Ubrelvy or Maxalt as [...] which included preparing to see the patient, [id number] patient care, completing clinical documentation, obtaining and/or [...] at conclusion of the virtual session. 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 Had a broken sternum from a fall this year. Postmenopausal: yes HRT use: No. Last Pap: 08/24/2017 normal HPV: 08/21/2017 negative History of abnormal pap: No Last mammogram: 2021 pending History of abnormal mammogram: No Sexually active: No OB History T2 L2 SAB0 IAB0 Ectopic0 Multiple0 Live Births0 Clin Nurse Spec History LMP: 09/30/2013, Ablation Age at Menarche: Age at First : Age at Menopause: Clin Nurse Spec History Comments: Sexual Activity: Not Currently; No partner data on record Contraception: No contraception data on record PAST MEDICAL HISTORY Diagnosis Date Allergic rhinitis due to other allergen Anxiety and depression Bronchiectasis without acute exacerbation (HCC) Cervicalgia 01/14/2021 Frozen shoulder Humerus fracture 12/2021 Dr. Romero Intractable migraine without status migrainosus Dr. Ramirez Iron deficiency SELINA (obstructive sleep apnea) Other [...] external genitalia normal, normal Bartholin's glands, urethra, [place]'s glands, no vulvar lesions, no cervical lesions, good vaginal support, physiologic discharge present, normal appearing perineal body and perianal region BIMANUAL: uterus normal size, shape and consistency, no adnexal masses, and non-tender RECTOVAGINAL: deferred. NEURO: alert and oriented x3,exam grossly non-focal EXTREMITIES: normal ASSESSMENT/PLAN: 1) Health maintenance: Pap done with HPV. Mammogram ordered 2) Follow up one year or sooner as needed Fausto Cheng MD documented in this encounter [facility] 09-17-2022 History of Present illness Narrative [...] Romero Intractable migraine without status migrainosus Dr. Ramirez Iron deficiency SELINA (obstructive sleep apnea) Other [...] Continue Klonopin as above. Discussed with pt assisted SE and ADRs possible with Klonopin. Pt not wanting to change meds as feels benefits of being able to sleep and function during the day outweigh risks. Raman Reyes MD I spent a total of 35 minutes on the date of the service which included preparing to see the patient, ivtj-[id number] patient care, completing clinical documentation, obtaining and/or [...] Raman Reyes MD documented in this encounter [facility] 08-22-2022 Miscellaneous Notes PrestoBoxhart message sent Maddi 01/10/[address] [...] Raman Reyes MD documented in this encounter [facility] 08-08-2022 Miscellaneous Notes My Chart message [...] Toshia Prince RN documented in this encounter [facility] 08-01-2022 History of Present illness Narrative Pt needs in person visit for clonazepam refill. Pt MRN sent to scheduling to assist PDMP website checked and validated. All prescriptions have been APPROPRIATELY filled. No suspicious activity was identified. 08/01/2022 by SIA Fung APRN.BERNIE documented in this encounter [facility] 07-17-2022 Miscellaneous Notes Images from the original note were not included. documented in this encounter [facility] 06-24-2022 Miscellaneous Notes Pt called and is notified of providers results and instructions. Pt voices understanding. Pt reports she will take the ibandronate. Sent providers message to Pt through Kasenna per her request. Tanja Basilio RN Please let her know that BMD showed osteopenia. Recommend 1200 mg of calcium through diet or supplement daily, vitamin D3 800 IU daily and routine weight bearing exercise such as walking to help keep bone strong. Consider treatment to strengthen bone such as ibandronate. documented in this encounter [facility] 06-23-2022 History of Present illness Narrative [...] 2022 9:00 AM documented in this encounter [facility] 06-02-2022 Miscellaneous Notes Left detailed message [...] acute radiographic abnormality. documented in this encounter [facility] 05-30-2022 History of Present illness Narrative SUBJECTIVE: COVID-19 VACCINE(1) Never done PAP TESTING due on 08/18/2022 HPV TESTING due on 08/18/2022 HPI Nury Woods is a 51 year old female. [...] managed using Tylenol during the day and [place] at nighttime. No she did have hiccups [...] Romero Intractable migraine without status migrainosus Dr. Ramirez Iron deficiency SELINA (obstructive sleep apnea) Other [...] pneumonia following the fracture. 1-2 week urinalysis CHELLE Auguste APRN.CNS Medical Decision Making: Problems: Moderate: Acute illness with systemic symptoms Data: Unique test(s) ordered: 1 Risk: Moderate: Drug management Medical Decision Making Level: 4 - Moderate documented in this encounter [facility] 05-08-2022 History of Present illness Narrative [...] 2022 4:44 PM documented in this encounter [facility] 05-07-2022 Miscellaneous Notes Left below results on vm per Patient's request. Liss Heart LPN ----- Message from Chuck Wadsworth APRN.SCANNING CLERK sent at 05/07/2022 10:41 AM EDT ----- Vit D within normal limits documented in this encounter [facility] 05-02-2022 Miscellaneous Notes Images from the original note were not included. Prior authorization approved Payer: [facility] [phone] Your PA request has been approved. Additional information will be provided in the approval communication. (Message 1145) Approval Details Authorized from May 02, 2022 to June 01, 2022 Electronic PA completed for hydrocodone-acetaminophen documented in this encounter [facility] documented as of this encounter (statuses as of 05/02/2022) [facility] History of Past illness Narrative* Problem [...] of this encounter (statuses as of 05/07/2022) [facility] of Past [facility] Narrative* Problem [...] of this encounter (statuses as of 05/09/2022) [facility] Past [facility] Narrative* Problem [...] of this encounter (statuses as of 05/30/2022) [facility] Narrative* Problem [...] of this encounter (statuses as of 06/02/2022) [facility] Narrative* Problem [...] of this encounter (statuses as of 06/24/2022) [facility] Narrative* Problem [...] of this encounter (statuses as of 07/17/2022) [facility] Narrative* Problem [...] of this encounter (statuses as of 08/01/2022) [facility] Narrative* Problem [...] of this encounter (statuses as of 08/08/2022) [facility] Narrative* Problem Noted Date Resolved Date Fall 04/26/2022 04/26/2022 Trauma 04/25/2022 04/26/2022 Chronic tension-type headache, intractable 08/0604/14/2022 Chronic daily headache 08/06/2021 2 Cervicalgia 01/14/2021 02/06/2021 Medication overuse headache 10/19/2020 031 Rebound headache 10/19/2020 01/09/2021 Intractable chronic migraine [...] of this encounter (statuses as of 08/22/2022) [facility] Narrative* Problem [...] of this encounter (statuses as of 09/17/2022) [facility] Narrative* Problem [...] of this encounter (statuses as of 10/13/2022) [facility] N[facility]ative* Problem [...] of this encounter (statuses as of 10/15/2022) [facility] Narrative* Problem [...] of this encounter (statuses as of 12/15/2022) [facility] Narrative* Problem [...] of this encounter (statuses as of 02/16/2023) [facility] N[facility]ative* Problem [...] of this encounter (statuses as of 06/23/2023) [facility] Narrative* Problem [...] of this encounter (statuses as of 07/13/2023) [facility] Narrative* Problem Noted Date Diagnosed Date Resolved Date Fall 04/26/2022 04/26/2022 Closed fracture of one rib of left side 04/26/2022 10/13/2022 Trauma 04/25/2022 04/26/2022 Closed fracture of body of sternum 04/25/2022 10/13/2022 Status migrainosus 08/27/2021 06/28/202 3 Chronic tension-type headache, intractable 08/06/2021 04/14/2022 Chronic [...] of this encounter (statuses as of 08/21/2023) [facility] Narrative* Problem Noted Date Diagnosed Date Resolved Date Fall 04/26/2022 04/26/2022 Closed fracture of one rib of left side 04/26/2022 10/13/2022 Trauma 04/25/2022 04/26/2022 Closed fracture of body of sternum 04/25/2022 10/13/2022 Status migrainosus 08/27/2021 3 Chronic tension-type headache, intractable 08/06/2021 04/14/2022 Chronic [...] of this encounter (statuses as of 08/29/2023) [facility] Narrative* Problem [...] of this encounter (statuses as of 10/13/2023) [facility]ative* Problem [...] of this encounter (statuses as of 10/16/2023) [facility] Narrative* Problem [...] of this encounter (statuses as of 10/17/2023) [facility] Narrative* Problem [...] as of this encounter (statuses as of 12/04/2023) [facility] Narrative* Problem [...] as of this encounter (statuses as of 12/08/2023) [facility] Narrative* Problem [...] as of this encounter (statuses as of 12/11/2023) [facility] Narrative* Problem [...] as of this encounter (statuses as of 12/11/2023) [facility] Narrative* Problem Noted Date Diagnosed Date Resolved Date Fall 04/26/2022 04/26/2022 Closed fracture of one rib of left side 04/26/2022 10/13/2022 Trauma 04/25/2022 04/26/2022 Closed fracture of body of sternum 04/25/2022 10/13/2022 Status migrainosus 08/27/2021 3 Chronic tension-type headache, intractable 08/06/2021 04/14/2022 Chronic [...] as of this encounter (statuses as of 12/23/2023) [facility] Narrative* Problem Noted Date Diagnosed Date Resolved Date Fall 04/26/2022 04/26/2022 Closed fracture of one rib of left side 04/26/2022 10/13/2022 Trauma 04/25/2022 04/26/2022 Closed fracture of body of sternum 04/25/2022 10/13/2022 Status migrainosus 08/27/2021 3 Chronic tension-type headache, intractable 08/06/2021 04/14/2022 Chronic [...] as of this encounter (statuses as of 12/24/2023) [facility] N[facility]ative* Problem [...] as of this encounter (statuses as of 12/25/2023) [facility] N[facility]ative* Problem [...] as of this encounter (statuses as of 12/29/2023) [facility]ative* Problem [...] as of this encounter (statuses as of 12/29/2023) [facility] Narrative* Problem [...] as of this encounter (statuses as of 12/30/2023) [facility] Miscellaneous Notes* Telephone Encounter - Raman [...] and advise. Monica Saleem [facility] History of Present illness Narrative* Sandy Ramirez DO - 04/14/2022 4:34 PM EDT Headache [...] lead toMedication Overuse Headache: Analgesic Hydrocodone/Acetaminophen (Vicodin, [place]) Hydromorphone (Dilaudid) Ketorolac (Toradol) Meperidine (Demerol) Morphine [...] PRN medication usage in the last month: 04 13 15 Patient impression of improvement since last [...] Dose Reason for Discontinuation Analgesic Hydrocodone/Acetaminophen (Vicodin, [place]) Hydromorphone (Dilaudid) Ketorolac (Toradol) Meperidine (Demerol) Morphine [...] Ibuprofen (Advil, Motrin) Naproxen sodium (Aleve) Sandy Ramirez DO [facility] [place] Department of [facility] [place] [facility] [place] - Headache and Chronic Pain Medicine [address] [place] [address] Level of service: Est level 2 (10-19 min). Time spent 16 min on the day of service, which included preparing to see the patient, [id number] patient care, completing clinical documentation, obtaining and/or reviewing separately obtained history, counseling and educating the patient/family/caregiver and ordering medications, tests, or procedures. Medical Decision Making cc: Michi Guzman [address] [place], [place] [id number] [facility] History of Present illness Narrative* Chuck Wadsworth APRN.SCANNING CLERK - 04/03/2022 9:00 AM EDT SUBJECTIVE: PAP [...] Syndrome Iron Deficiency Dyspnea and Respiratory Abnormalities Selnia (Obstructive Sleep Apnea) Chronic Tension-Type Headache, Intractable Chronic Daily Headache Moderate Persistent Asthma, Uncomplicated Status Migrainosus Pure Hypercholesterolemia PCP: Shasta Leosnts today to transfer care to Dr Guzman. Seen by Yong Castillo MD 02/26/2022. Seen by Dr Ramirez, for migraine headache. Dr Reyes, SELINA. Dr Cheng MARINE RIGGER. Notes doing well. Notes advised needed to [...] Value 02/26/2022 122 04/12/2021 106 LDL Chol, [place]ar (mg/dL) Date Value 07/24/2007 82 LDL Cholesterol, Nonfasting (mg/dL) Date Value 06/28/2019 91 Triglyceride (mg/dL) Date Value 02/26/2022 91 04/12/2021 61 Triglycerides, Nonfasting (mg/dL) Date Value 06/28/2019 50 The 10-year ASCVD risk score (Ernestinejose LOJA Jr., et al., 2013) is: 1% [...] Romero Intractable migraine without status migrainosus Dr. Ramirez Iron deficiency SELNIA (obstructive sleep apnea) Other insomnia Pure hypercholesterolemia [...] DIFF Would like to establish with Dr. Guzman; 10-12 mo follow up to do so. Chuck Wadsworth APRN.SCANNING CLERK Medical Decision Making: Problems: Low: Stable chronic illness Data: Unique test result(s) reviewed: 1 Unique test(s) ordered: 2 Medical Decision Making Level: 3 - Low [facility] History of Present illness Narrative* Yong Castillo MD - 02/26/2022 8:13 AM EDT Chief Complaint Patient presents with: Physical HPI Nury Woods is a 51 year old female who presents here today for Above Complaints. Patient states that she slipped and fell on ice 2 months ago and fractured her left humerus. Has been following up with Dr. Romero in [place] and was placed in a sling. Healing well per OV yesterday. Has next follow up appointment in March. RLS: controlled on Clonazepam qhs per Dr. Reyes. SELINA: doing well on PAP without complaints. Using on a nightly basis. Migraines: Added Amitryptyline to her regimen at last OV with Dr. Ramirez in December which has reduced the frequency [...] Romero Intractable migraine without status migrainosus Dr. Ramirez Iron deficiency SELINA (obstructive sleep apnea) Other [...] ANDOR POLYPECTOMY 2013 S CATH ABLATION THERMACHOICE 2012 THYROIDECTOMY TOTAL/COMPLETE 1995 partial - ? left Family History FAMILY [...] No history of dysuria, frequency or incontinence [employer] MECH[employer]IC: Negative for abnormal vaginal bleeding, abnormal vaginal [...] and regular exercise - Patient was counseled [id number] by myself (the billing provider) for the following immunizations and vaccine components, including side effects: COVID- 19, Pneumococcal , Shingrix and TdaP. Patient refusing vaccination. - Needs to call [employer] for routine pap smear. - Follow up [...] neurology. Yong Castillo MD [facility] History of Past illness Narrative* Problem [...] of this encounter (statuses as of 04/14/2022) [facility] of Past illness Narrative* Problem [...] of this encounter (statuses as of 04/18/2022) [facility]21 NoteHNO ID: [id number] Author: Sandra Garnica PSYD Service: ? Author Type: Psychologist Type: Progress Notes Filed: 05/21/2021 5:30 PM Note Text: [facility] BE[facility]AVIORAL SLEEP MEDIC[facility] Virtual Group May 21, 2021 Time: 3-4:05pm [id number]: Virtual Group Psychotherapy The [facility] virtual group [...] 3. Pt is scheduled for follow-up with [facility] provider who completed initial evaluation for remaining sessions of CBT-I Sandra Garnica Psy.D. [facility]07-16-2021 NoteHNO ID: [id number] Author: Edda Clark, PhD Service: ? Author Type: Psychologist Type: Progress Notes Filed: 05/17/2021 1:28 PM Note Text: Behavioral Sleep Medicine Consult Edda Clark, Ph.D., [facility] -- Psychologist ([place] License [id number]) Due to the federal emergency declaration and the need for ongoing mental health services, the following visit was completed virtually and informed consent obtained orally to reduce the risk of COVID-19 exposure. Oral consent to services related to virtual visits was obtained after information was sent via Kasenna or read to patient if PrestoBoxhart not available Contact Method: Zoom Patient Confirmed Address: [address] [place] [address] Patient Confirmed Telephone #: [phone] Time: 1230 Patient was seen for an [...] a BS evaluation for insomnia, referred by [facility] Sleep Disorders Provider - Rosario Paniagua APRN JUDGE'S CLERK HPI: Ms. Woods reported symptoms of sleep [...] treated by Behavioral Sleep Medicine at the [facility]. PMH: ACTIVE PROBLEM LIST Allergic Rhinitis, [...] mild SELINA; star (more content not included)... [id number] History of Past illness Narrative* Problem Noted [...] of this encounter (statuses as of 02/26/2022) [facility] of Past illness Narrative* Problem [...] of this encounter (statuses as of 04/03/2022) [facility] Diagnosis Annual physical exam- Primary Routine [...] of status migrainosus [facility] Diagnosis Pure hypercholesterolemia- Primary Anxiety and depression Dysthymic disorder [facility] Diagnosis Migraine without aura and without status migrainosus, not intractable- Primary Migraine without aura, without mention of intractable migraine without mention of status migrainosus Episodic tension-type headache, not intractable Episodic tension type headache [facility] Diagnosis RLS (restless legs syndrome) Restless legs syndrome (RLS) Anxiety Anxiety state, unspecified [facility] Diagnosis Closed fracture of body of sternum with routine healing, subsequent encounter [facility] Diagnosis Closed fracture of body of sternum, initial encounter- Primary Mild intermittent asthma with acute exacerbation Unspecified asthma, with exacerbation Cough Closed fracture of one rib of left side, initial encounter Acute cough [facility]* Diagnosis Encounter for screening for osteoporosis Special screening for osteoporosis Asymptomatic postmenopausal status Closed fracture of body of sternum with routine healing, subsequent encounter [facility] Diagnosis APPOINTMENT CANCELLED- Primary RLS (restless legs syndrome) Restless legs syndrome (RLS) Anxiety Anxiety state, unspecified [facility] Diagnosis RLS (restless legs syndrome) Restless legs syndrome (RLS) Anxiety Anxiety state, unspecified [facility] Diagnosis RLS (restless legs syndrome) Restless legs syndrome (RLS) Anxiety Anxiety state, unspecified [facility] Diagnosis Obstructive sleep apnea (adult) (pediatric)- Primary RLS (restless legs syndrome) Restless legs syndrome (RLS) Anxiety Anxiety state, unspecified [facility] Diagnosis Encounter for gynecological examination (general) [...] tension type headache [facility] Diagnosis Migraine without aura and without status migrainosus, not intractable- Primary Migraine without aura, without mention of intractable migraine without mention of status migrainosus [facility] Diagnosis SELINA (obstructive sleep apnea)- Primary Obstructive sleep apnea (adult) (pediatric) RLS (restless legs syndrome) Restless legs syndrome (RLS) Anxiety Anxiety state, unspecified [facility]* Diagnosis RLS (restless legs syndrome)- Primary Restless legs syndrome (RLS) Long-term current use of benzodiazepine SELINA (obstructive sleep apnea) Obstructive sleep apnea (adult) (pediatric) Anxiety Anxiety state, unspecified [facility] Diagnosis RLS (restless legs syndrome) Restless legs syndrome (RLS) Anxiety Anxiety state, unspecified [facility] Diagnosis RLS (restless legs syndrome)- Primary Restless legs syndrome (RLS) Long-term current use of benzodiazepine SELINA (obstructive sleep apnea) Obstructive sleep apnea (adult) (pediatric) Anxiety Anxiety state, unspecified [facility] Diagnosis Routine medical exam- Primary Routine [...] fracture Senile osteoporosis [facility] Diagnosis URI, acute- Primary Acute upper respiratory infections of unspecified site [facility]* Diagnosis RLS (restless legs syndrome) Restless legs syndrome (RLS) Anxiety Anxiety state, unspecified [facility] Diagnosis Encounter for gynecological examination (general) (routine) without abnormal findings- Primary Encounter for screening mammogram for breast cancer [facility] Diagnosis Upper respiratory tract infection, unspecified type- Primary Sinus congestion Other diseases of nasal cavity and sinuses Bronchiectasis without complication (HCC) Bronchiectasis without acute exacerbation Acute non-recurrent frontal sinusitis Chest wall discomfort Painful respiration [facility] Diagnosis RLS (restless legs syndrome)- Primary Restless legs syndrome (RLS) Anxiety Anxiety state, unspecified Long-term current use of benzodiazepine SELINA (obstructive sleep apnea) Obstructive sleep apnea (adult) (pediatric) documented [facility] Diagnosis Opacities of both lungs present on chest x-ray- Primary Upper respiratory tract infection, unspecified type Sinus congestion Other diseases of nasal cavity and sinuses Bronchiectasis without complication (HCC) Bronchiectasis without acute exacerbation Chest wall discomfort Painful respiration Cough [facility]* Diagnosis Chest pain, unspecified type- Primary Chest pain, unspecified type [facility] Diagnosis Chronic cough- Primary Cough Moderate persistent asthma, uncomplicated Unspecified asthma Allergic rhinitis, unspecified seasonality, unspecified trigger SELINA (obstructive sleep apnea) Obstructive sleep apnea (adult) (pediatric) Pulmonary infiltrates Other nonspecific abnormal finding of lung field Chest pain, unspecified type [facility]* Diagnosis Moderate persistent asthma, uncomplicated Unspecified asthma [facility]* Diagnosis Moderate persistent asthma, uncomplicated Unspecified asthma [facility] Diagnosis Pulmonary infiltrates Other nonspecific abnormal finding of lung field documented in this encounter [facility] for referral (narrative)* Diagnostic Procedure Only (Routine) - Authorized Specialty Diagnoses / Procedures Referred By Junior t Referred To Contact [facility] Diagnoses Encounter for gynecological examination (general) (routine) without abnormal findings Encounter for screening mammogram for breast cancer Procedures NILSON SCREENING SCREENING MAMMOGRAPHY BI 2-VIEW BREAST INC Fausto Hallman MD [address] [place] [address] [facility] [address] [place] [address] Referral ID Status Reason Start Date Expiration Date Visits Requested Visits Authorized [id number] Authorized Auto-Generat ed Referral 2 11/12/2023 1 1 [facility] for referral (narrative)* Diagnostic Procedure Only (Routine) - Authorized Specialty Diagnoses / Procedures Referred By Junior marques Referred To Contact [facility] Diagnoses Encounter for gynecological examination (general) (routine) without abnormal findings Encounter for screening mammogram for breast cancer Procedures NILSON SCREENING SCREENING MAMMOGRAPHY BI 2-VIEW BREAST INC Fausto Hallman MD [address] [place] [address] [facility] [address] [place] [id number] Referral ID Status Reason Start Date Expiration Date Visits Requested Visits Authorized [id number] Authorized Auto-Generat ed Referral 3 11/13/2024 1 1 [facility] for visit Narrative* Outpatient Procedure (Routine) - Closed Specialty Diagnoses / Procedures Referred By Junior marques Referred To Contact [facility] Diagnoses Moderate persistent asthma, uncomplicated Procedures SPIROMETRY - BASELINE AND POST DILATOR BRNCDILAT RSPSE SPMTRY PRE&POST-BRNCDILAT ADMN Zeb Ramos MD [address] [place] [address] [facility] [place] [address] [place] [id number] Referral ID Status Reason Start Date Expiration Date V isits Requested Visits Authorized [id number] Closed Auto-Generate d Referral 12/15/2023 01/13/2025 1 1 [facility] Summary Purpose Family History No Family History Records FoundNo Family History Records FoundNo Family History Records FoundNo Family History Records FoundNo Family History Records Found Advance Directives No Advanced Directives Records FoundDocuments on File Type Date Recorded Patient Bulker Expl anation Advance Directive(s) 09/19/2020 9:04 AM Advance Directive(s) 09/10/2020 5:54 PM Advance Directive(s) 10/04/2018 11:46 AM Advance Directive(s) 09/09/2018 9:27 AM Documents on File Type Date Recorded Patient Bulker Expl anation Advance Directive(s) 09/19/2020 9:04 AM Advance Directive(s) 09/10/2020 5:54 PM Advance Directive(s) 10/04/2018 11:46 AM Advance Directive(s) 09/09/2018 9:27 AM Documents on File Type Date Recorded Patient Bulker Expl anation Advance Directive(s) 04/25/2022 8:08 PM Advance Directive(s) 09/19/2020 9:04 AM Advance Directive(s) 09/10/2020 5:54 PM Advance Directive(s) 10/04/2018 11:46 AM Advance Directive(s) 09/09/2018 9:27 AM Reason for Referral Specialty Diagnoses / Procedures Referred By Contac t Referred To Contact Diagnoses Migraine without aura and without status migrainosus, not intractable Episodic tension-type headache, not intractable Procedures PROVIDER ORDERED FOLLOW UP OFFICE/OUTPATIENT NEW HIGH MDM 60-74 MINUTES Sandy Ramirez DO [address] [place] [address] Sandy Ramirez DO [address] [place] [id number] Referral ID Status Reason Start Date Expiration Date Visits Requested Visits Authorized [id number] Pending Review PCP Requested Referral 2 04/14/2023 1 1 Specialty Diagnoses / Procedures Referred By Contac t Referred To Contact Diagnoses Migraine without aura and without status migrainosus, not intractable Procedures PROVIDER ORDERED FOLLOW UP OFFICE/OUTPATIENT NEW HIGH MDM 60-74 MINUTES Beka Small PA-C [facility] [address] [place] [address] Referral ID Status Reason Start Date Expiration Date Visits Requested Visits Authorized [id number] Pending Review PCP Requested Referral 04/15/2023 10/15/2023 1 1 Specialty Diagnoses / Procedures Referred By Contac t Referred To Contact CT IMAGING Diagnoses Pulmonary infiltrates Procedures CT CHEST WO IVCON DIAGNOSTIC COMPUTED TOMOGRAPHY THORAX W/O CNTRST Zeb Ramos MD [address] [place] [address] Ct Imaging [place] [id number] Referral ID Status Reason Start Date Expiration Date Visits Requested Visits Authorized [id number] Authorized Auto-Generat ed Referral 12/15/2023 01/13/2025 1 1 Specialty Diagnoses / Procedures Referred By Contac t Referred To [facility] Diagnoses Moderate persistent asthma, uncomplicated Procedures LUNG DIFFUSION CAPACITY (DLCO) DIFFUSING CAPACITY Zeb Ramos MD [address] [place] [address] Respiratory [place] [id number] Referral ID Status Reason Start Date Expiration Date Visits Requested Visits Authorized [id number] Authorized Auto-Generat ed Referral 12/29/2023 11/01/2024 1 1 Specialty Diagnoses / Procedures Referred By Contac t Referred To [facility] Diagnoses Moderate persistent asthma, uncomplicated Procedures LUNG VOLUMES PLETHYSMOGRAPHY LUNG VOLUMES W/WO AIRWAY RESIST Zeb Ramos MD [address] [place] [address] [facility] [place] [address] [place], [place] [id number] Referral ID Status Reason Start Date Expiration Date Visits Requested Visits Authorized [id number] Authorized Auto-Generat ed Referral 12/29/2023 11/01/2024 1 1 Specialty Diagnoses / Procedures Referred By Contac t Referred To [facility] Diagnoses Moderate persistent asthma, uncomplicated Procedures NITRIC OXIDE, EXHALED NITRIC OXIDE GAS DETERMINATION Zeb Ramos MD [address] [place] [address] [address] Referral ID Status Reason Start Date Expiration Date Visits Requested Visits Authorized [id number] Authorized Auto-Generat ed Referral 12/29/2023 11/01/2024 1 1 Specialty Diagnoses / Procedures Referred By Contac t Referred To Contact [facility] Diagnoses Moderate persistent asthma, uncomplicated Procedures SPIROMETRY - BASELINE AND POST DILATOR BRNCDILAT RSPSE SPMTRY PRE&POST-BRNCDILAT Zeb Gracia MD [address] [place] [address] [facility] [place] [address] [place] [address] Referral ID Status Reason Start Date Expiration Date Visits Requested Visits Authorized [id number] Authorized Auto-Generat ed Referral 12/15/2023 01/13/2025 1 1 Referral ID Status Reason Start Date Expiration Date V isits Requested Visits Authorized [id number] Closed Auto-Generate d Referral 12/15/2023 01/13/2025 1 1 Additional Source Comments INFORMATION SOURCE (unrecogn ized section and content) DATE CREATED AUTHOR AUTHOR'S ORGANIZ ATION 05/22/2021 [facility] DATE CREATED AUTHOR AUTHOR'S ORGANIZ ATION 12/09/2023 [facility] DATE CREATED AUTHOR AUTHOR'S ORGANIZ ATION 12/31/2023 [facility] DATE CREATED AUTHOR AUTHOR'S ORGANIZ ATION 01/01/2024 [facility] Source Comments (unrecognize d section and content) In the event this informatio n is protected by the Federal Confidentiality of Alcohol and Drug Abuse Patient Records regulations: The Federal rules restrict any use of the information to criminally investigate or prosecute any alcohol or drug abuse patient.[facility] the event this information is protected by the Federal Confidentiality of Alcohol and Drug Abuse Patient Records regulations: The Federal rules restrict any use of the information to criminally investigate or prosecute any alcohol or drug abuse patient.[facility] the event this information is protected by the Federal Confidentiality of Alcohol and Drug Abuse Patient Records regulations: The Federal rules restrict any use of the information to criminally investigate or prosecute any alcohol or drug abuse patient.[facility] the event this information is protected by the Federal Confidentiality of Alcohol and Drug Abuse Patient Records regulations: The Federal rules restrict any use of the information to criminally investigate or prosecute any alcohol or drug abuse patient.[facility] the event this information is protected by the Federal Confidentiality of Alcohol and Drug Abuse Patient Records regulations: The Federal rules restrict any use of the information to criminally investigate or prosecute any alcohol or drug abuse patient.[facility] the event this information is protected by the Federal Confidentiality of Alcohol and Drug Abuse Patient Records regulations: The Federal rules restrict any use of the information to criminally investigate or prosecute any alcohol or drug abuse patient.[facility] the event this information is protected by the Federal Confidentiality of Alcohol and Drug Abuse Patient Records regulations: The Federal rules restrict any use of the information to criminally investigate or prosecute any alcohol or drug abuse patient.[facility] the event this information is protected by the Federal Confidentiality of Alcohol and Drug Abuse Patient Records regulations: The Federal rules restrict any use of the information to criminally investigate or prosecute any alcohol or drug abuse patient.[facility] the event this information is protected by the Federal Confidentiality of Alcohol and Drug Abuse Patient Records regulations: The Federal rules restrict any use of the information to criminally investigate or prosecute any alcohol or drug abuse patient.[facility] the event this information is protected by the Federal Confidentiality of Alcohol and Drug Abuse Patient Records regulations: The Federal rules restrict any use of the information to criminally investigate or prosecute any alcohol or drug abuse patient.[facility] the event this information is protected by the Federal Confidentiality of Alcohol and Drug Abuse Patient Records regulations: The Federal rules restrict any use of the information to criminally investigate or prosecute any alcohol or drug abuse patient.[facility] the event this information is protected by the Federal Confidentiality of Alcohol and Drug Abuse Patient Records regulations: The Federal rules restrict any use of the information to criminally investigate or prosecute any alcohol or drug abuse patient.[facility] the event this information is protected by the Federal Confidentiality of Alcohol and Drug Abuse Patient Records regulations: The Federal rules restrict any use of the information to criminally investigate or prosecute any alcohol or drug abuse patient.[facility] the event this information is protected by the Federal Confidentiality of Alcohol and Drug Abuse Patient Records regulations: The Federal rules restrict any use of the information to criminally investigate or prosecute any alcohol or drug abuse patient.[facility] the event this information is protected by the Federal Confidentiality of Alcohol and Drug Abuse Patient Records regulations: The Federal rules restrict any use of the information to criminally investigate or prosecute any alcohol or drug abuse patient.[facility] the event this information is protected by the Federal Confidentiality of Alcohol and Drug Abuse Patient Records regulations: The Federal rules restrict any use of the information to criminally investigate or prosecute any alcohol or drug abuse patient.[facility] the event this information is protected by the Federal Confidentiality of Alcohol and Drug Abuse Patient Records regulations: The Federal rules restrict any use of the information to criminally investigate or prosecute any alcohol or drug abuse patient.[facility] the event this information is protected by the Federal Confidentiality of Alcohol and Drug Abuse Patient Records regulations: The Federal rules restrict any use of the information to criminally investigate or prosecute any alcohol or drug abuse patient.[facility] the event this information is protected by the Federal Confidentiality of Alcohol and Drug Abuse Patient Records regulations: The Federal rules restrict any use of the information to criminally investigate or prosecute any alcohol or drug abuse patient.[facility] the event this information is protected by the Federal Confidentiality of Alcohol and Drug Abuse Patient Records regulations: The Federal rules restrict any use of the information to criminally investigate or prosecute any alcohol or drug abuse patient.[facility] the event this information is protected by the Federal Confidentiality of Alcohol and Drug Abuse Patient Records regulations: The Federal rules restrict any use of the information to criminally investigate or prosecute any alcohol or drug abuse patient.[facility] the event this information is protected by the Federal Confidentiality of Alcohol and Drug Abuse Patient Records regulations: The Federal rules restrict any use of the information to criminally investigate or prosecute any alcohol or drug abuse patient.[facility] the event this information is protected by the Federal Confidentiality of Alcohol and Drug Abuse Patient Records regulations: The Federal rules restrict any use of the information to criminally investigate or prosecute any alcohol or drug abuse patient.[facility] the event this information is protected by the Federal Confidentiality of Alcohol and Drug Abuse Patient Records regulations: The Federal rules restrict any use of the information to criminally investigate or prosecute any alcohol or drug abuse patient.[facility] the event this information is protected by the Federal Confidentiality of Alcohol and Drug Abuse Patient Records regulations: The Federal rules restrict any use of the information to criminally investigate or prosecute any alcohol or drug abuse patient.[facility] the event this information is protected by the Federal Confidentiality of Alcohol and Drug Abuse Patient Records regulations: The Federal rules restrict any use of the information to criminally investigate or prosecute any alcohol or drug abuse patient.[facility] the event this information is protected by the Federal Confidentiality of Alcohol and Drug Abuse Patient Records regulations: The Federal rules restrict any use of the information to criminally investigate or prosecute any alcohol or drug abuse patient.[facility] the event this information is protected by the Federal Confidentiality of Alcohol and Drug Abuse Patient Records regulations: The Federal rules restrict any use of the information to criminally investigate or prosecute any alcohol or drug abuse patient.[facility] the event this information is protected by the Federal Confidentiality of Alcohol and Drug Abuse Patient Records regulations: The Federal rules restrict any use of the information to criminally investigate or prosecute any alcohol or drug abuse patient.[facility] the event this information is protected by the Federal Confidentiality of Alcohol and Drug Abuse Patient Records regulations: The Federal rules restrict any use of the information to criminally investigate or prosecute any alcohol or drug abuse patient.[facility] the event this information is protected by the Federal Confidentiality of Alcohol and Drug Abuse Patient Records regulations: The Federal rules restrict any use of the information to criminally investigate or prosecute any alcohol or drug abuse patient.[facility] the event this information is protected by the Federal Confidentiality of Alcohol and Drug Abuse Patient Records regulations: The Federal rules restrict any use of the information to criminally investigate or prosecute any alcohol or drug abuse patient.[facility] the event this information is protected by the Federal Confidentiality of Alcohol and Drug Abuse Patient Records regulations: The Federal rules restrict any use of the information to criminally investigate or prosecute any alcohol or drug abuse patient.[facility] the event this information is protected by the Federal Confidentiality of Alcohol and Drug Abuse Patient Records regulations: The Federal rules restrict any use of the information to criminally investigate or prosecute any alcohol or drug abuse patient.[facility] the event this information is protected by the Federal Confidentiality of Alcohol and Drug Abuse Patient Records regulations: The Federal rules restrict any use of the information to criminally investigate or prosecute any alcohol or drug abuse patient.[facility] the event this information is protected by the Federal Confidentiality of Alcohol and Drug Abuse Patient Records regulations: The Federal rules restrict any use of the information to criminally investigate or prosecute any alcohol or drug abuse patient.[facility] the event this information is protected by the Federal Confidentiality of Alcohol and Drug Abuse Patient Records regulations: The Federal rules restrict any use of the information to criminally investigate or prosecute any alcohol or drug abuse patient.[facility] the event this information is protected by the Federal Confidentiality of Alcohol and Drug Abuse Patient Records regulations: The Federal rules restrict any use of the information to criminally investigate or prosecute any alcohol or drug abuse patient.[facility] the event this information is protected by the Federal Confidentiality of Alcohol and Drug Abuse Patient Records regulations: The Federal rules restrict any use of the information to criminally investigate or prosecute any alcohol or drug abuse patient.[facility] Reason for Visit (unrecogniz ed section and content) Specialty Diagnoses / Procedures Referred By Contdemario t Referred To Contact Diagnoses Migraine without aura and without status migrainosus, not intractable Episodic tension-type headache, not intractable Procedures PROVIDER ORDERED FOLLOW UP OFFICE/OUTPATIENT NEW HIGH MDM 60-74 MINUTES Sandy Ramirez DO [address] [place] [address] Sandy Ramirez DO [address] [place] [address] Referral ID Status Reason Start Date Expiration Date Visits Requested Visits Authorized [id number] Pending Review PCP Requested Referral 2 04/14/2023 [...] 10/12/2023 Reason Comments Yearly Exam With Mammogram Reason Comments Established Patient Reason Comments Appointment Reason Comments CARD New Patient Consult [facility] - CP - woke her up. heaviness and pressure. Chest pain (pins and needles feeling and pain mid-sternal and on right side) for several weeks - saw Pulm (told it was muscle-skeletal )Told to see Cardio for chest pain Reason Comments Bronchiectasis Lung concerns Reason Comments Spirometry Specialty Diagnoses / Procedures Referred By Junior marques Referred To [facility]PIRATORY [facility]RIAN Diagnoses Moderate persistent asthma, uncomplicated Procedures NITRIC OXIDE, EXHALED NITRIC OXIDE GAS DETERMINATION Zeb Ramos MD [address] [place] [address] [place] [address] [place] [address] Referral ID Status Reason Start Date Expiration Date V isits Requested Visits Authorized [id number] Closed Auto-Generate d Referral 12/29/2023 11/01/2024 1 1 Specialty Diagnoses / Procedures Referred By Contac Referred To [facility]PIRATORY [facility]RIAN Diagnoses Moderate persistent asthma, uncomplicated Procedures LUNG DIFFUSION CAPACITY (DLCO) DIFFUSING CAPACITY Zeb Ramos MD [address] [place] [address] [address] Referral ID Status Reason Start Date Expiration Date V isits Requested Visits Authorized [id number] Closed Auto-Generate d Referral 12/29/2023 11/01/2024 1 1 Specialty Diagnoses / Procedures Referred By Contac t Referred To Contact [facility] Diagnoses Moderate persistent asthma, uncomplicated Procedures LUNG VOLUMES PLETHYSMOGRAPHY LUNG VOLUMES W/WO AIRWAY RESIST Zeb Ramos MD [address] [place] [address] [facility] [place] [address] [place] [address] Referral ID Status Reason Start Date Expiration Date V isits Requested Visits Authorized [id number] Closed Auto-Generate d Referral 12/29/2023 11/01/2024 [address] Specialty Diagnoses / Procedures Referred By Contac t Referred To Contact CT IMAGING Diagnoses Pulmonary infiltrates Procedures CT CHEST WO IVCON DIAGNOSTIC COMPUTED TOMOGRAPHY THORAX W/O CNTRST Zeb Ramos MD [address] [place] [address] [place] [address] Referral ID Status Reason Start Date Expiration Date V isits Requested Visits Authorized [id number] Closed Auto-Generate d Referral 12/15/2023 01/13/2025 1 1 Care Teams (unrecognized sec tion and content) Junior Business Analyst Relationship Specialty Start Date End Date Michi Guzman MD [facility] [place] [address] PCP - General Internal Medicine 04/03/22 Junior Business Analyst Relationship Specialty Start Date End Date Michi Guzman MD [facility] [place] [address] PCP - General Internal Medicine 04/03/22 Junior Business Analyst Relationship Specialty Start Date End Date Michi Guzman MD [address] [place] [address] PCP - General Internal Medicine 04/03/22 Junior Business Analyst Relationship Specialty Start Date End Date Michi Guzman MD [address] [place] [address] PCP - General Internal Medicine 04/03/22 Junior Business Analyst Relationship Specialty Start Date End Date Michi Guzman MD [address] [place] [address], [place] [address] PCP - General Internal Medicine 04/03/22 Junior Business Analyst Relationship Specialty Start Date End Date Michi Guzman MD [address] [place] [address], [place] [address] PCP - General Internal Medicine 04/03/22 Junior Business Analyst Relationship Specialty Start Date End Date Michi Guzman MD [address] [place] [address], [place] [address] PCP - General Internal Medicine 04/03/22 Junior Business Analyst Relationship Specialty Start Date End Date Michi Guzman MD [address] [place] [address], [place] [address] PCP - General Internal Medicine 04/03/22 Junior Business Analyst Relationship Specialty Start Date End Date Michi Guzman MD [address] [place] [address], [place] [address] PCP - General Internal Medicine 04/03/22 Junior Business Analyst Relationship Specialty Start Date End Date Michi Guzman MD [address] [place] [address], [place] [address] PCP - General Internal Medicine 04/03/22 Junior Business Analyst Relationship Specialty Start Date End Date Michi Guzman MD [address] [place] [address], [place] [address] PCP - General Internal Medicine 04/03/22 Junior Business Analyst Relationship Specialty Start Date End Date Michi Guzman MD [address] [place] [address], [place] [address] PCP - General Internal Medicine 04/03/22 Junior Business Analyst Relationship Specialty Start Date End Date Michi Guzman MD [address] [place] [address] PCP - General Internal Medicine 04/03/22 Junior Business Analyst Relationship Specialty Start Date End Date Michi Guzman MD [address] [place] [address] PCP - General Internal Medicine 04/03/22 Junior Business Analyst Relationship Specialty Start Date End Date Michi Guzman MD [address] [place] [address] PCP - General Internal Medicine 04/03/22 Junior Business Analyst Relationship Specialty Start Date End Date Michi Guzman MD [address] [place] [address] PCP - General Internal Medicine 04/03/22 Junior Business Analyst Relationship Specialty Start Date End Date Michi Guzman MD [address] [place] [address] PCP - General Internal Medicine 04/03/22 Junior Business Analyst Relationship Specialty Start Date End Date Michi Guzman MD [address] [place] [address] PCP - General Internal Medicine 04/03/22 Junior Business Analyst Relationship Specialty Start Date End Date Michi Guzman MD [address] [place] [address] PCP - General Internal Medicine 04/03/22 Junior Business Analyst Relationship Specialty Start Date End Date Michi Guzman MD [address] [place] [address] PCP - General Internal Medicine 04/03/22 Junior Business Analyst Relationship Specialty Start Date End Date Michi Guzman MD [address] [place] [address] PCP - General Internal Medicine 04/03/22 Junior Business Analyst Relationship Specialty Start Date End Date Michi Guzman MD [address] [place] [address] PCP - General Internal Medicine 04/03/22 Junior Business Analyst Relationship Specialty Start Date End Date Michi Guzman MD [address] [place] [address] PCP - General Internal Medicine 04/03/22 Junior Business Analyst Relationship Specialty Start Date End Date Michi Guzman MD [address] [place] [address] PCP - General Internal Medicine 04/03/22 Junior Business Analyst Relationship Specialty Start Date End Date Michi Guzman MD [address] [place] [address] PCP - General Internal Medicine 04/03/22 Junior Business Analyst Relationship Specialty Start Date End Date Michi Guzman MD [address] [place] [address] PCP - General Internal Medicine 04/03/22 Junior Business Analyst Relationship Specialty Start Date End Date Michi Guzman MD [address] [place] [address] PCP - General Internal Medicine 04/03/22 Junior Business Analyst Relationship Specialty Start Date End Date Michi Guzman MD [address] [place] [address] PCP - General Internal Medicine 04/03/22 FOR [...] BE BASED ON THE PRIMARY CLINICAL RECORDS. [facility] [employer] [facility]. provides no warranty or guarantee of the accuracy or completeness of information in this document.
--- NOTE | 2024-01-03 18:51 | ED.VIS.CHEST ---
HPI History of Present Illness Chief Complaint: Chest Pain Informant: patient Onset/Context/Timing Onset: Today and Hours Activity at onset: sudden Timing: Continuous Quality: Positive for Pain and Sharp Location: Right Chest Current Severity: Mild Maximum Severity: Moderate Worsened By: Breathing Relieved By: Nothing Associated Symptoms: Negative for Nausea, Vomiting, Diaphoresis, Dyspnea, Cough, Fever, Lightheadedness, Acid Reflux or Palpitations Narrative Narrative: 53-year-old female who was seen in the emergency department for chest pain had a negative valuation was discharged home. Follow-up with her primary care physician has been on 3 different antibiotics for a URI. She is also had abnormal opacities on her chest x-ray. She has a history of asthma. She also saw a bender machine at the [facility]. They thought this may be bronchiectasis. She is also had a workup for the chest pain she had a recent heart cath done this past week with a [facility] facility and the heart cath was unremarkable. Basically today she had right-sided chest pain got worse around 4 PM. Worse with breathing. No history of DVT or PE. No leg pain or swelling. No recent travel, surgery or immobilization. No hemoptysis. She is not short of breath. This is not exertional. Prior Similar Symptoms: Yes Recent Illness/Hospitalization: No CVD Risk Factors: Negative for Hypertension, Diabetes or Smoking PE Risk Factors: Negative for Recent Travel/Surgery, Recent Immobilization, Prior DVT or PE, Cancer or OCP + Smoking + >/=35 TAD Risk Factors: Negative for Marfan's Syndrome [facility] Medical History Asthma Bronchiectasis COVID-19 Hypertension Pneumonia Right elbow pain Right hand pain Right humeral fracture Right wrist pain Home Medications azelastine 205.5 mcg (0.15 %) nasal spray 2 spray intranasal DAILY 08/15/21 [History Last Taken Unknown] clonazepam 1 mg tablet 1 mg PO DAILY 08/15/21 [History Last Taken Unknown] escitalopram oxalate 20 mg tablet 20 mg PO DAILY 08/15/21 [History Last Taken Unknown] metoprolol succinate 25 mg tablet,extended release 24 hr 12.5 mg PO DAILY 08/15/21 [History Last Taken Unknown] rizatriptan 10 mg tablet 10 mg PO DAILY PRN Migraine Headache 08/15/21 [History Last Taken Unknown] topiramate 100 mg tablet 100 mg PO BID 08/15/21 [History Last Taken Unknown] ubrogepant 100 mg tablet (Ubrelvy) 100 mg PO DAILY PRN migraine 08/15/21 [History Last Taken Unknown] albuterol sulfate 90 mcg/actuation aerosol inhaler 1 - 2 puff inhalation Q4H PRN shortness of breath 11/05/21 [History Last Taken Unknown] desloratadine 5 mg tablet 5 mg PO DAILY 11/05/21 [History Last Taken Unknown] fluticasone 100 mcg-salmeterol 50 mcg/dose blistr powdr for inhalation (Advair Diskus) 1 ea inhalation DAILY 11/05/21 [History Last Taken Unknown] amitriptyline 10 mg tablet 10 mg PO QHS 12/27/21 [History Last Taken Unknown] prednisone 20 mg tablet 40 mg (2 x 20 mg) PO DAILY 7 days #14 tabs 01/03/24 [Rx Last Taken Unknown] Allergy/AdvReac Type Severity Reaction Status Date / Time codeine Allergy Rash Verified 01/03/24 18:22 Family History Mother Sudden cardiac Father Myocardial infarction Surgical History H/O thyroidectomy History of removal of cyst History of shoulder surgery Social History number of children: 2 current occupational status: employed current occupation: [employer] Smoking Status: Never smoker alcohol intake: never substance use type: does not use seatbelt use: always do you feel safe at home: Yes additional social history: recently ROS ROS ED ROS Narrative Denies recent illness. Was treated for URI weeks ago. Review of Systems ROS Unobtainable: Denies due to encephalopathy Constitutional Constitutional ED: Denies chills or fever(s) Eyes Eyes: Reports none ENT ENT ED: Denies ear pain Cardiovascular Cardiovascular: Reports as per HPI and chest pain; Denies palpitations or racing heartbeat Respiratory/Chest Respiratory/Chest: Denies cough or dyspnea Gastrointestinal Gastrointestinal: Denies abdominal pain, constipation, diarrhea, melena, nausea or vomiting Genitourinary Genitourinary ED: Denies dysuria or hematuria Musculoskeletal Musculoskeletal: Denies arthralgias or back pain Integumentary Denies abscess Neurologic Neurologic: Denies headache(s) Psychiatric Psychiatric: Denies anxiety or depression Endocrine Endocrinology: Denies cold intolerance or heat intolerance Hematologic/Lymphatic Hematologic/Lymphatic: Denies easy bleeding, easy bruising or lymphadenopathy Allergic/Immunologic Allergic/Immunologic ED: Denies mouth swelling, tongue swelling or urticaria EXAM Physical Exam Narrative Exam Narrative: Evaluate female vital signs stable afebrile. Pulse ox 9 9% room air no signs hypoxia. No distress. H EENT exam unremarkable. Neck nontender no JVD. No lymphadenopathy. Lungs clear to auscultation bilaterally. Heart regular rhythm rate about 90 no murmur. Chest wall no reproducible pain over the chest wall. No crepitus or subcu air. Abdomen soft nontender. No peritoneal signs. No Milner sign. Moving all 4 extremities. Equal symmetrical radial pulses. 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 Calves are nontender that edema or cords. Neurologically she is awake and alert with no focal motor deficits. Const Vital Signs: 01/03/24 18:20 01/03/24 18:32 01/03/24 18:32 Temperature 97.5 F L Temperature Source Temporal Pulse Rate 95 Respiratory Rate 16 Respiratory Effort Normal Non-Labored Blood Pressure 131/93 H Blood Pressure Mean 105 Pulse Ox 99 100 Oxygen Delivery Method Room Air Room Air Positive well nourished and well developed; Negative for obese, cachectic, contractures or unkempt General Appearance ED: well developed and NAD; Negative for unkempt, cachectic, contractures or pallor Nutritional Appearance: Negative for cachectic or obese HEENT Reports moist mucous membranes; Denies dry mucous membranes normocephalic and atraumatic; Negative for trauma or tenderness Mouth ED: No dry mucous membranes Mouth: No dry mucous membranes Eyes PERRL and EOMs intact bilaterally General Eye ED: Negative for pale conjunctiva or scleral icterus Neck no lymphadenopathy, supple and no JVD General: Negative for tenderness Chest Wall inspection of chest normal and palpation of chest normal Chest: Negative for tenderness Resp normal respiratory effort and clear to auscultation bilaterally Effort and Inspection: Negative for respiratory distress Auscultation: Negative for rales, rhonchi or wheezes Cardio regular rate, regular rhythm, S1 normal heart sound, S2 normal heart sound and no murmurs Rate: Negative for bradycardia or tachycardic Rhythm: Negative for abnormal rhythm Peripheral Pulses: pulses 2+ throughout GI normal to inspection, nondistended, normoactive bowel sounds, soft to palpation, non-tender, non-distended and no masses Auscultation: Negative for hyperactive bowel sounds Palpation: Negative for splenomegaly, mass or other Back/Spine no CVA tenderness and no thoracic nor lumbar tenderness General Back: Negative for CVA tenderness Cervical Spine: Negative for cervical spine tenderness Extremity normal to inspection General Extremety ED: Negative for edema, pulses abnormal or tenderness General Extremity: Negative for edema or pulses abnormal Neuro oriented x3 and CN's II-XII intact bilaterally Sensorium / Orientation: awake, alert, oriented to person, oriented to place and oriented to time; Negative for confused, lethargic or stuporous Motor Exam: strength 5/5 throughout; Negative for general weakness Psych mental status grossly normal Appearance: Negative for unkempt Attitude: No agitated Mood & Affect: Negative for depressed, anxious or tearful Skin no rashes or lesions noted and no wounds General Skin Exam: Negative for jaundice or pallor Rashes: No rashes noted Trauma: Negative for abrasion or laceration Heart Score History: Slightly/Non-Suspicious Age: >45 - <65 years Risk Factors: No Risk Factors Troponin: </= Normal Limit Score: 1 MDM MDM MDM Narrative Medical decision making narrative: 53-year-old atypical right-sided chest pain. No history of DVT or risk factors. Recent cardiac catheterization this past week was negative. Cardiac workup with a D-dimer. Rule out PE versus pleurisy versus musculoskeletal pain versus other etiologies. She has no tenderness over her gallbladder. Repeat exam patient is doing well. We went over her test results. She still having pleuritic pain on the right she will give a dose of Toradol. We discussed treatment options. She preferred to try prednisone for possible lung lining inflammation. Outpatient follow-up with primary care physician.. History & Record Review Discussion w/independent historian: Patient Additional record(s) reviewed:: Prior inpatient record, Prior outpatient record, Prior ED visit and Prior labs Lab Data Attestation: I reviewed the patient's lab results. Lab results narrative: CBC white count of 10.1 H&H 11.6 and 36. Platelets 215. Chemistries show gap 3. Normal BUN and creatinine. Glucose 101. Troponin 8. D-dimer is normal at 0.37. Labs: Laboratory Results - last 24 hr 01/03/24 18:33 WBC 10.1 RBC 4.25 Hgb 11.6 L Hct 36.6 L MCV 86.1 MCH 27.3 MCHC 31.7 L RDW Std Deviation 46.5 H RDW Coeff of Caio 14.8 H Plt Count 215 MPV 8.4 Immature Gran % (Auto) 0.900 Neut % (Auto) 68.1 Lymph % (Auto) 20.8 [place] % (Auto) 7.7 Eos % (Auto) 2.1 Baso % (Auto) 0.4 Absolute Neuts (auto) 6.9 Absolute Lymphs (auto) 2.10 Nucleated RBC % 0 D-Dimer Quant (PE/DVT) 0.37 Sodium 141 Potassium 4.0 Chloride 113 H Carbon Dioxide 25.0 Anion Gap 3 L BUN 17 Creatinine 0.94 Estim Creat Clear Calc 63.30 Est GFR (MDRD) Af Amer 80 Est GFR (MDRD) Non-Af 66 BUN/Creatinine Ratio 18.1 Glucose 101 Calcium 9.2 Troponin I High Sens 8 Radiography Chest X-Ray - ED: 1 View, Read by ED Physician, Read by Radiologist, Heart, Lungs, Mediastinum, Bony Structures, No Acute Disease and Chronic Changes Diagnostic Testing: Clinical Impression(s) from Imaging Studies Chest X-Ray 01/03/24 18:38 IMPRESSION: No radiographic evidence of acute cardiopulmonary disease. Electronically Signed: Cesar Juarez MD at 19:19 EST Reading Location ID and State: [facility] / [place] , Service support , Chest x-ray, portable, single view interpreted by myself shows no acute abnormality. Normal cardiac silhouette. Normal mediastinum. Normal lung iqbal. No infiltrate no pneumothorax. Rhythm Strip Rhythm Strip: Sinus Rhythm Rate: 91 Ectopy: None EKG Initial EKG: Attestation: I personally reviewed and interpreted this EKG as follows: Interpretation: Sinus Rhythm and No Acute Injury Pattern Comments: Normal sinus rhythm rate 91 no acute signs of NH or ischemia. Discharge Plan Triage Chief Complaint: Chest Pain ED Provider: Rahul Denney Dx/Rx/DC Orders Clinical Impression: Chest pain, Pleurisy Instructions: Pleurisy Prescriptions: New prednisone 20 mg tablet 40 mg PO DAILY 7 Days Qty: 14 0RF No Action rizatriptan 10 mg tablet 10 mg PO DAILY PRN (Reason: Migraine Headache) clonazepam 1 mg tablet 1 mg PO DAILY metoprolol succinate 25 mg tablet extended release 24 hr 12.5 mg PO DAILY topiramate 100 mg tablet 100 mg PO BID escitalopram oxalate 20 mg tablet 20 mg PO DAILY azelastine 205.5 mcg (0.15 %) spray,non-aerosol 2 spray INTRANASAL DAILY Ubrelvy 100 mg tablet 100 mg PO DAILY PRN (Reason: migraine) desloratadine 5 mg tablet 5 mg PO DAILY fluticasone propion-salmeterol [Advair Diskus] 100-50 mcg/dose blister with device 1 ea INHALATION DAILY albuterol sulfate 90 mcg/actuation HFA aerosol inhaler 1 - 2 puff INHALATION Q4H PRN (Reason: shortness of breath) amitriptyline 10 mg tablet 10 mg PO QHS Patient Comments: TAKE 1 TABLET BY MOUTH EVERYDAY AT BEDTIME Primary Care Provider: Evelina Sherman Referrals: Evelina Sherman MD [Primary Care Provider] - 1 Week if not improving Activity Restrictions/Additional Instructions: Chest pain may be pleurisy. Or inflammation of your lung lining. It is not a blood clot. It is not your heart. Your lab tests were normal. As was your chest x-ray and EKG today. Prednisone 40 mg a day for 1 week starting tomorrow. Follow-up with your doctor if not improving. Disposition Disposition: Home, Self Care
[2024-01-03 18:56] LABS: Anion Gap 3 (5-15); BUN 17 mg/dL (7-18); BUN/Creat Ratio 18.1 RATIO (10-20); Calcium,Total 9.2 mg/dL (8.5-10.1); Chloride 113 mmol/L (98-107); Creatinine, Serum 0.94 mg/dL (0.55-1.02); EST Glomerular Filtration Rate 66 mL/min (>60); Est Glom Filt Rate - Afr Amer 80 mL/min (>60); Glucose 101 mg/dL (74-106); Sodium Level 141 mmol/L (136-145); Troponin-I HS 8 pg/mL (3.0-54.0)
[2024-01-03] MEDS: Ketorolac 30 MG/ML Syringe IV (19:36)
[2024-01-03 19:37] VITALS: BP 112/66; PULSE 86; RESP 23; TEMP 36.8; O2SAT 100
[2024-01-03 19:44] LABS: AST(SGOT) 26 U/L (15-37); Alanine Aminotransfer ALT/SGPT 36 U/L (13-56); Albumin, Serum 3.6 g/dL (3.2-5.0); Alkaline Phosphatase 39 U/L (45-117); Bilirubin, Direct 0.17 mg/dL (0.00-0.30); Globulin 2.9 g/dL (2.2-4.2); Protein, Total 6.5 g/dL (6.4-8.2)
== END 2024-01-03 19:58 | disposition home or self-care (01) ==
PROVIDERS: Emergency Provider Emergency Medicine; PCP Internal Medicine; Visit Provider Emergency Medicine
DX: R07.9 Chest pain, unspecified (principal); R09.1 Pleurisy; Z86.16 Personal history of COVID-19
CPT/HCPCS: 71045; 80048; 80076; 84484; 85025; 85379; 93005; 96374; 99284; A4216

== ENCOUNTER 2024-06-13 07:24 | Emergency (ER) | payer OTHER, SELFPAY ==
[2024-06-13 07:25] VITALS: BP 137/85; PULSE 132; RESP 18; TEMP 36.6; O2SAT 99; BMI 25.6
[2024-06-13 07:48] VITALS: O2SAT 98
--- NOTE | 2024-06-13 07:51 | EKG12_ITS ---
Test Reason : TACHY/SOB Blood Pressure : / mmHG Vent. Rate : 112 BPM Atrial Rate : 112 BPM P-R Int : 140 ms QRS Dur : 080 ms QT Int : 324 ms P-R-T Axes : 052 017 034 degrees QTc Int : 442 ms Sinus tachycardia Nonspecific ST and T wave abnormality Abnormal ECG Confirmed by BEATRIZ JAIN, MIRLANDE ([id number]), managing editor MARION GAXIOLA ([id number]) on 06/15/2024 9:28:00 AM Referred By: RAJESH Confirmed By:MIRLANDE HENDERSON MD
--- NOTE | 2024-06-13 07:53 | EX.ED.DYSGE1 ---
HPI History of Present Illness Chief Complaint: Shortness of Breath Informant: patient and family Narrative Narrative: 53-year-old female presenting to the emergency room with sore throat cough and right lower chest pain. Patient states that on Thursday she developed a scratchy throat. She developed cough and nasal congestion after that. The symptoms have persisted. She notes the pain on the right lower anterior lateral chest that is worse with coughing and movement. She denies any fever but notes that she has been taking Tylenol regularly due to the pain. She has a history of bronchiectasis and sees Dr. Sierra. No prior DVT or PE history. She has not had to use her inhaler more than normal. [facility] Medical History Hypertension Bronchiectasis Right hand pain Right wrist pain Right elbow pain Right humeral fracture COVID-19 Asthma Pneumonia Home Medications ?Medication ?Instructions ?Recorded ?Last Taken ?Type azelastine 205.5 mcg (0.15 %) 2 spray intranasal DAILY 08/15/21 Unknown History nasal spray clonazepam 1 mg tablet 1 mg PO DAILY 08/15/21 Unknown History escitalopram oxalate 20 mg tablet 20 mg PO DAILY 08/15/21 Unknown History metoprolol succinate 25 mg 12.5 mg PO DAILY 08/15/21 Unknown History tablet,extended release 24 hr rizatriptan 10 mg tablet 10 mg PO DAILY PRN Migraine 08/15/21 Unknown History Headache topiramate 100 mg tablet 100 mg PO BID 08/15/21 Unknown History ubrogepant 100 mg tablet (Ubrelvy) 100 mg PO DAILY PRN migraine 08/15/21 Unknown History albuterol sulfate 90 mcg/actuation 1 - 2 puff inhalation Q4H PRN 11/05/21 Unknown History aerosol inhaler shortness of breath desloratadine 5 mg tablet 5 mg PO DAILY 11/05/21 Unknown History fluticasone 100 mcg-salmeterol 50 1 ea inhalation DAILY 11/05/21 Unknown History mcg/dose blistr powdr for inhalation (Advair Diskus) amitriptyline 10 mg tablet 10 mg PO QHS 12/27/21 Unknown History prednisone 20 mg tablet 40 mg (2 x 20 mg) PO DAILY 7 days 01/03/24 Unknown Rx #14 tabs dexamethasone 6 mg tablet 6 mg PO DAILY #5 tabs 06/13/24 Unknown Rx nirmatrelvir 300 mg (150 mg See Rx Instructions PO .COMPLEX 06/13/24 Unknown Rx x2)-ritonavir 100 mg tablet,dose #30 tabs pack (Paxlovid) Allergy/AdvReac Type Severity Reaction Status Date / Time codeine Allergy Rash Verified 06/13/24 07:24 Family History Mother Sudden cardiac Father Myocardial infarction Surgical History H/O thyroidectomy History of shoulder surgery History of removal of cyst Social History number of children: 2 current occupational status: employed current occupation: [employer] Smoking Status: Never smoker alcohol intake: never substance use type: does not use seatbelt use: always do you feel safe at home: Yes additional social history: recently ROS ROS ED Constitutional Constitutional ED: Denies chills, fever(s) or weight loss Eyes Eyes: Denies change in vision or diplopia ENT ENT ED: Reports rhinorrhea; Denies ear pain or sore throat Cardiovascular Cardiovascular: Reports chest pain; Denies orthopnea, palpitations or racing heartbeat Respiratory/Chest Respiratory/Chest: Reports cough; Denies dyspnea or orthopnea Gastrointestinal Gastrointestinal: Denies abdominal pain, diarrhea, nausea or vomiting Genitourinary Genitourinary ED: Denies dysuria, hematuria or urinary frequency Musculoskeletal Musculoskeletal: Denies arthralgias or myalgias Integumentary Denies abscess or rash Neurologic Neurologic: Denies headache(s) or weakness Psychiatric Psychiatric: Denies anxiety, depression, suicidal ideation or suicidal thoughts Endocrine Endocrinology: Denies polydipsia, polyphagia or polyuria Allergic/Immunologic Allergic/Immunologic ED: Denies mouth swelling, tongue swelling or urticaria EXAM Physical Exam Const Vital Signs: 06/13/24 07:25 06/13/24 07:48 06/13/24 07:56 Temperature 98 F Temperature Source Temporal Pulse Rate 132 H Respiratory Rate 18 Blood Pressure 137/85 H Blood Pressure Mean 102 Pulse Ox 99 98 Oxygen Delivery Method Room Air Room Air Room Air 06/13/24 07:56 06/13/24 08:24 06/13/24 09:00 Temperature 98.2 F Temperature Source Temporal Pulse Rate 114 H 113 H 112 H Respiratory Rate 20 H 19 H 19 H Blood Pressure 102/75 128/63 H Blood Pressure Mean 84 84 Pulse Ox 98 97 Oxygen Delivery Method Room Air Room Air 06/13/24 10:02 Temperature 98.1 F Temperature Source Pulse Rate 59 L Respiratory Rate 18 Blood Pressure 128/77 H Blood Pressure Mean 94 Pulse Ox 98 Oxygen Delivery Method Positive well nourished and well developed General Appearance ED: well developed HEENT Reports normocephalic, head/scalp atraumatic and moist mucous membranes HEENT Narrative: Mild turbinate edema Eyes PERRL and EOMs intact bilaterally Neck no lymphadenopathy, supple and no JVD Chest Wall Chest Narrative: Patient splints the right lower chest when she coughs and moves. Mild tenderness to palpation. No rashes noted. Resp normal respiratory effort and clear to auscultation bilaterally Cardio regular rate, regular rhythm and no murmurs GI normal to inspection, nondistended, normoactive bowel sounds and non-tender Palpation: soft Back/Spine no CVA tenderness and normal ROM Extremity normal to inspection General Extremety ED: Negative for edema General Extremity: Negative for edema Neuro oriented x3 and CN's II-XII intact bilaterally Sensorium / Orientation: alert Motor Exam: strength 5/5 throughout Psych mental status grossly normal Mood & Affect: Negative for depressed or tearful Skin no rashes or lesions noted and no wounds MDM MDM MDM Narrative Medical decision making narrative: Differential diagnosis includes but not limited to acute bronchitis viral syndrome pneumonia pulmonary embolism ACS chest strain My independent interpretation of the chest x-ray is no definitive consolidation. White count 8.4 hemoglobin 12.2 platelet count of 177. BMP with a chloride of 111 glucose 120. COVID influenza and RSV swab returned positive for COVID-19. Patient's remained with a slight sinus tachycardia. A D-dimer was obtained which is normal. I discussed the above results with the patient and her diagnosis. I think that the right lower chest pain is most likely chest wall related. We talked about a variety of COVID-19 treatments including Paxlovid and Decadron. She would like to be prescribed those. Patient will be discharged home. History & Record Review Discussion w/independent historian: Patient and Family Lab Data Attestation: I reviewed the patient's lab results. Labs: Laboratory Results - last 24 hr 06/13/24 07:46 WBC 8.4 RBC 4.35 Hgb 12.2 Hct 37.4 MCV 86.0 MCH 28.0 MCHC 32.6 RDW Std Deviation 43.1 RDW Coeff of Caio 13.7 Plt Count 177 MPV 8.7 Immature Gran % (Auto) 0.700 Neut % (Auto) 79.0 H Lymph % (Auto) 11.2 L [place] % (Auto) 8.8 Eos % (Auto) 0.1 Baso % (Auto) 0.2 Absolute Neuts (auto) 6.6 Absolute Lymphs (auto) 0.94 Nucleated RBC % 0 D-Dimer Quant (PE/DVT) < 0.27 L Sodium 138 Potassium 3.6 Chloride 111 H Carbon Dioxide 22.0 Anion Gap 5 BUN 13 Creatinine 0.91 Estim Creat Clear Calc 71.15 Est GFR (MDRD) Af Amer 82 Est GFR (MDRD) Non-Af 68 BUN/Creatinine Ratio 14.2 Glucose 120 H Calcium 9.0 Total Bilirubin 1.20 H Direct Bilirubin 0.24 AST 28 ALT 19 Alkaline Phosphatase 42 L Total Protein 7.3 Albumin 3.6 Globulin 3.7 Radiography Diagnostic Testing: Clinical Impression(s) from Imaging Studies Chest X-Ray 06/13/24 08:10 IMPRESSION: Mild increased markings at the lung bases suggestive of atelectasis. Stable mild elevation of the right hemidiaphragm. Electronically Signed: Fazal Waldrop MD at 8:50 EDT , EKG Initial EKG: Attestation: I personally reviewed and interpreted this EKG as follows: Comments: Sinus tachycardia ventricular rate of 112 bpm. Discharge Plan Triage Chief Complaint: Shortness of Breath ED Provider: Naveen Morrow Dx/Rx/DC Orders Clinical Impression: COVID-19, Bronchiectasis Instructions: Coronavirus Disease 2019 (COVID-19): Overview, Bronchiectasis Dc Prescriptions: New Paxlovid 300 mg (150 mg x 2)-100 mg tablets,dose pack See Rx Instructions .ROUTE .COMPLEX Qty: 30 0RF Rx Instructions: take TWO 150 mg tablets of nirmatrelvir with ONE 100 mg tablet of ritonavir twice daily for 5 days dexamethasone 6 mg tablet 6 mg PO DAILY Qty: 5 0RF No Action rizatriptan 10 mg tablet 10 mg PO DAILY PRN (Reason: Migraine Headache) clonazepam 1 mg tablet 1 mg PO DAILY metoprolol succinate 25 mg tablet extended release 24 hr 12.5 mg PO DAILY topiramate 100 mg tablet 100 mg PO BID escitalopram oxalate 20 mg tablet 20 mg PO DAILY azelastine 205.5 mcg (0.15 %) spray,non-aerosol 2 spray INTRANASAL DAILY Ubrelvy 100 mg tablet 100 mg PO DAILY PRN (Reason: migraine) desloratadine 5 mg tablet 5 mg PO DAILY fluticasone propion-salmeterol [Advair Diskus] 100-50 mcg/dose blister with device 1 ea INHALATION DAILY albuterol sulfate 90 mcg/actuation HFA aerosol inhaler 1 - 2 puff INHALATION Q4H PRN (Reason: shortness of breath) amitriptyline 10 mg tablet 10 mg PO QHS Patient Comments: TAKE 1 TABLET BY MOUTH EVERYDAY AT BEDTIME prednisone 20 mg tablet 40 mg PO DAILY 7 Days Qty: 14 0RF Primary Care Provider: Evelina Sherman Referrals: Evelina Sherman MD [Primary Care Provider] - As Needed Print Language: Italian Disposition Disposition: Home, Self Care Discharge Date/Time: 06/13/24 10:13
[2024-06-13] MEDS: Ipratropium/Albuterol Sulfate 3 ML AMPUL.NEB INHALATION (07:55)
[2024-06-13 07:56] VITALS: PULSE 114; RESP 20; O2SAT 98
[2024-06-13] MEDS: Ketorolac 30 MG/ML Syringe IV (08:07)
[2024-06-13] MEDS: 0.9% Normal Saline (1000mL) 1,000 ML 1000 ML IV (08:07)
[2024-06-13 08:09] LABS: Absolute Lymphocyte Count 0.94 X10^3/uL (0.83-4.51); Absolute Neutrophil Count 6.6 X10^3/uL (2.0-7.7); Basophil# 0.02 X10^3/uL; Basophil% 0.2 % (0-1); Eosinophil# 0.01 X10^3/uL; Eosinophils% 0.1 % (0-5); Hematocrit 37.4 % (37-47); Hemoglobin 12.2 g/dL (12.0-15.0); Lymphocyte # 0.94 X10^3/ul (0.83-4.51); Lymphocyte % 11.2 % (19-41); Mean Corp Hgb Conc 32.6 g/dL (32-36); Mean Platelet Vol. 8.7 fl (6.2-12.0); Monocyte# 0.74 X10^3/uL; Monocyte% 8.8 % (0-10); NRBC Flagged by Analyzer 0 % (0-5); Neutrophil # 6.61 X10^3/uL (2.7-7.7); Platelet Count 177 K/mm3 (150-450); RBC Distribution Width CV 13.7 % (11.6-14.6); RBC Distribution Width SD 43.1 fl (35.1-43.9); Red Blood Count 4.35 M/mm3 (4.2-5.4); White Blood Count 8.4 K/mm3 (4.4-11.0)
--- NOTE | 2024-06-13 08:10 | RAD_ITS ---
STUDY: X-RAY CHEST REASON FOR EXAM: Female, 53 years old. Cough and shortness of breath. Right-sided chest pain. TECHNIQUE: Single AP portable view of the chest. COMPARISON: Comparison is made with prior study dated January 03, 2024. FINDINGS: EKG electrodes are seen. Mild increased markings at the lung bases suggestive of bibasilar atelectasis. There is no demonstrated pleural abnormality. Normal size heart. Normal mediastinum and roxane. Normal visualized pulmonary arteries. Normal visualized aortic arch and descending thoracic aorta. Normal visualized thoracic spine. Normal visualized ribs, clavicles, and shoulders. There is no demonstrated abnormality of the visualized soft tissue structures of the upper abdomen. RAD/Chest 1 View (Portable) IMPRESSION: Mild increased markings at the lung bases suggestive of atelectasis. Stable mild elevation of the right hemidiaphragm. Electronically Signed: Fazal Waldrop MD at 8:50 EDT ,
[2024-06-13 08:24] VITALS: BP 102/75; PULSE 113; RESP 19; O2SAT 98
[2024-06-13 08:36] LABS: AST(SGOT) 28 U/L (15-37); Alanine Aminotransfer ALT/SGPT 19 U/L (13-56); Albumin, Serum 3.6 g/dL (3.2-5.0); Alkaline Phosphatase 42 U/L (45-117); Anion Gap 5 (5-15); BUN 13 mg/dL (7-18); BUN/Creat Ratio 14.2 RATIO (10-20); Bilirubin, Direct 0.24 mg/dL (0.00-0.30); Chloride 111 mmol/L (98-107); Creatinine, Serum 0.91 mg/dL (0.55-1.02); EST Glomerular Filtration Rate 68 mL/min (>60); Est Glom Filt Rate - Afr Amer 82 mL/min (>60); Estimated Creatinine Clearance 71.15 ml/min; Globulin 3.7 g/dL (2.2-4.2); Glucose 120 mg/dL (74-106); Potassium 3.6 mmol/L (3.5-5.1); Protein, Total 7.3 g/dL (6.4-8.2); Sodium Level 138 mmol/L (136-145)
[2024-06-13 09:00] VITALS: BP 128/63; PULSE 112; RESP 19; TEMP 36.8; O2SAT 97
[2024-06-13 09:34] LABS: D-Dimer Quantitative (DVT/PE) < 0.27 FEU/ug/m (0.27-0.49)
[2024-06-13 10:02] VITALS: BP 128/77; PULSE 59; RESP 18; TEMP 36.7; O2SAT 98
== END 2024-06-13 10:13 | disposition home or self-care (01) ==
PROVIDERS: Emergency Provider Emergency Medicine; PCP Internal Medicine; Visit Provider Emergency Medicine
DX: U07.1 COVID-19 (principal); J47.9 Bronchiectasis, uncomplicated; I10 Essential (primary) hypertension; J45.909 Unspecified asthma, uncomplicated
CPT/HCPCS: 71045; 80048; 80076; 85025; 85379; 87631; 93005; 94640; 96361; 96374; 99283; J7030; A4216